=== PATIENT | female | born 2000 | race Caucasian/White ===

== ENCOUNTER → 2022-12-24 | Outpatient (CLI) | payer BC, SELFPAY ==
[2022-12-24 16:13] LABS: Absolute Lymphocyte Count 2.14 X10^3/uL (0.83-4.51); Absolute Neutrophil Count 8.9 X10^3/uL (2.0-7.7); Basophil# 0.03 X10^3/uL; Basophil% 0.3 % (0-1); Eosinophil# 0.06 X10^3/uL; Eosinophils% 0.5 % (0-5); Hematocrit 41.8 % (37-47); Lymphocyte # 2.14 X10^3/ul (0.83-4.51); Lymphocyte % 17.8 % (19-41); Mean Corp Hgb Conc 33.5 g/dL (32-36); Mean Corpuscular Hgb 28.9 pg (27.0-32.0); Mean Corpuscular Volume 86.2 fL (81-99); Mean Platelet Vol. 9.5 fl (6.2-12.0); Monocyte% 6.7 % (0-10); NRBC Flagged by Analyzer 0 % (0-5); Neutrophil # 8.92 X10^3/uL (2.7-7.7); Neutrophil % 74.4 % (47-70); Platelet Count 416 K/mm3 (150-450); RBC Distribution Width CV 12.2 % (11.6-14.6); RBC Distribution Width SD 38.3 fl (35.1-43.9); Red Blood Count 4.85 M/mm3 (4.2-5.4)
[2022-12-24 17:01] LABS: NATERA MAILED SPECIMEN
[2022-12-24 17:51] LABS: HIV - WCH Non-Reactive (Nonreactive); Hepatitis B Surface Antigen Non-Reactive (Nonreactive); Hepatitis C Antibody Non-Reactive (Nonreactive); Rubella IgG Reactive (Nonreactive); Syphilis Antibodies Non-reactive
[2022-12-28 07:07] LABS: Chlamydia By Nucleic Acid AMP Negative (Negative)
[2022-12-28 20:18] LABS: Gonococcus By Nucleic Acid AMP Negative (Negative)
[2023-01-01 18:45] LABS: HPV Reflexed? NOT INDICATED
== END | disposition home or self-care (01) ==
PROVIDERS: PCP Family Medicine; Referring Provider Obstetrics & Gynecology; Visit Provider Obstetrics & Gynecology
DX: Z34.90 Encounter for supervision of normal pregnancy, unspecified, unspecified trimester (principal)
CPT/HCPCS: 36415; 85025; 86703; 86762; 86780; 86803; 86850; 86900; 86901; 87086; 87340; 87491; 87591; 88175; G0145

== ENCOUNTER 2023-03-09 14:38 | Outpatient (CLI) | payer BC, SELFPAY ==
[2023-03-09] VITALS (10 sets, daily range): BP systolic 122; BP diastolic 65; PULSE 75–86; TEMP 36.5; O2SAT 97–99; BMI 29.0
--- NOTE | 2023-03-10 13:24 | OB.TRI.PN_ITS ---
Progress Notes Date of Service: 03/09/23 Progress Note: Patient presents for triage evaluation secondary to abd trauma the previous day FHT: 150 Appropriate variability for gestational age, reactive no decelerations category I tracing [place]: no Contractions Assessment and plan: Reactive NST, SM to room for ultrasound-reassuring, reassuring maternal and status patient discharged to home to follow-up at next appointment. See problem list details for additional plan information. Charges/Coding Multi Select Codes Urinary/Genital Urinary/Genital CPT Codes: 48661-51 non-stress test Interp
== END 2023-03-09 16:25 | disposition home or self-care (01) ==
LOC: WPOUT 14:45 → WP 14:47
PROVIDERS: PCP Family Medicine; Referring Provider Advanced Practice Midwife; Visit Provider Advanced Practice Midwife
DX: O9A.219 Injury, poisoning and certain other consequences of external causes complicating pregnancy, unspecified trimester (principal); S39.91XA Unspecified injury of abdomen, initial encounter; Z3A.00 Weeks of gestation of pregnancy not specified; X58.XXXA Exposure to other specified factors, initial encounter
CPT/HCPCS: 59050; 76815

== ENCOUNTER → 2023-04-29 | Outpatient (CLI) | payer BC, SELFPAY ==
[2023-04-29 12:45] LABS: Absolute Neutrophil Count 6.5 X10^3/uL (2.0-7.7); Basophil# 0.03 X10^3/uL; Basophil% 0.3 % (0-1); Eosinophil# 0.06 X10^3/uL; Eosinophils% 0.7 % (0-5); Hematocrit 37.4 % (37-47); Hemoglobin 12.1 g/dL (12.0-15.0); Lymphocyte % 19.6 % (19-41); Mean Corp Hgb Conc 32.4 g/dL (32-36); Mean Corpuscular Hgb 28.9 pg (27.0-32.0); Mean Corpuscular Volume 89.3 fL (81-99); Mean Platelet Vol. 9.5 fl (6.2-12.0); Monocyte# 0.71 X10^3/uL; Monocyte% 7.7 % (0-10); NRBC Flagged by Analyzer 0 % (0-5); Neutrophil # 6.51 X10^3/uL (2.7-7.7); Neutrophil % 70.9 % (47-70); Platelet Count 334 K/mm3 (150-450); RBC Distribution Width CV 12.5 % (11.6-14.6); RBC Distribution Width SD 40.8 fl (35.1-43.9); Red Blood Count 4.19 M/mm3 (4.2-5.4); White Blood Count 9.2 K/mm3 (4.4-11.0)
[2023-04-29 13:07] LABS: Glucose Challenge Gest 1H 50g 97 mg/dL (70-140)
[2023-04-29 13:37] LABS: HIV - WCH Non-Reactive (Nonreactive); Syphilis Antibodies Non-reactive
== END | disposition home or self-care (01) ==
LOC: LAB 12:09
PROVIDERS: PCP Family Medicine; Referring Provider Obstetrics & Gynecology; Visit Provider Obstetrics & Gynecology
DX: O09.90 Supervision of high risk pregnancy, unspecified, unspecified trimester (principal); Z3A.00 Weeks of gestation of pregnancy not specified
CPT/HCPCS: 36415; 82950; 85025; 86703; 86780

== ENCOUNTER → 2023-06-10 | Outpatient (CLI) | payer BC, SELFPAY | END | disposition home or self-care (01) | LOC: LABSPEC 15:07 | PROVIDERS: PCP Family Medicine; Referring Provider Nurse Practitioner Women's Health; Visit Provider Nurse Practitioner Women's Health | DX: R30.0 Dysuria (principal) | CPT/HCPCS: 87086; 87088 ==

== ENCOUNTER → 2023-06-25 | Outpatient (CLI) | payer BC, SELFPAY | END | disposition home or self-care (01) | PROVIDERS: PCP Family Medicine; Referring Provider Obstetrics & Gynecology; Visit Provider Obstetrics & Gynecology | DX: O09.90 Supervision of high risk pregnancy, unspecified, unspecified trimester (principal); Z3A.00 Weeks of gestation of pregnancy not specified | CPT/HCPCS: 87077; 87081; 87186 ==

== ENCOUNTER 2023-06-30 18:15 | Outpatient (CLI) | payer BC, SELFPAY ==
[2023-06-30 18:38] VITALS: PULSE 157; O2SAT 80
[2023-06-30 18:43] VITALS: PULSE 104; TEMP 37.9; O2SAT 98
[2023-06-30 18:45] VITALS: BP 127/77; PULSE 96
[2023-06-30 19:03] VITALS: BMI 32.5
[2023-06-30 19:05] VITALS: TEMP 37.4
--- NOTE | 2023-07-02 07:23 | OB.TRI.HP_ITS ---
HPI - General HPI Narrative FAREED YOUNG, is a 23 Fy/p a@ 36 weeks 6 days who presents to L&D due to decreased movement for a non-stress test. Maternal Data Information NORMA Calculator Estimated Delivery Date Method Current WG Current Estimate 07/22/23 LMP (Certain) 37w 1d Other Estimates 07/20/23 Ultrasound #1 37w 3d PFSH PFSH Home Medications multivitamin no.47-iron fum 27 mg-folate no.1 1 mg-dha 300 mg capsule (PNV-DHA) 1 cap PO DAILY 12/17/22 [History Last Taken 06/29/23] Allergy/AdvReac Type Severity Reaction Status Date / Time No Known Allergies Allergy Verified 06/30/23 19:02 Family History Brother Autism Sister Family history of recurrent miscarriage Social History adopted: No household members: spouse housing: house current occupational status: employed 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/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 pets and animals: Yes (not managing litterbox) pets and animals: cat(s) history of recent travel: Yes ([place]) out of state: Yes out of country: No sexually active: Yes Smoking Status: Never smoker alcohol intake: never substance use type: does not use well-balanced diet: about half the time caffeine: Yes Type: coffee Number of servings: 1 eating out: 1-3 times/week during the past year weight has: remained stable what type of physical activity do you participate in: walking frequency: 1-2 times per week duration: 60-90 minutes/day allen/congregation: Yazdanism seatbelt use: always do you feel safe at home: Yes additional 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: Shaquille- Ab History 1 Elective abortions Hx Para 0 Spontaneous abortions Hx # Term Pregnancies Ectopic pregnancies Hx # Pregnancies Multiple births # of living children Visit Details Expected Delivery Route/Plan Labor Preferences- CB/BF classes: discussed labor support person: Shaquille labor intervention preferences: [] pain management options preferred: natural-open to epidural if needed cut cord/dad catch: [] : yes PP control planned: [] discussed possible routes of delivery and associated risks: [] special requests: [] Plans Covid status: [] Flu vaccine: [] Tdap vaccine: discussed at 28 week visit. may get at 30 week appt. Rhogam: NA LARC form signed: done Problem list reviewed and updated with the most current plan of care details and appropriate orders placed. Relevant counseling for the gestational age provided. Continue routine care and follow up unless otherwise noted in visit notes/problem list details OB Flowsheet Initial Weight: Not Recorded Date -?-?-?-?-?-?-?-?-?-?-?-?- EGA Weight BP Urine Prot -?-?-?-?-?-?-?-?-?-?-?-?- Glucose FHR FuHt Pres Dilation -?-?-?-?-?-?-?-?-?-?-?-?- Effaced St Visit Note 12/24/22 -?-?-?-?-?-?-?-?-?-?-?-?- 10w 0d 167 lb 8 oz 121/76 -?-?-?-?-?-?-?-?-?-?-?-?- 180 -?-?-?-?-?-?-?-?-?-?-?-?- JV- single live IUP measuring 10 weeks 2 days and consistent with LMP. desires NIPT only. 01/19/23 -?-?-?-?-?-?-?-?-?-?-?-?- 13w 5d 168 lb 4 oz 123/76 Nega tive -?-?-?-?-?-?-?-?-?-?-?-?- Negative 165 -?-?-?-?-?-?-?-?-?-?-?-?- JV- no complaint s. normal NIPT boy 02/15/23 -?-?-?-?-?-?-?-?-?-?-?-?- 17w 4d 166 lb 8 oz 128/78 -?-?-?-?-?-?-?-?-?-?-?-?- 155 -?-?-?-?-?-?-?-?-?-?-?-?- LC- no concerns. no vb/cramping. declines afp. has anatomy scheduled. 03/17/23 -?-?-?-?-?-?-?-?-?-?-?-?- 21w 6d 173 lb 8 oz 108/70 Nega tive -?-?-?-?-?-?-?-?-?-?-?-?- Negative 145 -?-?-?-?-?-?-?-?-?-?-?-?- JV- anatomy scan reviewed and normal. no complaints. 04/14/23 -?-?-?-?-?-?-?-?-?-?-?-?- 25w 6d 182 lb 8 oz 121/71 Nega tive -?-?-?-?-?-?-?-?-?-?-?-?- Negative 145 26 -?-?-?-?-?-?-?-?-?-?-?-?- KW-+ FM, no lof/ vb/ctx. no complaints. Has to redo GCT-was late to draw 04/30/23 -?-?-?-?-?-?-?-?-?-?-?-?- 28w 1d 185 lb 8 oz 122/62 Nega tive -?-?-?-?-?-?-?-?-?-?-?-?- Negative 150 27 -?-?-?-?-?-?-?-?-?-?-?-?- KW-+fm, no lof/v b/cramping. labs reviewed-nl. Larc done. Tdap discussed. no concerns 05/14/23 -?-?-?-?-?-?-?-?-?-?-?-?- 30w 1d 188 lb 4 oz 94/68 Nega tive -?-?-?-?-?-?-?-?-?-?-?-?- Negative 145 31 -?-?-?-?-?-?-?-?-?-?-?-?- Kw-+fm. no lof/v b/ctx. no concerns 05/28/23 -?-?-?-?-?-?-?-?-?-?-?-?- 32w 1d 190 lb 121/74 Negative -?-?-?-?-?-?-?-?-?-?-?-?- Negative 155 32 -?-?-?-?-?-?-?-?-?-?-?-?- LC- no ctx/lof/v b. good fm. online CBE. would like to review pref sheet. 06/07/23 -?-?-?-?-?-?-?-?-?-?-?-?- 33w 4d 193 lb 2 oz 112/73 Nega tive -?-?-?-?-?-?-?-?-?-?-?-?- Negative 140 33 -?-?-?-?-?-?-?-?-?-?-?-?- KW-+fm, no lof/v b/ctx. no concerns today. 06/10/23 -?-?-?-?-?-?-?-?-?-?-?-?- 34w 0d 194 lb 104/70 Negative -?-?-?-?-?-?-?-?-?-?-?-?- Negative 146 34 0 -?-?-?-?-?-?-?-?-?-?-?-?- -work in for b ack pain, pressure. + UA. Cervix closed and no blood in vagina. Urine culture pending. Macrobid sent 06/25/23 -?-?-?-?-?-?-?-?-?-?-?-?- 36w 1d 195 lb 2 oz 107/75 Nega tive -?-?-?-?-?-?-?-?-?-?-?-?- Negative 130 35 -?-?-?-?-?-?-?-?-?-?-?-?- JV- gbs today. l abor precautions discussed. NST FHR Rate Baby A Baseline: 150 Variability:: Moderate Accelerations:: 15 x 15 Decelerations:: None NST Reactive:: Yes FHR Category:: Category I Uterine Activity:: occasional contractions Assessment & Plan (1) Decreased movement: (2) Positive GBS test: (3) UTI in : QUALIFIERS: Trimester: third trimester Qualified Code(s): O23.43 - Unspecified infection of urinary tract in , third trimester COMMENT: Rx macrobid. Culture pending (4) Supervision of high risk , antepartum: COMMENT: [id number], NORMA 07/22/23 Shaquille (5) : QUALIFIERS: Weeks of gestation: 36 weeks Qualified Code(s): Z3A.36 - 36 weeks gestation of COMMENT: NIPT low risk, discussed carrier testing, anatomy nl (6) Family history of recurrent miscarriage: COMMENT: sister- 6 miscarriages (7) Family history of autism: COMMENT: Brother PLAN: Plan NST is reactive and patient is now feeling movement dc to home with kick counts Charges/Coding Multi Select Codes Urinary/Genital Urinary/Genital CPT Codes: 53011-47 non-stress test Interp
--- NOTE | 2023-07-02 07:23 | OB.TRI.NOTE ---
HPI - General HPI Narrative FAREED YOUNG, is a 23 Fy/p a@ 36 weeks 6 days who presents to L&D due to decreased movement for a non-stress test. Maternal Data Information NORMA Calculator Estimated Delivery Date Method Current WG Current Estimate 07/22/23 LMP (Certain) 37w 1d Other Estimates 07/20/23 Ultrasound #1 37w 3d PFSH PFSH Home Medications multivitamin no.47-iron fum 27 mg-folate no.1 1 mg-dha 300 mg capsule (PNV-DHA) 1 cap PO DAILY 12/17/22 [History Last Taken 06/29/23] Allergy/AdvReac Type Severity Reaction Status Date / Time No Known Allergies Allergy Verified 06/30/23 19:02 Family History Brother Autism Sister Family history of recurrent miscarriage Social History adopted: No household members: spouse housing: house current occupational status: employed 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 pets and animals: Yes (not managing litterbox) pets and animals: cat(s) history of recent travel: Yes ([place]) out of state: Yes out of country: No sexually active: Yes Smoking Status: Never smoker alcohol intake: never substance use type: does not use well-balanced diet: about half the time caffeine: Yes Type: coffee Number of servings: 1 eating out: 1-3 times/week during the past year weight has: remained stable what type of physical activity do you participate in: walking frequency: 1-2 times per week duration: 60-90 minutes/day allen/hindu: Scientologist seatbelt use: always do you feel safe at home: Yes additional 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: Shaquille- Ab History 1 Elective abortions Hx Para 0 Spontaneous abortions Hx # Term Pregnancies Ectopic pregnancies Hx # Pregnancies Multiple births # of living children Visit Details Expected Delivery Route/Plan Labor Preferences- CB/BF classes: discussed labor support person: Shaquille labor intervention preferences: [] pain management options preferred: natural-open to epidural if needed cut cord/dad catch: [] : yes PP control planned: [] discussed possible routes of delivery and associated risks: [] special requests: [] Plans Covid status: [] Flu vaccine: [] Tdap vaccine: discussed at 28 week visit. may get at 30 week appt. Rhogam: NA LARC form signed: done Problem list reviewed and updated with the most current plan of care details and appropriate orders placed. Relevant counseling for the gestational age provided. Continue routine care and follow up unless otherwise noted in visit notes/problem list details OB Flowsheet Initial Weight: Not Recorded Date <del>?</del> EGA Weight BP Urine Prot <del>?</del> Glucose FHR FuHt Pres Dilation <del>?</del> Effaced St Visit Note 12/24/22 <del>?</del> 10w 0d 167 lb 8 oz 121/76 <del>?</del> 180 <del>?</del> JV- single live IUP measuring 10 weeks 2 days and consistent with LMP. desires NIPT only. 01/19/23 <del>?</del> 13w 5d 168 lb 4 oz 123/76 Negative <del>?</del> Negative 165 <del>?</del> JV- no complaints. normal NIPT boy 02/15/23 <del>?</del> 17w 4d 166 lb 8 oz 128/78 <del>?</del> 155 <del>?</del> LC- no concerns. no vb/cramping. declines afp. has anatomy scheduled. 03/17/23 <del>?</del> 21w 6d 173 lb 8 oz 108/70 Negative <del>?</del> Negative 145 <del>?</del> JV- anatomy scan reviewed and normal. no complaints. 04/14/23 <del>?</del> 25w 6d 182 lb 8 oz 121/71 Negative <del>?</del> Negative 145 26 <del>?</del> KW-+ FM, no lof/vb/ctx. no complaints. Has to redo GCT-was late to draw 04/30/23 <del>?</del> 28w 1d 185 lb 8 oz 122/62 Negative <del>?</del> Negative 150 27 <del>?</del> KW-+fm, no lof/vb/cramping. labs reviewed-nl. Larc done. Tdap discussed. no concerns 05/14/23 <del>?</del> 30w 1d 188 lb 4 oz 94/68 Negative <del>?</del> Negative 145 31 <del>?</del> Kw-+fm. no lof/vb/ctx. no concerns 05/28/23 <del>?</del> 32w 1d 190 lb 121/74 Negative <del>?</del> Negative 155 32 <del>?</del> LC- no ctx/lof/vb. good fm. online CBE. would like to review pref sheet. 06/07/23 <del>?</del> 33w 4d 193 lb 2 oz 112/73 Negative <del>?</del> Negative 140 33 <del>?</del> KW-+fm, no lof/vb/ctx. no concerns today. 06/10/23 <del>?</del> 34w 0d 194 lb 104/70 Negative <del>?</del> Negative 146 34 0 <del>?</del> MH-work in for back pain, pressure. + UA. Cervix closed and no blood in vagina. Urine culture pending. Macrobid sent 06/25/23 <del>?</del> 36w 1d 195 lb 2 oz 107/75 Negative <del>?</del> Negative 130 35 <del>?</del> JV- gbs today. labor precautions discussed. NST FHR Rate Baby A Baseline: 150 Variability:: Moderate Accelerations:: 15 x 15 Decelerations:: None NST Reactive:: Yes FHR Category:: Category I Uterine Activity:: occasional contractions Assessment & Plan (1) Decreased movement: (2) Positive GBS test: (3) UTI in : QUALIFIERS: Trimester: third trimester Qualified Code(s): O23.43 - Unspecified infection of urinary tract in , third trimester COMMENT: Rx macrobid. Culture pending (4) Supervision of high risk , antepartum: COMMENT: [id number], NORMA 07/22/23 Shaquille (5) : QUALIFIERS: Weeks of gestation: 36 weeks Qualified Code(s): Z3A.36 - 36 weeks gestation of COMMENT: NIPT low risk, discussed carrier testing, anatomy nl (6) Family history of recurrent miscarriage: COMMENT: sister- 6 miscarriages (7) Family history of autism: COMMENT: Brother PLAN: Plan NST is reactive and patient is now feeling movement dc to home with kick counts Charges/Coding Multi Select Codes Urinary/Genital Urinary/Genital CPT Codes: 24869-47 non-stress test Interp
== END 2023-06-30 19:25 | disposition home or self-care (01) ==
LOC: WPOUT 18:26 → WP 18:26
PROVIDERS: PCP Family Medicine; Referring Provider Obstetrics & Gynecology; Visit Provider Obstetrics & Gynecology
DX: O36.8130 Decreased fetal movements, third trimester, not applicable or unspecified (principal); O23.43 Unspecified infection of urinary tract in pregnancy, third trimester; Z3A.36 36 weeks gestation of pregnancy
CPT/HCPCS: 59025; 59050; 99221; G0378

== ENCOUNTER 2023-07-28 06:59 | Inpatient (IN) | payer BC, SELFPAY ==
[2023-07-28] VITALS (36 sets, daily range): BP systolic 100–139; BP diastolic 56–80; PULSE 67–109; TEMP 36–36.9; O2SAT 93–100; BMI 33.7
[2023-07-28] MEDS: Lactated Ringers 1,000 ML 50 ML IV (07:45)
[2023-07-28 08:03] LABS: Absolute Lymphocyte Count 1.89 X10^3/uL (0.83-4.51); Absolute Neutrophil Count 8.4 X10^3/uL (2.0-7.7); Basophil# 0.03 X10^3/uL; Basophil% 0.3 % (0-1); Eosinophil# 0.07 X10^3/uL; Eosinophils% 0.6 % (0-5); Hematocrit 38.2 % (37-47); Hemoglobin 12.1 g/dL (12.0-15.0); Lymphocyte # 1.89 X10^3/ul (0.83-4.51); Lymphocyte % 16.5 % (19-41); Mean Corp Hgb Conc 31.7 g/dL (32-36); Mean Corpuscular Hgb 26.2 pg (27.0-32.0); Mean Corpuscular Volume 82.7 fL (81-99); Mean Platelet Vol. 10.2 fl (6.2-12.0); Monocyte# 0.92 X10^3/uL; NRBC Flagged by Analyzer 0 % (0-5); Neutrophil # 8.44 X10^3/uL (2.7-7.7); Neutrophil % 73.8 % (47-70); Platelet Count 267 K/mm3 (150-450); RBC Distribution Width CV 13.3 % (11.6-14.6); RBC Distribution Width SD 39.8 fl (35.1-43.9); Red Blood Count 4.62 M/mm3 (4.2-5.4); White Blood Count 11.4 K/mm3 (4.4-11.0)
--- NOTE | 2023-07-28 08:24 | HP.PCM.OB_ITS ---
HPI - General General Date of Admission: 07/28/23 HPI Narrative FAREED YOUNG, is a 23 y/o @ 40 weeks 5 days who presents to L&D for Induction of labor Maternal Data Information NORMA Calculator Estimated Delivery Date Method Current WG Current Estimate 07/22/23 LMP (Certain) 40w 6d Other Estimates 07/20/23 Ultrasound #1 41w 1d PFSH PFSH Medical History no medical history Home Medications multivitamin no.47-iron fum 27 mg-folate no.1 1 mg-dha 300 mg capsule (PNV-DHA) 1 cap PO DAILY 12/17/22 [History Last Taken 07/26/23 21:00 1 cap] Allergy/AdvReac Type Severity Reaction Status Date / Time No Known Allergies Allergy Verified 07/28/23 07:35 Family History Brother Autism Sister Family history of recurrent miscarriage Social History adopted: No household members: spouse housing: house current occupational status: employed 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 pets and animals: Yes (not managing litterbox) pets and animals: cat(s) history of recent travel: Yes ([place]) out of state: Yes out of country: No sexually active: Yes Smoking Status: Never smoker alcohol intake: never substance use type: does not use well-balanced diet: about half the time caffeine: Yes Type: coffee Number of servings: 1 eating out: 1-3 times/week during the past year weight has: remained stable what type of physical activity do you participate in: walking frequency: 1-2 times per week duration: 60-90 minutes/day allen/sabianism: Anglican seatbelt use: always do you feel safe at home: Yes additional 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: 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 may get at 30 week appt. Rhogam: NA LARC form signed: done Problem list reviewed and updated with the most current plan of care details and appropriate orders placed. Relevant counseling for the gestational age provided. Continue routine care and follow up unless otherwise noted in visit notes/problem list details OB Flowsheet Initial Weight: Not Recorded Date -?-?-?-?-?-?-?-?-?-?-?-?- EGA Weight BP Urine Prot -?-?-?-?-?-?-?-?-?-?-?-?- Glucose FHR FuHt Pres Dilation -?-?-?-?-?-?-?-?-?-?-?-?- Effaced St Visit Note 12/24/22 -?-?-?-?-?-?-?-?-?-?-?-?- 10w 0d 167 lb 8 oz 121/76 -?-?-?-?-?-?-?-?-?-?-?-?- 180 -?-?-?-?-?-?-?-?-?-?-?-?- JV- single live IUP measuring 10 weeks 2 days and consistent with LMP. desires NIPT only. 01/19/23 -?-?-?-?-?-?-?-?-?-?-?-?- 13w 5d 168 lb 4 oz 123/76 Nega tive -?-?-?-?-?-?-?-?-?-?-?-?- Negative 165 -?-?-?-?-?-?-?-?-?-?-?-?- JV- no complaint s. normal NIPT boy 02/15/23 -?-?-?-?-?-?-?-?-?-?-?-?- 17w 4d 166 lb 8 oz 128/78 -?-?-?-?-?-?-?-?-?-?-?-?- 155 -?-?-?-?-?-?-?-?-?-?-?-?- LC- no concerns. no vb/cramping. declines afp. has anatomy scheduled. 03/17/23 -?-?-?-?-?-?-?-?-?-?-?-?- 21w 6d 173 lb 8 oz 108/70 Nega tive -?-?-?-?-?-?-?-?-?-?-?-?- Negative 145 -?-?-?-?-?-?-?-?-?-?-?-?- JV- anatomy scan reviewed and normal. no complaints. 04/14/23 -?-?-?-?-?-?-?-?-?-?-?-?- 25w 6d 182 lb 8 oz 121/71 Nega tive -?-?-?-?-?-?-?-?-?-?-?-?- Negative 145 26 -?-?-?-?-?-?-?-?-?-?-?-?- KW-+ FM, no lof/ vb/ctx. no complaints. Has to redo GCT-was late to draw 04/30/23 -?-?-?-?-?-?-?-?-?-?-?-?- 28w 1d 185 lb 8 oz 122/62 Nega tive -?-?-?-?-?-?-?-?-?-?-?-?- Negative 150 27 -?-?-?-?-?-?-?-?-?-?-?-?- KW-+fm, no lof/v b/cramping. labs reviewed-nl. Larc done. Tdap discussed. no concerns 05/14/23 -?-?-?-?-?-?-?-?-?-?-?-?- 30w 1d 188 lb 4 oz 94/68 Nega tive -?--?-?-?-?-?-?-?-?-?-?-?- Negative 145 31 -?-?-?-?-?-?-?-?-?-?-?-?- Kw-+fm. no lof/v b/ctx. no concerns 05/28/23 -?-?-?-?-?-?-?-?-?-?-?-?- 32w 1d 190 lb 121/74 Negative -?-?-?-?-?-?-?-?-?-?-?-?- Negative 155 32 -?-?-?-?-?-?-?-?-?-?-?-?- LC- no ctx/lof/v b. good fm. online CBE. would like to review pref sheet. 06/07/23 -?-?-?-?-?-?-?-?-?-?-?-?- 33w 4d 193 lb 2 oz 112/73 Nega tive -?-?-?-?-?-?-?-?-?-?-?-?- Negative 140 33 -?-?-?-?-?-?-?-?-?-?-?-?- KW-+fm, no lof/v b/ctx. no concerns today. 06/10/23 -?-?-?-?-?-?-?-?-?-?-?-?- 34w 0d 194 lb 104/70 Negative -?-?-?-?-?-?-?-?-?-?-?-?- Negative 146 34 0 -?-?-?-?-?-?-?-?-?-?-?-?- -work in for b ack pain, pressure. + UA. Cervix closed and no blood in vagina. Urine culture pending. Macrobid sent 06/25/23 -?-?-?-?-?-?-?-?-?-?-?-?- 36w 1d 195 lb 2 oz 107/75 Nega tive -?-?-?-?-?-?-?-?-?-?-?-?- Negative 130 35 -?-?-?-?-?-?-?-?-?-?-?--?- JV- gbs today. l abor precautions discussed. 07/02/23 -?-?-?-?-?-?-?-?-?-?-?-?- 37w 1d 195 lb 8 oz 116/74 -?-?-?-?-?-?-?-?-?-?-?-?- 130 37 -?-?-?-?-?-?-?-?-?-?-?-?- SM- no vb lof go od fm no regular ctx 07/09/23 -?-?-?-?-?-?-?-?-?-?-?-?- 38w 1d 197 lb 122/75 Negative -?-?-?-?-?-?-?-?-?-?-?-?- Negative 150 37 1 -?-?-?-?-?-?-?-?-?-?-?-?- 50 -2 LC- no vb/ ctx/lof. good fm. labor comfort techniques reviewed. 07/16/23 -?-?-?-?-?-?-?-?-?-?-?-?- 39w 1d 200 lb 4 oz 137/83 Nega tive -?-?-?-?-?-?-?-?-?-?-?-?- Negative 155 39 -?-?-?-?-?-?-?-?-?-?-?-?- KW-no vb/ctx/lof . goof fm. labor precautions reviewed. no concerns today 07/23/23 -?-?-?-?-?-?-?-?-?-?-?-?- 40w 1d 202 lb 4 oz 121/81 Nega tive -?-?-?-?-?-?-?-?-?-?-?-?- Negative 135 38 Cephalic 2 -?-?-?-?-?-?-?-?-?-?-?-?- 80 -2 JV- JV- no lof, vaginal bleeding , or dec fm. no complaints. IOL set up for next wednesday07/27/23 -?-?-?-?-?-?-?-?-?-?-?-?- 40w 5d 205 lb 6 oz 113/74 Nega tive -?-?-?-?-?-?-?-?-?-?-?-?- Negative 145 41 Cephalic 2 -?-?-?-?-?-?-?-?-?-?-?-?- 80 -2 SM- no vb lof good fm no regular ctx, membranes sweapt SM- no vb lof good fm no reg ular ctx, membranes swept ROS Constitutional Constitutional: Denies change in weight, fatigue, fever(s), headache(s), poor appetite or weakness Eyes Eyes: Denies blurry vision, change in vision, seeing flashes or spots in vision ENT HEENT: Denies dizziness, headache(s), loss taste/smell or sore throat Cardiovascular Cardiovascular: Denies chest pain, dizziness, dyspnea, irregular heart rhythm, leg edema, palpitations, rapid heart rate or vomiting Respiratory/Chest Respiratory/Chest: Denies chest tightness, cough, dyspnea or breast pain Gastrointestinal Gastrointestinal: Denies abdominal pain, anorexia, constipation, cramping, diarrhea, hemorrhoids, vomiting or weight changes Genitourinary Genitourinary: Denies dysuria, flank pain, genital lesions, genital pain, urinary frequency or urinary urgency Musculoskeletal Musculoskeletal: Denies back pain, difficulty walking, joint pain, limited range of motion, muscle cramps or numbness Integumentary Integumentary: Denies lesions or unusual bruising Neurologic Neurologic: Denies abnormal movements, abnormal speech, dizziness, numbness, seizure-like activity or syncope Psychiatric Psychiatric: Denies anxiety, behavioral changes, change in appetite, change in libido, cognitive impairment, confusion, depression, difficulty concentrating, hallucinations or suicidal thoughts Endocrine Endocrinology: Denies excessive sweating, polydipsia or polyuria Hematologic/Lymphatic Hematologic/Lymphatic: Denies easy bleeding, easy bruising or lymphadenopathy Allergic/Immunologic Allergic/Immunologic: Denies itchy eyes, lip swelling, seasonal rhinorrhea, rhinitis, throat swelling, tongue swelling, eczemia, wheezing or asthma Vital Signs Vital Signs Vital Signs: 07/28/23 08:05 07/28/23 08:05 Pulse Rate 95 Blood Pressure 129/75 H BP Systolic 129 BP Diastolic 75 Weight Weight: 203 lb 0.732 oz Body Mass Index (BMI) 33.7 Physical Exam Const alert, oriented x3, no apparent distress and healthy appearing General Appearance: cooperative; Negative for anxious HEENT normocephalic Face and Sinus: normal facial exam Eyes EOMs intact bilaterally and no scleral icterus General Eye: normal appearance of both eyes Neck full ROM and supple Lymph Lymphatic: no lymphadenopathy noted Chest Chest: abnormal inspection of the chest Resp normal respiratory effort Effort and Inspection: able to speak in complete sentences Cardio regular rate GI soft to palpation and non-tender Inspection: gravid Palpation: soft; Negative for tender external exam normal Narrative: a 23 citizen of [place] cerna catheter was inserted into the cervix and inflated with 60 cc of NS. The starting point of the cervix is 2.5/80/-1. Membranes intact and vtx presentation appreciated. Back/Spine no CVA tenderness Extremity normal to inspection, full ROM and no clubbing, cyanosis or edema General Extremity: Negative for calf tenderness or edema Skin Lesions: no lesions Rashes: no rashes Psych mental status grossly normal Labs Labs Labs: Blood Type O POSITIVE Antibody Screen NEGATIVE Hct 38.2 % (37-47) Hgb 12.1 g/dL (12.0-15.0) Syphilis Total Ab Non-reactive Rubella IgG Antibody Reactive (Nonreactive) Hep Bs Antigen Non-Reactive (Nonreactive) Chlamydia DNA (SHIRAZ) Negative (Negative) Neisseria gonorrhoeae DNA (SHIRAZ) Negative (Negative) HIV 1&2 Antibody Non-Reactive (Nonreactive) Glucose 1 Hr 50 gm 97 mg/dL (70-140) Assessment & Plan (1) Positive GBS test: COMMENT: pcn in labor (2) UTI in : QUALIFIERS: Trimester: third trimester Qualified Code(s): O23.43 - Unspecified infection of urinary tract in , third trimester COMMENT: Rx macrobid. Culture pending (3) Supervision of high risk , antepartum: COMMENT: [id number], NORMA 07/22/23 boy Shaquille (4) : QUALIFIERS: Weeks of gestation: 40 weeks Qualified Code(s): Z3A.40 - 40 weeks gestation of COMMENT: NIPT low risk, discussed carrier testing, anatomy nl (5) Family history of recurrent miscarriage: COMMENT: sister- 6 miscarriages (6) Family history of autism: COMMENT: Brother PLAN: Plan Patient presents IOL, plan management for with cerna/ pitocin/AROM. Pain management: plans epidural. GBS positive- start pcn. Management of any complications: none I have reviewed the [facility] and made any clinically relevant updates.
[2023-07-28] MEDS: 0.9% Normal Saline Single 100 ML IV.SOLN. INTRA-UTER ×2 (08:28→09:41)
[2023-07-28] MEDS: Penicillin G Pot 5,000,000 UNITS in 0.9% Normal Saline (100mL MB+) 100 ML 150 UNITS IV (08:29)
[2023-07-28] MEDS: fentaNYL 100 MCG/2 ML Ampul IV (09:02)
[2023-07-28] MEDS: Oxytocin 15 Units/NS 250ml 15 UNITS/250 ML IV.SOLN 2 UNITS IV (09:23)
[2023-07-28 09:49] LABS: Syphilis Antibodies Non-reactive
--- NOTE | 2023-07-28 12:19 | PN_ITS ---
Progress Note pt is breathing through contractions. 30cc was let out of the balloon earlier due to pain and then the balloon spontaneously expelled recently. The bleeding that was seen after insertion has subsided. She consents to AROM. current tracing: FHT: 120, Moderate variability reactive no decelerations category I tracing [place]: q 2 min Contractions cx is 5/80/-1, membranes ruptured with blood tinged fluid present. A/P: pitocin backed down to 4 mu from 6 mu due to tachysystole contraction pattern and is now improved. continue monitoring. pt so far does not want an epidural but may change her mind.
[2023-07-28] MEDS: LACTATED RINGERS 500 ML 999 ML IV (12:27)
[2023-07-28] MEDS: fentaNYL-bupivacaine (epidural) 100 ML BAG EPIDURAL ×2 (13:09→17:28)
[2023-07-28] MEDS: Penicillin G 3,000,000 Units 50 ML 100 UNITS IV ×2 (13:10→17:38)
[2023-07-28] MEDS: Mag Hydrox/Al Hydrox/Simeth 30 ML UDC PO ×2 (15:32→19:21)
[2023-07-28] MEDS: Lactated Ringers 1,000 ML 200 ML IV ×2 (15:59→22:02)
[2023-07-28] MEDS: Ondansetron 4 MG/2 ML Vial IV ×2 (17:00→21:00)
[2023-07-28] MEDS: 0.9% Saline Lock 10 ML Syringe IV (17:02)
--- NOTE | 2023-07-28 17:54 | NURSING ---
catheter placement at 1410 was discontinued at 1652 due to cathter being expelled during sterile vag exam. New catheter inserted at 1715 by Hasmukh RAMÍREZ
--- NOTE | 2023-07-28 22:52 | EX.PCM.OBRPT ---
Assessment & Plan (1) Maternal exhaustion complicating labor and delivery: (2) Positive GBS test: COMMENT: pcn in labor (3) UTI in : QUALIFIERS: Trimester: third trimester Qualified Code(s): O23.43 - Unspecified infection of urinary tract in , third trimester COMMENT: Rx macrobid. Culture pending (4) Supervision of high risk , antepartum: COMMENT: [id number], NORMA 07/22/23 boy Shaquille (5) : QUALIFIERS: Weeks of gestation: 40 weeks Qualified Code(s): Z3A.40 - 40 weeks gestation of COMMENT: NIPT low risk, discussed carrier testing, anatomy nl (6) Family history of recurrent miscarriage: COMMENT: sister- 6 miscarriages (7) Family history of autism: COMMENT: Brother Maternal Data Information NORMA Calculator Estimated Delivery Date Method Current WG Current Estimate 07/22/23 LMP (Certain) 40w 6d Other Estimates 07/20/23 Ultrasound #1 41w 1d Final NORMA: 07/22/23 Final NORMA Source: LMP Gestational age: 40 weeks 6 days Vaginal Delivery Maternal Presentation Maternal Presentation: Elective Induction Type of Induction: Pitocin, Collins Bulb and Amniotomy Operative Information Date of Procedure: 07/28/23 Pre-Operative Diagnosis: 23 y/o @ 40 weeks 6 days, maternal exhaustion with pushing Post-Operative Diagnosis: 23 y/o @ 40 weeks 6 days, maternal exhaustion with pushing Type of Anesthesia: Epidural Findings Description of Procedure: Complications: None Findings: Viable male , scores 8/9. Weight pending Details of delivery: This is a 23 year old woman who was admitted to labor and delivery for post dates. The decision was made to perform a vacuum extraction due to exhaustion with pushing. The patient requested the vacuum extraction after pushing for over 2 hours. The risk benefits and alternatives of the procedure were discussed with the patient and verbal consent was obtained. The was noted to be at a +2 station, the cervix was completely dilated. The infant's head was noted to be in the right occiput anterior presentation. The vacuum was placed in the correct placement in front of the posterior fontanelle. This was confirmed digitally. With the patient's next contraction, the vacuum was inflated and a gentle downward pressure was used to assist with bringing the baby's head to a +3 station. With 2 pull, 0 pop offs, and a mediolateral episiotomy, The head was delivered atraumatically. No nuchal cord was noted. The anterior shoulder followed by the posterior shoulder were delivered without difficulty. The cord was reduced from the 's neck and shoulders after delivery. The was handed off to the patient's chest. The infant was found to be vigorous and crying and moving of all 4 extremities. The mouth and nares were bulb suctioned. After 60 second delay the cord was clamped and cut and the infant was handed off to the awaiting nurses for routine assessment. The placenta was delivered with gentle traction and uterine massage. Inspection of the vagina cervix and perineum was performed. There were no lacerations to the vagina or to the cervix. The peritoneum was found to have a 2nd degree perineal laceration. The perineal laceration was closed using a 2-0 and 3-0 Vicryl in the usual sterile fashion. The patient tolerated the procedure well sponge lap and needle counts were correct x2 and she is now recovering in stable condition. Presentation: Vertex Amniotic Membrane Rupture Type: Artificial Amniotic Fluid Description: Clear Placenta Disposition: [facility] Cord Vessel Description: 3 Vessels Cord Entanglement: Around neck x 1, tight Nuchal Cord Compression: Without compression Cord Gases: ABG and VBG Infant A Gender: Male (1 minute): 8 (5 minute): 9 Delayed Cord Clamping: Yes Post Vaginal Delivery Medications Given After Delivery: IV Pitocin Episiotomy Description: 2nd degree Laceration: 2nd degree Complication Complications: None Multi Select Codes Urinary/Genital Urinary/Genital CPT Codes: 98511 Vaginal Delivery global pkg and Other Procedure See Report (vacuum assisted vaginal delivery )
--- NOTE | 2023-07-28 22:58 | DCINST_ITS ---
Discharge Instructions Diet Discharge Diet: No restrictions Activity Discharge Activity: Return to Normal Activity, May Not Drive (while taking narcotic pain medications.) and May Shower May resume sexual activity in: 4-6 weeks Dressing / Incision Call your doctor if your incision/area has: Continuous Slow Oozing, Sudden Increased Bleeding, Increased Pain/ Swelling, Increased Redness and Foul Smelling Discharge Follow Up Care Please Follow Up With: Elli Edwards, When: Call [phone] to make an appointment with your doctor in 6 weeks. If you had elevated blood pressure or 4th degree laceration, you will need to be seen in 2 weeks. Test Results: Test results from this visit will be discussed in further detail at your follow- up appointment, if applicable. Discharge Plan Admission Admit Date/Time: 07/28/23 06:59 Primary Reason for Your Visit: vaginal delivery Attending Provider: Elli Edwards Primary Care Provider: Solitario Mccabe Discharge Orders/Prescriptions Prescriptions: No Action PNV-DHA 27 mg iron-1 mg -300 mg capsule 1 cap PO DAILY Referrals / Follow Up: Solitario Mccabe MD [Primary Care Provider] - Disposition Disposition (needs filled in before D/C Order can be placed): Home, Self Care
[2023-07-28] MEDS: Oxytocin 15 Units/NS 250ml 15 UNITS/250 ML IV.SOLN 83 UNITS IV (23:05)
[2023-07-29] VITALS (14 sets, daily range): BP systolic 116–143; BP diastolic 60–93; PULSE 90–112; RESP 16–20; TEMP 36.4–36.6; O2SAT 96–99
[2023-07-29] MEDS: Acetaminophen 500 MG Tablet 1000 MG PO ×3 (00:09→15:24)
[2023-07-29] MEDS: Benzocaine/Lanolin/Aloe Vera 1 SPRAY EACH TOPICAL (00:09)
[2023-07-29] MEDS: Senna/Docusate Sodium 1 Tablet PO (07:49)
--- NOTE | 2023-07-29 07:57 | PN.OBGYN_ITS ---
Subjective Subjective Patient doing well without complaints. Tolerating PO. Ambulating and voiding without difficulty. Feeding well. Denies chest pain, shortness of breath, calf pain/swelling, fevers, chills, lightheadedness. Objective Data Objective Data Vital Signs: Vital Signs Temp Pulse Resp BP Pulse Ox O2 Del Method 97.7 F L 99 16 119/67 98 Room Air 07/29/23 07:29 07/29/23 07:31 07/29/23 07:29 07/29/23 07:29 07/29/23 07:31 07/29/23 07:31 Oxygen Delivery Method Room Air Weight: 203 lb 0.732 oz Body Mass Index (BMI) 33.7 Intake & Output: Intake and Output for Last 24 Hours 07/27/23 07/28/23 07/29/23 23:59 23:59 23:59 Intake Total 2760.00 / 2760.00 250 / 250 Output Total 750 / 750 Balance 2009.00 / 2009. 250 / 250 Lab / Micro Data 07/28/23 07:45 Labs: Laboratory Results - last 24 hr 07/28/23 07:45: WBC 11.4 H, RBC 4.62, Hgb 12.1, Hct 38.2, MCV 82.7, MCH 26.2 L, MCHC 31.7 L, RDW Std Deviation 39.8, RDW Coeff of Claudette 13.3, Plt Count 267, MPV 10.2, Immature Gran % (Auto) 0.800, Neut % (Auto) 73.8 H, Lymph % (Auto) 16.5 L, [place] % (Auto) 8.0, Eos % (Auto) 0.6, Baso % (Auto) 0.3, Absolute Neuts (auto) 8.4 H, Absolute Lymphs (auto) 1.89, Nucleated RBC % 0, Syphilis Total Ab Non- reactive, Blood Type O POSITIVE, Antibody Screen NEGATIVE Physical Exam Const alert and oriented x3 HEENT normocephalic Eyes PERRL Neck full ROM Resp normal respiratory effort GI soft to palpation GI Narrative: FF below U Assessment & Plan (1) Vaginal delivery: COMMENT: LYRIC 07/28/23 TIMMY Perez PLAN: Plan problem list reviewed and updated for most current plan of care and appropriate orders placed. Relevant counseling for the gestational age appropriate provided and ACOG education checklist updated. Continue routine care and follow up.
--- NOTE | 2023-07-29 12:26 | NURSING ---
This nursing professor reviewed the documentation of Dylon Nolan student nurse and was present for medication administration this morning.
[2023-07-30 01:41] VITALS: BP 121/60; PULSE 81; RESP 16; TEMP 36.4; O2SAT 97
[2023-07-30 01:44] VITALS: BP 121/60; PULSE 81
--- NOTE | 2023-07-30 08:14 | PCM.PN.OB ---
Subjective Subjective Patient doing well without complaints. Tolerating PO. Ambulating and voiding without difficulty. feeding well. Denies chest pain, shortness of breath, calf pain/swelling, fevers, chills, lightheadedness. Objective Data Objective Data Vital Signs: Vital Signs Temp Pulse Resp BP Pulse Ox O2 Del Method 97.6 F L 81 16 121/60 H 97 Room Air 07/30/23 01:41 07/30/23 01:44 07/30/23 01:41 07/30/23 01:44 07/30/23 01:41 07/30/23 01:41 Oxygen Delivery Method Room Air Weight: 203 lb 0.732 oz Body Mass Index (BMI) 33.7 Intake & Output: Intake and Output for Last 24 Hours 07/28/23 07/29/23 07/30/23 23:59 23:59 23:59 Intake Total 2760.00 / 2760.00 250 / 250 Output Total 750 / 750 Balance 2009. / 2009. 250 / 250 Lab / Micro Data 07/28/23 07:45 ROS Constitutional Constitutional: Reports systems reviewed and no addt'l complaints, except as documented Cardiovascular Cardiovascular: Reports systems reviewed and no addt'l complaints, except as documented Respiratory/Chest Respiratory/Chest: Reports systems reviewed and no addt'l complaints, except as documented Gastrointestinal Gastrointestinal: Reports systems reviewed and no addt'l complaints, except as documented Physical Exam Const alert, oriented x3 and no apparent distress HEENT Head and Scalp: atraumatic Resp normal respiratory effort GI soft to palpation and non-tender Bimanual Exam - Vag & Uterus: uterus non-tender Uterus Palpation: uterus fundus firm (below Umbilicus) Assessment & Plan (1) Vaginal delivery: COMMENT: LYRIC 07/28/23 TIMMY Perez PLAN: Plan s/p PPD # 2 1. routine post delivery care 2. breast feeding- support given 3. rh positive 4. rubella immune
[2023-07-30 09:10] VITALS: BP 130/77; PULSE 90; RESP 18; TEMP 36.5; O2SAT 98
[2023-07-30 10:02] VITALS: BP 130/77; PULSE 90
== END 2023-07-30 12:15 | disposition home or self-care (01) | DRG 807 ==
PROVIDERS: Admitting Provider Obstetrics & Gynecology; PCP Family Medicine; Referring Provider Obstetrics & Gynecology; Visit Provider Obstetrics & Gynecology
DX: O75.81 Maternal exhaustion complicating labor and delivery (principal); Z37.0 Single live birth; O69.81X0 Labor and delivery complicated by cord around neck, without compression, not applicable or unspecified; O99.824 Streptococcus B carrier state complicating childbirth; O70.1 Second degree perineal laceration during delivery; Z3A.40 40 weeks gestation of pregnancy; Z84.89 Family history of other specified conditions
CPT/HCPCS: 59025; 59050; 85025; 86780; 86850; 86900; 86901; 99221; J7120; A4216; G0378; J2405

== ENCOUNTER → 2024-10-27 | Outpatient (CLI) | payer BC, SELFPAY ==
[2024-10-30 21:06] LABS: Chlamydia By Nucleic Acid AMP Negative (Negative); Gonococcus By Nucleic Acid AMP Negative (Negative)
== END | disposition home or self-care (01) ==
LOC: LABSPEC 15:20
PROVIDERS: PCP Family Medicine; Referring Provider Advanced Practice Midwife; Visit Provider Advanced Practice Midwife
DX: Z34.90 Encounter for supervision of normal pregnancy, unspecified, unspecified trimester (principal)
CPT/HCPCS: 87086; 87491; 87591

== ENCOUNTER → 2024-11-28 | Outpatient (CLI) | payer BC, SELFPAY ==
[2024-11-28 12:35] LABS: Absolute Lymphocyte Count 1.76 X10^3/uL (0.83-4.51); Absolute Neutrophil Count 5.6 X10^3/uL (2.0-7.7); Basophil# 0.03 X10^3/uL; Basophil% 0.4 % (0-1); Eosinophil# 0.05 X10^3/uL; Eosinophils% 0.6 % (0-5); Hemoglobin 13.6 g/dL (12.0-15.0); Lymphocyte # 1.76 X10^3/ul (0.83-4.51); Lymphocyte % 22.1 % (19-41); Mean Corp Hgb Conc 33.2 g/dL (32-36); Mean Corpuscular Hgb 28.3 pg (27.0-32.0); Mean Corpuscular Volume 85.2 fL (81-99); Mean Platelet Vol. 9.7 fl (6.2-12.0); Monocyte# 0.51 X10^3/uL; Monocyte% 6.4 % (0-10); NRBC Flagged by Analyzer 0 % (0-5); Neutrophil # 5.58 X10^3/uL (2.7-7.7); Neutrophil % 70.2 % (47-70); Platelet Count 328 K/mm3 (150-450); RBC Distribution Width CV 11.9 % (11.6-14.6); RBC Distribution Width SD 36.2 fl (35.1-43.9); Red Blood Count 4.81 M/mm3 (4.2-5.4)
[2024-11-28 22:10] LABS: HIV - WCH Non-Reactive (Nonreactive); Hepatitis B Surface Antigen Non-Reactive (Nonreactive); Hepatitis C Antibody Non-Reactive (Nonreactive); Rubella IgG Reactive (Nonreactive); Syphilis Antibodies Non-reactive
== END | disposition home or self-care (01) ==
LOC: BWCLAB 11:53
PROVIDERS: Advanced Practice Midwife; PCP Family Medicine; Referring Provider Obstetrics & Gynecology; Visit Provider Obstetrics & Gynecology
DX: Z34.90 Encounter for supervision of normal pregnancy, unspecified, unspecified trimester (principal)
CPT/HCPCS: 36415; 85025; 86703; 86762; 86780; 86803; 86850; 86900; 86901; 87340

== ENCOUNTER → 2025-02-27 | Outpatient (CLI) | payer BC, SELFPAY ==
[2025-02-27 12:12] LABS: Absolute Lymphocyte Count 1.73 X10^3/uL (0.83-4.51); Basophil# 0.03 X10^3/uL; Basophil% 0.3 % (0-1); Eosinophil# 0.06 X10^3/uL; Eosinophils% 0.5 % (0-5); Hematocrit 36.9 % (37-47); Hemoglobin 12.3 g/dL (12.0-15.0); Lymphocyte # 1.73 X10^3/ul (0.83-4.51); Lymphocyte % 14.8 % (19-41); Mean Corp Hgb Conc 33.3 g/dL (32-36); Mean Corpuscular Hgb 28.9 pg (27.0-32.0); Mean Corpuscular Volume 86.6 fL (81-99); Mean Platelet Vol. 10.1 fl (6.2-12.0); Monocyte# 0.81 X10^3/uL; Monocyte% 6.9 % (0-10); NRBC Flagged by Analyzer 0 % (0-5); Neutrophil # 9.02 X10^3/uL (2.7-7.7); Platelet Count 325 K/mm3 (150-450); RBC Distribution Width CV 13.1 % (11.6-14.6); RBC Distribution Width SD 41.1 fl (35.1-43.9); Red Blood Count 4.26 M/mm3 (4.2-5.4); White Blood Count 11.7 K/mm3 (4.4-11.0)
[2025-02-27 12:54] LABS: Glucose Challenge Gest 1H 50g 78 mg/dL (70-140); HIV Nonreactive (Nonreactive); Syphilis Antibodies Nonreactive (Nonreactive)
== END | disposition home or self-care (01) ==
PROVIDERS: Registered Nurse; PCP Family Medicine; Referring Provider Obstetrics & Gynecology; Visit Provider Obstetrics & Gynecology
DX: Z34.82 Encounter for supervision of other normal pregnancy, second trimester (principal); Z81.8 Family history of other mental and behavioral disorders
CPT/HCPCS: 36415; 82950; 85025; 86703; 86780

== ENCOUNTER 2025-04-23 20:15 | Outpatient (CLI) | payer BC, SELFPAY ==
[2025-04-23 20:28] VITALS: BP 112/62; PULSE 94
--- NOTE | 2025-04-23 22:40 | OB.TRI.HP_ITS ---
HPI - General General Date of Service: 04/23/25 HPI Narrative FAREED LORENZO, is a 25 F who presents at 34 weeks s/p fall onto her buttocks while carrying her son around 1900. denies ctx, vb. however has not felt movement since. Maternal Data Information NORMA Calculator Estimated Delivery Date Method Current WG Current Estimate 06/04/25 LMP (Certain) 34w 0d Other Estimates 06/03/25 Ultrasound #1 34w 1d PFSH PFSH Medical History Vaginal delivery Family history of recurrent miscarriage Home Medications ?Medication ?Instructions ?Recorded ?Last Taken ?Type multivitamin no.47-iron fum 27 1 cap PO DAILY PREGNANC Y 12/17/22 07/26/23 21:00 History mg-folate no.1 1 mg-dha 300 mg 1 cap capsule (PNV-DHA) Allergy/AdvReac Type Severity Reaction Status Date / Time No Known Allergies Allergy Verified 04/10/25 10:43 Family History Brother Autism Sister Family history of recurrent miscarriage Mother Thyroid cancer, Onset Age: 52 Sister Thyroid cancer, Onset Age: 40 Thyroid removed Father Myocardial infarction, Onset Age: 54 Social History adopted: No household members: spouse and children housing: house number of children: 1 current occupational status: employed 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 @ [employer] current occupational exposures/hazards: No pets and animals: Yes (not managing litterbox) pets and animals: cat(s) history of recent travel: Yes ([place] - August 2024) out of state: Yes out of country: No sexually active: Yes Smoking Status: Never smoker alcohol intake: never substance use type: does not use well-balanced diet: daily or most days caffeine: No eating out: rarely or never during the past year weight has: remained stable what type of physical activity do you participate in: walking frequency: daily duration: < 15 minutes/day allen/buddhist: Jainism seatbelt use: always do you feel safe at home: Yes additional 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: : Shaquille- Ab History 2 Elective abortions Hx Para 1 Spontaneous abortions Hx # Term Pregnancies 1 Ectopic pregnancies Hx # Pregnancies Multiple births # of living children 1 Past Pregnancies Del. Date Name GA/Weeks Outcome Route Bth Weight Infant Gen Labor Lgth Anesthesia Del Locatn Provider FOB 07/28/23 Chris 40 live - full term vacuum 9lbs 5oz Male ep idural [facility] Dr. Isabel Delivery Date: 07/28/23 Last Updated by: Cesilia Hernandez GBS + Visit Details Expected Delivery Route/Plan Labor Preferences- CB/BF classes: no labor support person: Shaquille labor intervention preferences: [] pain management options preferred: epidural if requested cut cord/dad catch: cord : yes PP control planned: discussed discussed possible routes of delivery and associated risks: [] special requests: [] Plans Covid status: [] Flu vaccine: declined Tdap vaccine: declines Rhogam: NA LARC form signed: yes Problem list reviewed and updated with the most current plan of care details and appropriate orders placed. Relevant counseling for the gestational age provided. Continue routine care and follow up unless otherwise noted in visit notes/problem list details OB Flowsheet Initial Weight: 167 lb Date -?-?-?-?-?-?-?-?-?-?-?-?- EGA Weight BP Urine Prot -?-?-?-?-?-?-?-?-?-?-?-?- Glucose FHR FuHt Pres Dilation -?-?-?-?-?-?-?-?-?-?-?-?- Effaced St Visit Note 10/27/24 -?-?-?-?-?-?-?-?-?-?-?-?- 8w 4d 167 lb (+0 oz) 121/76 Negative -?-?-?-?-?-?-?-?-?-?-?-?- Negative 181 -?-?-?-?-?-?-?-?-?-?-?-?- KW- CRL cons wit h dates. NIPT undecided. will get labs next visit. 11/28/24 -?-?-?-?-?-?-?-?-?-?-?-?- 13w 1d 170 lb 8 oz (+3 lb 8 oz) 117/76 Negative -?-?-?-?-?-?-?-?-?-?-?-?- Negative 150 -?-?-?-?-?-?-?-?-?-?-?-?- SM- declines NIP T no vb crmaping 01/03/25 -?-?-?-?-?-?-?-?-?-?-?-?- 18w 2d 173 lb (+6 lb) 110/64 Negative -?-?-?-?-?-?-?-?-?-?-?-?- Negative 160 -?-?-?-?-?-?-?-?-?-?-?-?- MH-No VB. Not fe eling movement yet. Denies concerns 01/26/25 -?-?-?--?-?-?-?-?-?-?-?-?- 21w 4d 177 lb 7 oz (+10 lb 7 oz) 104/71 Negative -?-?-?-?-?-?-?-?-?-?-?-?- Negative 155 21 -?-?-?-?-?-?-?-?-?-?-?-?- LC- no vb/crampi ng. LC- no vb/cramping. 28 week labs ordered 02/27/25 -?-?-?-?-?-?-?-?-?-?-?-?- 26w 1d 183 lb 4 oz (+16 lb 4 oz) 113/67 Negative -?-?-?-?-?-?-?-?-?-?-?-?- Negative 145 27 -?-?-?-?-?-?-?-?-?-?-?-?- JV- no lof, vagi nal bleeding, or dec fm. froylan guevara today an felt very dizzy. she was given crackers and some candy after her blood draw and felt better. undecided about Tdap. 03/26/25 -?-?-?-?-?-?-?-?-?-?-?-?- 30w 0d 187 lb 8 oz (+20 lb 8 oz) 102/70 Negative -?-?-?-?-?-?-?-?-?-?-?-?- Negative 143 30 -?-?-?-?-?-?-?-?-?-?-?-?- MH-No VB, LOF. G ood Fm. No concerns 04/10/25 -?-?-?-?-?-?-?-?-?-?-?-?- 32w 1d 191 lb 4 oz (+24 lb 4 oz) 119/74 Negative -?-?-?-?-?-?-?-?-?-?-?-?- Negative 160 32 -?-?-?-?-?-?-?-?-?-?-?-?- KW- no vb/lof/ct x. good fm. no concerns today. NST FHR Rate Baby A Baseline: 130-150 Variability:: Moderate Accelerations:: 15 x 15 Decelerations:: None NST Reactive:: Yes FHR Category:: Category I Uterine Activity:: none Assessment & Plan (1) Status post fall: COMMENT: accidental fall. no vb/ctx, cat 1 tracing. PLAN: Patient presents for triage evaluation secondary to fall. 4 hours of monitoring without contractions, lof or vb. FHT: Moderate variability reactive no decelerations category I tracing [place]: no Contractions Assessment and plan: Reactive NST, reassuring maternal and status patient discharged to home to follow-up in office at next appt. See problem list details for additional plan information. Charges/Coding Procedures Urinary/Genital [id number]: 58316-01 non-stress test Interp
== END 2025-04-23 23:48 | disposition home or self-care (01) ==
LOC: WPOUT 20:18 → WP 20:19
PROVIDERS: PCP Family Medicine; Visit Provider Registered Nurse
DX: Z34.93 Encounter for supervision of normal pregnancy, unspecified, third trimester (principal)
CPT/HCPCS: 59025; 59050; 99221; G0378

== ENCOUNTER → 2025-05-09 | Outpatient (CLI) | payer BC, SELFPAY | END | disposition home or self-care (01) | LOC: LABSPEC 11:53 | PROVIDERS: PCP Family Medicine; Visit Provider Nurse Practitioner Women's Health | DX: Z34.83 Encounter for supervision of other normal pregnancy, third trimester (principal) | CPT/HCPCS: 87081 ==

== ENCOUNTER → 2025-05-29 | Outpatient (CLI) | payer BC, SELFPAY ==
--- NOTE | 2025-05-29 11:49 | US_ITS ---
PROCEDURE: OB LIMITED WITH BIOMETRICS 05/29/2025 REASON FOR EXAM: UTERINE SIZE DATE DISCREPANCY TECHNIQUE: OB LIMITED WITH BIOMETRICS COMPARISON: None FINDINGS There is a live intrauterine . Position is cephalic. The placenta is anterior not low, grade 3. heart motion = 131 beats per minute PAULINE = 6.08 cm, max vertical pocket = 2.3 cm BPD = 9.11 cm, 37 weeks 0 days, 26% OFD = 1.14 cm = 36 weeks 2 days, 26% Head circumference = 32.19 cm, 36 weeks 2 days, 2% Abdominal circumference 36.18 cm, 40 weeks 1 day, 90% Femur length = 7.28 cm, 37 week 2 days, 15% Estimated weight = 3650 g, 66 percentile age by current ultrasound = 37 weeks 1 days Estimated due date by current ultrasound June 18, 2025 US/OB Limited With Biometrics IMPRESSION: Live intrauterine at 37 weeks 1 day, NORMA = June 18, 2025. Reading Location: [facility]
--- NOTE | 2025-05-29 11:49 | US_ITS ---
PROCEDURE: OB LIMITED WITH BIOMETRICS 05/29/2025 REASON FOR EXAM: UTERINE SIZE DATE DISCREPANCY TECHNIQUE: OB LIMITED WITH BIOMETRICS COMPARISON: None FINDINGS There is a live intrauterine . Position is cephalic. The placenta is anterior not low, grade 3. heart motion = 131 beats per minute PAULINE = 6.08 cm, max vertical pocket = 2.3 cm BPD = 9.11 cm, 37 weeks 0 days, 26% OFD = 1.14 cm = 36 weeks 2 days, 26% Head circumference = 32.19 cm, 36 weeks 2 days, 2% Abdominal circumference 36.18 cm, 40 weeks 1 day, 90% Femur length = 7.28 cm, 37 week 2 days, 15% Estimated weight = 3650 g, 66 percentile age by current ultrasound = 37 weeks 1 days Estimated due date by current ultrasound June 18, 2025 US/OB Limited With Biometrics IMPRESSION: Live intrauterine at 37 weeks 1 day, NORMA = June 18, 2025. Reading Location: [facility]
--- OUTSIDE RECORDS SUMMARY | 2025-05-29 21:16 | XMS RPT_ITS | CCD ---
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 ???Medication ???Instructions ???Recorded ???Confirmed ???Type multivitamin no.47-iron fum 27 1 cap PO DAILY 12/17/22 05/24/25 History mg-folate no.1 1 mg-dha 300 mg capsule (PNV-DHA) Last Menstrual Period: 08/28/24 Zika: Zika virus screening: Negative : No PFSH PFSH Medical History Vaginal delivery Family history of recurrent miscarriage Family History Brother Autism Sister Family history of recurrent miscarriage Mother Thyroid cancer, Onset Age: 52 Sister Thyroid cancer, Onset Age: 40 Thyroid removed Father Myocardial infarction, Onset Age: 54 Social History adopted: No household members: spouse and children housing: house number of children: 1 current occupational status: employed 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 pets and animals: Yes (not managing litterbox) pets and animals: cat(s) history of recent travel: Yes ([place] - August 2024) out of state: Yes out of country: No sexually active: Yes Smoking Status: Never smoker alcohol intake: never substance use type: does not use well-balanced diet: daily or most days caffeine: No eating out: rarely or never during the past year weight has: remained stable what type of physical activity do you participate in: walking frequency: daily duration: < 15 minutes/day allen/advent: Hinduism seatbelt use: always do you feel safe at home: Yes additional 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: : Tha Berger History 2 Elective abortions Hx Para 1 Spontaneous abortions Hx # Term Pregnancies 1 Ectopic pregnancies Hx # Pregnancies Multiple births # of living children 1 Past Pregnancies Del. Date Name GA/Weeks Outcome Route Bth Weight Gen Labor Lgth Anesthesia Del Locatn Provider FOB 07/28/23 Chris 40 live - full term vacuum 9lbs 5oz Male epidural [facility] Gill Hernandez Eliecerphilly [place] Delivery Date: 07/28/23 Last Updated by: Cesilia Hernandez GBS + HPI 38 wk ob Details: FAREED LORENZO is a 25 year old who presents for routine OB visit. OB Visit NORMA Calculator Estimated Delivery Date Method Current WG Current Estimate 06/04/25 LMP (Certain) 38w 3d Other Estimates 06/03/25 Ultrasound #1 38w 4d Expected Delivery Route/Plan Labor Preferences- CB/BF classes: no labor support person: Shaquille labor intervention preferences: [] pain management options preferred: epidural if requested cut cord/dad catch: cord : yes PP control planned: discussed discussed possible routes of delivery and associated risks: [] special requests: [] Specific Issue/Plans Covid status: [] Flu vaccine: declined Tdap vaccine: declines Rhogam: NA LARC form signed: yes Problem list reviewed and updated with the most current plan of care details and appropriate orders placed. Relevant counseling for the gestational age provided. Continue routine care and follow up unless otherwise noted in visit notes/problem list details Initial Weight: 167 lb Date -???-???-???-???-??? -???-???-???-???-??? -???-???- EGA Weight BP Urine Prot -???-???-???-???-??? -???-???-???-???-??? -???-???- Glucose FHR FuHt Pres Dilation -???-???-???-???-??? -???-???-???-???-??? -???-???- Effaced St Visit Note 10/27/24 -???-???-???-???-??? -???-???-???-???-??? -???-???- 8w 4d 167 lb (+0 oz) 121/76 Negative -???-???-???-???-??? -???-???-???-???-??? -???-???- Negative 181 -???-???-???-???-??? -???-???-???-???-??? -???-???- KW- CRL cons with dates. NIPT undecided. will get labs next visit. 11/28/24 -???-???-???-???-??? -???-???-???-???-??? -???-???- 13w 1d 170 lb 8 oz (+3 lb 8 oz) 117/76 Negative -???-???-???-???-??? -???-???-???-???-??? -???-???- Negative 150 -???-???-???-???-??? -???-???-???-???-??? -???-???- SM- declines NIPT no vb crmaping 01/03/25 -???-???-???-???-??? -???-???-???-???-??? -???-???- 18w 2d 173 lb (+ (more content not included)... Normal [facility] - Chemistry and C hemistry - challengeOrdered By: Elli Saenz on 05-16-2025 Glucose Ql (U) Negative [facility] - UrinalysisOrder ed By: Elli Saenz on 05-16-2025 Protein Ql (U) Negative [facility] Track Repair Laborer Office Visit Reporton 05-16-2025 Track Repair Laborer Office Visit Report [facility] [address], [address] [place] [address] OFFICE VISIT Date of Service: 05/16/25 MR#: [id number] Acct: [id number] Name: FAREED LORENZO Rep #: [id number] : 2000 Provider: Dr. Elli Murray DO Age/Sex: 25/F Location: [facility] [place] Status: Signed Intake Vital Signs 04/10/25 10:46 05/09/25 09:36 05/16/25 15:20 05/16/25 15:21 Height 5 ft 5 in 5 ft 5 in 5 ft 5 in 5 ft 5 in Weight: 198 lb BMI 32.9 BP 107/72 Intake Visit Reasons: 37 wk ob Atmospheric Drier Tender Required: No Is patient in pain?: No Allergies No Known Allergies Allergy (Verified 05/16/25 15:20) Medications ???Medication ???Instructions ???Recorded ???Confirmed ???Type multivitamin no.47-iron fum 27 1 cap PO DAILY 12/17/22 05/16/25 History mg-folate no.1 1 mg-dha 300 mg capsule (PNV-DHA) Last Menstrual Period: 08/28/24 Zika: Zika virus screening: Negative : No PFSH PFSH Medical History Vaginal delivery Family history of recurrent miscarriage Family History Brother Autism Sister Family history of recurrent miscarriage Mother Thyroid cancer, Onset Age: 52 Sister Thyroid cancer, Onset Age: 40 Thyroid removed Father Myocardial infarction, Onset Age: 54 Social History adopted: No household members: spouse and children housing: house number of children: 1 current occupational status: employed 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 pets and animals: Yes (not managing litterbox) pets and animals: cat(s) history of recent travel: Yes ([place] - August 2024) out of state: Yes out of country: No sexually active: Yes Smoking Status: Never smoker alcohol intake: never substance use type: does not use well-balanced diet: daily or most days caffeine: No eating out: rarely or never during the past year weight has: remained stable what type of physical activity do you participate in: walking frequency: daily duration: < 15 minutes/day allen/advent: Hinduism seatbelt use: always do you feel safe at home: Yes additional 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: : Tha Berger History 2 Elective abortions Hx Para 1 Spontaneous abortions Hx # Term Pregnancies 1 Ectopic pregnancies Hx # Pregnancies Multiple births # of living children 1 Past Pregnancies Del. Date Name GA/Weeks Outcome Route Bth Weight Gen Labor Lgth Anesthesia Del Locatn Provider FOB 07/28/23 Chris 40 live - full term vacuum 9lbs 5oz Male epidural [facility] Gill Edwards [place] Delivery Date: 07/28/23 Last Updated by: Cesilia Hernandez GBS + HPI 37 wk ob Details: FAREED LORENZO is a 25 year old who presents for routine OB visit. OB Visit NORMA Calculator Estimated Delivery Date Method Current WG Current Estimate 06/04/25 LMP (Certain) 37w 2d Other Estimates 06/03/25 Ultrasound #1 37w 3d Expected Delivery Route/Plan Labor Preferences- CB/BF classes: no labor support person: Shaquille labor intervention preferences: [] pain management options preferred: epidural if requested cut cord/dad catch: cord : yes PP control planned: discussed discussed possible routes of delivery and associated risks: [] special requests: [] Specific Issue/Plans Covid status: [] Flu vaccine: declined Tdap vaccine: declines Rhogam: NA LARC form signed: yes Problem list reviewed and updated with the most current plan of care details and appropriate orders placed. Relevant counseling for the gestational age provided. Continue routine care and follow up unless otherwise noted in visit notes/problem list details Initial Weight: 167 lb Date -???-???-???-???-??? -???-???-???-???-??? -???-???- EGA Weight BP Urine Prot -???-???-???-???-??? -???-???-???-???-??? -???-???- Glucose FHR FuHt Pres Dilation -???-???-???-???-??? -???-???-???-???-??? -???-???- Effaced St Visit Note 10/27/24 -???-???-???-???-??? -???-???-???-???-??? -???-???- 8w 4d 167 lb (+0 oz) 121/76 Negative -???-???-???-???-??? -???-???-???-???-??? -???-???- Negative 181 -???-???-???-???-??? -???-???-???-???-??? -???-???- KW- CRL cons with dates. NIPT undecided. will get labs next visit. 11/28/24 -???-???-???-???-??? -???-???-???-???-??? -???-???- 13w 1d 170 lb 8 oz (+3 lb 8 oz) 117/76 Negative -???-???-???-???-??? -???-???-???-???-??? -???-???- Negative 150 -???-???-???-???-??? -???-???-???-???-??? -???-???- SM- declines NIPT no vb crmaping 01/03/25 -???-???-???-???-??? -???-???-???-???-??? -???-???- 18w 2d 173 l (more content not included)... Normal [facility] Rule out Beta Strep (Grp. B) on 05-11-2025 [employer] Group B Beta Streptococcus is not isolated. Normal [facility] Comment on above: Performed By: #### L 3890.6006, L100.0100, L509.8002, L501.0250 #### [facility] [address] [place], [address] Laboratory - Chemistry and C hemistry - challengeOrdered By: Margot Bradford on 06-25-2025 Glucose Ql (U) Negative [facility] - UrinalysisOrder ed By: Margot Bradford on 05-09-2025 Protein Ql (U) Negative [facility] Track Repair Laborer Office Visit Reporton 05-09-2025 Track Repair Laborer Office Visit Report [facility] [address], [address] [place] [address] OFFICE VISIT Date of Service: 05/09/25 MR#: [id number] Acct: [id number] Name: FAREED LORENZO Rep #: [id number] : 2000 Provider: AURA barrow Age/Sex: 25/F Location: [facility] [place] Status: Signed Intake Vital Signs 03/26/25 13:39 04/26/25 09:56 05/09/25 09:36 Height 5 ft 5 in 5 ft 5 in 5 ft 5 in Weight: 195 lb BMI 32.4 BP 110/68 Intake Visit Reasons: 36 wk ob Chief Complaint: 36 Week OB Atmospheric Drier Tender Required: No Is patient in pain?: No Allergies No Known Allergies Allergy (Verified 05/09/25 09:36) Medications ???Medication ???Instructions ???Recorded ???Confirmed ???Type multivitamin no.47-iron fum 27 1 cap PO DAILY 12/17/22 05/09/25 History mg-folate no.1 1 mg-dha 300 mg capsule (PNV-DHA) Last Menstrual Period: 08/28/24 Zika: Zika virus screening: Negative : No PFSH PFSH Medical History Vaginal delivery Family history of recurrent miscarriage Family History Brother Autism Sister Family history of recurrent miscarriage Mother Thyroid cancer, Onset Age: 52 Sister Thyroid cancer, Onset Age: 40 Thyroid removed Father Myocardial infarction, Onset Age: 54 Social History adopted: No household members: spouse and children housing: house number of children: 1 current occupational status: employed 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 pets and animals: Yes (not managing litterbox) pets and animals: cat(s) history of recent travel: Yes ([place] - August 2024) out of state: Yes out of country: No sexually active: Yes Smoking Status: Never smoker alcohol intake: never substance use type: does not use well-balanced diet: daily or most days caffeine: No eating out: rarely or never during the past year weight has: remained stable what type of physical activity do you participate in: walking frequency: daily duration: < 15 minutes/day allen/advent: Hinduism seatbelt use: always do you feel safe at home: Yes additional 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: : Tha Berger History 2 Elective abortions Hx Para 1 Spontaneous abortions Hx # Term Pregnancies 1 Ectopic pregnancies Hx # Pregnancies Multiple births # of living children 1 Past Pregnancies Del. Date Name GA/Weeks Outcome Route Bth Weight Infant Gen Labor Lgth Anesthesia Del Locatn Provider FOB 07/28/23 Chris 40 live - full term vacuum 9lbs 5oz Male epidural [facility] D daja Edwards Shaqu[place] Delivery Date: 07/28/23 Last Updated by: Cesilia Hernandez GBS + HPI 36 wk ob Details: FAREED LORENZO is a 25 year old who presents for routine OB visit. OB Visit NORMA Calculator Estimated Delivery Date Method Current WG Current Estimate 06/04/25 LMP (Certain) 36w 2d Other Estimates 06/03/25 Ultrasound #1 36w 3d Expected Delivery Route/Plan Labor Preferences- CB/BF classes: no labor support person: Shaquille labor intervention preferences: [] pain management options preferred: epidural if requested cut cord/dad catch: cord : yes PP control planned: discussed discussed possible routes of delivery and associated risks: [] special requests: [] Specific Issue/Plans Covid status: [] Flu vaccine: declined Tdap vaccine: declines Rhogam: NA LARC form signed: yes Problem list reviewed and updated with the most current plan of care details and appropriate orders placed. Relevant counseling for the gestational age provided. Continue routine care and follow up unless otherwise noted in visit notes/problem list details Initial Weight: 167 lb Date -???-???-???-???-??? -???-???-???-???-??? -???-???- EGA Weight BP Urine Prot -???-???-???-???-??? -???-???-???-???-??? -???-???- Glucose FHR FuHt Pres Dilation -???-???-???-???-??? -???-???-???-???-??? -???-???- Effaced St Visit Note 10/27/24 -???-???-???-???-??? -???-???-???-???-??? -???-???- 8w 4d 167 lb (+0 oz) 121/76 Negative -???-???-???-???-??? -???-???-???-???-??? -???-???- Negative 181 -???-???-???-???-??? -???-???-???-???-??? -???-???- KW- CRL cons with dates. NIPT undecided. will get labs next visit. 11/28/24 -???-???-???-???-??? -???-???-???-???-??? -???-???- 13w 1d 170 lb 8 oz (+3 lb 8 oz) 117/76 Negative -???-???-???-???-??? -???-???-???-???-??? -???-???- Negative 150 -???-???-???-???-??? -???-???-???-???-??? -???-???- SM- declines NIPT no vb crmaping 01/03/25 -???-???-???-???-??? -???-???-???-???-??? -???-???- 18w 2d 173 lb (more content not included)... Normal [facility] Screening beta-hemolytic Str eptococcus cultureOrdered By: Margot Bradford on 05-09-2025 Beta-hemolytic Streptococcus culture Group B Beta Streptococcus is not isolated. [facility] - Chemistry and C hemistry - challengeOrdered By: Margot Bradford on 04-26-2025 Glucose Ql (U) Negative [facility] - UrinalysisOrder ed By: Margot Bradford on 04-26-2025 Protein Ql (U) Negative [facility] Track Repair Laborer Office Visit Reporton 04-26-2025 Track Repair Laborer Office Visit Report [facility]'s [address], [address] [place] [address] OFFICE VISIT Date of Service: 04/26/25 MR#: [id number] Acct: [id number] Name: FAREED LORENZO Rep #: [id number] : 2000 Provider: AURA barrow Age/Sex: 25/F Location: [facility] [place] Status: Signed Intake Vital Signs 03/26/25 13:39 04/10/25 11:02 04/26/25 09:56 Height 5 ft 5 in 5 ft 5 in 5 ft 5 in Weight: 193 lb 4 oz BMI 32.1 BP 110/60 Intake Visit Reasons: 34 wk ob Chief Complaint: 34 Week OB Atmospheric Drier Tender Required: No Is patient in pain?: No Allergies No Known Allergies Allergy (Verified 04/26/25 09:57) Medications ???Medication ???Instructions ???Recorded ???Confirmed ???Type multivitamin no.47-iron fum 27 1 cap PO DAILY 12/17/22 04/26/25 History mg-folate no.1 1 mg-dha 300 mg capsule (PNV-DHA) Last Menstrual Period: 08/28/24 Zika: Zika virus screening: Negative : No PFSH PFSH Medical History Vaginal delivery Family history of recurrent miscarriage Family History Brother Autism Sister Family history of recurrent miscarriage Mother Thyroid cancer, Onset Age: 52 Sister Thyroid cancer, Onset Age: 40 Thyroid removed Father Myocardial infarction, Onset Age: 54 Social History adopted: No household members: spouse and children housing: house number of children: 1 current occupational status: employed 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 pets and animals: Yes (not managing litterbox) pets and animals: cat(s) history of recent travel: Yes ([place] - August 2024) out of state: Yes out of country: No sexually active: Yes Smoking Status: Never smoker alcohol intake: never substance use type: does not use well-balanced diet: daily or most days caffeine: No eating out: rarely or never during the past year weight has: remained stable what type of physical activity do you participate in: walking frequency: daily duration: < 15 minutes/day allen/advent: Hinduism seatbelt use: always do you feel safe at home: Yes additional 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: : Tha Berger History 2 Elective abortions Hx Para 1 Spontaneous abortions Hx # Term Pregnancies 1 Ectopic pregnancies Hx # Pregnancies Multiple births # of living children 1 Past Pregnancies Del. Date Name GA/Weeks Outcome Route Bth Weight Gen Labor Lgth Anesthesia Del Locatn Provider FOB 07/28/23 Chris 40 live - full term vacuum 9lbs 5oz Male epidural [facility] Gill Edwards [place] Delivery Date: 07/28/23 Last Updated by: Cesilia Hernandez GBS + HPI 34 wk ob Details: FAREED LORENZO is a 25 year old who presents for routine OB visit. OB Visit NORMA Calculator Estimated Delivery Date Method Current WG Current Estimate 06/04/25 LMP (Certain) 34w 3d Other Estimates 06/03/25 Ultrasound #1 34w 4d Expected Delivery Route/Plan Labor Preferences- CB/BF classes: no labor support person: Shaquille labor intervention preferences: [] pain management options preferred: epidural if requested cut cord/dad catch: cord : yes PP control planned: discussed discussed possible routes of delivery and associated risks: [] special requests: [] Specific Issue/Plans Covid status: [] Flu vaccine: declined Tdap vaccine: declines Rhogam: NA LARC form signed: yes Problem list reviewed and updated with the most current plan of care details and appropriate orders placed. Relevant counseling for the gestational age provided. Continue routine care and follow up unless otherwise noted in visit notes/problem list details Initial Weight: 167 lb Date -???-???-???-???-??? -???-???-???-???-??? -???-???- EGA Weight BP Urine Prot -???-???-???-???-??? -???-???-???-???-??? -???-???- Glucose FHR FuHt Pres Dilation -???-???-???-???-??? -???-???-???-???-??? -???-???- Effaced St Visit Note 10/27/24 -???-???-???-???-??? -???-???-???-???-??? -???-???- 8w 4d 167 lb (+0 oz) 121/76 Negative -???-???-???-???-??? -???-???-???-???-??? -???-???- Negative 181 -???-???-???-???-??? -???-???-???-???-??? -???-???- KW- CRL cons with dates. NIPT undecided. will get labs next visit. 11/28/24 -???-???-???-???-??? -???-???-???-???-??? -???-???- 13w 1d 170 lb 8 oz (+3 lb 8 oz) 117/76 Negative -???-???-???-???-??? -???-???-???-???-??? -???-???- Negative 150 -???-???-???-???-??? -???-???-???-???-??? -???-???- SM- declines NIPT no vb crmaping 01/03/25 -???-???-???-???-??? -???-???-???-???-??? -???-???- 18w 2d 173 (more content not included)... Normal [facility] OB Triage Physician Noteon 0 04-23-2025 OB Triage Physician Note [facility] Medical Records Department [address] [place] [address] OB Triage Physician Note 04/23/25 2240 MR#: [id number] Acct: [id number] Name: FAREED LORENZO Rep #: [id number] : 2000 25 From: Brianna Velasquez [facility] PCP: Dr. Solitario Blank MD Status:REG CLI Y Location: [place]567-8 HPI - General General Date of Service: 04/23/25 HPI Narrative FAREED LORENZO, is a 25 F who presents at 34 weeks s/p fall onto her buttocks while carrying her son around 1900. denies ctx, vb. however has not felt movement since. Maternal Data Information NORMA Calculator Estimated Delivery Date Method Current WG Current Estimate 06/04/25 LMP (Certain) 34w 0d Other Estimates 06/03/25 Ultrasound #1 34w 1d PFSH PFSH Medical History Vaginal delivery Family history of recurrent miscarriage Home Medications ???Medication ???Instructions ???Recorded ???Last Taken ???Type multivitamin no.47-iron fum 27 1 cap PO DAILY 12/17/22 07/26/23 21:00 History mg-folate no.1 1 mg-dha 300 mg 1 cap capsule (PNV-DHA) Allergy/AdvReac Type Severity Reaction Status Date / Time No Known Allergies Allergy Verified 04/10/25 10:43 Family History Brother Autism Sister Family history of recurrent miscarriage Mother Thyroid cancer, Onset Age: 52 Sister Thyroid cancer, Onset Age: 40 Thyroid removed Father Myocardial infarction, Onset Age: 54 Social History adopted: No household members: spouse and children housing: house number of children: 1 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 occupational status: employed 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 pets and animals: Yes (not managing litterbox) pets and animals: cat(s) history of recent travel: Yes ([place] - August 2024) out of state: Yes out of country: No sexually active: Yes Smoking Status: Never smoker alcohol intake: never substance use type: does not use well-balanced diet: daily or most days caffeine: No eating out: rarely or never during the past year weight has: remained stable what type of physical activity do you participate in: walking frequency: daily duration: < 15 minutes/day allen/advent: Hinduism seatbelt use: always do you feel safe at home: Yes additional 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: : Shaquille- Ab History 2 Elective abortions Hx Para 1 Spontaneous abortions Hx # Term Pregnancies 1 Ectopic pregnancies Hx # Pregnancies Multiple births # of living children 1 Past Pregnancies Del. Date Name GA/Weeks Outcome Route Bth Weight Infant Gen Labor Lgth Anesthesia Del [facility] Provider FOB 07/28/23 Chris 40 live - full term vacuum 9lbs 5oz Male epidural [facility] Gill Edwards Shaqu[place] Delivery Date: 07/28/23 Last Updated by: Cesilia Hernandez GBS + Visit Details Expected Delivery Route/Plan Labor Preferences- CB/BF classes: no labor support person: Shaquille labor intervention preferences: [] pain management options preferred: epidural if requested cut cord/dad catch: cord : yes PP control planned: discussed discussed possible routes of delivery and associated risks: [] special requests: [] Plans Covid status: [] Flu vaccine: declined Tdap vaccine: declines Rhogam: NA LARC form signed: yes Problem list reviewed and updated with the most current plan of care details and appropriate orders placed. Relevant counseling for the gestational age provided. Continue routine care and follow up unless otherwise noted in visit notes/problem list details OB Flowsheet Initial Weight: 167 lb Date -???-???-???-???-??? -???-???-???-???-??? -???-???- EGA Weight BP Urine Prot -???-???-???-???-??? -???-???-???-???-??? -???-???- Glucose FHR FuHt Pres Dilation -???-???-???-???-??? -???-???-???-???-??? -???-???- Effaced St Visit Note 10/27/24 -???-???-???-???-??? -???-???-???-???-??? -???-???- 8w 4d 167 lb (+0 oz) 121/76 Negative -???-???-???-???-??? -???-???-???-???-??? -???-???- Negative 181 -???-???-???-???-??? -???-???-???-???-??? -???-???- KW- CRL cons with dates. NIPT undecided. will get labs next visit. 11/28/24 -???-???-???-???-??? -???-???-???-???-??? -???-???- 13w 1d 170 lb 8 oz (+3 lb 8 oz) 117/76 Negative -???-???-???-???-??? -???-???-???-???-??? -???-???- Negative 150 -???-???-???-???-??? -???-???-???-???-??? -???-???- SM- declines NIPT no vb crmaping 01/03/25 -???-???-???-???-??? -???-???-???-???-??? -???-???- 18w 2d 173 lb (+6 lb) 110/64 Negative -???-???-???-???-??? -???-???-???-???-??? -???-???- Negative 160 -???-???-???-???-??? -???-???-???-???-??? -???-???- MH-No VB. No t feeling movemen (more content not included)... Normal [facility] - Chemistry and C hemistry - challengeOrdered By: Radha Naylor on 04-10-2025 Glucose Ql (U) Negative [facility] - UrinalysisOrder ed By: Radha Naylor on 04-10-2025 Protein Ql (U) Negative [facility] Track Repair Laborer Office Visit Reporton 04-10-2025 Track Repair Laborer Office Visit Report [facility]'s [address], [address] [place] [address] OFFICE VISIT Date of Service: 04/10/25 MR#: [id number] Acct: [id number] Name: FAREED LORENZO Rep #: [id number] : 2000 Provider: LAYLA Stratton ams Age/Sex: 25/F Location: 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 Required: No Is patient in pain?: No Allergies No Known Allergies Allergy (Verified 04/10/25 10:43) Medications ???Medication ???Instructions ???Recorded ???Confirmed ???Type multivitamin no.47-iron fum 27 1 cap PO DAILY 12/17/22 04/10/25 History mg-folate no.1 1 mg-dha 300 mg capsule (PNV-DHA) Last Menstrual Period: 08/28/24 : No Have you fallen in the past year?: No PFSH PFSH Medical History Vaginal delivery Family history of recurrent miscarriage Family History Brother Autism Sister Family history of recurrent miscarriage Mother Thyroid cancer, Onset Age: 52 Sister Thyroid cancer, Onset Age: 40 Thyroid removed Father Myocardial infarction, Onset Age: 54 Social History adopted: No household members: spouse and children housing: house number of children: 1 current occupational status: employed 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 pets and animals: Yes (not managing litterbox) pets and animals: cat(s) history of recent travel: Yes ([place] - August 2024) out of state: Yes out of country: No sexually active: Yes Smoking Status: Never smoker alcohol intake: never substance use type: does not use well-balanced diet: daily or most days caffeine: No eating out: rarely or never during the past year weight has: remained stable what type of physical activity do you participate in: walking frequency: daily duration: < 15 minutes/day allen/advent: Hinduism seatbelt use: always do you feel safe at home: Yes additional 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: : Shaquille- Ab History 2 Elective abortions Hx Para 1 Spontaneous abortions Hx # Term Pregnancies 1 Ectopic pregnancies Hx # Pregnancies Multiple births # of living children 1 Past Pregnancies Del. Date Name GA/Weeks Outcome Route Bth Weight Infant Gen Labor Lgth Anesthesia Del Locatn Provider FOB 07/28/23 Chris 40 live - full term vacuum 9lbs 5oz Male epidural [facility] Gill Edwards Shaquille Delivery Date: 07/28/23 Last Updated by: Cesilia Hernandez GBS + HPI 32 WK OB Details: FAREED LORENZO is a 25 year old who presents for routine OB visit. OB Visit NORMA Calculator Estimated Delivery Date Method Current WG Current Estimate 06/04/25 LMP (Certain) 32w 1d Other Estimates 06/03/25 Ultrasound #1 32w 2d Expected Delivery Route/Plan Labor Preferences- CB/BF classes: no labor support person: Shaquille labor intervention preferences: [] pain management options preferred: epidural if requested cut cord/dad catch: cord : yes PP control planned: discussed discussed possible routes of delivery and associated risks: [] special requests: [] Specific Issue/Plans Covid status: [] Flu vaccine: declined Tdap vaccine: declines Rhogam: NA LARC form signed: yes Problem list reviewed and updated with the most current plan of care details and appropriate orders placed. Relevant counseling for the gestational age provided. Continue routine care and follow up unless otherwise noted in visit notes/problem list details Initial Weight: 167 lb Date -???-???-???-???-??? -???-???-???-???-??? -???-???- EGA Weight BP Urine Prot -???-???-???-???-??? -???-???-???-???-??? -???-???- Glucose FHR FuHt Pres Dilation -???-???-???-???-??? -???-???-???-???-??? -???-???- Effaced St Visit Note 10/27/24 -???-???-???-???-??? -???-???-???-???-??? -???-???- 8w 4d 167 lb (+0 oz) 121/76 Negative -???-???-???-???-??? -???-???-???-???-??? -???-???- Negative 181 -???-???-???-???-??? -???-???-???-???-??? -???-???- KW- CRL cons with dates. NIPT undecided. will get labs next visit. 11/28/24 -???-???-???-???-??? -???-???-???-???-??? -???-???- 13w 1d 170 lb 8 oz (+3 lb 8 oz) 117/76 Negative -???-???-???-???-??? -???-???-???-???-??? -???-???- Negative 150 -???-???-???-???-??? -???-???-???-???-??? -???-???- SM- declines NIPT no vb crmaping 01/03/25 -???-???-???-???-??? -???-???-???-???-??? -???-???- 18w 2d 173 lb (+6 lb) 110/64 (more content not included)... Normal [facility] - Chemistry and C hemistry - challengeOrdered By: Margot Bradford on 03-26-2025 Glucose Ql (U) Negative [facility] - UrinalysisOrder ed By: Margot Bradford on 03-26-2025 Protein Ql (U) Negative [facility] Track Repair Laborer Office Visit Reporton 03-26-2025 Track Repair Laborer Office Visit Report [facility] [address], [address] [place] [address] OFFICE VISIT Date of Service: 03/26/25 MR#: [id number] Acct: [id number] Name: FAREED LORENZO Rep #: [id number] : 2000 Provider: AURA barrow Age/Sex: 25/F Location: [facility] [place] Status: Signed Intake Vital Signs 10/27/24 13:05 02/27/25 08:52 03/26/25 13:39 Height 5 ft 5 in 5 ft 5 in 5 ft 5 in Weight: 187 lb 8 oz BMI 31.1 BP 102/70 Intake Visit Reasons: 30wk ob Chief Complaint: 30 Week OB Atmospheric Drier Tender Required: No Is patient in pain?: No Allergies No Known Allergies Allergy (Verified 03/26/25 13:40) Medications ???Medication ???Instructions ???Recorded ???Confirmed ???Type multivitamin no.47-iron fum 27 1 cap PO DAILY 12/17/22 03/26/25 History mg-folate no.1 1 mg-dha 300 mg capsule (PNV-DHA) Last Menstrual Period: 08/28/24 Zika: Zika virus screening: Negative : Yes PFSH PFSH Medical History Vaginal delivery Family history of recurrent miscarriage Family History Brother Autism Sister Family history of recurrent miscarriage Mother Thyroid cancer, Onset Age: 52 Sister Thyroid cancer, Onset Age: 40 Thyroid removed Father Myocardial infarction, Onset Age: 54 Social History adopted: No household members: spouse and children housing: house number of children: 1 current occupational status: employed 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 pets and animals: Yes (not managing litterbox) pets and animals: cat(s) history of recent travel: Yes ([place] - August 2024) out of state: Yes out of country: No sexually active: Yes Smoking Status: Never smoker alcohol intake: never substance use type: does not use well-balanced diet: daily or most days caffeine: No eating out: rarely or never during the past year weight has: remained stable what type of physical activity do you participate in: walking frequency: daily duration: < 15 minutes/day allen/advent: Hinduism seatbelt use: always do you feel safe at home: Yes additional 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: : Shaquille- [employer] History 2 Elective abortions Hx Para 1 Spontaneous abortions Hx # Term Pregnancies 1 Ectopic pregnancies Hx # Pregnancies Multiple births # of living children 1 Past Pregnancies Del. Date Name GA/Weeks Outcome Route Bth Weight Infant Gen Labor Lgth Anesthesia Del Locatn Provider FOB 07/28/23 Chris 40 live - full term vacuum 9lbs 5oz Male epidural [facility] Gill farnsworth David Corbin Delivery Date: 07/28/23 Last Updated by: Cesilia Hernandez GBS + HPI 30wk ob Details: FAREED LORENZO is a 25 year old who presents for routine OB visit. OB Visit NORMA Calculator Estimated Delivery Date Method Current WG Current Estimate 06/04/25 LMP (Certain) 30w 0d Other Estimates 06/03/25 Ultrasound #1 30w 1d Expected Delivery Route/Plan Labor Preferences- CB/BF classes: no labor support person: Shaquille labor intervention preferences: [] pain management options preferred: epidural if requested cut cord/dad catch: cord : yes PP control planned: discussed discussed possible routes of delivery and associated risks: [] special requests: [] Specific Issue/Plans Covid status: [] Flu vaccine: declined Tdap vaccine: declines Rhogam: NA LARC form signed: yes Problem list reviewed and updated with the most current plan of care details and appropriate orders placed. Relevant counseling for the gestational age provided. Continue routine care and follow up unless otherwise noted in visit notes/problem list details Initial Weight: 167 lb Date -???-???-???-???-??? -???-???-???-???-??? -???-???- EGA Weight BP Urine Prot -???-???-???-???-??? -???-???-???-???-??? -???-???- Glucose FHR FuHt Pres Dilation -???-???-???-???-??? -???-???-???-???-??? -???-???- Effaced St Visit Note 10/27/24 -???-???-???-???-??? -???-???-???-???-??? -???-???- 8w 4d 167 lb (+0 oz) 121/76 Negative -???-???-???-???-??? -???-???-???-???-??? -???-???- Negative 181 -???-???-???-???-??? -???-???-???-???-??? -???-???- KW- CRL cons with dates. NIPT undecided. will get labs next visit. 11/28/24 -???-???-???-???-??? -???-???-???-???-??? -???-???- 13w 1d 170 lb 8 oz (+3 lb 8 oz) 117/76 Negative -???-???-???-???-??? -???-???-???-???-??? -???-???- Negative 150 -???-???-???-???-??? -???-???-???-???-??? -???-???- SM- declines NIPT no vb crmaping 01/03/25 -???-???-???-???-??? -???-???-???-???-??? -???-???- 18w 2d 173 (more content not included)... Normal [facility] Absolute lymphocyte countOrd ered By: Brianna Velasquez on 02-27-2025 Lymphocytes Auto (Unsp spec) [#/Vol] 1.73 10*3/uL 0.83-4.51 [facility] Absolute neutrophil countOrd ered By: Brianna Velasquez on 02-27-2025 Neutrophils (Bld) [#/Vol] 9.0 10*3/uL High 2.0-7.7 [facility] Automated lymphocyte count a s percentage of total leukocytesOrdered By: Brianna Velasquez on 02-27-2025 Lymphocytes/100 WBC Auto (Unsp spec) 14.8 % Low 19-41 [facility] Basophil percentageOrdered B y: Brianna Velasquez on 02-27-2025 Basophils/100 WBC (Bld) 0.3 % 0-1 [facility] CBC W/Diff, Automatedon 02-13 Absolute Lymph 1.73 X10 3/uL Normal 0.83-4.51 [facility] Comment on above: Performed By: #### L 3890.6006, L100.0100, L509.8002, L501.0250 #### [facility] [address] [place], [address] Absolute Neut 9.0 X10 3/uL High 2.0-7.7 [facility] Comment on above: Performed By: #### L 3890.6006, L100.0100, L509.8002, L501.0250 #### [facility] [address] [place], [address] Basophils/100 WBC (Bld) 0.3 % Normal 0-1 [facility] Comment on above: Performed By: #### L 3890.6006, L100.0100, L509.8002, L501.0250 #### [facility] [address] [place], [address] Eosinophils/100 WBC (Bld) 0.5 % Normal 0-5 [facility] Comment on above: Performed By: #### L 3890.6006, L100.0100, L509.8002, L501.0250 #### [facility] [address] [place], [address] Erythrocyte distribution width (RBC) [Ratio] 13.1 % Normal 11.6-14.6 [facility] Comment on above: Performed By: #### L 3890.6006, L100.0100, L509.8002, L501.0250 #### [facility] [address] [place], [address] Hematocrit (Bld) [Volume fraction] 36.9 % Low 37-47 [facility] Comment on above: Performed By: #### L 3890.6006, L100.0100, L509.8002, L501.0250 #### [facility] [address] [place], [address] Hemoglobin (Bld) [Mass/Vol] 12.3 g/dL Normal 12.0-15.0 [facility] Comment on above: Performed By: #### L 3890.6006, L100.0100, L509.8002, L501.0250 #### [facility] [address] [place], [address] IG% 0.500 Normal 0.0-0.9 [facility] Comment on above: Result Comment: IG% - Immature Granulocytes (promyelocytes, myelocytes and metamyelocytes) > 1% indicates that a LEFT SHIFT is Present. Performed By: #### L 3890.6006, L100.0100, L509.8002, L501.0250 #### [facility] [address] [place], [address] Lymphocytes/100 WBC (Bld) 14.8 % Low 19-41 [facility] Comment on above: Performed By: #### L 3890.6006, L100.0100, L509.8002, L501.0250 #### [facility] [address] [place], [address] MCH (RBC) [Entitic mass] 28.9 pg Normal 27.0-32.0 [facility] Comment on above: Performed By: #### L 3890.6006, L100.0100, L509.8002, L501.0250 #### [facility] [address] [place], [address] MCHC (RBC) [Mass/Vol] 33.3 g/dL Normal 32-36 [facility] Comment on above: Performed By: #### L 3890.6006, L100.0100, L509.8002, L501.0250 #### [facility] [address] [place], [address] MCV (RBC) [Entitic vol] 86.6 fL Normal 81-99 [facility] Comment on above: Performed By: #### L 3890.6006, L100.0100, L509.8002, L501.0250 #### [facility] [address] [place], [address] Monocytes/100 WBC (Bld) 6.9 % Normal 0-10 [facility] Comment on above: Performed By: #### L 3890.6006, L100.0100, L509.8002, L501.0250 #### [facility] [address] [place], [address] Neutrophils/100 WBC (Bld) 77.0 % High 47-70 [facility] Comment on above: Performed By: #### L 3890.6006, L100.0100, L509.8002, L501.0250 #### [facility] [address] [place], [address] Nucleated RBC (Bld) [#/Vol] 0 10*3/uL Normal 0-5 [facility] Comment on above: Performed By: #### L 3890.6006, L100.0100, L509.8002, L501.0250 #### [facility] [address] [place], [address] Platelet mean volume (Bld) [Entitic vol] 10.1 fL Normal 6.2-12.0 [facility] Comment on above: Performed By: #### L 3890.6006, L100.0100, L509.8002, L501.0250 #### [facility] [address] [place], [address] Platelets (Bld) [#/Vol] 325 10*3/uL Normal 150-450 [facility] Comment on above: Performed By: #### L 3890.6006, L100.0100, L509.8002, L501.0250 #### [facility] [address] [place], [address] RBC (Bld) [#/Vol] 4.26 10*6/uL Normal 4.2-5.4 [facility] Comment on above: Performed By: #### L 3890.6006, L100.0100, L509.8002, L501.0250 #### [facility] [address] [place], [address] RDW SD 41.1 fl Normal 35.1-43.9 [facility] Comment on above: Performed By: #### L 3890.6006, L100.0100, L509.8002, L501.0250 #### [facility] [address] [place], [address] WBC (Bld) [#/Vol] 11.7 10*3/uL High 4.4-11.0 [facility] Comment on above: Performed By: #### L 3890.6006, L100.0100, L509.8002, L501.0250 #### [facility] [address] [place], [address] Eosinophil percentageOrdered By: Brianna Velasquez on 02-27-2025 Eosinophils/100 WBC (Bld) 0.5 % 0-5 [facility] Erythrocyte distribution wid th (RBC) [Ratio]Ordered By: Brianna Velasquez on 02-27-2025 Erythrocyte distribution width (RBC) [Entitic vol] 41.1 fL 35.1-43.9 [facility] Erythrocyte distribution wid th ratioOrdered By: Brianna Velasquez on 02-27-2025 Erythrocyte distribution width (RBC) [Ratio] 13.1 % 11.6-14.6 [facility] Erythrocyte distribution wid th standard deviationOrdered By: Brianna Velasquez on 02-27-2025 Erythrocyte distribution width (RBC) [Ratio] 41.1 fl 35.1-43.9 [facility] Glucose Challenge Gest 1H 50 kizzy 02-27-2025 GLU GEST 50g 1H 78 mg/dL Normal 70-140 [facility] Comment on above: Performed By: #### L 3890.6006, L100.0100, L509.8002, L501.0250 #### [facility] [address] [facility] [place], [place], [id number] Glucose measurement at 2 maurizio rs post-dose gestational glucose tolerance testOrdered By: Brianna Velasquez on 02-27-2025 Glucose [Mass/Vol] 78 mg/dL 70-140 [facility] HIVon 02-27-2025 HIV Non-Reactive Normal Nonreactive [facility] Comment on above: Result Comment: Non- Reactive Reactive Repeatedly reactive samples must be confirmed according to CDC recommended confirmatory algorithms. The subresults for either HIVAG or AHIV can be used as an aid in the selection of the confirmation algorithm for reactive samples. Send out specimens with Reactive results to [facility] for confirmation. Order the HIV antibody detection and differentiation: #[id number] Performed By: #### L 3890.6006, L100.0100, L509.8002, L501.0250 #### [facility] [address] [place], [place], [id number] Hematocrit Auto (Bld) [Volum e fraction]Ordered By: Brianna Velasquez on 02-27-2025 Hematocrit (Bld) [Volume fraction] 36.9 % Low 37-47 [facility] Hemoglobin measurementOrdere d By: Brianna Velasquez on 02-27-2025 Hemoglobin (Bld) [Mass/Vol] 12.3 g/dL 12.0-15.0 [facility] Immature granulocytes/100 WB C Auto (Bld)Ordered By: Brianna Velasquez on 02-27-2025 Immature granulocytes/100 WBC (Bld) 0.500 % 0.0-0.9 [facility] Comment on above: IG% - Immature Granu locytes (promyelocytes, myelocytes and metamyelocytes) > 1% indicates that a LEFT SHIFT is Present. Laboratory - Chemistry and C hemistry - challengeOrdered By: Elli Saenz on 02-27-2025 Glucose Ql (U) Negative [facility] - UrinalysisOrder ed By: Elli Saenz on 02-27-2025 Protein Ql (U) Negative [facility] Lymphocytes Auto (Unsp spec) [#/Vol]Ordered By: Brianna Velasquez on 02-27-2025 Lymphocytes (Bld) [#/Vol] 1.73 10*3/uL 0.83-4.51 [facility] Lymphocytes/100 WBC Auto (Un sp spec)Ordered By: Brianna Velasquez on 02-27-2025 Lymphocytes/100 WBC (Bld) 14.8 % Low 19-41 [facility] MCV (mean corpuscular volume ) determinationOrdered By: Brianna Velasquez on 02-27-2025 MCV (RBC) [Entitic vol] 86.6 fL 81-99 [facility] Mean corpuscular hemoglobin (MCH) determinationOrdered By: Brianna Velasquez on 02-27-2025 MCH (RBC) [Entitic mass] 28.9 pg 27.0-32.0 [facility] Mean corpuscular hemoglobin concentration (MCHC) determinationOrdered By: Brianna Velasquez on 02-27-2025 MCHC (RBC) [Mass/Vol] 33.3 g/dL 32-36 [facility] Mean platelet volume determi nationOrdered By: Brianna Velasquez on 02-27-2025 Platelet mean volume (Bld) [Entitic vol] 10.1 fL 6.2-12.0 [facility] Monocyte percentageOrdered B y: Brianna Velasquez on 02-27-2025 Monocytes/100 WBC (Bld) 6.9 % 0-10 [facility] Neutrophil percentageOrdered By: Brianna Velasquez on 02-27-2025 Neutrophils/100 WBC (Bld) 77.0 % High 47-70 [facility] No Panel InformationOrdered By: Brianna Velasquez on 02-27-2025 HIV (1&2) Antibody Non-Reactive Nonreactive [facility] Comment on above: Non-ReactiveReactive Repeatedly reactive samples must be confirmed according to CDC recommended confirmatory algorithms. The subresults for either HIVAG or AHIV can be used as an aid in the selection of the confirmation algorithm for reactive samples.Send out specimens with Reactive results to [facility] for confirmation.Order the HIV antibody detection and differentiation: #[id number] Nucleated red blood cell per centageOrdered By: Brianna Velasquez on 02-27-2025 Nucleated RBC/100 WBC (Bld) [Ratio] 0 % 0-5 [facility] Track Repair Laborer Office Visit Reporton 02-27-2025 Track Repair Laborer Office Visit Report [facility] [address], [address] [place] [address] OFFICE VISIT Date of Service: 02/27/25 MR#: [id number] Acct: [id number] Name: FAREED YOUNG Rep #: [id number] : 2000 Provider: Dr. Elli Murray DO Age/Sex: 25/F Location: [facility] [place] Status: Signed Intake Vital Signs 10/27/24 13:05 01/26/25 09:38 02/27/25 08:52 Height 5 ft 5 in 5 ft 5 in 5 ft 5 in Weight: 183 lb 4 oz BMI 30.4 BP 113/67 Intake Visit Reasons: 26wk ob/glucose Atmospheric Drier Tender Required: No Is patient in pain?: No Allergies No Known Allergies Allergy (Verified 02/27/25 08:55) Medications ???Medication ???Instructions ???Recorded ???Confirmed ???Type multivitamin no.47-iron fum 27 1 cap PO DAILY 12/17/22 02/27/25 History mg-folate no.1 1 mg-dha 300 mg capsule (PNV-DHA) Last Menstrual Period: 08/28/24 Zika: Zika virus screening: Negative : No PFSH PFSH Medical History Vaginal delivery Family history of recurrent miscarriage Family History Brother Autism Sister Family history of recurrent miscarriage Mother Thyroid cancer, Onset Age: 52 Sister Thyroid cancer, Onset Age: 40 Thyroid removed Father Myocardial infarction, Onset Age: 54 Social History adopted: No household members: spouse and children housing: house number of children: 1 current occupational status: employed 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 pets and animals: Yes (not managing litterbox) pets and animals: cat(s) history of recent travel: Yes ([place] - August 2024) out of state: Yes out of country: No sexually active: Yes Smoking Status: Never smoker alcohol intake: never substance use type: does not use well-balanced diet: daily or most days caffeine: No eating out: rarely or never during the past year weight has: remained stable what type of physical activity do you participate in: walking frequency: daily duration: < 15 minutes/day allen/advent: Hinduism seatbelt use: always do you feel safe at home: Yes additional 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: : Tha Berger History 2 Elective abortions Hx Para 1 Spontaneous abortions Hx # Term Pregnancies 1 Ectopic pregnancies Hx # Pregnancies Multiple births # of living children 1 Past Pregnancies Del. Date Name GA/Weeks Outcome Route Bth Weight Gen Labor Lgth Anesthesia Del Locatn Provider FOB 07/28/23 Chris 40 live - full term vacuum 9lbs 5oz Male epidural [facility] Gill Edwards Shaquille Delivery Date: 07/28/23 Last Updated by: Cesilia Hernandez GBS + HPI 26wk ob/glucose Details: FAREED YOUNG is a 25 year old who presents for routine OB visit. OB Visit NORMA Calculator Estimated Delivery Date Method Current WG Current Estimate 06/04/25 LMP (Certain) 26w 1d Other Estimates 06/03/25 Ultrasound #1 26w 2d Expected Delivery Route/Plan Labor Preferences- CB/BF classes: [] labor support person: [] labor intervention preferences: [] pain management options preferred: [] cut cord/dad catch: [] : [] PP control planned: [] discussed possible routes of delivery and associated risks: [] special requests: [] Specific Issue/Plans Covid status: [] Flu vaccine: declined Tdap vaccine: [] Rhogam: [] LARC form signed: [] Problem list reviewed and updated with the most current plan of care details and appropriate orders placed. Relevant counseling for the gestational age provided. Continue routine care and follow up unless otherwise noted in visit notes/problem list details Initial Weight: 167 lb Date -???-???-???-???-??? -???-???-???-???-??? -???-???- EGA Weight BP Urine Prot -???-???-???-???-??? -???-???-???-???-??? -???-???- Glucose FHR FuHt Pres Dilation -???-???-???-???-??? -???-???-???-???-??? -???-???- Effaced St Visit Note 10/27/24 -???-???-???-???-??? -???-???-???-???-??? -???-???- 8w 4d 167 lb (+0 oz) 121/76 Negative -???-???-???-???-??? -???-???-???-???-??? -???-???- Negative 181 -???-???-???-???-??? -???-???-???-???-??? -???-???- KW- CRL cons with dates. NIPT undecided. will get labs next visit. 11/28/24 -???-???-???-???-??? -???-???-???-???-??? -???-???- 13w 1d 170 lb 8 oz (+3 lb 8 oz) 117/76 Negative -???-???-???-???-??? -???-???-???-???-??? -???-???- Negative 150 -???-???-???-???-??? -???-???-???-???-??? -???-???- SM- declines NIPT no vb crmaping 01/03/25 -???-???-???-???-??? -???-???-???-???-??? -???-???- 18w 2d 173 lb (+6 lb) 110/64 Negative -???-???-???-???-??? - (more content not included)... Normal [facility] Platelet countOrdered By: Stacia Velasquez on 02-27-2025 Platelets (Bld) [#/Vol] 325 10*3/uL 150-450 [facility] RBC Auto (Bld) [#/Vol]Ordere d By: Brianna Velasquez on 02-27-2025 RBC (Bld) [#/Vol] 4.26 10*6/uL 4.2-5.4 [facility] [facility] Syphilis Antibodieson 2024 Syphilis Abs Non-Reactive Normal Nonreactive [facility] Comment on above: Performed By: #### L 3890.6006, L100.0100, L509.8002, L501.0250 #### [facility] [address] [place], [place] [address], [address] T. pallidum abOrdered By: Stacia Velasquez on 02-27-2025 Syphilis Total Antibody Non-Reactive Nonreactiv e [facility] White blood cell (WBC) count Ordered By: Brianna Velasquez on 02-27-2025 WBC (Bld) [#/Vol] 11.7 10*3/uL High 4.4-11.0 [facility] - Chemistry and C hemistry - challengeOrdered By: Brianna Velasquez on 01-26-2025 Glucose Ql (U) Negative [facility] - UrinalysisOrder ed By: Brianna Velasquez on 01-26-2025 Protein Ql (U) Negative [facility] Track Repair Laborer Office Visit Reporton 01-26-2025 Track Repair Laborer Office Visit Report [facility]'s [address], [address] [place] [address] OFFICE VISIT Date of Service: 01/26/25 MR#: [id number] Acct: [id number] Name: FAREED YOUNG Rep #: [id number] : 2000 Provider: LAYLA rader Age/Sex: 24/F Location: [facility] [place] Status: Signed Intake Vital Signs 10/27/24 13:05 01/03/25 10:00 01/26/25 09:35 01/26/25 09:38 Height 5 ft 5 in 5 ft 5 in 5 ft 5 in 5 ft 5 in Weight: 173 lb 177 lb 7 oz BMI 28.8 29.5 BP 110/64 104/71 Intake Visit Reasons: 21 WK OB Atmospheric Drier Tender Required: No Is patient in pain?: No Allergies No Known Allergies Allergy (Verified 01/26/25 09:35) Medications ???Medication ???Instructions ???Recorded ???Confirmed ???Type multivitamin no.47-iron fum 27 1 cap PO DAILY 12/17/22 01/26/25 History mg-folate no.1 1 mg-dha 300 mg capsule (PNV-DHA) Last Menstrual Period: 08/28/24 : No PFSH PFSH Medical History Vaginal delivery Family history of recurrent miscarriage Family History Brother Autism Sister Family history of recurrent miscarriage Mother Thyroid cancer, Onset Age: 52 Sister Thyroid cancer, Onset Age: 40 Thyroid removed Father Myocardial infarction, Onset Age: 54 Social History adopted: No household members: spouse and children housing: house number of children: 1 current occupational status: employed 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 pets and animals: Yes (not managing litterbox) pets and animals: cat(s) history of recent travel: Yes ([place] - August 2024) out of state: Yes out of country: No sexually active: Yes Smoking Status: Never smoker alcohol intake: never substance use type: does not use well-balanced diet: daily or most days caffeine: No eating out: rarely or never during the past year weight has: remained stable what type of physical activity do you participate in: walking frequency: daily duration: < 15 minutes/day allen/advent: Hinduism seatbelt use: always do you feel safe at home: Yes additional 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: : Shaquille- bA History 2 Elective abortions Hx Para 1 Spontaneous abortions Hx # Term Pregnancies 1 Ectopic pregnancies Hx # Pregnancies Multiple births # of living children 1 Past Pregnancies Del. Date Name GA/Weeks Outcome Route Bth Weight Infant Gen Labor Lgth Anesthesia Del Locatn Provider FOB 07/28/23 Chris 40 live - full term vacuum 9lbs 5oz Male epidural [facility] Gill Edwards Shaqu[place] Delivery Date: 07/28/23 Last Updated by: Cesilia Hernandez GBS + HPI 21 WK OB Details: FAREED YOUNG is a 24 year old who presents for routine OB visit. OB Visit NORMA Calculator Estimated Delivery Date Method Current Current Estimate 06/04/25 LMP (Certain) 21w 4d Other Estimates 06/03/25 Ultrasound #1 21w 5d Expected Delivery Route/Plan Labor Preferences- CB/BF classes: [] labor support person: [] labor intervention preferences: [] pain management options preferred: [] cut cord/dad catch: [] : [] PP control planned: [] discussed possible routes of delivery and associated risks: [] special requests: [] Specific Issue/Plans Covid status: [] Flu vaccine: declined Tdap vaccine: [] Rhogam: [] LARC form signed: [] Problem list reviewed and updated with the most current plan of care details and appropriate orders placed. Relevant counseling for the gestational age provided. Continue routine care and follow up unless otherwise noted in visit notes/problem list details Initial Weight: 167 lb Date -???-???-???-???-??? -???-???-???-???-??? -???-???- EGA Weight BP Urine Prot -???-???-???-???-??? -???-???-???-???-??? -???-???- Glucose FHR FuHt Pres Dilation -???-???-???-???-??? -???-???-???-???-??? -???-???- Effaced St Visit Note 10/27/24 -???-???-???-???-??? -???-???-???-???-??? -???-???- 8w 4d 167 lb (+0 oz) 121/76 Negative -???-???-???-???-??? -???-???-???-???-??? -???-???- Negative 181 -???-???-???-???-??? -???-???-???-???-??? -???-???- KW- CRL cons with dates. NIPT undecided. will get labs next visit. 11/28/24 -???-???-???-???-??? -???-???-???-???-??? -???-???- 13w 1d 170 lb 8 oz (+3 lb 8 oz) 117/76 Negative -???-???-???-???-??? -???-???-???-???-??? -???-???- Negative 150 -???-???-???-???-??? -???-???-???-???-??? -???-???- SM- declines NIPT no vb crmaping 01/03/25 -???-???-???-???-??? -???-???-???-???-??? -???-???- 18w 2d 173 lb (+6 lb) 110/64 Negative -???-???-???-???-??? -???-???-???-???-??? -???-???- (more content not included)... Normal [facility] - Chemistry and C hemistry - challengeOrdered By: Margot Bradford on 01-03-2025 Glucose Ql (U) Negative [facility] - UrinalysisOrder ed By: Margot Bradford on 01-03-2025 Protein Ql (U) Negative [facility] Track Repair Laborer Office Visit Reporton 01-03-2025 Track Repair Laborer Office Visit Report [facility]'s [address], [address] [place] [address] OFFICE VISIT Date of Service: 01/03/25 MR#: [id number] Acct: [id number] Name: FAREED YOUNG Rep #: [id number] : 2000 Provider: AURA barrow Age/Sex: 24/F Location: [facility] [place] Status: Signed Intake Vital Signs 10/27/24 13:05 11/28/24 11:30 01/03/25 10:00 Height 5 ft 5 in 5 ft 5 in 5 ft 5 in Weight: 173 lb BMI 28.8 BP 110/64 Intake Visit Reasons: 18 WK OB Chief Complaint: 18 Week OB Atmospheric Drier Tender Required: No Is patient in pain?: No Allergies No Known Allergies Allergy (Verified 01/03/25 09:59) Medications ???Medication ???Instructions ???Recorded ???Confirmed ???Type multivitamin no.47-iron fum 27 1 cap PO DAILY 12/17/22 01/03/25 History mg-folate no.1 1 mg-dha 300 mg capsule (PNV-DHA) Last Menstrual Period: 08/28/24 Zika: Zika virus screening: Negative : No PFSH PFSH Medical History Vaginal delivery Family history of recurrent miscarriage Family History Brother Autism Sister Family history of recurrent miscarriage Mother Thyroid cancer, Onset Age: 52 Sister Thyroid cancer, Onset Age: 40 Thyroid removed Father Myocardial infarction, Onset Age: 54 Social History adopted: No household members: spouse and children housing: house number of children: 1 current occupational status: employed 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/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 pets and animals: Yes (not managing litterbox) pets and animals: cat(s) history of recent travel: Yes ([place] - August 2024) out of state: Yes out of country: No sexually active: Yes Smoking Status: Never smoker alcohol intake: never substance use type: does not use well-balanced diet: daily or most days caffeine: No eating out: rarely or never during the past year weight has: remained stable what type of physical activity do you participate in: walking frequency: daily duration: < 15 minutes/day allen/advent: Hinduism seatbelt use: always do you feel safe at home: Yes additional 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: : Tha Berger History 2 Elective abortions Hx Para 1 Spontaneous abortions Hx # Term Pregnancies 1 Ectopic pregnancies Hx # Pregnancies Multiple births # of living children 1 Past Pregnancies Del. Date Name GA/Weeks Outcome Route Bth Weight Infant Gen Labor Lgth Anesthesia Del Locatn Provider FOB 07/28/23 Chris 40 live - full term vacuum 9lbs 5oz Male epidural [facility] Gill Edwards Shaquille Delivery Date: 07/28/23 Last Updated by: Cesilia Hernandez GBS + HPI 18 WK OB Details: FAREED YOUNG is a 24 year old who presents for routine OB visit. OB Visit NORMA Calculator Estimated Delivery Date Method Current WG Current Estimate 06/04/25 LMP (Certain) 18w 2d Other Estimates 06/03/25 Ultrasound #1 18w 3d Expected Delivery Route/Plan Labor Preferences- CB/BF classes: [] labor support person: [] labor intervention preferences: [] pain management options preferred: [] cut cord/dad catch: [] : [] PP control planned: [] discussed possible routes of delivery and associated risks: [] special requests: [] Specific Issue/Plans Covid status: [] Flu vaccine: declined Tdap vaccine: [] Rhogam: [] LARC form signed: [] Problem list reviewed and updated with the most current plan of care details and appropriate orders placed. Relevant counseling for the gestational age provided. Continue routine care and follow up unless otherwise noted in visit notes/problem list details Initial Weight: Not Recorded Date -???-???-???-???-??? -???-???-???-???-??? -???-???- EGA Weight BP Urine Prot -???-???-???-???-??? -???-???-???-???-??? -???-???- Glucose FHR FuHt Pres Dilation -???-???-???-???-??? -???-???-???-???-??? -???-???- Effaced St Visit Note 10/27/24 -???-???-???-???-??? -???-???-???-???-??? -???-???- 8w 4d 167 lb 121/76 Negative -???-???-???-???-??? -???-???-???-???-??? -???-???- Negative 181 -???-???-???-???-??? -???-???-???-???-??? -???-???- KW- CRL cons with dates. NIPT undecided. will get labs next visit. 11/28/24 -???-???-???-???-??? -???-???-???-???-??? -???-???- 13w 1d 170 lb 8 oz 117/76 Negative -???-???-???-???-??? -???-???-???-???-??? -???-???- Negative 150 -???-???-???-???-??? -???-???-???-???-??? -???-???- SM- declines NIPT no vb crmaping 01/03/25 -???-???-???-???-??? -???-???-???-???-??? -???-???- 18w 2d 173 lb 110/64 Negative -???-???-???-???-??? -???-???-???-???-??? -?? (more content not included)... Normal [facility] Absolute neutrophil countOrd ered By: Radha Naylor on 11-28-2024 Neutrophils (Bld) [#/Vol] 5.6 10*3/uL 2.0-7.7 [facility] Basophil percentageOrdered B y: Radha Naylor on 11-28-2024 Basophils/100 WBC (Bld) 0.4 % 0-1 [facility] CBC W/Diff, Automatedon 11-15 Absolute Lymph 1.76 X10 3/uL Normal 0.83-4.51 [facility] Comment on above: Performed By: #### L 3890.6006, L100.0100, L509.8002, L501.0250 #### [facility] [address] [place], [place], [id number] Absolute Neut 5.6 X10 3/uL Normal 2.0-7.7 [facility] Comment on above: Performed By: #### L 3890.6006, L100.0100, L509.8002, L501.0250 #### [facility] [address] [place], [address] Basophils/100 WBC (Bld) 0.4 % Normal 0-1 [facility] Comment on above: Performed By: #### L 3890.6006, L100.0100, L509.8002, L501.0250 #### [facility] [address] [place], [address] Eosinophils/100 WBC (Bld) 0.6 % Normal 0-5 [facility] Comment on above: Performed By: #### L 3890.6006, L100.0100, L509.8002, L501.0250 #### [facility] [address] [place], [address] Erythrocyte distribution width (RBC) [Ratio] 11.9 % Normal 11.6-14.6 [facility] Comment on above: Performed By: #### L 3890.6006, L100.0100, L509.8002, L501.0250 #### [facility] [address] [place], [address] Hematocrit (Bld) [Volume fraction] 41.0 % Normal 37-47 [facility] Comment on above: Performed By: #### L 3890.6006, L100.0100, L509.8002, L501.0250 #### [facility] [address] [place], [address] Hemoglobin (Bld) [Mass/Vol] 13.6 g/dL Normal 12.0-15.0 [facility] Comment on above: Performed By: #### L 3890.6006, L100.0100, L509.8002, L501.0250 #### [facility] [address] [place], [address] IG% 0.300 Normal 0.0-0.9 [facility] Comment on above: Result Comment: IG% - Immature Granulocytes (promyelocytes, myelocytes and metamyelocytes) > 1% indicates that a LEFT SHIFT is Present. Performed By: #### L 3890.6006, L100.0100, L509.8002, L501.0250 #### [facility] [address] [place], [address] Lymphocytes/100 WBC (Bld) 22.1 % Normal 19-41 [facility] Comment on above: Performed By: #### L 3890.6006, L100.0100, L509.8002, L501.0250 #### [facility] [address] [place], [address] MCH (RBC) [Entitic mass] 28.3 pg Normal 27.0-32.0 [facility] Comment on above: Performed By: #### L 3890.6006, L100.0100, L509.8002, L501.0250 #### [facility] [address] [place], [address] MCHC (RBC) [Mass/Vol] 33.2 g/dL Normal 32-36 [facility] Comment on above: Performed By: #### L 3890.6006, L100.0100, L509.8002, L501.0250 #### [facility] [address] [place], [address] MCV (RBC) [Entitic vol] 85.2 fL Normal 81-99 [facility] Comment on above: Performed By: #### L 3890.6006, L100.0100, L509.8002, L501.0250 #### [facility] [address] [place], [address] Monocytes/100 WBC (Bld) 6.4 % Normal 0-10 [facility] Comment on above: Performed By: #### L 3890.6006, L100.0100, L509.8002, L501.0250 #### [facility] [address] [place], [address] Neutrophils/100 WBC (Bld) 70.2 % High 47-70 [facility] Comment on above: Performed By: #### L 3890.6006, L100.0100, L509.8002, L501.0250 #### [facility] [address] [place], [address] Nucleated RBC (Bld) [#/Vol] 0 10*3/uL Normal 0-5 [facility] Comment on above: Performed By: #### L 3890.6006, L100.0100, L509.8002, L501.0250 #### [facility] [address] [place], [address] Platelet mean volume (Bld) [Entitic vol] 9.7 fL Normal 6.2-12.0 [facility] Comment on above: Performed By: #### L 3890.6006, L100.0100, L509.8002, L501.0250 #### [facility] [address] [place], [address] Platelets (Bld) [#/Vol] 328 10*3/uL Normal 150-450 [facility] Comment on above: Performed By: #### L 3890.6006, L100.0100, L509.8002, L501.0250 #### [facility] [address] [place], [address] RBC (Bld) [#/Vol] 4.81 10*6/uL Normal 4.2-5.4 [facility] Comment on above: Performed By: #### L 3890.6006, L100.0100, L509.8002, L501.0250 #### [facility] [address] [place], [address] RDW SD 36.2 fl Normal 35.1-43.9 [facility] Comment on above: Performed By: #### L 3890.6006, L100.0100, L509.8002, L501.0250 #### [facility] [address] [place], [address] WBC (Bld) [#/Vol] 8.0 10*3/uL Normal 4.4-11.0 [facility] Comment on above: Performed By: #### L 3890.6006, L100.0100, L509.8002, L501.0250 #### [facility] [address] [place], [address] Eosinophil percentageOrdered By: Radha Naylor on 11-28-2024 Eosinophils/100 WBC (Bld) 0.6 % 0-5 [facility] Erythrocyte distribution wid th (RBC) [Ratio]Ordered By: Radha Naylor on 11-28-2024 Erythrocyte distribution width (RBC) [Entitic vol] 36.2 fL 35.1-43.9 [facility] Erythrocyte distribution wid th ratioOrdered By: Radha Naylor on 11-28-2024 Erythrocyte distribution width (RBC) [Ratio] 11.9 % 11.6-14.6 [facility] HIV - WCHon 11-28-2024 HIV Non-Reactive Normal Nonreactive [facility] Comment on above: Order Comment: Reaso n for Exam: Performed By: #### L 3890.6006, L100.0100, L509.8002, L501.0250 #### [facility] [address] [place], [address] HIV 1+2 Ab+HIV1 p24 Ag IA Ql Ordered By: Radha Naylor on 11-28-2024 HIV (1&2) Antibody Non-Reactive Nonreactive [facility] Hematocrit Auto (Bld) [Volum e fraction]Ordered By: Radha Naylor on 11-28-2024 Hematocrit (Bld) [Volume fraction] 41.0 % 37-47 [facility] Hemoglobin measurementOrdere d By: Radha Naylor on 11-28-2024 Hemoglobin (Bld) [Mass/Vol] 13.6 g/dL 12.0-15.0 [facility] Hepatitis B Surface Antigeno n 11-28-2024 HEP B Surf Ag Non-Reactive Normal Nonreactive [facility] Comment on above: Order Comment: Reaso n for Exam: Performed By: #### L 3890.6006, L100.0100, L509.8002, L501.0250 #### [facility] [address] [place], [place], [id number] Hepatitis B surface antigen detectionOrdered By: Radha Naylor on 11-28-2024 Hepatitis B Surface Antigen Non-Reactive Nonreactive [facility] Hepatitis C Antibodyon 11-28 Hepatitis C AB [facility] Comment on above: Order Comment: Reaso n for Exam: Result Comment: Non Reactive: < 0.8 Equivocal: >/= 0.8 to < 1.0 Reactive: >/= 1.0 The [facility] requires that a reactive/equivocal HCV antibody result be sent out for confirmation. HCV Quant by PCR testing. Performed By: #### L 3890.6006, L100.0100, L509.8002, L501.0250 #### [facility] [address] [place], [place], [id number] Hepatitis C virus antibody a ssayOrdered By: Radha Naylor on 11-28-2024 Hepatitis C Antibody Non-Reactive Nonreactive [facility] Comment on above: Non Reactive: < 0.8 Equivocal: >/= 0.8 to < 1.0 Reactive: >/= 1.0The CDC requires that a reactive/equivocal HCV antibody result be sent out for confirmation. HCV Quant by PCR testing. Immature granulocytes/100 WB C Auto (Bld)Ordered By: Radha Naylor on 11-28-2024 Immature granulocytes/100 WBC (Bld) 0.300 % 0.0-0.9 [facility] Comment on above: IG% - Immature Granu locytes (promyelocytes, myelocytes and metamyelocytes) > 1% indicates that a LEFT SHIFT is Present. L509.8000on 11-28-2024 Syphilis Abs Non-Reactive Normal [facility] Comment on above: Order Comment: Reaso n for Exam: Performed By: #### L 3890.6006, L100.0100, L509.8002, L501.0250 #### [facility] [address] [place], [address] Laboratory - Chemistry and C hemistry - challengeon 11-28-2024 Glucose Ql (U) Negative [facility] - Urinalysison Protein Ql (U) Negative [facility] Lymphocytes Auto (Unsp spec) [#/Vol]Ordered By: Radha Naylor on 11-28-2024 Lymphocytes (Bld) [#/Vol] 1.76 10*3/uL 0.83-4.51 [facility] Lymphocytes/100 WBC Auto (Un sp spec)Ordered By: Radha Naylor on 11-28-2024 Lymphocytes/100 WBC (Bld) 22.1 % 19-41 [facility] MCV (mean corpuscular volume ) determinationOrdered By: Radha Naylor on 11-28-2024 MCV (RBC) [Entitic vol] 85.2 fL 81-99 [facility] Mean corpuscular hemoglobin (MCH) determinationOrdered By: Radha Naylor on 11-28-2024 MCH (RBC) [Entitic mass] 28.3 pg 27.0-32.0 [facility] Mean corpuscular hemoglobin concentration (MCHC) determinationOrdered By: Radha Naylor on 11-28-2024 MCHC (RBC) [Mass/Vol] 33.2 g/dL 32-36 [facility] Mean platelet volume determi nationOrdered By: Radha Naylor on 11-28-2024 Platelet mean volume (Bld) [Entitic vol] 9.7 fL 6.2-12.0 [facility] Monocyte percentageOrdered B y: Radha Naylor on 11-28-2024 Monocytes/100 WBC (Bld) 6.4 % 0-10 [facility] Neutrophil percentageOrdered By: Radha Naylor on 11-28-2024 Neutrophils/100 WBC (Bld) 70.2 % High 47-70 [facility] Nucleated red blood cell per centageOrdered By: Radha Naylor on 11-28-2024 Nucleated RBC/100 WBC (Bld) [Ratio] 0 % 0-5 [facility] Track Repair Laborer Office Visit Reporton 11-28-2024 Track Repair Laborer Office Visit Report [facility]'s [address], [address] [place] [address] OFFICE VISIT Date of Service: 11/28/24 MR#: [id number] Acct: [id number] Name: FAREED YOUNG Rep #: [id number] : 2000 Provider: Dr. Annabelle casas MD Age/Sex: 24/F Location: [facility] [place] Status: Signed Intake Vital Signs 09/23/23 05:09 10/27/24 13:05 11/28/24 11:28 11/28/24 11:30 Height 5 ft 5 in 5 ft 5 in 5 ft 5 in 5 ft 5 in Weight: 170 lb 8 oz BMI 28.3 BP 117/76 Intake Visit Reasons: 12 wk OB Atmospheric Drier Tender Required: No Is patient in pain?: No Feel stressed/tense/nervo us/anxious/difficult y sleeping: not at all Allergies No Known Allergies Allergy (Verified 11/28/24 11:30) Medications ???Medication ???Instructions ???Recorded ???Confirmed ???Type multivitamin no.47-iron fum 27 1 cap PO DAILY 12/17/22 11/28/24 History mg-folate no.1 1 mg-dha 300 mg capsule (PNV-DHA) Last Menstrual Period: 08/28/24 Zika: Zika virus screening: Negative : No Have you fallen in the past year?: No PFSH PFSH Medical History Vaginal delivery Family history of recurrent miscarriage Family History Brother Autism Sister Family history of recurrent miscarriage Mother Thyroid cancer, Onset Age: 52 Sister Thyroid cancer, Onset Age: 40 Thyroid removed Father Myocardial infarction, Onset Age: 54 Social History adopted: No household members: spouse and children housing: house number of children: 1 current occupational status: employed 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 pets and animals: Yes (not managing litterbox) pets and animals: cat(s) history of recent travel: Yes ([place] - August 2024) out of state: Yes out of country: No sexually active: Yes Smoking Status: Never smoker alcohol intake: never substance use type: does not use well-balanced diet: daily or most days caffeine: No eating out: rarely or never during the past year weight has: remained stable what type of physical activity do you participate in: walking frequency: daily duration: < 15 minutes/day allen/advent: Hinduism seatbelt use: always do you feel safe at home: Yes additional 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: : Tha Berger History 2 Elective abortions Hx Para 1 Spontaneous abortions Hx # Term Pregnancies 1 Ectopic pregnancies Hx # Pregnancies Multiple births # of living children 1 Past Pregnancies Del. Date Name GA/Weeks Outcome Route Bth Weight Infant Gen Labor Lgth Anesthesia Del Locatn Provider FOB 07/28/23 Chris 40 live - full term vacuum 9lbs 5oz Male epidural [facility] D daja Isabel Delivery Date: 07/28/23 Last Updated by: Cesilia Hernandez GBS + HPI 12 wk OB Details: FAREED YOUNG is a 24 year old who presents for routine OB visit. OB Visit NORMA Calculator Estimated Delivery Date Method Current WG Current Estimate 06/04/25 LMP (Certain) 13w 1d Other Estimates 06/03/25 Ultrasound #1 13w 2d Expected Delivery Route/Plan Labor Preferences- CB/BF classes: [] labor support person: [] labor intervention preferences: [] pain management options preferred: [] cut cord/dad catch: [] : [] PP control planned: [] discussed possible routes of delivery and associated risks: [] special requests: [] Specific Issue/Plans Covid status: [] Flu vaccine: declined Tdap vaccine: [] Rhogam: [] LARC form signed: [] Problem list reviewed and updated with the most current plan of care details and appropriate orders placed. Relevant counseling for the gestational age provided. Continue routine care and follow up unless otherwise noted in visit notes/problem list details Initial Weight: Not Recorded Date -???-???-???-???-??? -???-???-???-???-??? -???-???- EGA Weight BP Urine Prot -???-???-???-???-??? -???-???-???-???-??? -???-???- Glucose FHR FuHt Pres Dilation -???-???-???-???-??? -???-???-???-???-??? -???-???- Effaced St Visit Note 10/27/24 -???-???-???-???-??? -???-???-???-???-??? -???-???- 8w 4d 167 lb 121/76 Negative -???-???-???-???-??? -???-???-???-???-??? -???-???- Negative 181 -???-???-???-???-??? -???-???-???-???-??? -???-???- KW- CRL cons with dates. NIPT undecided. will get labs next visit. 11/28/24 -???-???-???-???-??? -???-???-???-???-??? -???-???- 13w 1d 170 lb 8 oz 117/76 Negative -???-???-???-???-??? -???-???-???-???-??? -???-???- Negative 150 -???-???-???-???-??? -???-???-???-???-??? -???-???- SM- declines NIPT no vb crmaping ACOG First Trimester F (more content not included)... Normal [facility] Platelet countOrdered By: Damaso Naylor on 11-28-2024 Platelets (Bld) [#/Vol] 328 10*3/uL 150-450 [facility] RBC Auto (Bld) [#/Vol]Ordere d By: Radha Naylor on 11-28-2024 RBC (Bld) [#/Vol] 4.81 10*6/uL 4.2-5.4 [facility] Rubella IgGon 11-28-2024 Rubella IgG Reactive Normal Nonreactive [facility] Comment on above: Order Comment: Reaso n for Exam: Result Comment: Anti body Results Interpretation of Immune Status Non Reactive Presumed Non-Immune Equivocal Equivocal Reactive Presumed Immune Performed By: #### L 3890.6006, L100.0100, L509.8002, L501.0250 #### [facility] [address] [place], [place], [id number] Rubella immune status IgGOrd ered By: Radha Naylor on 11-28-2024 Rubella IgG Antibody Reactive Nonreactive [facility] Comment on above: Antibody Results Int erpretation of Immune Status Non Reactive Presumed Non-Immune Equivocal Equivocal Reactive Presumed Immune Treponema sp Ab Ql (S)Ordere d By: Radha Naylor on 11-28-2024 Syphilis Total Antibody Non-Reactive [facility] Type AND Screenon 11-28-2024 ABO and Rh group Nom (Bld) Blood group O Rh(D) positive Normal [facility] Comment on above: Order Comment: PN Performed By: #### L 3890.6006, L100.0100, L509.8002, L501.0250 #### [facility] [address] [place], [place], [id number] White blood cell (WBC) count Ordered By: Radha Naylor on 11-28-2024 WBC (Bld) [#/Vol] 8.0 10*3/uL 4.4-11.0 [facility] Chlamydia/GC SHIRAZ aptimaon CHLAMY,NUC ACID Negative Normal Negative [facility] Comment on above: Performed By: #### L 3890.6006, L100.0100, L509.8002, L501.0250 #### [facility] [address] [place], [place], [address] GC BY NUC ACID Negative Normal Negative [facility] Comment on above: Result Comment: Perf ormed at: =G - [facility] [address] [facility] [place], [place] [id number] Glass Lathe Operator: Ashley Golden MD, Phone: [phone] Performed By: #### L 3890.6006, L100.0100, L509.8002, L501.0250 #### [facility] [address] [place], [place], [address] Urine Cultureon 10-28-2024 URC Culture exhibits no growth. Normal [facility] Comment on above: Performed By: #### L 3890.6006, L100.0100, L509.8002, L501.0250 #### [facility] [address] [place], [place], [address] Track Repair Laborer Office Visit Reporton 10-27-2024 Track Repair Laborer Office Visit Report [facility]'[address], [address] [place] [address] OFFICE VISIT Date of Service: 10/27/24 MR#: [id number] Acct: [id number] Name: FAREED YOUNG Rep #: [id number] 28 : 2000 Provider: LAYLA Stratton ams Age/Sex: 24/F Location: [facility] [place] Status: Signed Intake Vital Signs 09/23/23 05:09 10/27/24 13:03 10/27/24 13:05 Height 5 ft 5 in 5 ft 5 in 5 ft 5 in Weight: 167 lb BMI 27.8 BP 121/76 H Intake Visit Reasons: New OB, LMP 08/28, NORMA 06/04/25 Atmospheric Drier Tender Required: No Is patient in pain?: No Allergies No Known Allergies Allergy (Verified 10/27/24 13:04) Medications ???Medication ???Instructions ???Recorded ???Confirmed ???Type multivitamin no.47-iron fum 27 1 cap PO DAILY 12/17/22 10/27/24 History mg-folate no.1 1 mg-dha 300 mg capsule (PNV-DHA) Last Menstrual Period: 08/28/24 Zika: Zika virus screening: Negative : Yes Have you fallen in the past year?: No PFSH PFSH Medical History Vaginal delivery Family history of recurrent miscarriage Family History Brother Autism Sister Family history of recurrent miscarriage Mother Thyroid cancer, Onset Age: 52 Sister Thyroid cancer, Onset Age: 40 Thyroid removed Father Myocardial infarction, Onset Age: 54 Social History adopted: No household members: spouse and children housing: house number of children: 1 current occupational status: employed 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 pets and animals: Yes (not managing litterbox) pets and animals: cat(s) history of recent travel: Yes ([place] - August 2024) out of state: Yes out of country: No sexually active: Yes Smoking Status: Never smoker alcohol intake: never substance use type: does not use well-balanced diet: daily or most days caffeine: No eating out: rarely or never during the past year weight has: remained stable what type of physical activity do you participate in: walking frequency: daily duration: < 15 minutes/day allen/advent: Hinduism seatbelt use: always do you feel safe at home: Yes additional 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: : Tha Berger History 2 Elective abortions Hx Para 1 Spontaneous abortions Hx # Term Pregnancies 1 Ectopic pregnancies Hx # Pregnancies Multiple births # of living children 1 Past Pregnancies Del. Date Name GA/Weeks Outcome Route Bth Weight Gen Labor Lgth Anesthesia Del Locatn Provider FOB 07/28/23 Chris 40 live - full term vacuum 9lbs 5oz Male epidural [facility] Gill Edwards Shaquille Delivery Date: 07/28/23 Last Updated by: Cesilia Hernandez GBS + HPI New OB, LMP 08/28, NORMA 06/04/25 Details: FAREED YOUNG is a 24 year old who presents for New OB visit. OB Visit NORMA Calculator Estimated Delivery Date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 mm[Hg] Dr. Solitario Blank Work Phone: 7(946)239-242283 [place] [address] 07-27-2023 11:20-0400 Systolic blood pressure 113 mm[Hg] Dr. Solitario Blank Work Phone: 0(086)678-403983 [place] [address] 07-23-2023 11:43-0400 Body mass index (BMI) [Ratio] 33.6 kg/m2 Dr. Solitario Blank Work Phone: 5(690)719-770383 [place] [address] 07-23-2023 11:43-0400 Body weight 91.[address] Solitario Blank Work Phone: 4(960)902-356983 [place] [address] 07-23-2023 11:43-0400 Diastolic blood pressure 81 mm[Hg] Dr. Solitario Blank Work Phone: 1(994)841-184683 [place] [address] 07-23-2023 11:43-0400 Systolic blood pressure 121 mm[Hg] Dr. Solitario Blank Work Phone: 4(525)617-036783 [place] [address] 07-16-2023 10:02-0400 Body mass index (BMI) [Ratio] 33.3 kg/m2 Dr. Solitario Blank Work Phone: 6(752)285-002683 [place] [address] 07-16-2023 10:02-0400 Body weight 90.[address] Solitario Blank Work Phone: 0(308)656-776883 [place] [address] 07-16-2023 10:02-0400 Diastolic blood pressure 83 mm[Hg] Dr. Solitario Blank Work Phone: 4(234)648-159983 [place] [address] 07-16-2023 10:02-0400 Systolic blood pressure 137 mm[Hg] Dr. Solitario Blank Work Phone: 2(016)698-523483 [place] [address] 07-09-2023 10:45-0400 Body mass index (BMI) [Ratio] 32.8 kg/m2 Dr. Solitario Blank Work Phone: 3(084)072-906283 [place] [address] 07-09-2023 10:45-0400 Body weight 89.[address] Solitario Blank Work Phone: 3(515)788-885783 [place] [address] 07-09-2023 10:45-0400 Diastolic blood pressure 75 mm[Hg] Dr. Solitario Blank Work Phone: 4(528)220-938634 [place] [address] 07-09-2023 10:45-0400 Systolic blood pressure 122 mm[Hg] Dr. Solitario Blank Work Phone: 7(109)904-315533 [address] 07-02-2023 10:01-0400 Body mass index (BMI) [Ratio] 32.5 kg/m2 Dr. Solitario Blank Work Phone: 2(918)165-370833 [address] 07-02-2023 10:01-0400 Body weight 88.[address] Solitario Blank Work Phone: 2(089)144-420333 [address] 07-02-2023 10:01-0400 Diastolic blood pressure 74 mm[Hg] Dr. Solitario Blank Work Phone: 7(563)449-807483 [place] [address] 07-02-2023 10:01-0400 Systolic blood pressure 116 mm[Hg] Dr. Solitario Blank Work Phone: 5(842)577-310983 [place] [address] 06-30-2023 19:05-0400 Body temperature 99.4 [degF] Dr. Solitario Blank Work Phone: 0(587)089-774283 [place] [address] 06-30-2023 19:03-0400 Body height 165.[address] Solitario Blank Work Phone: 5(136)667-678783 [place] [address] 06-30-2023 19:03-0400 Body mass index (BMI) [Ratio] 32.5 kg/m2 Dr. Solitario Blank Work Phone: 5(071)831-593383 [place] [address] 06-30-2023 19:03-0400 Body weight 88.[address] Solitario Blank Work Phone: 6(181)722-747933 [address] 06-30-2023 18:45-0400 Diastolic blood pressure 77 mm[Hg] Dr. Solitario Blank Work Phone: 9(288)837-646883 [place] [address] 06-30-2023 18:45-0400 Heart rate 96 /min Dr. Solitario Blank Work Phone: 3(013)511-576833 [address] 06-30-2023 18:45-0400 Systolic blood pressure 127 mm[Hg] Dr. Solitario Blank Work Phone: 3(274)608-962333 [address] 06-30-2023 18:43-0400 SaO2% (BldA) [Mass fraction] 98 % Dr. Solitario Blank Work Phone: 9(401)422-433034 [place] [address] 06-25-2023 11:03-0400 Body height 165.[address] Solitario Blank Work Phone: 4(779)665-442133 [address] 06-25-2023 11:00-0400 Body mass index (BMI) [Ratio] 32.4 kg/m2 Dr. Solitario Blank Work Phone: 7(214)188-583933 [address] 06-25-2023 11:00-0400 Body weight 88.[address] Solitario Blank Work Phone: 7(885)770-490083 [place] [address] 06-25-2023 11:00-0400 Diastolic blood pressure 75 mm[Hg] Dr. Solitario Blank Work Phone: 2(548)630-028183 [place] [address] 06-25-2023 11:00-0400 Systolic blood pressure 107 mm[Hg] Dr. Solitario Blank Work Phone: 5(596)461-671933 [address] 06-10-2023 14:34-0400 Body height 165.[address] Solitario Blank Work Phone: 2(619)583-706683 [place] [address] 06-10-2023 14:34-0400 Body mass index (BMI) [Ratio] 32.3 kg/m2 Dr. Solitario Blank Work Phone: 2(001)003-493433 [address] 06-10-2023 14:34-0400 Body weight 87.[address] Solitario Blank Work Phone: 5(978)260-002033 [address] 06-10-2023 14:34-0400 Diastolic blood pressure 70 mm[Hg] Dr. Solitario Blank Work Phone: 6(619)903-153233 [address] 06-10-2023 14:34-0400 Systolic blood pressure 104 mm[Hg] Dr. Solitario Blank Work Phone: 6(405)600-750383 [place] [address] 06-07-2023 10:28-0400 Body mass index (BMI) [Ratio] 32.1 kg/m2 Dr. Solitario Blank Work Phone: 8(304)618-516433 [address] 06-07-2023 10:28-0400 Body weight 87.[address] Solitario Blank Work Phone: 1(336)797-774734 [place] [address] 06-07-2023 10:28-0400 Diastolic blood pressure 73 mm[Hg] Dr. Solitario Blank Work Phone: 1(078)617-428433 [address] 06-07-2023 10:28-0400 Systolic blood pressure 112 mm[Hg] Dr. Solitario Blank Work Phone: 8(483)364-076383 [place] [address] 05-28-2023 11:41-0400 Body mass index (BMI) [Ratio] 31.6 kg/m2 Dr. Solitario Blank Work Phone: 4(343)493-314433 [address] 05-28-2023 11:41-0400 Body weight 86.[address] Solitario Blank Work Phone: 7(763)153-469683 [place] [address] 05-28-2023 11:41-0400 Diastolic blood pressure 74 mm[Hg] Dr. Solitario Blank Work Phone: 3(287)441-310283 [place] [address] 05-28-2023 11:41-0400 Systolic blood pressure 121 mm[Hg] Dr. Solitario Blank Work Phone: 3(312)611-780133 [address] 05-14-2023 10:07-0400 Body mass index (BMI) [Ratio] 31.3 kg/m2 Dr. Solitario Blank Work Phone: 7(858)567-023683 [place] [address] 05-14-2023 10:07-0400 Body weight 85.[address] Solitario Blank Work Phone: 7(037)719-137833 [address] 05-14-2023 10:07-0400 Diastolic blood pressure 68 mm[Hg] Dr. Solitario Blank Work Phone: 0(663)213-320433 [address] 05-14-2023 10:07-0400 Systolic blood pressure 94 mm[Hg] Dr. Solitario Blank Work Phone: 5(600)590-884383 [place] [address] 04-30-2023 09:11-0400 Body height 165.[address] Solitario Blank Work Phone: 6(716)019-353283 [place] [address] 04-30-2023 09:02-0400 Body mass index (BMI) [Ratio] 30.9 kg/m2 Dr. Solitario Blank Work Phone: 7(243)231-221783 [place] [address] 04-30-2023 09:02-0400 Body weight 84.[address] Solitario Blank Work Phone: 9(418)632-005183 [place] [address] 04-30-2023 09:02-0400 Diastolic blood pressure 62 mm[Hg] Dr. Solitario Blank Work Phone: 9(774)737-520883 [place] [address] 04-30-2023 09:02-0400 Systolic blood pressure 122 mm[Hg] Dr. Solitario Blank Work Phone: 1(641)391-397783 [place] [address] 04-14-2023 11:30-0400 Body mass index (BMI) [Ratio] 30.3 kg/m2 Dr. Solitario Blank Work Phone: 5(618)511-543783 [place] [address] 04-14-2023 11:30-0400 Body weight 82.[address] Solitario Blank Work Phone: 8(051)543-803483 [place] [address] 04-14-2023 11:30-0400 Diastolic blood pressure 71 mm[Hg] Dr. Solitario Blank Work Phone: 5(907)482-459383 [place] [address] 04-14-2023 11:30-0400 Systolic blood pressure 121 mm[Hg] Dr. Solitario Blank Work Phone: 1(527)644-342683 [place] [address] 03-17-2023 11:04-0400 Body mass index (BMI) [Ratio] 28.8 kg/m2 Dr. Solitario Blank Work Phone: 0(132)002-493283 [place] [address] 03-17-2023 11:04-0400 Body weight 78.[address] Solitario Blank Work Phone: 3(118)328-101383 [place] [address] 03-17-2023 11:04-0400 Diastolic blood pressure 70 mm[Hg] Dr. Solitario Blank Work Phone: 4(172)920-539283 [place] [address] 03-17-2023 11:04-0400 Systolic blood pressure 108 mm[Hg] Dr. Solitario Blank Work Phone: 6(556)474-066583 [place] [address] 03-09-2023 16:15-0400 Heart rate 84 /min Dr. Solitario Blank Work Phone: 3(358)262-866483 [place] [address] 03-09-2023 16:15-0400 SaO2% (BldA) [Mass fraction] 99 % Dr. Solitario Blank Work Phone: 5(951)120-580234 [place] [address] 03-09-2023 15:05-0400 Body temperature 97.7 [degF] Dr. Solitario Blank Work Phone: 7(002)376-537083 [place] [address] 03-09-2023 15:05-0400 Diastolic blood pressure 65 mm[Hg] Dr. Solitario Blank Work Phone: 9(355)754-644883 [place] [address] 03-09-2023 15:05-0400 Systolic blood pressure 122 mm[Hg] Dr. Solitario Blank Work Phone: 5(839)250-134383 [place] [address] 03-09-2023 14:49-0400 Body height 165.[address] Solitario Blank Work Phone: 3(767)190-636883 [place] [address] 03-09-2023 14:49-0400 Body mass index (BMI) [Ratio] 29 kg/m2 Dr. Solitario Blank Work Phone: 5(409)559-321983 [place] [address] 03-09-2023 14:49-0400 Body weight [address] Solitario Blank Work Phone: 4(350)231-429583 [place] [address] 02-15-2023 14:31-0400 Body mass index (BMI) [Ratio] 27.7 kg/m2 Dr. Solitario Blank Work Phone: 9(029)385-516583 [place] [address] 02-15-2023 14:31-0400 Body weight 75.[address] Solitario Blank Work Phone: 5(394)566-920433 [address] 02-15-2023 14:31-0400 Diastolic blood pressure 78 mm[Hg] Dr. Solitario Blank Work Phone: 1(343)873-290033 [address] 02-15-2023 14:31-0400 Systolic blood pressure 128 mm[Hg] Dr. Solitario Blank Work Phone: 8(686)735-185783 [place] [address] 01-19-2023 14:06-0500 Body mass index (BMI) [Ratio] 28 kg/m2 Dr. Solitario Blank Work Phone: 5(054)468-926233 [address] 01-19-2023 14:06-0500 Body weight 76.[address] Solitario Blank Work Phone: 6(772)770-190233 [address] 01-19-2023 14:06-0500 Diastolic blood pressure 76 mm[Hg] Dr. Solitario Blank Work Phone: [facility] 01-19-2023 14:06-0500 Systolic blood pressure 123 mm[Hg] Dr. Solitario Blank Work Phone: [facility] 12-24-2022 15:07-0500 Body height 165.[address] Solitario Blank Work Phone: [facility] 12-24-2022 15:07-0500 Body mass index (BMI) [Ratio] 27.8 kg/m2 Dr. Solitario Blank Work Phone: [facility] 12-24-2022 15:07-0500 Body weight 75.[address] Solitario Blank Work Phone: [facility] 12-24-2022 15:07-0500 Diastolic blood pressure 76 mm[Hg] Dr. Solitario Blank Work Phone: [facility] 12-24-2022 15:07-0500 Systolic blood pressure 121 mm[Hg] Dr. Solitario Blank Work Phone: [facility] 01-31-2021 14:16-0400 Body height 166.37 cm Brittny Hunter LPN [facility], [facility], [facility]. 01-31-2021 14:16-0400 Body mass index (BMI) [Ratio] 23.27 kg/m2 Brittny Hunter LPN [facility], [facility].; [facility], [facility]. 01-31-2021 14:16-0400 Body surface area Derived from formula 1.72 m2 Brittny Hunter LPN [facility], [facility].; [facility], [facility]. 01-31-2021 14:16-0400 Body weight 64.41 kg Brittny Hunter LPN [facility], [facility].; [facility], [facility]. 01-31-2021 14:16-0400 Diastolic blood pressure 77 mm[Hg] Brittny Hunter LPN [facility], [facility].; [facility], [facility]. Comment on above: Patient Position: Sitting; Cuff Location : Left Arm; Cuff Size: Standard 01-31-2021 14:16-0400 Heart rate 78 /min Brittny Garridougg [employer] [facility] [employer] Comment on above: Pattern: Regular 01-31-2021 14:16-0400 Respiratory rate 16 /min Brittny Garridougg [employer] [place] [employer] [facility] [employer]. Comment on above: Pattern: Unlabored 01-31-2021 14:16-0400 Systolic blood pressure 112 mm[Hg] Brittny Blancaugg [employer] [place] [employer] [facility] [employer], [employer]. Comment on above: Patient Position: Sitting; Cuff Location : Left Arm; Cuff Size: Standard 06-28-2020 08:56-0400 Body height 160.02 cm Rolanda Oscar Kamaljit [facility] [employer], [employer]. 06-28-2020 08:56-0400 Body mass index (BMI) [Ratio] 24.27 kg/m2 Rolanda Mari [facility] [employer], [employer]. 06-28-2020 08:56-0400 Body surface area Derived from formula 1.65 m2 Rolanda Oscar Kamaljit [facility] [employer] [facility] [employer], [employer]. 06-28-2020 08:56-0400 Body weight 62.14 kg Rolanda Celestina Mari [facility] [employer] [facility] [employer], [employer]. 06-28-2020 08:56-0400 Diastolic blood pressure 71 mm[Hg] Rolanda Celestina Mari [employer] [place] [employer] [facility] [employer]. Comment on above: Patient Position: Sitting; Cuff Location : Right Arm; Cuff Size: Standard 06-28-2020 08:56-0400 Heart rate 71 /min Rolanda Celestina Mari [employer] [place] [employer] [facility], [employer]. Comment on above: Pattern: Regular 06-28-2020 08:56-0400 Systolic blood pressure 108 mm[Hg] Rolanda Oscar Kamaljit [employer] [place] [employer]. Comment on above: Patient Position: Sitting; Cuff Location : Right Arm; Cuff Size: Standard 07-14-2019 10:32-0400 Body height 165.1 cm Rebecca Iqbal RN [employer] 07-14-2019 10:32-0400 Body mass index (BMI) [Percentile] Per age and sex 42 % Rebecca Iqbal RN [employer] 07-14-2019 10:32-0400 Body mass index (BMI) [Ratio] 20.97 kg/m2 Rebecca Iqbal RN [employer] 07-14-2019 10:32-0400 Body surface area Derived from formula 1.63 m2 Rebecca Iqbal RN [employer] 07-14-2019 10:32-0400 Body weight 57.15 kg Rebecca Iqbal RN [employer] 07-14-2019 10:32-0400 Diastolic blood pressure 72 mm[Hg] Rebecca Iqbal RN [employer] Comment on above: Patient Position: Sitting; Cuff Location : Left Arm; Cuff Size: Standard 07-14-2019 10:32-0400 Heart rate 79 /min Rebecca Iqbal RN [employer] Comment on above: Pattern: Regular 07-14-2019 10:32-0400 Systolic blood pressure 112 mm[Hg] Rebecca Iqbal RN [employer]. Comment on above: Patient Position: Sitting; Cuff Location : Left Arm; Cuff Size: Standard 05-12-2019 10:48-0400 Body height 165.1 cm Rebecca Iqbal RN [employer]. 05-12-2019 10:48-0400 Body mass index (BMI) [Percentile] Per age and sex 37 % Rebecca Iqbal RN [employer]. 05-12-2019 10:48-0400 Body mass index (BMI) [Ratio] 20.63 kg/m2 Rebecca Iqbal RN [employer]. 05-12-2019 10:48-0400 Body surface area Derived from formula 1.61 m2 Rebecca Iqbal RN [employer] 05-12-2019 10:48-0400 Body weight 56.25 kg Rebecca Iqbal RN [employer], [employer]. 05-12-2019 10:48-0400 Diastolic blood pressure 59 mm[Hg] Rebecca Iqbal RN [employer]. Comment on above: Patient Position: Sitting; Cuff Location : Left Arm; Cuff Size: Standard 05-12-2019 10:48-0400 Heart rate 62 /min Rebecca Iqbal RN [employer], [employer]. Comment on above: Pattern: Regular 05-12-2019 10:48-0400 Systolic blood pressure 100 mm[Hg] Rebecca Iqbal RN [employer]. Comment on above: Patient Position: Sitting; Cuff Location : Left Arm; Cuff Size: Standard 05-01-2019 10:16-0400 Body height 165.1 cm Liliana Stafford LPN [employer], [employer]. 05-01-2019 10:16-0400 Body mass index (BMI) [Percentile] Per age and sex 38 % Liliana Stafford LPN [employer], [employer]. 05-01-2019 10:16-0400 Body mass index (BMI) [Ratio] 20.63 kg/m2 Liliana Stafford LPN [employer]. 05-01-2019 10:16-0400 Body surface area Derived from formula 1.61 m2 Liliana Stafford LPN [employer], [employer]. 05-01-2019 10:16-0400 Body weight 56.25 kg Liliana Stafford LPN [employer], [employer]. 05-01-2019 10:16-0400 Diastolic blood pressure 71 mm[Hg] Liliana Stafford [employer], [employer]. Comment on above: Patient Position: Sitting; Cuff Location : Left Arm; Cuff Size: Large 05-01-2019 10:16-0400 Heart rate 57 /min Liliana Stafford [employer]. Comment on above: Pattern: Regular 05-01-2019 10:16-0400 Systolic blood pressure 111 mm[Hg] Liliana Stafford [employer]. Comment on above: Patient Position: Sitting; Cuff Location : Left Arm; Cuff Size: Large 11-04-2017 09:18-0500 Body height 165.1 cm Rebecca Iqbal RN [employer]. 11-04-2017 09:18-0500 Body mass index (BMI) [Percentile] Per age and sex 47 % Rebecca Iqbal RN [employer]. 11-04-2017 09:18-0500 Body mass index (BMI) [Ratio] 20.97 kg/m2 Rebecca Iqbal RN [employer]. 11-04-2017 09:18-0500 Body surface area Derived from formula 1.63 m2 Rebecca Iqbal RN [employer]. 11-04-2017 09:18-0500 Body temperature 98.8 [degF] Rebecca Iqbal RN [employer]. Comment on above: Method: Tympanic 11-04-2017 09:18-0500 Body weight 57.15 kg Rebecca Iqbal RN [employer]. 03-17-2017 09:26-0400 Body height 167 cm Liliana Stafford [employer]. 03-17-2017 09:26-0400 Body mass index (BMI) [Percentile] Per age and sex 51 % Liliana Stafford LPN [facility], [facility].; [employer] 03-17-2017 09:26-0400 Body mass index (BMI) [Ratio] 20.98 kg/m2 Liliana Stafford [facility], [facility].; [employer] 03-17-2017 09:26-0400 Body surface area Derived from formula 1.66 m2 Liliana Stafofrd [facility], [facility].; [employer] 03-17-2017 09:26-0400 Body temperature 97.6 [degF] Manjula Nydia [facility], [employer] Comment on above: Method: Tympanic 03-17-2017 09:26-0400 Body weight 58.51 kg Liliana Stafford LPN [facility], [facility].; [employer] 04-28-2016 09:54-0400 Body height 165.1 cm Liliana Stafford [facility], [facility].; [employer] 04-28-2016 09:54-0400 Body mass index (BMI) [Percentile] Per age and sex 51 % Liliana Stafford [facility], [facility].; [employer] 04-28-2016 09:54-0400 Body mass index (BMI) [Ratio] 20.63 kg/m2 Liliana Stafford [facility], [facility] [employer] 04-28-2016 09:54-0400 Body surface area Derived from formula 1.61 m2 Liliana Stafford [employer] [place] [employer] [facility], [employer].; [employer] 04-28-2016 09:54-0400 Body weight 56.25 kg Liliana Stafford [facility] [employer] [facility], [employer].; [employer] 04-28-2016 09:54-0400 Diastolic blood pressure 78 mm[Hg] Liliana Stafford [facility] [employer] [facility], [facility] Comment on above: Patient Position: Sitting; Cuff Location : Left Arm; Cuff Size: Large 04-28-2016 09:54-0400 Heart rate 67 /min Liliana Stafford LPN [employer]. Comment on above: Pattern: Regular 04-28-2016 09:54-0400 Systolic blood pressure 117 mm[Hg] Liliana Stafford LPN [employer]. Comment on above: Patient Position: Sitting; Cuff Location : Left Arm; Cuff Size: Large 01-20-2016 14:20-0500 Body height 165.1 cm Lauren Harrison LPN Work Phone: [employer] 01-20-2016 14:20-0500 Body mass index (BMI) [Percentile] Per age and sex 49 % Lauren Hunter [employer] Work Phone: [employer]. 01-20-2016 14:20-0500 Body mass index (BMI) [Ratio] 20.3 kg/m2 Lauren Hunter [employer] Work Phone: [employer]. 01-20-2016 14:20-0500 Body surface area Derived from formula 1.6 m2 [employer] Work Phone: [employer]. 01-20-2016 14:20-0500 Body weight 55.34 kg Lauren Hunter [employer] Work Phone: [employer]. 01-20-2016 14:20-0500 Diastolic blood pressure 75 mm[Hg] Lauren Hunter [employer] Work Phone: [employer]. Comment on above: Patient Position: Sitting; Cuff Location : Left Arm; Cuff Size: Standard 01-20-2016 14:20-0500 Heart rate 67 /min Lauren Hunter [employer] Work Phone: [employer]. Comment on above: Pattern: Regular 01-20-2016 14:20-0500 Systolic blood pressure 117 mm[Hg] Lauern Harrison LPN Work Phone: [employer]; [employer]. Comment on above: Patient Position: Sitting; Cuff Location : Left Arm; Cuff Size: Standard 10-05-2014 10:56-0500 Body height 162.56 cm Solitario Blank MD Work Phone: [employer]; [employer]. 10-05-2014 10:56-0500 Body mass index (BMI) [Percentile] Per age and sex 63 % Solitario Blank MD Work Phone: [employer]; [employer]. 10-05-2014 10:56-0500 Body mass index (BMI) [Ratio] 20.77 kg/m2 Solitario Blank MD Work Phone: [employer]; [employer]. 10-05-2014 10:56-0500 Body surface area Derived from formula 1.58 m2 Solitario Blank MD Work Phone: [employer]; [employer]. 10-05-2014 10:56-0500 Body weight 54.89 kg Solitario Blank MD Work Phone: [employer]; [employer]. 10-05-2014 10:56-0500 Diastolic blood pressure 72 mm[Hg] Solitario Blank MD Work Phone: [employer]; [employer]. Comment on above: Patient Position: Sitting; Cuff Location : Right Arm; Cuff Size: Standard 10-05-2014 10:56-0500 Heart rate 61 /min Solitario Blank MD Work Phone: [employer]; [employer]. Comment on above: Pattern: Regular 10-05-2014 10:56-0500 Systolic blood pressure 103 mm[Hg] Solitario Blank MD Work Phone: [employer]; [employer]. Comment on above: Patient Position: Sitting; Cuff Location : Right Arm; Cuff Size: Standard 03-28-2014 10:00-0400 Body height 162.56 cm Liliana Stafford [facility] [employer], [employer]. 03-28-2014 10:00-0400 Body mass index (BMI) [Percentile] Per age and sex 59 % Liliana Stafford [facility] [employer]. 03-28-2014 10:00-0400 Body mass index (BMI) [Ratio] 20.08 kg/m2 Liliana Stafford [facility] [employer], [employer]. 03-28-2014 10:000400 Body surface area Derived from formula 1.56 m2 [facility], [employer]. 03-28-2014 10:00-0400 Body temperature 98.7 [degF] Manjula Mauldin [facility] [employer].; [employer]. Comment on above: Method: Tympanic 03-28-2014 10:000400 Body weight 53.07 kg Liliana Stafford [facility] [employer]. Encounters Encounter Date Encounter Type Care Provider Facility Start: 05-29-2025 ambulatory Solitario Blank Facility:[facility] Start: 05-28-2025 End: 05-28-[address] Annabelle Garduno MD -[facility] Work Phone: Start: 05-28-2025 End: 05-28-[address] Solitario Blank MD Work Phone: -[facility] Start: 05-24-2025 End: 05-24-[address] Elli Edwards DO -[facility] Work Phone: Start: 05-24-2025 End: 05-24-[address] Solitario Blank MD Work Phone: -[facility] Start: 05-16-2025 End: 05-16-[address] Elli Edwards DO -[facility] Work Phone: Start: 05-16-2025 End: 05-16-[address] Solitario Blank MD Work Phone: -[facility] Start: 05-09-2025 End: 05-09-[address] Solitario Blank MD Work Phone: -Laboratory Specimen Start: 05-09-2025 End: 05-09-2025 Patient encounter procedure Margot Wrights [employer]-C -Laboratory Specimen Work Phone: Start: 05-09-2025 End: 05-09-2025 Patient encounter procedure Margot Bradford [employer]CH[employer]-C -[facility] Work Phone: Start: 05-09-2025 End: 05-09-[address] Solitario Blank MD Work Phone: [facility] Work Phone: Start: 05-09-2025 End: 05-09-2025 ambulatory Solitario Blank Facility:[facility] Start: 04-26-2025 End: 04-26-2025 Patient encounter procedure Margot Bradford [employer]CH[employer]-C -[facility] Work Phone: Start: 04-26-2025 End: 04-26-[address] Solitario Blank MD Work Phone: [facility] Work Phone: Start: 04-23-2025 ambulatory Brianna Velasquez Facilit y:[facility] Start: 04-23-2025 Non-patient / Non-visit Brianna Velasquez CNM -[facility] Start: 04-23-2025 End: 04-23-2025 Patient encounter procedure Brianna Velasquez CNM -[facility] Work Phone: Start: 04-23-2025 End: 04-23-[address] Solitario Blank MD Work Phone: [facility] Work Phone: Start: 04-10-2025 End: 04-10-2025 Patient encounter procedure Radha Naylor CN -[facility] Work Phone: Start: 04-10-2025 End: 04-10-[address] Solitario Blank MD Work Phone: [facility] Work Phone: Start: 03-26-2025 End: 03-26-2025 Patient encounter procedure Margot CHAVARRIA -[facility] Work Phone: Start: 03-26-2025 End: 03-26-2025 ambulatory [facility] Facility:[facility] Start: 02-27-2025 End: 02-27-[address] Elli Edwards DO -[facility] Work Phone: Start: 02-27-2025 End: 02-27-[address] Solitario Blank MD Work Phone: [facility] Work Phone: Start: 02-27-2025 End: 02-27-2025 ambulatory [facility] Facility:[facility] Start: 01-26-2025 End: 01-26-2025 Patient encounter procedure Brianna Velasquez [facility] -[facility] Work Phone: Start: 01-26-2025 End: 01-26-2025 ambulatory [facility] Facility:[facility] Start: 01-25-2025 End: 01-25-2025 ambulatory RYLAN BEDOYA [facility] Start: 01-09-2025 End: 01-09-2025 ambulatory ANNABELLE GARDUNO [facility] Start: 01-03-2025 End: 01-03-2025 Patient encounter procedure Margot CHAVARRIA -[facility] Work Phone: Start: 01-03-2025 End: 01-03-2025 ambulatory [facility] Facility:[facility] Start: 11-28-2024 End: 11-28-[address] Annabelle Garduno MD -[facility] Work Phone: Start: 11-28-2024 End: 11-28-2024 ambulatory Solitario Eliot Facility:[facility] Start: 11-28-2024 End: 11-28-2024 ambulatory Solitario [facility] Facility:[facility] Start: 10-27-2024 End: 10-27-2024 ambulatory Solitario [facility] Facility:[facility] Start: 10-27-2024 End: 10-27-2024 ambulatory [facility] Facility:[facility] Start: 10-20-2024 ambulatory Solitario Blank [facility] Start: 09-15-2024 ambulatory Solitario [facility] Start: 07-30-2023 Non-patient / Non-visit Dr. Solitario Blank Work Phone: [facility] Start: 07-29-2023 Non-patient / Non-visit Dr. Solitario Blank Work Phone: [facility] Start: 07-28-2023 Non-patient / Non-visit Dr. Solitario Blank Work Phone: [facility] Start: 07-28-2023 End: 07-30-2023 Evaluation and management of inpatient Dr. Solitario Blank Work Phone: [facility] Work Phone: Start: 07-27-2023 End: 07-27-[address] Solitario Blank Work Phone: [facility] Work Phone: Start: 07-23-2023 End: 07-23-[address] Solitario Blank Work Phone: [facility] Work Phone: Start: 07-16-2023 End: 07-16-[address] Solitario Blank Work Phone: [facility] Work Phone: Start: 07-09-2023 End: 07-09-[address] Solitario Blank Work Phone: [facility] Work Phone: Start: 07-02-2023 End: 07-02-[address] Solitario Blank Work Phone: [facility] Work Phone: Start: 07-02-2023 Non-patient / Non-visit Dr. Solitario Blank Work Phone: [facility] Start: 06-30-2023 End: 06-30-[address] Solitario Blank Work Phone: [facility] Work Phone: Start: 06-30-2023 End: 06-30-[address] Solitario Blank Work Phone: [facility] Work Phone: Start: 06-25-2023 End: 06-25-[address] Solitario Blank Work Phone: [facility] Work Phone: Start: 06-25-2023 End: 06-25-[address] Solitario Blank Work Phone: [facility]-Laboratory, Specimen Work Phone: Start: 06-25-2023 End: 06-25-[address] Solitario Blank Work Phone: [facility] Work Phone: Start: 06-10-2023 End: 06-10-[address] Solitario Blank Work Phone: [facility] Work Phone: Start: 06-10-2023 End: 06-10-[address] Solitario Blank Work Phone: [facility] Work Phone: Start: 06-07-2023 End: 06-07-[address] Solitario Blank Work Phone: [facility] Work Phone: Start: 05-28-2023 End: 05-28-[address] Solitario Blank Work Phone: [facility] Work Phone: Start: 05-14-2023 End: 05-14-[address] Solitario Blank Work Phone: [facility] Work Phone: Start: 04-30-2023 End: 04-30-[address] Solitario Blank Work Phone: [facility] Start: 04-29-2023 End: 04-29-[address] Solitario Blank Work Phone: [facility] Work Phone: Start: 04-29-2023 End: 04-29-[address] Solitario Blank Work Phone: [facility]-Laboratory Start: 04-14-2023 End: 04-14-[address] Solitario Blank Work Phone: [facility] Start: 03-17-2023 End: 03-17-[address] Solitario Blank Work Phone: [facility] Start: 03-10-2023 Non-patient / Non-visit Dr. Solitario Blank Work Phone: [facility] Start: 03-09-2023 End: 03-09-[address] Solitario Blank Work Phone: [facility] Work Phone: Start: 03-09-2023 End: 03-09-[address] Solitario Blank Work Phone: [facility] Start: 02-15-2023 End: 02-15-[address] Solitario Blank Work Phone: [facility] Start: 01-19-2023 End: 01-19-[address] Solitario Blank Work Phone: [facility] Start: 12-24-2022 End: 12-24-[address] Solitario Blank Work Phone: [facility] Work Phone: Start: 12-24-2022 End: 12-24-[address] Solitario Blank Work Phone: [facility] Start: 02-28-2021 End: 02-28-2021 Orders Solitario Blank MD Work Phone: [employer] Start: 01-31-2021 End: 01-31-2021 Patient encounter status Brittny Hunter LPN [employer] Start: 01-31-2021 End: 01-31-2021 Periodic preventive med est patient 18-39 yrs Solitario Blank MD Work Phone: [employer]. Start: 06-28-2020 End: 06-28-2020 Patient encounter procedure Solitario Blank MD Work Phone: [employer]. Start: 07-14-2019 End: 07-14-2019 Patient encounter status Solitario Blank MD Work Phone: [employer] Start: 07-14-2019 End: 07-14-2019 Periodic preventive med est patient 18-39 yrs Solitario Blank MD Work Phone: [employer]. Start: 05-12-2019 End: 05-12-2019 Office outpatient visit 15 minutes Solitario Blank MD Work Phone: [employer] Start: 05-01-2019 End: 05-01-2019 Office outpatient visit 15 minutes Solitario Blank MD Work Phone: [employer] Start: 09-13-2018 End: 09-13-2018 Telephone follow-up Solitario Blank MD Work Phone: [employer] Start: 09-09-2018 End: 09-09-2018 Emergency department patient visit SHAQ Beard CHANTEL [facility] Start: 11-04-2017 End: 11-04-2017 Office outpatient visit 15 minutes Solitario Blank MD Work Phone: [employer] Start: 03-17-2017 End: 03-17-2017 Office outpatient visit 15 minutes Solitario Blank MD Work Phone: [employer] Start: 04-28-2016 End: 04-28-2016 Office outpatient visit 15 minutes Solitario Blank MD Work Phone: [employer] Start: 04-28-2016 End: 04-28-2016 Patient encounter status Solitario Blank MD Work Phone: [employer]; [employer] Start: 01-20-2016 End: 01-20-2016 Patient encounter procedure Solitario Blank MD Work Phone: [employer] Start: 10-05-2014 End: 10-05-2014 Office outpatient visit 15 minutes Solitario Blank MD Work Phone: [employer] Start: 03-28-2014 End: 03-28-2014 Patient encounter procedure Solitario Blank MD Work Phone: [employer] Follow-up encounter Elidia anand PA-C Work Phone: [employer]; [employer] Procedures Date Procedure Procedure Detail Performing Clinician Start: 05-09-2025 Beta-hemolytic Streptococcus culture Dr. Solitario Blank MD Work Phone: Start: 02-27-2025 Serologic test for syphilis Dr. Solitario Blank MD Work Phone: Start: 06-25-2023 Group B Streptococcu s Culture Dr. Solitario Blank Work Phone: Start: 06-10-[address] Solitario Blank Work Phone: Start: 01-31-2021 End: 01-31-2021 No Known Past Surgical History Brittny Hunter [employer] Start: 07-14-2019 End: 07-14-2019 Depression screening Solitario Blank MD Work Phone: Start: 07-14-2019 End: 07-14-2019 Scr dep neg, no plan reqd Solitario Blank MD Work Phone: Start: 11-04-2017 End: 11-04-2017 Body mass index documented Solitario Blank MD Work Phone: Start: 03-17-2017 End: 03-17-2017 Radex hand minimum 3 views Solitario Blank MD Work Phone: Start: 10-05-2014 End: 10-05-2014 No Known Health Maintenance History Brittny Garridoedward [employer]ERAN Start: 03-28-2014 End: 09-03-2014 Radex wrist complete minimum 3 views Solitario Blank MD Work Phone: Urine culture Dr. Solitario kennedy Work Phone: Plan of Treatment Date Care Activity Detail Author Start: 04-23-2025 Patient discharge [facility] Start: 07-30-2023 Patient discharge [facility] Start: 07-28-2023 Administration of medication [facility] Start: 07-28-2023 Application of ice collar, cap or bag [facility] Start: 07-28-2023 Catheterization of vein [facility] Start: 07-28-2023 Introduction of urinary catheter [facility] Start: 07-28-2023 Measuring intake and output [facility] Start: 07-28-2023 Notification of physician [facility] Start: 07-28-2023 Procedure discontinued [facility] Start: 07-28-2023 Provision of activity privileges [facility] Start: 07-28-2023 Vital signs measurements [facility] Start: 07-28-2023 [facility] Start: 07-28-2023 [facility] Start: 07-28-2023 Notification of physician [facility] Start: 07-28-2023 [facility] Start: 07-28-2023 Admission procedure [facility] Start: 07-28-2023 Insertion of catheter into peripheral vein [facility] Start: 07-28-2023 Anesthesia consultation [facility] Start: 07-28-2023 acoustic stimulation test [facility] Start: 07-28-2023 Intrauterine catheterization [facility] Start: 07-28-2023 Introduction of urinary catheter [facility] Start: 07-28-2023 Notification of physician [facility] Start: 07-28-2023 Obstetric monitoring [facility] Start: 07-28-2023 Provision of activity privileges [facility] Start: 07-28-2023 Vital signs measurements [facility] Start: 07-28-2023 End: 07-28-2023 [facility] Start: 06-30-2023 Nonstress test [facility] Start: 06-30-2023 Obstetric monitoring [facility] Start: 06-30-2023 Vital signs measurements [facility] Start: 06-30-2023 [facility] Start: 06-30-2023 Patient discharge [facility] Start: 03-09-2023 Nonstress test [facility] Start: 03-09-2023 Obstetric monitoring [facility] Start: 03-09-2023 Vital signs measurements [facility] Start: 03-09-2023 [facility] Start: 11-04-2017 Provider Instructions for Treatment Saline gargles Indication: Aphthous ulcer Start: 04-Nov-2017 Instruction Type: Provider Instructions for Treatment [facility] Patient Education Kick Counts ED False Labor OB Triage: Return to Hospital or Notify Physician if you Experience: [facility] Work Phone: Patient referral [facility] Work Phone: Streptococcus agalac tiae [Presence] in Unspecified specimen by Organism specific culture [facility] Immunizations Immunization Date Immunization Notes Care Provider Rogelio barrett 07-14-2019 varicella virus vaccine [facility] [employer]. Comment on above: Site: Right ArmVIS G iven: * Varicella (Chickenpox) (12/27/17) 04-28-2016 tetanus toxoid, redu jak diphtheria toxoid, and acellular pertussis vaccine, adsorbed Solitario Blank MD Work Phone: [facility]; [employer]. Comment on above: Site: Deltoid (Left) VIS Given: * Tdap (Tetanus, Diphtheria, Pertussis) (01/08/15) 04-28-2016 varicella virus vaccine Nick Blank MD Work Phone: [facility] [place]; [employer]. Comment on above: Site: Deltoid Area ( Right)VIS Given: * Varicella (Chickenpox) (01/26/08) 10-23-2011 hepatitis A vaccine, pediatric/adolescent dosage, 2 dose schedule Solitario Blank MD Work Phone: [facility] [place]; [employer]. 09-04-2005 influenza, seasonal, injectable Solitario Blank MD Work Phone: [facility] [place]; [place] [employer]. 08-19-2005 diphtheria, tetanus toxoids and acellular pertussis vaccine Solitario Blank MD Work Phone: [facility] [place]; [employer]. 08-19-2005 hepatitis B vaccine, pediatric or pediatric/adolescent dosage Solitario Blank MD Work Phone: [facility] [place]; [employer]. 08-19-2005 measles, mumps and rubella virus vaccine Solitario Blank MD Work Phone: [facility] [place]; [employer]. 08-19-2005 poliovirus vaccine, inactivated Solitario Blank MD Work Phone: [employer]. 08-29-2001 diphtheria, tetanus toxoids and acellular pertussis vaccine Solitario Blank MD Work Phone: [employer]; [facility] 08-29-2001 poliovirus vaccine, inactivated Solitario lBank MD Work Phone: [facility].; [facility] 02-17-2001 haemophilus influenz ae type b vaccine, PRP-T conjugate Solitario Blank MD Work Phone: [facility].; [facility] 02-17-2001 measles, mumps and rubella virus vaccine Solitario Blank MD Work Phone: [facility].; [facility] 2000 haemophilus influenz ae type b vaccine, PRP-T conjugate Solitario Blank MD Work Phone: [facility] 2000 diphtheria, tetanus toxoids and acellular pertussis vaccine Solitario Blank MD Work Phone: [facility].; [facility] 2000 diphtheria, tetanus toxoids and acellular pertussis vaccine Solitario Blank MD Work Phone: [facility] 2000 haemophilus influenz ae type b vaccine, PRP-T conjugate Solitario Blank MD Work Phone: [facility].; [place] [employer] [facility] 2000 poliovirus vaccine, inactivated Solitario Blank MD Work Phone: [facility] 2000 diphtheria, tetanus toxoids and acellular pertussis vaccine Solitario Blank MD Work Phone: [facility] 2000 haemophilus influenz ae type b vaccine, PRP-T conjugate Solitario Blank MD Work Phone: [facility].; [place] [employer] [facility] 2000 poliovirus vaccine, inactivated Solitario Blank MD Work Phone: [facility].; [place] [employer] [facility] Payers Date Payer Category Payer Self-pay 2023 Unknown [id number] 2000 Unknown [id number] 2.16.84 [id number] 2000 Unknown [id number] 2.16. [id number] 2000 Unknown [id number] 2.16. [id number] Unknown [id number] Unknown [id number] Unknown [employer] Unknown [id number] 2.16.8 40.1.273112.3.579.2.462 Unknown [id number] 2.16.8 40.1.686491.3.579.2.462 Unknown [id number] 2.16.8 40.1.408283.3.579.2.462 Unknown [id number] 2.16.8 40.1.726864.3.579.2.462 Unknown [id number] 2.16.8 40.1.464691.3.579.2.462 Unknown [id number] 2.16.8 40.1.553618.3.579.2.462 Unknown [id number] 2.16.8 40.1.452547.3.579.2.462 Unknown [id number] 2.16.8 40.1.478659.3.579.2.462 Unknown [id number] 2.16.8 40.1.282775.3.579.2.462 Unknown [id number] 2.16.8 40.1.386546.3.579.2.462 Unknown [id number] 2.16.8 40.1.982819.3.579.2.462 Unknown [id number] 2.16.8 40.1.997095.3.579.2.462 Unknown [id number] 2.16.8 40.1.078937.3.579.2.462 Unknown [id number] 2.16.8 40.1.079677.3.579.2.462 Unknown [id number] 2.16.8 40.1.633126.3.579.2.462 Unknown [id number] 2.16.8 40.1.682106.3.579.2.462 Unknown [id number] 2.16.8 40.1.674453.3.579.2.462 Unknown [id number] 2.16.8 40.1.740626.3.579.2.462 Unknown [id number] 2.16.8 40.1.078857.3.579.2.462 Unknown [id number] 2.16.8 40.1.890008.3.579.2.462 Unknown [id number] 2.16.8 40.1.785761.3.579.2.462 Social History Date Type Detail Facility Start: 12-24-2022 End: 07-28-2023 Tobacco smoking status OHIS Unknown if ever smoked [facility] Start: 2000 Sex Assigned At Female W [facility] Caffeine Use Caffeine Use [facility], [employer] [facility], [facility] Tobacco Use: Tobacco Use: ; N ever smoker. [facility], [facility].; [facility] Start: 10-20-2024 End: 04-10-2025 Never smoked tobacco [facility] Start: 03-03-2025 Sex Female (finding) [facility] Goals Date Patient Goal Desired Activity /State Functional Status Date Assessment Result Facility 07-29-2023 Functional status Activity Ability Indepe ndent [facility] Work Phone: Mental Status Date Assessment Result Facility 07-29-2023 Cognitive function Appropriate;Aparna beard [facility] Work Phone: Clinical Notes 12-24-2022 to 05-28-2025 Note Date & Type Note Facility 05-28-2025 Progress note [facility] 05-28-2025 Progress note Note Date/Time May 28, 2025 2:50pm [facility] [address] [place] [address], [address] [place] [address] OFFICE VISIT Date of Service: 05/28/25 MR#: [id number] Acct: [id number] Name: FAREED LORENZO Rep #: [id number] : 2000 Provider: Dr. Dewayne Garduno MD Age/Sex: 25/F Location: [facility] [facility] Status: Signed Intake Vital Signs 04/10/25 11:02 05/24/25 14:11 05/28/25 14:14 05/28/25 14:17 Height 5 ft 5 in 5 ft 5 in 5 ft 5 in 5 ft 5 in Weight: 199 lb 6 oz BMI 33.1 BP 110/76 Intake Visit Reasons: 39 wk ob Atmospheric Drier Tender Required: No Is patient in pain?: No Allergies No Known Allergies Allergy (Verified 05/28/25 14:13) Medications ?Medication ?Instructions ?Recorded ?Confirmed ?Type multivitamin no.47-iron fum 27 1 cap PO DAILY PREGNANC Y 12/17/22 05/28/25 History mg-folate no.1 1 mg-dha 300 mg capsule (PNV-DHA) Last Menstrual Period: 08/28/24 Zika: Zika virus screening: Negative : No PFSH PFSH Medical History Vaginal delivery Family history of recurrent miscarriage Family History Brother Autism Sister Family history of recurrent miscarriage Mother Thyroid cancer, Onset Age: 52 Sister Thyroid cancer, Onset Age: 40 Thyroid removed Father Myocardial infarction, Onset Age: 54 Social History adopted: No household members: spouse and children housing: house number of children: 1 current occupational status: employed 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 pets and animals: Yes (not managing litterbox) pets and animals: cat(s) history of recent travel: Yes ([place] - August 2024) out of state: Yes out of country: No sexually active: Yes Smoking Status: Never smoker alcohol intake: never substance use type: does not use well-balanced diet: daily or most days caffeine: No eating out: rarely or never during the past year weight has: remained stable what type of physical activity do you participate in: walking frequency: daily duration: < 15 minutes/day allen/advent: Hinduism seatbelt use: always do you feel safe at home: Yes additional 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: : Tha Berger History 2 Elective abortions Hx Para 1 Spontaneous abortions Hx # Term Pregnancies 1 Ectopic pregnancies Hx # Pregnancies Multiple births # of living children 1 Past Pregnancies Del. Date Name GA/Weeks Outcome Route Bth Weight Infant Gen Labor Lgth Anesthesia Del Locatn Provider FOB 07/28/23 Chris 40 live - full term vacuum 9lbs 5oz Male ep idural [facility] Dr. Edwards Shaquille Delivery Date: 07/28/23 Last Updated by: Cesilia Hernandez GBS + HPI 39 wk ob Details: FAREED LORENZO is a 25 year old who presents for routine OB visit. OB Visit NORMA Calculator Estimated Delivery Date Method Current WG Current Estimate 06/04/25 LMP (Certain) 39w 0d Other Estimates 06/03/25 Ultrasound #1 39w 1d Expected Delivery Route/Plan Labor Preferences- CB/BF classes: no labor support person: Shaquille labor intervention preferences: [] pain management options preferred: epidural if requested cut cord/dad catch: cord : yes PP control planned: discussed discussed possible routes of delivery and associated risks: [] special requests: [] Specific Issue/Plans Covid status: [] Flu vaccine: declined Tdap vaccine: declines Rhogam: NA LARC form signed: yes Problem list reviewed and updated with the most current plan of care details and appropriate orders placed. Relevant counseling for the gestational age provided. Continue routine care and follow up unless otherwise noted in visit notes/problem list details Initial Weight: 167 lb Date -?-?-?-?-?-?-?-?-?-?-?-?- EGA Weight BP Urine Prot -?-?-?-?-?-?-?-?-?-?-?-?- Glucose FHR FuHt Pres Dilation -?-?-?-?-?-?-?-?-?-?-?-?- Effaced St Visit Note 10/27/24 -?-?-?-?-?-?-?-?-?-?-?-?- 8w 4d 167 lb (+0 oz) 121/76 Negative -?-?-?-?-?-?-?-?-?-?-?-?- Negative 181 -?-?-?-?-?-?-?-?-?-?-?-?- KW- CRL cons wit h dates. NIPT undecided. will get labs next visit. 11/28/24 -?-?-?-?-?-?-?-?-?-?-?-?- 13w 1d 170 lb 8 oz (+3 lb 8 oz) 117/76 Negative -?-?-?-?-?-?-?-?-?-?-?-?- Negative 150 -?-?-?-?-?-?-?-?-?-?-?-?- SM- declines NIP T no vb crmaping 01/03/25 -?-?-?-?-?-?-?-?-?-?-?-?- 18w 2d 173 lb (+6 lb) 110/64 Negative -?-?-?-?-?-?-?-?-?-?-?-?- Negative 160 -?-?-?-?-?-?--?-?-?-?-?-?- MH-No VB. Not fe eling movement yet. Denies concerns 01/26/25 -?-?-?-?-?-?-?-?-?-?-?-?- 21w 4d 177 lb 7 oz (+10 lb 7 oz) 104/71 Negative -?-?-?-?-?-?-?-?-?-?-?-?- Negative 155 21 -?-?-?-?-?-?-?-?-?-?-?-?- LC- no vb/crampi ng. LC- no vb/cramping. 28 week labs ordered 02/27/25 -?-?-?-?-?-?-?-?-?-?-?-?- 26w 1d 183 lb 4 oz (+16 lb 4 oz) 113/67 Negative -?-?-?-?-?-?-?-?-?-?-?-?- Negative 145 27 -?-?-?-?-?-?-?-?-?-?-?-?- JV- no lof, vagi nal bleeding, or dec fm. drank glucola today an felt very dizzy. she was given crackers and some candy after her blood draw and felt better. undecided about Tdap. 03/26/25 -?-?-?-?-?-?-?-?-?-?-?-?- 30w 0d 187 lb 8 oz (+20 lb 8 oz) 102/70 Negative -?-?-?-?-?-?-?-?-?-?-?-?- Negative 143 30 -?-?-?-?-?-?-?-?-?-?-?-?- -No VB, LOF. G ood Fm. No concerns 04/10/25 -?-?-?-?-?-?-?-?-?-?-?-?- 32w 1d 191 lb 4 oz (+24 lb 4 oz) 119/74 Negative -?-?-?-?-?-?-?-?-?-?-?-?- Negative 160 32 -?-?-?-?-?-?-?-?-?-?-?-?- KW- no vb/lof/ct x. good fm. no concerns today. 04/26/25 -?-?-?-?-?-?-?-?-?-?-?-?- 34w 3d 193 lb 4 oz (+26 lb 4 oz) 110/60 Negative -?-?-?-?-?-?-?-?-?-?-?-?- Negative 153 34 -?-?-?-?-?-?-?-?-?-?-?-?- MH-No Vb, LOF. G ood FM. Denies concerns 05/09/25 -?-?-?-?-?-?-?-?-?-?-?-?- 36w 2d 195 lb (+28 lb) 110/68 Negative -?-?-?-?-?-?-?-?-?-?-?-?- Negative 152 36 Cephalic 0 -?-?-?-?-?-?-?-?-?-?-?-?- MH-NO VB, LOF or reg CTX. GBS done. Good FM 05/16/25 -?-?-?-?-?-?-?-?-?-?-?-?- 37w 2d 198 lb (+31 lb) 107/72 Negative -?-?-?-?-?-?-?-?-?-?-?-?- Negative 150 37 Cephalic -?-?-?-?-?-?-?-?-?-?-?-?- JV- declines exa m today. no lof, vaginal bleeding, or dec fm. 05/24/25 -?-?-?-?-?-?-?-?-?-?-?-?- 38w 3d 200 lb (+33 lb) 113/76 -?-?-?-?-?-?-?-?-?-?-?-?- 147 37 -?-?-?-?-?-?-?-?-?-?-?-?- JV- plan vag exa m next visit. no lof, vaginal bleeding, or dec fm. 05/28/25 -?-?-?-?-?-?-?-?-?-?-?-?- 39w 0d 199 lb 6 oz (+32 lb 6 oz) 110/76 Negative -?-?-?-?-?-?-?-?-?-?-?-?- Negative 145 37 -?-?-?-?-?-?-?-?-?-?-?-?- SM- no vb lof go od fm no regular ctx uterine size date discrepancy ACOG First Trimester First Trimester: Desire for , Alcohol, Tobacco Cessation, Illicit/Recreational Drug/Substance Use, Intimate Partner Violence, Barriers to care, Unstable Housing, Communication Barriers, Environmental/Work Hazards, Anticipated Course of Care, Toxoplasmosis Precations, Use of Any medications, Sexual activity, Exercise, Dental Care, Sauna/Hot tub use, Seat Belt use, Childbirth classes/Hospital facilities, Travel, Indications for Ultrasound and Screening for Aneuploidy; Discussed Second Trimester Second Trimester: Signs and Symptoms of Labor, Selecting a care provider, Reproductive Life Planning & Contreception and Care Planning; Discussed Tobacco Cessation, Discussed Depression/Anxiety and Discussed Intimate Partner Violence Third Trimester Third Trimester: Pain Management Plans, Labor support person(s), Immediate Larc, Movement Monitoring, Signs and Symptoms of Preeclampsia, Feeding No and Education; Discussed Circumcision preference Results POC Urinalysis 2 Dip (Clinic) Office Urine Glucose Negative Last Edit by Margot Garrido on 05/28/25 14:22 Office Urine Protein Negative Last Edit by Margot Garrido on 05/28/25 14:22 Coding Level of Care Code OB Routine Diagnoses Encounter for supervision of other normal in third trimester Z34.83 Normal : other normal Trimester: third trimester 39 weeks gestation of Z3A.39 Weeks of gestation: 39 weeks Family history of autism Z81.8 Assessment and Plan Assessment and Plan (1) Supervision of normal : Status: Acute Qualifiers: Normal : other normal Trimester: third trimester Qualified Code(s): Z34.83 - Encounter for supervision of other normal , third trimester Comment: PRR, , NORMA 06/04/25, girl PC: Chris, : Shaquille (2) : Status: Acute Qualifiers: Weeks of gestation: 39 weeks Qualified Code(s): Z3A.39 - 39 weeks gestation of Comment: Neg GBS. anatomy nl, Discussed genetic/carrier testing - Undecided (3) Family history of autism: Status: Acute Comment: Brother Orders: Orders POC Urinalysis 2 Dip (Clinic) Today 05/28/25 7609 <Electronically signed by Annabelle lovett MD> Date _ Annabelle Garduno MD Cosigner Signature: Date (if applicable) CC: ~ [facility] Work Phone: 1(123) 975-828207-10-2025 Progress [facility] [address], [address] [place] [address] OFFICE VISIT Date of Service: 05/24/25 MR#: [id number] Acct: [id number] Name: FAREED LORENZO Rep #: [id number] : 2000 Provider: Dr. Bella Edwards DO Age/Sex: 25/F Location: [facility] [place] Status: Signed Intake Vital Signs 04/10/25 10:46 04/10/25 11:02 05/16/25 15:21 05/24/25 14:11 Height 5 ft 5 in 5 ft 5 in 5 ft 5 in 5 ft 5 in Weight: 200 lb BMI 33.3 BP 113/76 Intake Visit Reasons: 38 wk ob Atmospheric Drier Tender Required: No Is patient in pain?: No Allergies No Known Allergies Allergy (Verified 05/24/25 14:11) Medications ?Medication ?Instructions ?Recorded ?Confirmed ?Type multivitamin no.47-iron fum 27 1 cap PO DAILY PREGNANC Y 12/17/22 05/24/25 History mg-folate no.1 1 mg-dha 300 mg capsule (PNV-DHA) Last Menstrual Period: 08/28/24 Zika: Zika virus screening: Negative : No PFSH PFSH Medical History Vaginal delivery Family history of recurrent miscarriage Family History Brother Autism Sister Family history of recurrent miscarriage Mother Thyroid cancer, Onset Age: 52 Sister Thyroid cancer, Onset Age: 40 Thyroid removed Father Myocardial infarction, Onset Age: 54 Social History adopted: No household members: spouse and children housing: house number of children: 1 current occupational status: employed 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/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 pets and animals: Yes (not managing litterbox) pets and animals: cat(s) history of recent travel: Yes ( [place] - August 2024) out of state: Yes out of country: No sexually active: Yes Smoking Status: Never smoker alcohol intake: never substance use type: does not use well-balanced diet: daily or most days caffeine: No eating out: rarely or never during the past year weight has: remained stable what type of physical activity do you participate in: walking frequency: daily duration: < 15 minutes/day allen/advent: Hinduism seatbelt use: always do you feel safe at home: Yes additional 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: : Tha Berger History 2 Elective abortions Hx Para 1 Spontaneous abortions Hx # Term Pregnancies 1 Ectopic pregnancies Hx # Pregnancies Multiple births # of living children 1 Past Pregnancies Del. Date Name GA/Weeks Outcome Route Bth Weight Gen Labor Lgth Anesthesia Del Locatn Provider FOB 07/28/23 Chris 40 live - full term vacuum 9lbs 5oz Male ep idural [facility] Dr. Isabel Delivery Date: 07/28/23 Last Updated by: Cesilia Hernandez GBS + HPI 38 wk ob Details: FAREED LORENZO is a 25 year old who presents for routine OB visit. OB Visit NORMA Calculator Estimated Delivery Date Method Current WG Current Estimate 06/04/25 LMP (Certain) 38w 3d Other Estimates 06/03/25 Ultrasound #1 38w 4d Expected Delivery Route/Plan Labor Preferences- CB/BF classes: no labor support person: Shaquille labor intervention preferences: [] pain management options preferred: epidural if requested cut cord/dad catch: cord : yes PP control planned: discussed discussed possible routes of delivery and associated risks: [] special requests: [] Specific Issue/Plans Covid status: [] Flu vaccine: declined Tdap vaccine: declines Rhogam: NA LARC form signed: yes Problem list reviewed and updated with the most current plan of care details and appropriate ordersplaced. Relevant counseling for the gestational age provided. Continue routine care and follow up unless otherwise noted in visit notes/problem list details Initial Weight: 167 lb Date -?-?-?-?-?-?-?-?-?-?-?-?- EGA Weight BP Urine Prot -?-?-?-?-?-?-?-?-?-?-?-?- Glucose FHR FuHt Pres Dilation -?-?-?-?-?-?-?-?-?-?-?-?- Effaced St Visit Note 10/27/24 -?-?-?-?-?-?-?-?-?-?-?-?- 8w 4d 167 lb (+0 oz) 121/76 Negative -?-?-?-?-?-?-?-?-?-?-?-?- Negative 181 -?-?-?-?-?-?-?-?-?-?-?-?- KW- CRL cons wit h dates. NIPT undecided. will get labs next visit. 11/28/24 -?-?-?-?-?-?-?-?-?-?-?-?- 13w 1d 170 lb 8 oz (+3 lb 8 oz) 117/76 Negative -?-?-?-?-?-?-?-?-?-?-?-?- Negative 150 -?-?-?-?-?-?-?-?-?-?-?-?- SM- declines NIP T no vb crmaping 01/03/25 -?-?-?-?-?-?-?-?-?-?-?-?- 18w 2d 173 lb (+6 lb) 110/64 Negative -?-?-?-?-?-?-?-?-?-?-?-?- Negative 160 -?-?-?-?-?-?-?-?-?-?-?-?- MH-No VB. Not fe eling movement yet. Denies concerns 01/26/25 -?-?-?-?-?-?-?-?-?-?-?-?- 21w 4d 177 lb 7 oz (+10 lb 7 oz) 104/71 Negative -?-?-?-?-?-?-?-?-?-?-?-?- Negative 155 21 -?-?-?-?-?-?-?-?-?-?-?-?- LC- no vb/crampi ng. LC- no vb/cramping. 28 week labs ordered 02/27/25 -?-?-?-?-?-?-?-?-?-?-?-?- 26w 1d 183 lb 4 oz (+16 lb 4 oz) 113/67 Negative -?-?-?-?-?-?-?-?-?-?-?-?- Negative 145 27 -?-?-?-?-?-?-?-?-?-?-?-?- JV- no lof, vagi nal bleeding, or dec fm. drank glucola today an felt very dizzy. she was given crackers and some candy after her blood draw and felt better. undecided about Tdap. 03/26/25 -?-?-?-?-?-?-?-?-?-?-?-?- 30w 0d 187 lb 8 oz (+20 lb 8 oz) 102/70 Negative -?-?-?-?-?-?-?-?-?-?-?-?- Negative 143 30 -?-?-?-?-?-?-?-?-?-?-?-?- -No VB, LOF. G ood Fm. No concerns 04/10/25 -?-?-?-?-?-?-?-?-?-?-?-?- 32w 1d 191 lb 4 oz (+24 lb 4 oz) 119/74 Negative -?-?-?-?-?-?-?-?-?-?-?-?- Negative 160 32 -?-?-?-?-?-?-?-?-?-?-?-?- KW- no vb/lof/ct x. good fm. no concerns today. 04/26/25 -?-?-?-?-?-?-?-?-?-?-?-?- 34w 3d 193 lb 4 oz (+26 lb 4 oz) 110/60 Negative -?-?-?-?-?-?-?-?-?-?-?-?- Negative 153 34 -?-?-?-?-?-?-?-?-?-?-?-?- MH-No Vb, LOF. G ood FM. Denies concerns 05/09/25 -?-?-?-?-?-?-?-?-?-?-?-?- 36w 2d 195 lb (+28 lb) 110/68 Negative -?-?-?-?-?-?-?-?-?-?-?-?- Negative 152 36 Cephalic 0 -?-?-?-?-?-?-?-?-?-?-?-?- MH-NO VB, LOF or reg CTX. GBS done. Good FM 05/16/25 -?-?-?-?-?-?-?-?-?-?-?-?- 37w 2d 198 lb (+31 lb) 107/72 Negative -?-?-?-?-?-?-?-?-?-?-?-?- Negative 150 37 Cephalic -?-?-?-?-?-?-?-?-?-?-?-?- JV- declines exa m today. no lof, vaginal bleeding, or dec fm. 05/24/25 -?-?-?-?-?-?-?-?-?-?-?-?- 38w 3d 200 lb (+33 lb) 113/76 -?-?-?-?-?-?-?-?-?-?-?-?- 147 37 -?-?-?-?-?-?-?-?-?-?-?-?- JV- plan vag exa m next visit. no lof, vaginal bleeding, or dec fm. ACOG First Trimester First Trimester: Desire for , Alcohol, Tobacco Cessation, Illicit/Recreational Drug/Substance Use, Intimate Partner Violence, Barriers to care, Unstable Housing, Communication Barriers, Environmental/Work Hazards, Anticipated Course of Care, Toxoplasmosis Precations, Use of Any med ications, Sexual activity, Exercise, Dental Care, Sauna/Hot tub use, Seat Belt use, Childbirth classes/Hospital facilities, Travel, Indications for Ultrasound and Screening for Aneuploidy; Discussed Second Trimester Second Trimester: Signs and Symptoms of Labor, Selecting a care provider, Reproductive Life Planning & Contreception and Care Planning; Discussed Tobacco Cessation, Discussed Depression/Anxiety and Discussed Intimate Partner Violence Third Trimester Third Trimester: Pain Management Plans, Labor support person(s), Immediate Larc, Movement Monitoring, Signs and Symptoms of Preeclampsia, Feeding No and Education; Discussed Circumcision preference Coding Level of Care Code OB Routine Diagnoses Status post fall Z91.81 Encounter for supervision of other normal in third trimester Z34.83 Normal : other normal Trimester: third trimester 38 weeks gestation of Z3A.38 Weeks of gestation: 38 weeks Family history of autism Z81.8 Assessment and Plan Assessment and Plan (1) Status post fall: Status: Acute Comment: accidental fall. no vb/ctx, cat 1 tracing. (2) Supervision of normal : Status: Acute Qualifiers: Normal : other normal Trimester: third trimester Qualified Code(s): Z34.83 - Encounter for supervision of other normal , third trimester Comment: PRR, , NORMA 06/04/25, PC: Chris, : Shaquille (3) : Status: Acute Qualifiers: Weeks of gestation: 38 weeks Qualified Code(s): Z3A.38 - 38 weeks gestation of Comment: Neg GBS. anatomy nl, Discussed genetic/carrier testing - Undecided (4) Family history of autism: Status: Acute Comment: Brother Orders: Orders POC Urinalysis 2 Dip (Clinic) Today 05/24/25 1429 e Letty DO> Date _ Elli Edwards DO Cosigner Signature: Date (if applicable) CC: ~ [id number] Progress note Author Elli Saenz [facility] Note Date/Time May 24, 2025 2:29 pm [facility] [address], [address] [place] [address] OFFICE VISIT Date of Service: 05/24/25 MR#: [id number] Acct: [id number] Name: FAREED LORENZO Rep #: [id number] : 2000 Provider: Dr. Bella Edwards, DO Age/Sex: 25/F Location: [facility] [place] Status: Signed Intake Vital Signs 04/10/25 10:46 04/10/25 11:02 05/16/25 15:21 05/24/25 14:11 Height 5 ft 5 in 5 ft 5 in 5 ft 5 in 5 ft 5 in Weight: 200 lb BMI 33.3 BP 113/76 Intake Visit Reasons: 38 wk ob Atmospheric Drier Tender Required: No Is patient in pain?: No Allergies No Known Allergies Allergy (Verified 05/24/25 14:11) Medications ?Medication ?Instructions ?Recorded ?Confirmed ?Type multivitamin no.47-iron fum 27 1 cap PO DAILY PREGNANC Y 12/17/22 05/24/25 History mg-folate no.1 1 mg-dha 300 mg capsule (PNV-DHA) Last Menstrual Period: 08/28/24 Zika: Zika virus screening: Negative : No PFSH PFSH Medical History Vaginal delivery Family history of recurrent miscarriage Family History Brother Autism Sister Family history of recurrent miscarriage Mother Thyroid cancer, Onset Age: 52 Sister Thyroid cancer, Onset Age: 40 Thyroid removed Father Myocardial infarction, Onset Age: 54 Social History adopted: No household members: spouse and children housing: house number of children: 1 current occupational status: employed 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 pets and animals: Yes (not managing litterbox) pets and animals: cat(s) history of recent travel: Yes ([place] - August 2024) out of state: Yes out of country: No sexually active: Yes Smoking Status: Never smoker alcohol intake: never substance use type: does not use well-balanced diet: daily or most days caffeine: No eating out: rarely or never during the past year weight has: remained stable what type of physical activity do you participate in: walking frequency: daily duration: < 15 minutes/day allen/advent: Hinduism seatbelt use: always do you feel safe at home: Yes additional 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: : Shaquille- [employer] History 2 Elective abortions Hx Para 1 Spontaneous abortions Hx # Term Pregnancies 1 Ectopic pregnancies Hx # Pregnancies Multiple births # of living children 1 Past Pregnancies Del. Date Name GA/Weeks Outcome Route Bth Weight Gen Labor Lgth Anesthesia Del Locatn Provider FOB 07/28/23 Chris 40 live - full term vacuum 9lbs 5oz Male ep idural [facility] Dr. Isabel Delivery Date: 07/28/23 Last Updated by: Cesilia Hernandez GBS + HPI 38 wk ob Details: FAREED LORENZO is a 25 year old who presents for routine OB visit. OB Visit NORMA Calculator Estimated Delivery Date Method Current WG Current Estimate 06/04/25 LMP (Certain) 38w 3d Other Estimates 06/03/25 Ultrasound #1 38w 4d Expected Delivery Route/Plan Labor Preferences- CB/BF classes: no labor support person: Shaquille labor intervention preferences: [] pain management options preferred: epidural if requested cut cord/dad catch: cord : yes PP control planned: discussed discussed possible routes of delivery and associated risks: [] special requests: [] Specific Issue/Plans Covid status: [] Flu vaccine: declined Tdap vaccine: declines Rhogam: NA LARC form signed: yes Problem list reviewed and updated with the most current plan of care details and appropriate orders placed. Relevant counseling for the gestational age provided. Continue routine care and follow up unless otherwise noted in visit notes/problem list details Initial Weight: 167 lb Date -?-?-?-?-?-?-?-?-?-?-?-?- EGA Weight BP Urine Prot -?-?-?-?-?-?-?-?-?-?-?-?- Glucose FHR FuHt Pres Dilation -?-?-?-?-?-?-?-?-?-?-?-?- Effaced St Visit Note 10/27/24 -?-?-?-?-?-?-?-?-?-?-?-?- 8w 4d 167 lb (+0 oz) 121/76 Negative -?-?-?-?-?-?-?-?-?-?-?-?- Negative 181 -?-?-?-?-?-?-?-?-?-?-?-?- KW- CRL cons wit h dates. NIPT undecided. will get labs next visit. 11/28/24 -?-?-?-?-?-?-?-?-?-?-?-?- 13w 1d 170 lb 8 oz (+3 lb 8 oz) 117/76 Negative -?-?-?-?-?-?-?-?-?-?-?-?- Negative 150 -?-?-?-?-?-?-?-?-?-?-?-?- SM- declines NIP T no vb crmaping 01/03/25 -?-?-?-?-?-?-?-?-?-?-?-?- 18w 2d 173 lb (+6 lb) 110/64 Negative -?-?-?-?-?-?-?-?-?-?-?-?- Negative 160 -?-?-?-?-?-?-?-?-?-?-?-?- MH-No VB. Not fe eling movement yet. Denies concerns 01/26/25 -?-?-?-?-?-?-?-?-?-?-?-?- 21w 4d 177 lb 7 oz (+10 lb 7 oz) 104/71 Negative -?-?-?-?-?-?-?-?-?-?-?-?- Negative 155 21 -?-?-?-?-?-?-?-?-?-?-?-?- LC- no vb/crampi ng. LC- no vb/cramping. 28 week labs ordered 02/27/25 -?-?-?-?-?-?-?-?-?-?-?-?- 26w 1d 183 lb 4 oz (+16 lb 4 oz) 113/67 Negative -?-?-?-?-?-?-?-?-?-?-?-?- Negative 145 27 -?-?-?-?-?-?-?-?-?-?-?-?- JV- no lof, vagi nal bleeding, or dec fm. drank glucola today an felt very dizzy. she was given crackers and some candy after her blood draw and felt better. undecided about Tdap. 03/26/25 -?-?-?-?-?-?-?-?-?-?-?-?- 30w 0d 187 lb 8 oz (+20 lb 8 oz) 102/70 Negative -?-?-?-?-?-?-?-?-?-?-?-?- Negative 143 30 -?-?-?-?-?-?-?-?-?-?-?-?- -No VB, LOF. G ood Fm. No concerns 04/10/25 -?-?-?-?-?-?-?-?-?-?-?-?- 32w 1d 191 lb 4 oz (+24 lb 4 oz) 119/74 Negative -?-?-?-?-?-?-?-?-?-?-?-?- Negative 160 32 -?-?-?-?-?-?-?-?-?-?-?-?- - no vb/lof/ct x. good fm. no concerns today. 04/26/25 -?-?-?-?-?-?-?-?-?-?-?-?- 34w 3d 193 lb 4 oz (+26 lb 4 oz) 110/60 Negative -?-?-?-?-?-?-?-?-?-?-?-?- Negative 153 34 -?-?-?-?-?-?-?-?-?-?-?-?- -No Vb, LOF. G ood FM. Denies concerns 05/09/25 -?-?-?-?-?-?-?-?-?-?-?-?- 36w 2d 195 lb (+28 lb) 110/68 Negative -?-?-?-?-?-?-?-?-?-?-?-?- Negative 152 36 Cephalic 0 -?-?-?-?-?-?-?-?-?-?-?-?- -NO VB, LOF or reg CTX. GBS done. Good FM 05/16/25 -?-?-?-?-?-?-?-?-?-?-?-?- 37w 2d 198 lb (+31 lb) 107/72 Negative -?-?-?-?-?-?-?-?-?-?-?-?- Negative 150 37 Cephalic -?-?-?-?-?-?-?-?-?-?-?-?- JV- declines exa m today. no lof, vaginal bleeding, or dec fm. 05/24/25 -?-?-?-?-?-?-?-?-?-?-?-?- 38w 3d 200 lb (+33 lb) 113/76 -?-?-?-?-?-?-?-?-?-?-?-?- 147 37 -?-?-?-?-?-?-?-?-?-?-?-?- JV- plan vag exa m next visit. no lof, vaginal bleeding, or dec fm. ACOG First Trimester First Trimester: Desire for , Alcohol, Tobacco Cessation, Illicit/Recreational Drug/Substance Use, Intimate Partner Violence, Barriers to care, Unstable Housing, Communication Barriers, Environmental/Work Hazards, Anticipated Course of Care, Toxoplasmosis Precations, Use of Any medications, Sexual activity, Exercise, Dental Care, Sauna/Hot tub use, Seat Belt use, Childbirth classes/Hospital facilities, Travel, Indications for Ultrasound and Screening for Aneuploidy; Discussed Second Trimester Second Trimester: Signs and Symptoms of Labor, Selecting a care provider, Reproductive Life Planning & Contreception and Care Planning; Discussed Tobacco Cessation, Discussed Depression/Anxiety and Discussed Intimate Partner Violence Third Trimester Third Trimester: Pain Management Plans, Labor support person(s), Immediate Larc, Movement Monitoring, Signs and Symptoms of Preeclampsia, Feeding No and [place] Education; Discussed Circumcision preference Coding Level of Care Code OB Routine Diagnoses Status post fall Z91.81 Encounter for supervision of other normal in third trimester Z34.83 Normal : other normal Trimester: third trimester 38 weeks gestation of Z3A.38 Weeks of gestation: 38 weeks Family history of autism Z81.8 Assessment and Plan Assessment and Plan (1) Status post fall: Status: Acute Comment: accidental fall. no vb/ctx, cat 1 tracing. (2) Supervision of normal : Status: Acute Qualifiers: Normal : other normal Trimester: third trimester Qualified Code(s): Z34.83 - Encounter for supervision of other normal , third trimester Comment: PRR, , NORMA 06/04/25, PC: Chris, : Shaquille (3) : Status: Acute Qualifiers: Weeks of gestation: 38 weeks Qualified Code(s): Z3A.38 - 38 weeks gestation of Comment: Neg GBS. anatomy nl, Discussed genetic/carrier testing - Undecided (4) Family history of autism: Status: Acute Comment: Brother Orders: Orders POC Urinalysis 2 Dip (Clinic) Today 05/24/25 1429 <Electronically signed by Elli Law DO> Date _ Elli Edwards DO [facility] Signature: Date (if applicable) CC: ~ [facility] Work Phone: [phone] [phone] Progress [facility] [address], [place] [address] OFFICE VISIT Date of Service: 05/16/25 MR#: [id number] Acct: [id number] Name: FAREED LORENZO Rep #: [id number] : 2000 Provider: Dr. Bella Edwards, Age/Sex: 25/F Location: [facility] [facility] Status: Signed Intake Vital Signs 04/10/25 10:46 05/09/25 09:36 05/16/25 15:20 05/16/25 15:21 Height 5 ft 5 in 5 ft 5 in 5 ft 5 in 5 ft 5 in Weight: 198 lb BMI 32.9 BP 107/72 Intake Visit Reasons: 37 wk ob Atmospheric Drier Tender Required: No Is patient in pain?: No Allergies No Known Allergies Allergy (Verified 05/16/25 15:20) Medications ?Medication ?Instructions ?Recorded ?Confirmed ?Type multivitamin no.47-iron fum 27 1 cap PO DAILY PREGNANC Y 12/17/22 05/16/25 History mg-folate no.1 1 mg-dha 300 mg capsule (PNV-DHA) Last Menstrual Period: 08/28/24 Zika: Zika virus screening: Negative : No PFSH PFSH Medical History Vaginal delivery Family history of recurrent miscarriage Family History Brother Autism Sister Family history of recurrent miscarriage Mother Thyroid cancer, Onset Age: 52 Sister Thyroid cancer, Onset Age: 40 Thyroid removed Father Myocardial infarction, Onset Age: 54 Social History adopted: No household members: spouse and children housing: house number of children: 1 current occupational status: employed 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 pets and animals: Yes (not managing litterbox) pets and animals: cat(s) history of recent travel: Yes ([place] - August 2024) out of state: Yes out of country: No sexually active: Yes Smoking Status: Never smoker alcohol intake: never substance use type: does not use well-balanced diet: daily or most days caffeine: No eating out: rarely or never during the past year weight has: remained stable what type of physical activity do you participate in: walking frequency: daily duration: < 15 minutes/day allen/advent: Hinduism seatbelt use: always do you feel safe at home: Yes additional 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: : Shaquille- Ab History 2 Elective abortions Hx Para 1 Spontaneous abortions Hx # Term Pregnancies 1 Ectopic pregnancies Hx # Pregnancies Multiple births # of living children 1 Past Pregnancies Del. Date Name GA/Weeks Outcome Route Bth Weight Gen Labor Lgth Anesthesia Del Locatn Provider FOB 07/28/23 Chris 40 live - full term vacuum 9lbs 5oz Male ep idural [facility] Dr. Isabel Delivery Date: 07/28/23 Last Updated by: Cesilia Hernandez GBS + HPI 37 wk ob Details: FAREED LORENZO is a 25 year old who presents for routine OB visit. OB Visit NORMA Calculator Estimated Delivery Date Method Current WG Current Estimate 06/04/25 LMP (Certain) 37w 2d Other Estimates 06/03/25 Ultrasound #1 37w 3d Expected Delivery Route/Plan Labor Preferences- CB/BF classes: no labor support person: Shaquille labor intervention preferences: [] pain management options preferred: epidural if requested cut cord/dad catch: cord : yes PP control planned: discussed discussed possible routes of delivery and associated risks: [] special requests: [] Specific Issue/Plans Covid status: [] Flu vaccine: declined Tdap vaccine: declines Rhogam: NA LARC form signed: yes Problem list reviewed and updated with the most current plan of care details and appropriate ordersplaced. Relevant counseling for the gestational age provided. Continue routine care and follow up unless otherwise noted in visit notes/problem list details Initial Weight: 167 lb Date -?-?-?-?-?-?-?-?-?-?-?-?- EGA Weight BP Urine Prot -?-?-?-?-?-?-?-?-?-?-?-?- Glucose FHR FuHt Pres Dilation -?-?-?-?-?-?-?-?-?-?-?-?- Effaced St Visit Note 10/27/24 -?-?-?-?-?-?-?-?-?-?-?-?- 8w 4d 167 lb (+0 oz) 121/76 Negative -?-?-?-?-?-?-?-?-?-?-?-?- Negative 181 -?-?-?-?-?-?-?-?-?-?-?-?- KW- CRL cons wit h dates. NIPT undecided. will get labs next visit. 11/28/24 -?-?-?-?-?-?-?-?-?-?-?-?- 13w 1d 170 lb 8 oz (+3 lb 8 oz) 117/76 Negative -?-?-?-?-?-?-?-?-?-?-?-?- Negative 150 -?-?-?-?-?-?-?-?-?-?-?-?- SM- declines NIP T no vb crmaping 01/03/25 -?-?-?-?-?-?-?-?-?-?-?-?- 18w 2d 173 lb (+6 lb) 110/64 Negative -?-?-?-?-?-?-?-?-?-?-?-?- Negative 160 -?-?-?-?-?-?-?--?-?-?-?-?- MH-No VB. Not fe eling movement yet. Denies concerns 01/26/25 -?-?-?-?-?-?-?-?-?-?-?-?- 21w 4d 177 lb 7 oz (+10 lb 7 oz) 104/71 Negative -?-?-?-?-?-?-?-?-?-?-?-?- Negative 155 21 -?-?-?-?-?-?-?-?-?-?-?-?- LC- no vb/crampi ng. LC- no vb/cramping. 28 week labs ordered 02/27/25 -?-?-?-?-?-?-?-?-?-?-?-?- 26w 1d 183 lb 4 oz (+16 lb 4 oz) 113/67 Negative -?-?-?-?-?-?-?-?-?-?-?-?- Negative 145 27 -?-?-?-?-?-?-?-?-?-?-?-?- JV- no lof, vagi nal bleeding, or dec fm. froylan guevara today an felt very dizzy. she was given crackers and some candy after her blood draw and felt better. undecided about Tdap. 03/26/25 -?-?-?-?-?-?-?-?-?-?-?-?- 30w 0d 187 lb 8 oz (+20 lb 8 oz) 102/70 Negative -?-?-?-?-?-?-?-?-?-?-?-?- Negative 143 30 -?-?-?-?-?-?-?-?-?-?-?-?- MH-No VB, LOF. G ood Fm. No concerns 05/27/25 -?-?-?-?-?-?-?-?-?-?-?-?- 32w 1d 191 lb 4 oz (+24 lb 4 oz) 119/74 Negative -?-?-?-?-?-?-?-?-?-?-?-?- Negative 160 32 -?-?-?-?-?-?-?-?-?-?-?-?- KW- no vb/lof/ct x. good fm. no concerns today. 04/26/25 -?-?-?-?-?-?-?-?-?-?-?-?- 34w 3d 193 lb 4 oz (+26 lb 4 oz) 110/60 Negative -?-?-?-?-?-?-?-?-?-?-?-?- Negative 153 34 -?-?-?-?-?-?-?-?-?-?-?-?- MH-No Vb, LOF. G ood FM. Denies concerns 05/09/25 -?-?-?-?-?-?-?-?-?-?-?-?- 36w 2d 195 lb (+28 lb) 110/68 Negative -?-?-?-?-?-?-?-?-?-?-?-?- Negative 152 36 Cephalic 0 -?-?-?-?-?-?-?-?-?-?-?-?- MH-NO VB, LOF or reg CTX. GBS done. Good FM 05/16/25 -?-?-?-?-?-?-?-?-?-?-?-?- 37w 2d 198 lb (+31 lb) 107/72 Negative -?-?-?-?-?-?-?-?-?-?-?-?- Negative 150 37 Cephalic -?-?-?-?-?-?-?-?-?-?-?-?- JV- declines exa m today. no lof, vaginal bleeding, or dec fm. ACOG First Trimester First Trimester: Desire for , Alcohol, Tobacco Cessation, Illicit/Recreational Drug/Substance Use, Intimate Partner Violence, Barriers to care, Unstable Housing, Communication Barriers, Environmental/Work Hazards, Anticipated Course of Care, Toxoplasmosis Precations, Use of Any med ications, Sexual activity, Exercise, Dental Care, Sauna/Hot tub use, Seat Belt use, Childbirth classes/Hospital facilities, Travel, Indications for Ultrasound and Screening for Aneuploidy; Discussed Second Trimester Second Trimester: Signs and Symptoms of Labor, Selecting a care provider, Reproductive Life Planning & Contreception and Care Planning; Discussed Tobacco Cessation, Discussed Depression/Anxiety and Discussed Intimate Partner Violence Third Trimester Third Trimester: Pain Management Plans, Labor support person(s), Immediate Larc, Movement Monitoring, Signs and Symptoms of Preeclampsia, Feeding No and Education; Discussed Circumcision preference Results POC Urinalysis 2 Dip (Clinic) Office Urine Glucose Negative Last Edit by Cesilia Hernandez on 05/16/25 15: 38 Office Urine Protein Negative Last Edit by Cesilia Hernandez on 05/16/25 15: 38 Coding Level of Care Code OB Routine Diagnoses Status post fall Z91.81 Encounter for supervision of other normal in third trimester Z34.83 Normal : other normal Trimester: third trimester 37 weeks gestation of Z3A.37 Weeks of gestation: 37 weeks Family history of autism Z81.8 Assessment and Plan Assessment and Plan (1) Status post fall: Status: Acute Comment: accidental fall. no vb/ctx, cat 1 tracing. (2) Supervision of normal : Status: Acute Qualifiers: Normal : other normal Trimester: third trimester Qualified Code(s): Z34.83 - Encounter for supervision of other normal , third trimester Comment: PRR, , NORMA 06/04/25, PC: Chris, : Shaquille (3) : Status: Acute Qualifiers: Weeks of gestation: 37 weeks Qualified Code(s): Z3A.37 - 37 weeks gestation of Comment: Neg GBS. anatomy nl, Discussed genetic/carrier testing - Undecided (4) Family history of autism: Status: Acute Comment: Brother Orders: Orders POC Urinalysis 2 Dip (Clinic) Today 05/16/25 1540 e Velde DO> Date _ Elli Edwards DO Cosigner Signature: Date (if applicable) CC: ~ [facility] [id number] Progress note Author Elli Saenz [facility] Note Date/Time May 16, 2025 3:40p [facility] [address] [place] [address], [address] [place] [address] OFFICE VISIT Date of Service: 05/16/25 MR#: [id number] Acct: [id number] Name: FAREED LORENZO Rep #: [id number] : 2000 Provider: Dr. Bella Edwards DO Age/Sex: 25/F Location: [facility] [place] Status: Signed Intake Vital Signs 04/10/25 10:46 05/09/25 09:36 05/16/25 15:20 05/16/25 15:21 Height 5 ft 5 in 5 ft 5 in 5 ft 5 in 5 ft 5 in Weight: 198 lb BMI 32.9 BP 107/72 Intake Visit Reasons: 37 wk ob Atmospheric Drier Tender Required: No Is patient in pain?: No Allergies No Known Allergies Allergy (Verified 05/16/25 15:20) Medications ?Medication ?Instructions ?Recorded ?Confirmed ?Type multivitamin no.47-iron fum 27 1 cap PO DAILY PREGNANC Y 12/17/22 05/16/25 History mg-folate no.1 1 mg-dha 300 mg capsule (PNV-DHA) Last Menstrual Period: 08/28/24 Zika: Zika virus screening: Negative : No PFSH PFSH Medical History Vaginal delivery Family history of recurrent miscarriage Family History Brother Autism Sister Family history of recurrent miscarriage Mother Thyroid cancer, Onset Age: 52 Sister Thyroid cancer, Onset Age: 40 Thyroid removed Father Myocardial infarction, Onset Age: 54 Social History adopted: No household members: spouse and children housing: house number of children: 1 current occupational status: employed 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 pets and animals: Yes (not managing litterbox) pets and animals: cat(s) history of recent travel: Yes ([place] - August 2024) out of state: Yes out of country: No sexually active: Yes Smoking Status: Never smoker alcohol intake: never substance use type: does not use well-balanced diet: daily or most days caffeine: No eating out: rarely or never during the past year weight has: remained stable what type of physical activity do you participate in: walking frequency: daily duration: < 15 minutes/day allen/advent: Hinduism seatbelt use: always do you feel safe at home: Yes additional 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: : Shaquille- [employer] History 2 Elective abortions Hx Para 1 Spontaneous abortions Hx # Term Pregnancies 1 Ectopic pregnancies Hx # Pregnancies Multiple births # of living children 1 Past Pregnancies Del. Date Name GA/Weeks Outcome Route Bth Weight Gen Labor Lgth Anesthesia Del Locatn Provider FOB 07/28/23 Chris 40 live - full term vacuum 9lbs 5oz Male ep idural [facility] Dr. Isabel Delivery Date: 07/28/23 Last Updated by: Cesilia Hernandez GBS + HPI 37 wk ob Details: FAREED LORENZO is a 25 year old who presents for routine OB visit. OB Visit NORMA Calculator Estimated Delivery Date Method Current WG Current Estimate 06/04/25 LMP (Certain) 37w 2d Other Estimates 06/03/25 Ultrasound #1 37w 3d Expected Delivery Route/Plan Labor Preferences- CB/BF classes: no labor support person: Shaquille labor intervention preferences: [] pain management options preferred: epidural if requested cut cord/dad catch: cord : yes PP control planned: discussed discussed possible routes of delivery and associated risks: [] special requests: [] Specific Issue/Plans Covid status: [] Flu vaccine: declined Tdap vaccine: declines Rhogam: NA LARC form signed: yes Problem list reviewed and updated with the most current plan of care details and appropriate orders placed. Relevant counseling for the gestational age provided. Continue routine care and follow up unless otherwise noted in visit notes/problem list details Initial Weight: 167 lb Date -?-?-?-?-?-?-?-?-?-?-?-?- EGA Weight BP Urine Prot -?-?-?-?-?-?-?-?-?-?-?-?- Glucose FHR FuHt Pres Dilation -?-?-?-?-?-?-?-?-?-?-?-?- Effaced St Visit Note 10/27/24 -?-?-?-?-?-?-?-?-?-?-?-?- 8w 4d 167 lb (+0 oz) 121/76 Negative -?-?-?-?-?-?-?-?-?-?-?-?- Negative 181 -?-?-?-?-?-?-?-?-?-?-?-?- KW- CRL cons wit h dates. NIPT undecided. will get labs next visit. 11/28/24 -?-?-?-?-?-?-?-?-?-?-?-?- 13w 1d 170 lb 8 oz (+3 lb 8 oz) 117/76 Negative -?-?-?-?-?-?-?-?-?-?-?-?- Negative 150 -?-?-?-?-?-?-?-?-?-?-?-?- SM- declines NIP T no vb crmaping 01/03/25 -?-?-?-?-?-?-?-?-?-?-?-?- 18w 2d 173 lb (+6 lb) 110/64 Negative -?-?-?-?-?-?-?-?-?-?-?-?- Negative 160 -?-?-?-?-?-?-?--?-?-?-?-?- MH-No VB. Not fe eling movement yet. Denies concerns 01/26/25 -?-?-?-?-?-?-?-?-?-?-?-?- 21w 4d 177 lb 7 oz (+10 lb 7 oz) 104/71 Negative -?-?-?-?-?-?-?-?-?-?-?-?- Negative 155 21 -?-?-?-?-?-?-?-?-?-?-?-?- LC- no vb/crampi ng. LC- no vb/cramping. 28 week labs ordered 02/27/25 -?-?-?-?-?-?-?-?-?-?-?-?- 26w 1d 183 lb 4 oz (+16 lb 4 oz) 113/67 Negative -?-?-?-?-?-?-?-?-?-?-?-?- Negative 145 27 -?-?-?-?-?-?-?-?-?-?-?-?- JV- no lof, vagi nal bleeding, or dec fm. drank glucola today an felt very dizzy. she was given crackers and some candy after her blood draw and felt better. undecided about Tdap. 03/26/25 -?-?-?-?-?-?-?-?-?-?-?-?- 30w 0d 187 lb 8 oz (+20 lb 8 oz) 102/70 Negative -?-?-?-?-?-?-?-?-?-?-?-?- Negative 143 30 -?-?-?-?-?-?-?-?-?-?-?-?- MH-No VB, LOF. G ood Fm. No concerns 04/10/25 -?-?-?-?-?-?-?-?-?-?-?-?- 32w 1d 191 lb 4 oz (+24 lb 4 oz) 119/74 Negative -?-?-?-?-?-?-?-?-?-?-?-?- Negative 160 32 -?-?-?-?-?-?-?-?-?-?-?-?- KW- no vb/lof/ct x. good fm. no concerns today. 04/26/25 -?-?-?-?-?-?-?-?-?-?-?-?- 34w 3d 193 lb 4 oz (+26 lb 4 oz) 110/60 Negative -?-?-?-?-?-?-?-?-?-?-?-?- Negative 153 34 -?-?-?-?-?-?-?-?-?-?-?-?- MH-No Vb, LOF. G ood FM. Denies concerns 05/09/25 -?-?-?-?-?-?-?-?-?-?-?-?- 36w 2d 195 lb (+28 lb) 110/68 Negative -?-?-?-?-?-?-?-?-?-?-?-?- Negative 152 36 Cephalic 0 -?-?-?-?-?-?-?-?-?-?-?-?- MH-NO VB, LOF or reg CTX. GBS done. Good FM 05/16/25 -?-?-?-?-?-?-?-?-?-?-?-?- 37w 2d 198 lb (+31 lb) 107/72 Negative -?-?-?-?-?-?-?-?-?-?-?-?- Negative 150 37 Cephalic -?-?-?-?-?-?-?-?-?-?-?-?- JV- declines exa m today. no lof, vaginal bleeding, or dec fm. ACOG First Trimester First Trimester: Desire for , Alcohol, Tobacco Cessation, Illicit/Recreational Drug/Substance Use, Intimate Partner Violence, Barriers to care, Unstable Housing, Communication Barriers, Environmental/Work Hazards, Anticipated Course of Care, Toxoplasmosis Precations, Use of Any medications, Sexual activity, Exercise, Dental Care, Sauna/Hot tub use, Seat Belt use, Childbirth classes/Hospital facilities, Travel, Indications for Ultrasound and Screening for Aneuploidy; Discussed Second Trimester Second Trimester: Signs and Symptoms of Labor, Selecting a care provider, Reproductive Life Planning & Contreception and Care Planning; Discussed Tobacco Cessation, Discussed Depression/Anxiety and Discussed Intimate Partner Violence Third Trimester Third Trimester: Pain Management Plans, Labor support person(s), Immediate Larc, Movement Monitoring, Signs and Symptoms of Preeclampsia, Infant Feeding No and Education; Discussed Circumcision preference Results POC Urinalysis 2 Dip (Clinic) Office Urine Glucose Negative Last Edit by Cesilia Hernandez on 05/16/25 15: 38 Office Urine Protein Negative Last Edit by Cesilia Hernandez on 05/16/25 15: 38 Coding Level of Care Code OB Routine Diagnoses Status post fall Z91.81 Encounter for supervision of other normal in third trimester Z34.83 Normal : other normal Trimester: third trimester 37 weeks gestation of Z3A.37 Weeks of gestation: 37 weeks Family history of autism Z81.8 Assessment and Plan Assessment and Plan (1) Status post fall: Status: Acute Comment: accidental fall. no vb/ctx, cat 1 tracing. (2) Supervision of normal : Status: Acute Qualifiers: Normal : other normal Trimester: third trimester Qualified Code(s): Z34.83 - Encounter for supervision of other normal , third trimester Comment: PRR, , NORMA 06/04/25, PC: Chris, : Shaquille (3) : Status: Acute Qualifiers: Weeks of gestation: 37 weeks Qualified Code(s): Z3A.37 - 37 weeks gestation of Comment: Neg GBS. anatomy nl, Discussed genetic/carrier testing - Undecided (4) Family history of autism: Status: Acute Comment: Brother Orders: Orders POC Urinalysis 2 Dip (Clinic) Today 05/16/25 1540 <Electronically signed by Elli Law DO> Date _ Elli Edwards DO Cosigner Signature: Date (if applicable) CC: ~ [employer] Work Phone: [phone] History and physical note [facility] Medical Records Department [address] [place] [address] OB Triage Physician Note 04/23/250 MR#: [id number] Acct: [id number] Name: FAREED LORENZO Rep #:[id number] : 2000 From: Brianna Velasquez CNM PCP: Dr. Solitario Blank MD Status:REG CL I Y Location: ND542-4 HPI - General General Date of Service: 04/23/25 HPI Narrative FAREED LORENZO, is a 25 F who presents at 34 weeks s/p fall onto her buttocks while carrying her son around 1900. denies ctx, vb. however has not felt movement since. Maternal Data Information NORMA Calculator Estimated Delivery Date Method Current WG Current Estimate 06/04/25 LMP (Certain) 34w 0d Other Estimates 06/03/25 Ultrasound #1 34w 1d PFSH PFSH Medical History Vaginal delivery Family history of recurrent miscarriage Home Medications ?Medication ?Instructions ?Recorded ?Last Taken ?Type multivitamin no.47-iron fum 27 1 cap PO DAILY PREGNANC Y 12/17/22 07/26/23 21:00 History mg-folate no.1 1 mg-dha 300 mg 1 cap capsule (PNV-DHA) Allergy/AdvReac Type Severity Reaction Status Date / Time No Known Allergies Allergy Verified 04/10/25 10:43 Family History Brother Autism Sister Family history of recurrent miscarriage Mother Thyroid cancer, Onset Age: 52 Sister Thyroid cancer, Onset Age: 40 Thyroid removed Father Myocardial infarction, Onset Age: 54 Social History adopted: No household members: spouse and children housing: house number of children: 1 current occupational status: employed 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/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 pets and animals: Yes (not managing litterbox) pets and animals: cat(s) history of recent travel: Yes ([place] - August 2024) out of state: Yes out of country: No sexually active: Yes Smoking Status: Never smoker alcohol intake: never substance use type: does not use well-balanced diet: daily or most days caffeine: No eating out: rarely or never during the past year weight has: remained stable what type of physical activity do you participate in: walking frequency: daily duration: < 15 minutes/day allen/advent: Hinduism seatbelt use: always do you feel safe at home: Yes additional 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: : Tha Berger History 2 Elective abortions Hx Para 1 Spontaneous abortions Hx # Term Pregnancies 1 Ectopic pregnancies Hx # Pregnancies Multiple births # of living children 1 Past Pregnancies Del. Date Name GA/Weeks Outcome Route Bth Weight Gen Labor Lgth Anesthesia Del Locatn Provider FOB 07/28/23 Chris 40 live - full term vacuum 9lbs 5oz Male ep idural [facility] Dr. Edwards Shaquille Delivery Date: 07/28/23 Last Updated by: Cesilia Hernandez GBS + Visit Details Expected Delivery Route/Plan Labor Preferences- CB/BF classes: no labor support person: Shaquille labor intervention preferences: [] pain management options preferred: epidural if requested cut cord/dad catch: cord : yes PP control planned: discussed discussed possible routes of delivery and associated risks: [] special requests: [] Plans Covid status: [] Flu vaccine: declined Tdap vaccine: declines Rhogam: NA LARC form signed: yes Problem list reviewed and updated with the most current plan of care details and appropriate ordersplaced. Relevant counseling for the gestational age provided. Continue routine care and follow up unless otherwise noted in visit notes/problem list details OB Flowsheet Initial Weight: 167 lb Date -?-?--?-?-?-?-?-?-?-?-?-?- EGA Weight BP Urine Prot -?-?-?-?-?-?-?-?-?-?-?-?- Glucose FHR FuHt Pres Dilation -?-?-?-?-?-?-?-?-?-?-?-?- Effaced St Visit Note 10/27/24 -?-?-?-?-?-?-?-?-?-?-?-?- 8w 4d 167 lb (+0 oz) 121/76 Negative -?-?-?-?-?-?-?-?-?-?-?-?- Negative 181 -?-?-?-?-?-?-?-?-?-?-?-?- KW- CRL cons wit h dates. NIPT undecided. will get labs next visit. 11/28/24 -?-?-?-?-?-?-?-?-?-?-?-?- 13w 1d 170 lb 8 oz (+3 lb 8 oz) 117/76 Negative -?-?-?-?-?-?-?-?-?-?-?-?- Negative 150 -?-?-?-?-?-?-?-?-?-?-?-?- SM- declines NIP T no vb crmaping 01/03/25 -?-?-?-?-?-?-?-?-?-?-?-?- 18w 2d 173 lb (+6 lb) 110/64 Negative -?-?-?-?-?-?-?-?-?-?-?-?- Negative 160 -?-?-?-?-?-?-?-?-?-?-?-?- MH-No VB. Not fe eling movement yet. Denies concerns 01/26/25 -?-?-?-?-?-?-?-?-?-?-?-?- 21w 4d 177 lb 7 oz (+10 lb 7 oz) 104/71 Negative -?-?-?-?-?-?-?-?-?-?-?-?- Negative 155 21 -?-?-?-?-?-?-?-?-?-?-?-?- LC- no vb/crampi ng. LC- no vb/cramping. 28 week labs ordered 02/27/25 -?-?-?-?-?-?-?-?-?-?-?-?- 26w 1d 183 lb 4 oz (+16 lb 4 oz) 113/67 Negative -?-?-?-?-?-?-?-?-?-?-?-?- Negative 145 27 -?-?-?-?-?-?-?-?-?-?-?-?- JV- no lof, vagi nal bleeding, or dec fm. drank glucola today an felt very dizzy. she was given crackers and some candy after her blood draw and felt better. undecided about Tdap. 03/26/25 -?-?-?-?-?-?-?-?-?-?-?-?- 30w 0d 187 lb 8 oz (+20 lb 8 oz) 102/70 Negative -?-?-?-?-?-?-?-?-?-?-?-?- Negative 143 30 -?-?-?-?-?-?-?-?-?-?-?-?- MH-No VB, LOF. G ood Fm. No concerns 04/10/25 -?-?-?-?-?-?-?-?-?-?-?-?- 32w 1d 191 lb 4 oz (+24 lb 4 oz) 119/74 Negative -?-?-?-?-?-?-?-?-?-?-?-?- Negative 160 32 -?-?-?-?-?-?-?-?-?-?-?-?- KW- no vb/lof/ct x. good fm. no concerns today. NST FHR Rate Baby A Baseline: 130-150 Variability:: Moderate Accelerations:: 15 x 15 Decelerations:: None NST Reactive:: Yes FHR Category:: Category I Uterine Activity:: none Assessment & Plan (1) Status post fall: COMMENT: accidental fall. no vb/ctx, cat 1 tracing. PLAN: Patient presents for triage evaluation secondary to fall. 4 hours of monitoring without contractions, lof or vb. FHT: Moderate variability reactive no decelerations category I tracing [place]: no Contractions Assessment and plan: Reactive NST, reassuring maternal and status patient discharged to home to follow-up in office at next appt. See problem list details for additional plan information. Charges/Coding Procedures Urinary/Genital 52xxx-59xxx: 48074-18 non-stress test Interp 04/23/25 2242 ns CNM> Date _ Brianna Velasquez CNM Cosigner Signature (if applicable): Date CC: LAYLA Velasquez; Dr. Solitario Blank MD ~ Signed [facility]05-27-2025 Progress [facility] Emergency Department [address], [address] [place] [address] OFFICE VISIT Date of Service: 04/10/25 MR#: [id number] Acct: [id number] Name: FAREED LORENZO Rep #: [id number] : 2000 Provider: LAYLA Naylor Age/Sex: 25/F Location: 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 Required: No Is patient in pain?: No Allergies No Known Allergies Allergy (Verified 04/10/25 10:43) Medications ?Medication ?Instructions ?Recorded ?Confirmed ?Type multivitamin no.47-iron fum 27 1 cap PO DAILY PREGNANC Y 12/17/22 04/10/25 History mg-folate no.1 1 mg-dha 300 mg capsule (PNV-DHA) Last Menstrual Period: 08/28/24 : No Have you fallen in the past year?: No PFSH PFSH Medical History Vaginal delivery Family history of recurrent miscarriage Family History Brother Autism Sister Family history of recurrent miscarriage Mother Thyroid cancer, Onset Age: 52 Sister Thyroid cancer, Onset Age: 40 Thyroid removed Father Myocardial infarction, Onset Age: 54 Social History adopted: No household members: spouse and children housing: house number of children: 1 current occupational status: employed 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 pets and animals: Yes (not managing litterbox) pets and animals: cat(s) history of recent travel: Yes ([place] - August 2024) out of state: Yes out of country: No sexually active: Yes Smoking Status: Never smoker alcohol intake: never substance use type: does not use well-balanced diet: daily or most days caffeine: No eating out: rarely or never during the past year weight has: remained stable what type of physical activity do you participate in: walking frequency: daily duration: < 15 minutes/day allen/advent: Hinduism seatbelt use: always do you feel safe at home: Yes additional 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: : Shaquille- Ab History 2 Elective abortions Hx Para 1 Spontaneous abortions Hx # Term Pregnancies 1 Ectopic pregnancies Hx # Pregnancies Multiple births # of living children 1 Past Pregnancies Del. Date Name GA/Weeks Outcome Route Bth Weight Infant Gen Labor Lgth Anesthesia Del Locatn Provider FOB 07/28/23 Chris 40 live - full term vacuum 9lbs 5oz Male ep idural [facility] Dr. Isabel Delivery Date: 07/28/23 Last Updated by: Cesilia Hernandez GBS + HPI 32 WK OB Details: FAREED LORENZO is a 25 year old who presents for routine OB visit. OB Visit NORMA Calculator Estimated Delivery Date Method Current WG Current Estimate 06/04/25 LMP (Certain) 32w 1d Other Estimates 06/03/25 Ultrasound #1 32w 2d Expected Delivery Route/Plan Labor Preferences- CB/BF classes: no labor support person: Shaquille labor intervention preferences: [] pain management options preferred: epidural if requested cut cord/dad catch: cord : yes PP control planned: discussed discussed possible routes of delivery and associated risks: [] special requests: [] Specific Issue/Plans Covid status: [] Flu vaccine: declined Tdap vaccine: declines Rhogam: NA LARC form signed: yes Problem list reviewed and updated with the most current plan of care details and appropriate ordersplaced. Relevant counseling for the gestational age provided. Continue routine care and follow up unless otherwise noted in visit notes/problem list details Initial Weight: 167 lb Date -?-?-?-?-?-?-?-?-?-?-?-?- EGA Weight BP Urine Prot -?-?-?-?-?-?-?-?-?-?-?-?- Glucose FHR FuHt Pres Dilation -?-?-?-?-?-?-?-?-?-?-?-?- Effaced St Visit Note 10/27/24 -?-?-?-?-?-?-?-?-?-?-?-?- 8w 4d 167 lb (+0 oz) 121/76 Negative -?-?-?-?-?-?-?-?-?-?-?-?- Negative 181 -?-?-?-?-?-?-?--?-?-?-?-?- KW- CRL cons wit h dates. NIPT undecided. will get labs next visit. 11/28/24 -?-?-?-?-?-?-?-?-?-?-?-?- 13w 1d 170 lb 8 oz (+3 lb 8 oz) 117/76 Negative -?-?-?-?-?-?-?-?-?-?-?-?- Negative 150 -?-?-?-?-?-?-?-?-?-?-?-?- SM- declines NIP T no vb crmaping 01/03/25 -?-?-?-?-?-?-?-?-?-?-?-?- 18w 2d 173 lb (+6 lb) 110/64 Negative -?-?-?-?-?-?-?-?-?-?-?-?- Negative 160 -?-?-?-?-?-?-?-?-?-?-?-?- MH-No VB. Not fe eling movement yet. Denies concerns 01/26/25 -?-?-?-?-?-?-?-?-?-?-?-?- 21w 4d 177 lb 7 oz (+10 lb 7 oz) 104/71 Negative -?-?-?-?-?-?-?-?-?-?-?-?- Negative 155 21 -?-?-?-?-?-?-?-?-?-?-?-?- LC- no vb/crampi ng. LC- no vb/cramping. 28 week labs ordered 02/27/25 -?-?-?-?-?-?-?-?-?-?-?-?- 26w 1d 183 lb 4 oz (+16 lb 4 oz) 113/67 Negative -?-?-?-?-?-?-?-?-?-?-?-?- Negative 145 27 -?-?-?-?-?-?-?-?-?-?-?-?- JV- no lof, vagi nal bleeding, or dec fm. drank glucola today an felt very dizzy. she was given crackers and some candy after her blood draw and felt better. undecided about Tdap. 03/26/25 -?-?-?-?-?-?-?-?-?-?-?-?- 30w 0d 187 lb 8 oz (+20 lb 8 oz) 102/70 Negative -?-?-?-?-?-?-?-?-?-?-?-?- Negative 143 30 -?-?-?-?-?-?-?-?-?-?-?-?- MH-No VB, LOF. G ood Fm. No concerns 04/10/25 -?-?-?-?-?-?-?-?-?-?-?-?- 32w 1d 191 lb 4 oz (+24 lb 4 oz) 119/74 Negative -?-?-?-?-?-?-?-?-?-?-?-?- Negative 160 32 -?-?-?-?-?-?-?-?-?-?-?-?- KW- no vb/lof/ct x. good fm. no concerns today. ACOG First Trimester First Trimester: Desire for , Alcohol, Tobacco Cessation, Illicit/Recreational Drug/Substance Use, Intimate Partner Violence, Barriers to care, Unstable Housing, Communication Barriers, Environmental/Work Hazards, Anticipated Course of Care, Toxoplasmosis Precations, Use of Any med ications, Sexual activity, Exercise, Dental Care, Sauna/Hot tub use, Seat Belt use, Childbirth classes/Hospital facilities, Travel, Indications for Ultrasound and Screening for Aneuploidy; Discussed Second Trimester Second Trimester: Signs and Symptoms of Labor, Selecting a care provider, Reproductive Life Planning & Contreception and Care Planning; Discussed Tobacco Cessation, Discussed Depression/Anxiety and Discussed Intimate Partner Violence Third Trimester Third Trimester: Pain Management Plans, Labor support person(s), Immediate Larc, Movement Monitoring, Signs and Symptoms of Preeclampsia, Feeding No and Education; Discussed Circumcision preference ROS Const Reports system reviewed and no additional complaints, except as documented Eyes Reports system reviewed and no additional complaints, except as documented ENT Reports system reviewed and no additional complaints, except as documented Card Reports system reviewed and no additional complaints, except as documented Resp Reports system reviewed and no additional complaints, except as documented GI Reports system reviewed and no additional complaints, except as documented, Denies nausea and Denies vomiting Reports system reviewed and no additional complaints, except as documented Musc Reports system reviewed and no additional complaints, except as documented Skin/Breast Reports system reviewed and no additional complaints, except as documented Neuro Yes system reviewed and no additional complaints, except as documented Psych Reports system reviewed and no additional complaints, except as documented Endo Reports system reviewed and no additional complaints, except as documented Chente/Lymph Reports system reviewed and no additional complaints, except as documented Aller/Immun Reports system reviewed and no additional complaints, except as documented Exam Const General: cooperative, healthy appearing and no acute distress Orientation: alert, awake and oriented x3 Neck Neck: normal visual inspection and full ROM Resp Effort & Inspection: normal respiratory effort, able to speak in complete sentences and symmetric chest movement GI Inspection: normal to inspection Palpation: soft and other Other: gravid Skin General: no rashes or lesions noted Neuro General: patient alert, patient awake and patient oriented x3 Cognition: normal cognition Speech: speech normal Gait: normal gait Motor: muscle tone normal throughout Extrem General: normal to inspection and full ROM Psych Appearance: grossly normal Mental Status: mental status grossly normal Mood: congruent mood Affect: normal affect Speech and Movement: speech and movement normal Attitude: cooperative Thought Process: normal Thought Content: normal Judgment: judgment good Results POC Urinalysis 2 Dip (Clinic) Office Urine Glucose Negative Last Edit by Jenna Blank on 04/10/25 10:50 Office Urine Protein Negative Last Edit by Jenna Blank on 04/10/25 10:50 Coding Level of Care Code OB Routine Diagnoses Encounter for supervision of other normal in third trimester Z34.83 Normal : other normal Trimester: third trimester 32 weeks gestation of Z3A.32 Weeks of gestation: 32 weeks Family history of autism Z81.8 Assessment and Plan Assessment and Plan (1) Supervision of normal : Status: Acute Qualifiers: Normal : other normal Trimester: third trimester Qualified Code(s): Z34.83 - Encounter for supervision of other normal , third trimester Comment: PRR, , NORMA 06/04/25, PC: Chris, : Shaquille (2) : Status: Acute Qualifiers: Weeks of gestation: 32 weeks Qualified Code(s): Z3A.32 - 32 weeks gestation of Comment: anatomy nl, Discussed genetic/carrier testing - Undecided (3) Family history of autism: Status: Acute Comment: Brother Orders: Orders POC Urinalysis 2 Dip (Clinic) Today Plan Details Additional Comments: ACOG trimester education reviewed and updated. see problem list details for updated plan management information and see below for orders placed atthis visit. GA appropriate handout given. Clinical Quality Measures Falls Risk Screening/Assistive Devices Have you fallen in the past year?: No 04/10/25 1100 s CNM> Date _ Radha Naylor CNM Cosigner Signature: Date (if applicable) CC: ~ [facility]04-15-2025 Evaluation note* Diagnosis Onset Date Resolution Status Admit Date Family history of autism acute February 27, 2025 8:40am acute February 27 8:40am Supervision of normal acute February 27, 2025 8:40am Family history of autism acute March 26, 2025 1:34pm acute March 26, 2025 1:34pm Supervision of normal acute March 26, 2025 1 :34pm Family history of autism acute April 10, 2025 10:38am acute April 10, 2025 10:38am Supervision of normal acute April 10, 2025 1 0:38am Status post fall resolved April 8:15pm Family history of autism acute April 26, 2025 9:53am acute April 26 9:53am Supervision of normal acute April 26, 2025 9:53am Status post fall resolved April 9:53am Family history of autism acute May 09, 2025 9:33am acute May 09 9:33am Supervision of normal acute May 09, 2025 9:33am Status post fall resolved April 9:33am Family history of autism acute May 16, 2025 3:16pm acute May 16, 2025 3:16pm Supervision of normal acute May 16, 2025 3 :16pm Status post fall resolved May 3:16pm Family history of autism acute May 24, 2025 2:09pm acute May 24 2:09pm Supervision of normal acute May 24, 2025 2:09pm Status post fall resolved May 2:09pm Family history of autism acute May 28, 2025 2:04pm acute May 28 2:04pm Supervision of normal acute May 28, 2025 2:04pm [facility] Work Phone: 1(749) 830-457403-14-2025 Evaluation note* Diagnosis Onset Date Resolution Status Admit Date Family history of autism acute January 26, 2025 9:34am acute January 26 9:34am Supervision of normal acut e January 26, 2025 9:34am Family history of autism acute February 27, 2025 8:40am acute February 27 8:40am Supervision of normal acut e February 27, 2025 8:40am Family history of autism acute March 26, 2025 1:34pm acute March 26, 2025 1:34pm Supervision of normal acut e March 26, 2025 1:34pm Family history of autism acute April 10, 2025 10:38am acute April 10, 2025 10:38am Supervision of normal acut e April 10, 2025 10:38am Status post fall acute April 8:15pm Family history of autism acute April 26, 2025 9:53am acute April 26 9:53am Status post fall acute April 9:53am Supervision of normal acut e April 26, 2025 9:53am Family history of autism acute May 09, 2025 9:33am acute May 09 9:33am Status post fall acute April 9:33am Supervision of normal acut e May 09, 2025 9:33am [facility] Work Phone: 1(520) 384-677803-14-2025 Evaluation note* Diagnosis Onset Date Resolution Status Admit Date Family history of autism acute January 26, 2025 9:34am acute January 26 9:34am Supervision of normal acut e January 26, 2025 9:34am Family history of autism acute February 27, 2025 8:40am acute February 27 8:40am Supervision of normal acut e February 27, 2025 8:40am Family history of autism acute March 26, 2025 1:34pm acute March 26, 2025 1:34pm Supervision of normal acut e March 26, 2025 1:34pm Family history of autism acute April 10, 2025 10:38am acute April 10, 2025 10:38am Supervision of normal acut e April 10, 2025 10:38am Status post fall acute April 8:15pm Family history of autism acute April 26, 2025 9:53am acute April 26 9:53am Status post fall acute April 9:53am Supervision of normal acut e April 26, 2025 9:53am Family history of autism acute May 09, 2025 9:33am acute May 09 9:33am Status post fall acute April 9:33am Supervision of normal acut e May 09, 2025 9:33am Family history of autism acute May 16, 2025 3:16pm acute May 16, 2025 3:16pm Status post fall acute May 3:16pm Supervision of normal acut e May 16, 2025 3:16pm [facility] Work Phone: 1(789) 127-937103-14-2025 Evaluation note* Diagnosis Onset Date Resolution Status Admit Date Family history of autism acute January 26, 2025 9:34am acute January 26 9:34am Supervision of normal acut e January 26, 2025 9:34am Family history of autism acute February 27, 2025 8:40am acute February 27 8:40am Supervision of normal acut e February 27, 2025 8:40am Family history of autism acute March 26, 2025 1:34pm acute March 26, 2025 1:34pm Supervision of normal acut e March 26, 2025 1:34pm Family history of autism acute April 10, 2025 10:38am acute April 10, 2025 10:38am Supervision of normal acut e April 10, 2025 10:38am Status post fall acute April 8:15pm Family history of autism acute April 26, 2025 9:53am acute April 26 9:53am Status post fall acute April 9:53am Supervision of normal acut e April 26, 2025 9:53am Family history of autism acute May 09, 2025 9:33am acute May 09 9:33am Status post fall acute April 9:33am Supervision of normal acut e May 09, 2025 9:33am Family history of autism acute May 16, 2025 3:16pm acute May 16, 2025 3:16pm Status post fall acute May 3:16pm Supervision of normal acut e May 16, 2025 3:16pm Family history of autism acute May 24, 2025 2:09pm acute May 24 2:09pm Status post fall acute May 2:09pm Supervision of normal acut e May 24, 2025 2:09pm [facility] Work Phone: 1(985) 797-121202-19-2025 Evaluation note* Diagnosis Onset Date Resolution Status Admit Date Family history of autism acute January 03, 2025 9:52am acute January 03, 2025 9:52am Supervision of normal acute January 03, 9:52am Family history of autism acute January 26, 2025 9:34am acute January 26 9:34am Supervision of normal acute January 26, 2025 9:34am Family history of autism acute February 27, 2025 8:40am acute February 27 8:40am Supervision of normal acute February 27, 2025 8:40am Family history of autism acute March 26, 2025 1:34pm acute March 26, 2025 1:34pm Supervision of normal acute March 26, 2025 1 :34pm Family history of autism acute April 10, 2025 10:38am acute April 10, 2025 10:38am Supervision of normal acute April 10, 2025 1 0:38am [facility] Work Phone: 1(410) 933-215302-19-2025 Evaluation note* Diagnosis Onset Date Resolution Status Admit Date Family history of autism acute January 03, 2025 9:52am acute January 03, 2025 9:52am Supervision of normal acute January 03 9:52am Family history of autism acute January 26, 2025 9:34am acute January 26 9:34am Supervision of normal acute January 26, 2025 9:34am Family history of autism acute February 27, 2025 8:40am acute February 27 8:40am Supervision of normal acute February 27, 2025 8:40am Family history of autism acute March 26, 2025 1:34pm acute March 26, 2025 1:34pm Supervision of normal acute March 26, 2025 1 :34pm Family history of autism acute April 10, 2025 10:38am acute April 10, 2025 10:38am Supervision of normal acute April 10, 2025 1 0:38am Status post fall acute April 8:15pm [facility] Work Phone: 1(824) 800-135402-19-2025 Evaluation note* Diagnosis Onset Date Resolution Status Admit Date Family history of autism acute January 03, 2025 9:52am acute January 03, 2025 9:52am Supervision of normal acute January 03, 2 025 9:52am Family history of autism acute January 26, 2025 9:34am acute January 26 9:34am Supervision of normal acute January 26, 2025 9:34am Family history of autism acute February 27, 2025 8:40am acute February 27 8:40am Supervision of normal acute February 27, 2025 8:40am Family history of autism acute March 26, 2025 1:34pm acute March 26, 2025 1:34pm Supervision of normal acute March 26, 2025 1 :34pm Family history of autism acute April 10, 2025 10:38am acute April 10, 2025 10:38am Supervision of normal acute April 10, 2025 1 0:38am Status post fall acute April 8:15pm Family history of autism acute April 26, 2025 9:53am acute April 26 9:53am Status post fall acute April 9:53am Supervision of normal acute April 26, 2025 9:53am [facility] Work Phone: 1(515) 721-229901-14-2025 Evaluation note* Diagnosis Onset Date Resolution Status Admit Date Family history of autism acute November 28, 2024 11:20am acute November 28, 2024 11:20am Supervision of normal acute November 28 11:20am Family history of autism acute January 03, 2025 9:52am acute January 03, 2025 9:52am Supervision of normal acute January 03, 9:52am Family history of autism acute January 26, 2025 9:34am acute January 26 9:34am Supervision of normal acute January 26, 2025 9:34am Family history of autism acute February 27, 2025 8:40am acute February 27 8:40am Supervision of normal acute February 27, 2025 8:40am [facility] Work Phone: 1(636) 350-219309-15-2023 Progress note Author Annabelle Garduno [facility] July 30, 2023 8:15am Note Date/Time July 30, 2023 8:15am [facility] Medical Records Department [facility] [place] [address] Progress Note - OBGYN 09/813 MR#: [id number] Acct: [id number] Name: FAREED YOUNG Rep #:[id number] : 2000 From: Annabelle montague MD PCP: Dr. Solitario Blank MD Status:ADM IN Location: VZ215-3 Subjective Subjective Patient doing well without complaints. Tolerating PO. Ambulating and voiding without difficulty. infant feeding well. Denies chest pain, shortness of breath,calf pain/swelling, fevers, chills, lightheadedness. Objective Data Objective Data Vital Signs: Vital Signs Temp Pulse Resp BP Pulse Ox O2 Del Method 97.6 F L 81 16 121/60 H 97 Room Air 07/30/23 01:41 07/30/23 01:44 07/30/23 01:41 07/30/23 01:44 07/30/23 01:41 07/30/23 01:41 Oxygen Delivery Method Room Air Weight: 203 lb 0.732 oz Body Mass Index (BMI) 33.7 Intake & Output: Intake and Output for Last 24 Hours 07/28/23 07/29/23 07/30/23 23:59 23:59 23:59 Intake Total 2760.00 / 2760.00 250 / 250 Output Total 750 / 750 Balance 250 / 250 Lab / Micro Data 07/28/23 07:45 ROS Constitutional Constitutional: Reports systems reviewed and no addt'l complaints, except as documented Cardiovascular Cardiovascular: Reports systems reviewed and no addt'l complaints, except as documented Respiratory/Chest Respiratory/Chest: Reports systems reviewed and no addt'l complaints, except as documented Gastrointestinal Gastrointestinal: Reports systems reviewed and no addt'l complaints, except as documented Physical Exam Const alert, oriented x3 and no apparent distress HEENT Head and Scalp: atraumatic Resp normal respiratory effort GI soft to palpation and non-tender Bimanual Exam - Vag & Uterus: uterus non-tender Uterus Palpation: uterus fundus firm (below Umbilicus) Assessment & Plan (1) Vaginal delivery: COMMENT: LYRIC 07/28/23 TIMMY Perez PLAN: Plan s/p PPD # 2 1. routine post delivery care 2. breast feeding- support given 3. rh positive 4. rubella immune 07/30/23814 <Electronically signed by Annabelle Garduno MD> Cosigner Signature (if applicable): CC: ~ Signed [facility] Work Phone: 1(361) 831-140809-14-2023 Progress note Author Margot Bradford [facility] July 29, 2023 7:59am Note Date/Time July 29, 2023 7:59am [facility] Medical Records Department [address] [place] [address] Progress Note - OBGYN 07/29/23 0757 MR#: [id number] Acct: [id number] Name: FAREED YOUNG Rep #:[id number] : 2000 From: Margot Bradford NP JOURNEYMAN MECHANIC-C PCP: Dr. Solitario Blank MD Status:ADM IN [facility] Subject[facility] Subjective Patient doing well without complaints. Tolerating PO. Ambulating and voiding without difficulty. Feeding well. Denies chest pain, shortness of breath, calf pain/swelling, fevers, chills, lightheadedness. Objective Data Objective Data Vital Signs: Vital Signs Temp Pulse Resp BP Pulse Ox O2 Del Method 97.7 F L 99 16 119/67 98 Room Air 07/29/23 07:29 07/29/23 07:31 07/29/23 07:29 07/29/23 07:29 07/29/23 07:31 07/29/23 07:31 Oxygen Delivery Method Room Air Weight: 203 lb 0.732 oz Body Mass Index (BMI) 33.7 Intake & Output: Intake and Output for Last 24 Hours 07/27/23 07/28/23 07/29/23 23:59 23:59 23:59 Intake Total 2760.00 / 2760.00 250 / 250 Output Total 750 / 750 Balance / 2009. 250 / 250 Lab / Micro Data 07/28/23 07:45 Labs: Laboratory Results - last 24 hr 07/28/23 07:45: WBC 11.4 H, RBC 4.62, Hgb 12.1, Hct 38.2, MCV 82.7, MCH 26.2 L, MCHC 31.7 L, RDW Std Deviation 39.8, RDW Coeff of Claudette 13.3, Plt Count 267, MPV 10.2, Immature Gran % (Auto) 0.800, Neut % (Auto) 73.8 H, Lymph % (Auto) 16.5 L,Wright % (Auto) 8.0, Eos % (Auto) 0.6, Baso % (Auto) 0.3, Absolute Neuts (auto) 8.4 H, Absolute Lymphs (auto) 1.89, Nucleated RBC % 0, Syphilis Total Ab Non-reactive, Blood Type O POSITIVE, Antibody Screen NEGATIVE Physical Exam Const alert and oriented x3 HEENT normocephalic Eyes PERRL Neck full ROM Resp normal respiratory effort GI soft to palpation GI Narrative: FF below U Assessment & Plan (1) Vaginal delivery: COMMENT: LYRIC 07/28/23 TIMMY Perez PLAN: Plan problem list reviewed and updated for most current plan of care and appropriate orders placed. Relevant counseling for the gestational age appropriate providedand ACOG education checklist updated. Continue routine care and followup. 07/29/23 0759 <Electronically signed by Margot Bradford NP JOURNEYMAN MECHANIC-C> Cosigner Signature (if applicable): CC: ~ Signed [facility] Work Phone: 1(393) 345-455109-14-2023 Discharge summary Author Elli Saenz [facility] July 28, 2023 10:58pm Note Date/Time July 28, 2023 10:59pm [facility] Medical Records Department [address] [place] [address] Instructions for Home/Discharge Instructions 07/28/23 2258 MR#: [id number] Acct: [id number] Name: FAREED YOUNG Rep #:[id number] : 2000 23 From: Elli Edwards DO PCP: Dr. Solitario Blank MD Status:ADM IN Discharge Instructions Diet Discharge Diet: No restrictions Activity Discharge Activity: Return to Normal Activity, May Not Drive (while taking narcotic pain medications.) and May Shower May resume sexual activity in: 4-6 weeks Dressing / Incision Call your doctor if your incision/area has: Continuous Slow Oozing, Sudden Increased Bleeding, Increased Pain/ Swelling, Increased Redness and Foul Smelling Discharge Follow Up Care Please Follow Up With: Elli Edwards DO When: Call [phone] to make an appointment with your doctor in 6 weeks. If you had elevated blood pressure or 4th degree laceration, you will need to be seen in 2 weeks. Test Results: Test results from this visit will be discussed in further detail at your follow- up appointment, if applicable. Discharge Plan Admission Admit Date/Time: 07/28/23 06:59 Primary Reason for Your Visit: vaginal delivery Attending Provider: Elli Edwards Primary Care Provider: Solitario Blank Discharge Orders/Prescriptions Prescriptions: No Action PNV-DHA 27 mg iron-1 mg -300 mg capsule 1 cap PO DAILY Referrals / Follow Up: Solitario Blank MD [Primary Care Provider] - Disposition Disposition (needs filled in before D/C Order can be placed): Home, Self Care 07/28/234<Electronically signed by Elli Edwards DO>Elli Edwards DO CC: Dr. Solitario Blank MD ~ Signed [facility] Work Phone: 1(169) 633-940309-13-2023 Procedure [facility] 07-28-2023 Progress note Author Elli [facility] July 28, 2023 12:21pm Note Date/Time July 28, 2023 12:22pm [facility] Medical Records Department [address] [place] [address] Progress Note 07/28/23 1219 MR#: [id number] Acct: [id number] Name: FAREED YOUNG Rep #:[id number] : 2000 23 From: Elli Edwards DO PCP: Dr. Solitario Blank MD Status:ADM IN Location: AI959-0 Progress Note pt is breathing through contractions. 30cc was let out of the balloon earlier due to pain and then the balloon spontaneously expelled recently. The bleeding that was seen after insertion has subsided. She consents to AROM. current tracing: FHT: 120, Moderate variability reactive no decelerations category I tracing [place]: q 2 min Contractions cx is 5/80/-1, membranes ruptured with blood tinged fluid present. A/P: pitocin backed down to 4 mu from 6 mu due to tachysystole contraction pattern and is now improved. continue monitoring. pt so far does not want an epidural but may change her mind. 07/28/23 1221 <Electronically signed by Elli Edwards DO> Elli Edwards DO Cosigner Signature (if applicable): CC: ~ Signed [facility] Work Phone: 1(106) 355-248509-13-2023 History and physical note Author Elli Saenz [facility] July 28, 2023 8:27am Note Date/Time July 28, 2023 8:27am [facility] Medical Records Department [address] [place] [address] H&P Exam - ATV MECHANIC 07/28/23 0824 MR#: [id number] Acct: [id number] Name: FAREED YOUNG Rep #:[id number] : 2000 23 From: Elli Edwards DO PCP: Dr. Solitario Blank MD Status:ADM IN Location: MV138-1 HPI - General General Date of Admission: 07/28/23 HPI Narrative FAREED YOUNG, is a 23 y/o @ 40 weeks 5 days who presents to L&D for Induction of labor Maternal Data Information NORMA Calculator Estimated Delivery Date Method Current WG Current Estimate 07/22/23 LMP (Certain) 40w 6d Other Estimates 07/20/23 Ultrasound #1 41w 1d PFSH PFSH Medical History no medical history Home Medications multivitamin no.47-iron fum 27 mg-folate no.1 1 mg-dha 300 mg capsule (PNV-DHA)1 cap PO DAILY 12/17/22 [History Last Taken 07/26/23 21:00 1 cap] Allergy/AdvReac Type Severity Reaction Status Date / Time No Known Allergies Allergy Verified 07/28/23 07:35 Family History Brother Autism Sister Family history of recurrent miscarriage Social History adopted: No household members: spouse housing: house current occupational status: employed 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 pets and animals: Yes (not managing litterbox) pets and animals: cat(s) history of recent travel: Yes ([place]) out of state: Yes out of country: No sexually active: Yes Smoking Status: Never smoker alcohol intake: never substance use type: does not use well-balanced diet: about half the time caffeine: Yes Type: coffee Number of servings: 1 eating out: 1-3 times/week during the past year weight has: remained stable what type of physical activity do you participate in: walking frequency: 1-2 times per week duration: 60-90 minutes/day allen/advent: [employer] seatbelt use: always do you feel safe at home: Yes additional 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: Tha Berger History 1 Elective abortions Hx Para 0 Spontaneous abortions Hx # Term Pregnancies Ectopic pregnancies Hx # Pregnancies Multiple births # of living children Visit Details Expected Delivery Route/Plan Labor Preferences- CB/BF classes: discussed labor support person: Shaquille labor intervention preferences: [] pain management options preferred: natural-open to epidural if needed cut cord/dad catch: [] : yes PP control planned: [] discussed possible routes of delivery and associated risks: [] special requests: [] Plans Covid status: [] Flu vaccine: [] Tdap vaccine: discussed at 28 week visit. may get at 30 week appt. Rhogam: NA LARC form signed: done Problem list reviewed and updated with the most current plan of care details and appropriate orders placed. Relevant counseling for the gestational age provided. Continue routine care and follow up unless otherwise noted in visit notes/problem list details OB Flowsheet Initial Weight: Not Recorded Date -?-?-?-?-?-?-?-?-?-?-?-?- EGA Weight BP Urine Prot -?-?-?-?-?-?-?-?-?-?-?-?- Glucose FHR FuHt Pres Dilation -?-?-?-?-?-?-?-?-?-?-?-?- Effaced St Visit Note 12/24/22 -?-?-?-?-?-?-?-?-?-?-?-?- 10w 0d 167 lb 8 oz 121/76 -?-?-?-?-?-?-?-?-?-?-?-?- 180 -?-?-?-?-?-?-?-?-?-?-?-?- JV- single live IUP measuring 10 weeks 2 days and consistent with LMP. desires NIPT only. 01/19/23 -?-?-?-?-?-?-?-?-?-?-?-?- 13w 5d 168 lb 4 oz 123/76 Nega tive -?-?-?-?-?-?-?-?-?-?-?-?- Negative 165 -?-?-?-?-?-?-?-?-?-?-?-?- JV- no complaint s. normal NIPT boy 02/15/23 -?-?-?-?-?-?-?-?-?-?-?-?- 17w 4d 166 lb 8 oz 128/78 -?-?-?-?-?-?-?-?-?-?-?-?- 155 -?-?-?-?-?-?-?-?-?-?-?-?- LC- no concerns. no vb/cramping. declines afp. has anatomy scheduled. 03/17/23 -?-?-?-?-?-?-?-?-?-?-?-?- 21w 6d 173 lb 8 oz 108/70 Nega tive -?-?-?-?-?-?-?-?-?-?-?-?- Negative 145 -?-?-?-?-?-?-?-?-?-?-?-?- JV- anatomy scan reviewed and normal. no complaints. 04/14/23 -?-?-?-?-?-?-?-?-?-?-?-?- 25w 6d 182 lb 8 oz 121/71 Nega tive -?-?-?-?-?-?-?-?-?-?-?-?- Negative 145 26 -?-?-?-?-?-?-?-?-?-?-?-?- KW-+ FM, no lof/ vb/ctx. no complaints. Has to redo GCT-was late to draw 04/30/23 -?-?-?-?-?-?-?-?-?-?-?-?- 28w 1d 185 lb 8 oz 122/62 Nega tive -?-?-?-?-?-?-?-?-?-?-?-?- Negative 150 27 -?-?-?-?-?-?-?-?-?-?-?-?- KW-+fm, no lof/v b/cramping. labs reviewed-nl. Larc done. Tdap discussed. no concerns 05/14/23 -?-?-?-?-?-?-?-?-?-?-?-?- 30w 1d 188 lb 4 oz 94/68 Nega tive -?-?--?-?-?-?-?-?-?-?-?-?- Negative 145 31 -?-?-?-?-?-?-?-?-?-?-?-?- Kw-+fm. no lof/v b/ctx. no concerns 05/28/23 -?-?-?-?-?-?-?-?-?-?-?-?- 32w 1d 190 lb 121/74 Negative -?-?-?-?-?-?-?-?-?-?-?-?- Negative 155 32 -?-?-?-?-?-?-?-?-?-?-?-?- LC- no ctx/lof/v b. good fm. online CBE. would like to review pref sheet. 06/07/23 -?-?-?-?-?-?-?-?-?-?-?-?- 33w 4d 193 lb 2 oz 112/73 Nega tive -?-?-?-?-?-?-?-?-?-?-?-?- Negative 140 33 -?-?-?-?-?-?-?-?-?-?-?-?- KW-+fm, no lof/v b/ctx. no concerns today. 06/10/23 -?-?-?-?-?-?-?-?-?-?-?-?- 34w 0d 194 lb 104/70 Negative -?-?-?-?-?-?-?-?-?-?-?-?- Negative 146 34 0 -?-?-?-?-?-?-?-?-?-?-?-?- -work in for b ack pain, pressure. + UA. Cervix closed and no blood in vagina. Urine culture pending. Macrobid sent 06/25/23 -?-?-?-?-?-?-?-?-?-?-?-?- 36w 1d 195 lb 2 oz 107/75 Nega tive -?-?-?-?-?-?-?-?-?-?-?-?- Negative 130 35 -?-?-?-?-?-?-?-?-?-?-?-?- JV- gbs today. l abor precautions discussed. 07/02/23 -?-?-?-?-?-?-?-?-?-?-?-?- 37w 1d 195 lb 8 oz 116/74 -?-?-?-?-?-?-?-?-?-?-?-?- 130 37 -?-?-?-?-?-?-?-?-?-?-?-?- SM- no vb lof go od fm no regular ctx 07/09/23 -?-?-?-?-?-?-?-?-?-?-?-?- 38w 1d 197 lb 122/75 Negative -?-?-?-?-?-?-?-?-?-?-?-?- Negative 150 37 1 -?-?-?-?-?-?-?-?-?-?-?-?- 50 -2 LC- no vb/ ctx/lof. good fm. labor comfort techniques reviewed. 07/16/23 -?-?-?-?-?-?-?-?-?-?-?-?- 39w 1d 200 lb 4 oz 137/83 Nega tive -?-?-?-?-?-?-?-?-?-?-?-?- Negative 155 39 -?-?-?-?-?-?-?-?-?-?-?-?- KW-no vb/ctx/lof . goof fm. labor precautions reviewed. no concerns today 07/23/23 -?-?-?-?-?-?-?-?-?-?-?-?- 40w 1d 202 lb 4 oz 121/81 Nega tive -?-?-?-?-?-?-?-?-?-?-?-?- Negative 135 38 Cephalic 2 -?-?-?-?-?-?-?-?-?-?-?-?- 80 -2 JV- JV- no lof, vaginal bleeding , or dec fm. no complaints. IOL set up for next wednesday07/27/23 -?-?-?-?-?-?-?-?-?-?-?-?- 40w 5d 205 lb 6 oz 113/74 Nega tive -?-?-?-?-?-?-?-?-?-?-?-?- Negative 145 41 Cephalic 2 -?-?-?-?-?-?-?-?-?-?-?-?- 80 -2 SM- no vb lof good fm no regular ctx, membranes sweapt SM- no vb lof good fm no reg ular ctx, membranes swept ROS Constitutional Constitutional: Denies change in weight, fatigue, fever(s), headache(s), poor appetite or weakness Eyes Eyes: Denies blurry vision, change in vision, seeing flashes or spots in vision ENT HEENT: Denies dizziness, headache(s), loss taste/smell or sore throat Cardiovascular Cardiovascular: Denies chest pain, dizziness, dyspnea, irregular heart rhythm, leg edema, palpitations, rapid heart rate or vomiting Respiratory/Chest Respiratory/Chest: Denies chest tightness, cough, dyspnea or breast pain Gastrointestinal Gastrointestinal: Denies abdominal pain, anorexia, constipation, cramping, diarrhea, hemorrhoids, vomiting or weight changes Genitourinary Genitourinary: Denies dysuria, flank pain, genital lesions, genital pain, urinary frequency or urinary urgency Musculoskeletal Musculoskeletal: Denies back pain, difficulty walking, joint pain, limited range of motion, muscle cramps or numbness Integumentary Integumentary: Denies lesions or unusual bruising Neurologic Neurologic: Denies abnormal movements, abnormal speech, dizziness, numbness, seizure-like activity or syncope Psychiatric Psychiatric: Denies anxiety, behavioral changes, change in appetite, change in libido, cognitive impairment, confusion, depression, difficulty concentrating, hallucinations or suicidal thoughts Endocrine Endocrinology: Denies excessive sweating, polydipsia or polyuria Hematologic/Lymphatic Hematologic/Lymphatic: Denies easy bleeding, easy bruising or lymphadenopathy Allergic/Immunologic Allergic/Immunologic: Denies itchy eyes, lip swelling, seasonal rhinorrhea, rhinitis, throat swelling, tongue swelling, eczemia, wheezing or asthma Vital Signs Vital Signs Vital Signs: 07/28/23 08:05 07/28/23 08:05 Pulse Rate 95 Blood Pressure 129/75 H BP Systolic 129 BP Diastolic 75 Weight Weight: 203 lb 0.732 oz Body Mass Index (BMI) 33.7 Physical Exam Const alert, oriented x3, no apparent distress and healthy appearing General Appearance: cooperative; Negative for anxious HEENT normocephalic Face and Sinus: normal facial exam Eyes EOMs intact bilaterally and no scleral icterus General Eye: normal appearance of both eyes Neck full ROM and supple Lymph Lymphatic: no lymphadenopathy noted Chest Chest: abnormal inspection of the chest Resp normal respiratory effort Effort and Inspection: able to speak in complete sentences Cardio regular rate GI soft to palpation and non-tender Inspection: gravid Palpation: soft; Negative for tender external exam normal Narrative: a 23 micronesian cerna catheter was inserted into the cervix and inflated with 60 cc of NS. The starting point of the cervix is 2.5/80/-1. Membranes intact and vtx presentation appreciated. Back/Spine no CVA tenderness Extremity normal to inspection, full ROM and no clubbing, cyanosis or edema General Extremity: Negative for calf tenderness or edema Skin Lesions: no lesions Rashes: no rashes Psych mental status grossly normal Labs Labs Labs: Blood Type O POSITIVE Antibody Screen NEGATIVE Hct 38.2 % (37-47) Hgb 12.1 g/dL (12.0-15.0) Syphilis Total Ab Non-reactive Rubella IgG Antibody Reactive (Nonreactive) Hep Bs Antigen Non-Reactive (Nonreactive) Chlamydia DNA (SHIRAZ) Negative (Negative) Neisseria gonorrhoeae DNA (SHIRAZ) Negative (Negative) HIV 1&2 Antibody Non-Reactive (Nonreactive) Glucose 1 Hr 50 gm 97 mg/dL (70-140) Assessment & Plan (1) Positive GBS test: COMMENT: pcn in labor (2) UTI in : QUALIFIERS: Trimester: third trimester Qualified Code(s): O23.43 - Unspecified infection of urinary tract in , third trimester COMMENT: Rx macrobid. Culture pending (3) Supervision of high risk , antepartum: COMMENT: [id number], NORMA 07/22/23 boy [place] (4) : QUALIFIERS: Weeks of gestation: 40 weeks Qualified Code(s): Z3A.40 - 40 weeks gestation of COMMENT: NIPT low risk, discussed carrier testing, anatomy nl (5) Family history of recurrent miscarriage: COMMENT: sister- 6 miscarriages (6) Family history of autism: COMMENT: Brother PLAN: Plan Patient presents IOL, plan management for with cerna/ pitocin/AROM. Pain management: plans epidural. GBS positive- start pcn. Management of any complications: none I have reviewed the [facility] and made any clinically relevant updates. 07/28/23826 <Electronically signed by Elli Edwards DO> Cosigner Signature (if applicable): CC: Dr. Elli Edwards DO; Dr. Solitario Blank MD~ Signed [facility] Work Phone: 1(129) 286-357502-09-2023 NotePap Smear Specimen AdequacyFebruary 2022 5:09pmComment.Satisfactory for evaluation. Endocervical and/or squamous metaplasticcells (endocervical component)are present.[facility] A#[id number] Memorial HospitalComment on above:Satisfactory for evaluation. Endocervical and/or squamous metaplasticcells (endocervical component)are present.12-24-2022 NotePap Smear Specimen AdequacyFebruary 2022 6:09pmComment.Satisfactory for evaluation. Endocervical and/or squamous metaplasticcells (endocervical component)are present.[facility] A#[id number] Memorial HospitalComment on above:Satisfactory for evaluation. Endocervical and/or squamous metaplasticcells (endocervical component)are present.Evaluation note* Diagnosis Onset Date Resolution Status Family history of autism acu te Family history of recurrent miscarriage acute acute Supervision of high risk , antepartum acute [facility] Work Phone: evaluation note* Diagnosis Onset Date Resolution Status Family history of autism acu te Family history of recurrent miscarriage acute acute Supervision of high risk , antepartum acute Family history of autism acu te Family history of recurrent miscarriage acute acute Supervision of high risk , antepartum acute Family history of autism acu te Family history of recurrent miscarriage acute acute Supervision of high risk , antepartum acute [facility] Work Phone: Evaluation note* Diagnosis Onset Date Resolution Status Family history of autism acu te Family history of recurrent miscarriage acute acute Supervision of high risk , antepartum acute Family history of autism acu te Family history of recurrent miscarriage acute acute Supervision of high risk , antepartum acute Family history of autism acu te Family history of recurrent miscarriage acute acute Supervision of high risk , antepartum acute Family history of autism acu te Family history of recurrent miscarriage acute acute Supervision of high risk , antepartum acute Family history of autism acu te Family history of recurrent miscarriage acute acute Supervision of high risk , antepartum acute [facility] Work Phone: evaluation note* Diagnosis Onset Date Resolution Status Family history of autism acu te Family history of recurrent miscarriage acute acute Supervision of high risk , antepartum acute Family history of autism acu te Family history of recurrent miscarriage acute acute Supervision of high risk , antepartum acute Family history of autism acu te Family history of recurrent miscarriage acute acute Supervision of high risk , antepartum acute Family history of autism acu te Family history of recurrent miscarriage acute acute Supervision of high risk , antepartum acute Family history of autism acu te Family history of recurrent miscarriage acute acute Supervision of high risk , antepartum acute Family history of autism acu te Family history of recurrent miscarriage acute acute Supervision of high risk , antepartum acute Family history of autism acu te Family history of recurrent miscarriage acute acute Supervision of high risk , antepartum acute acute Supervision of high risk , antepartum acute UTI in acute [facility] Work Phone: Evaluation note* Diagnosis Onset Date Resolution Status Family history of autism acu te Family history of recurrent miscarriage acute acute Supervision of high risk , antepartum acute Family history of autism acu te Family history of recurrent miscarriage acute acute Supervision of high risk , antepartum acute Family history of autism acu te Family history of recurrent miscarriage acute acute Supervision of high risk , antepartum acute Family history of autism acu te Family history of recurrent miscarriage acute acute Supervision of high risk , antepartum acute Family history of autism acu te Family history of recurrent miscarriage acute acute Supervision of high risk , antepartum acute Family history of autism acu te Family history of recurrent miscarriage acute acute Supervision of high risk , antepartum acute acute Supervision of high risk , antepartum acute UTI in acute Family history of autism acu te Family history of recurrent miscarriage acute acute Supervision of high risk , antepartum acute UTI in acute [facility] Work Phone: Evaluation note* Diagnosis Onset Date Resolution Status Family history of autism acu te resolved Supervision of high risk , antepartum resolved Family history of autism acu te resolved Supervision of high risk , antepartum resolved Family history of autism acu te resolved Supervision of high risk , antepartum resolved Family history of autism acu te resolved Supervision of high risk , antepartum resolved Family history of autism acu te resolved Supervision of high risk , antepartum resolved resolved Supervision of high risk , antepartum resolved UTI in resolved Family history of autism acu te resolved Supervision of high risk , antepartum resolved UTI in resolved Family history of autism acu te Decreased movement res olved resolved Supervision of high risk , antepartum resolved UTI in resolved Family history of autism acu te resolved Supervision of high risk , antepartum resolved UTI in resolved Family history of autism acu te resolved Supervision of high risk , antepartum resolved UTI in resolved Family history of autism acu te resolved Supervision of high risk , antepartum resolved UTI in resolved Family history of autism acu te resolved Supervision of high risk , antepartum resolved UTI in resolved Family history of autism acu te Vaginal delivery acute resolved Supervision of high risk , antepartum resolved UTI in resolved [facility] Work Phone: History and physical note Author Brianna [facility] Note Date/Time April 23, 2025 10:42 pm [facility] Medical Records Department [address] [place] [address] OB Triage Physician Note 04/23/250 MR#: [id number] Acct: [id number] Name: FAREED LORENZO Rep #:[id number] : 2000 25 From: Brianna Velasquez CNM PCP: Dr. Solitario Blank MD Status:REG CL I Y Location: [id number] HPI - General General Date of Service: 04/23/25 HPI Narrative FAREED LORENZO, is a 25 F who presents at 34 weeks s/p fall onto her buttocks while carrying her son around 1900. denies ctx, vb. however has not felt movement since. Maternal Data Information NORMA Calculator Estimated Delivery Date Method Current WG Current Estimate 06/04/25 LMP (Certain) 34w 0d Other Estimates 06/03/25 Ultrasound #1 34w 1d PFSH PFSH Medical History Vaginal delivery Family history of recurrent miscarriage Home Medications ?Medication ?Instructions ?Recorded ?Last Taken ?Type multivitamin no.47-iron fum 27 1 cap PO DAILY PREGNANC Y 12/17/22 07/26/23 21:00 History mg-folate no.1 1 mg-dha 300 mg 1 cap capsule (PNV-DHA) Allergy/AdvReac Type Severity Reaction Status Date / Time No Known Allergies Allergy Verified 04/10/25 10:43 Family History Brother Autism Sister Family history of recurrent miscarriage Mother Thyroid cancer, Onset Age: 52 Sister Thyroid cancer, Onset Age: 40 Thyroid removed Father Myocardial infarction, Onset Age: 54 Social History adopted: No household members: spouse and children housing: house number of children: 1 current occupational status: employed 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/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: No pets and animals: Yes (not managing litterbox) pets and animals: cat(s) history of recent travel: Yes ([place] - August 2024) out of state: Yes out of country: No sexually active: Yes Smoking Status: Never smoker alcohol intake: never substance use type: does not use well-balanced diet: daily or most days caffeine: No eating out: rarely or never during the past year weight has: remained stable what type of physical activity do you participate in: walking frequency: daily duration: < 15 minutes/day allen/advent: Hinduism seatbelt use: always do you feel safe at home: Yes additional 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: : Shaquille- [employer] History 2 Elective abortions Hx Para 1 Spontaneous abortions Hx # Term Pregnancies 1 Ectopic pregnancies Hx # Pregnancies Multiple births # of living children 1 Past Pregnancies Del. Date Name GA/Weeks Outcome Route Bth Weight Gen Labor Lgth Anesthesia Del Locatn Provider FOB 07/28/23 Chris 40 live - full term vacuum 9lbs 5oz Male ep idural [facility] Dr. Isabel Delivery Date: 07/28/23 Last Updated by: Cesilia Hernandez GBS + Visit Details Expected Delivery Route/Plan Labor Preferences- CB/BF classes: no labor support person: Shaquille labor intervention preferences: [] pain management options preferred: epidural if requested cut cord/dad catch: cord : yes PP control planned: discussed discussed possible routes of delivery and associated risks: [] special requests: [] Plans Covid status: [] Flu vaccine: declined Tdap vaccine: declines Rhogam: NA LARC form signed: yes Problem list reviewed and updated with the most current plan of care details and appropriate orders placed. Relevant counseling for the gestational age provided. Continue routine care and follow up unless otherwise noted in visit notes/problem list details OB Flowsheet Initial Weight: 167 lb Date -?-?--?-?-?-?-?-?-?-?-?-?- EGA Weight BP Urine Prot -?-?-?-?-?-?-?-?-?-?-?-?- Glucose FHR FuHt Pres Dilation -?-?-?-?-?-?-?-?-?-?-?-?- Effaced St Visit Note 10/27/24 -?-?-?-?-?-?-?-?-?-?-?-?- 8w 4d 167 lb (+0 oz) 121/76 Negative -?-?-?-?-?-?-?-?-?-?-?-?- Negative 181 -?-?-?-?-?-?-?-?-?-?-?-?- KW- CRL cons wit h dates. NIPT undecided. will get labs next visit. 11/28/24 -?-?-?-?-?-?-?-?-?-?-?-?- 13w 1d 170 lb 8 oz (+3 lb 8 oz) 117/76 Negative -?-?-?-?-?-?-?-?-?-?-?-?- Negative 150 -?-?-?-?-?-?-?-?-?-?-?-?- SM- declines NIP T no vb crmaping 01/03/25 -?-?-?-?-?-?-?-?-?-?-?-?- 18w 2d 173 lb (+6 lb) 110/64 Negative -?-?-?-?-?-?-?-?-?-?-?-?- Negative 160 -?-?-?-?-?-?-?-?-?-?-?-?- MH-No VB. Not fe eling movement yet. Denies concerns 01/26/25 -?-?-?-?-?-?-?-?-?-?-?-?- 21w 4d 177 lb 7 oz (+10 lb 7 oz) 104/71 Negative -?-?-?-?-?-?-?-?-?-?-?-?- Negative 155 21 -?-?-?-?-?-?-?-?-?-?-?-?- LC- no vb/crampi ng. LC- no vb/cramping. 28 week labs ordered 02/27/25 -?-?-?-?-?-?-?-?-?-?-?-?- 26w 1d 183 lb 4 oz (+16 lb 4 oz) 113/67 Negative -?-?-?-?-?-?-?-?-?-?-?-?- Negative 145 27 -?-?-?-?-?-?-?-?-?-?-?-?- JV- no lof, vagi nal bleeding, or dec fm. drank glucola today an felt very dizzy. she was given crackers and some candy after her blood draw and felt better. undecided about Tdap. 03/26/25 -?-?-?-?-?-?-?-?-?-?-?-?- 30w 0d 187 lb 8 oz (+20 lb 8 oz) 102/70 Negative -?-?-?-?-?-?-?-?-?-?-?-?- Negative 143 30 -?-?-?-?-?-?-?-?-?-?-?-?- MH-No VB, LOF. G ood Fm. No concerns 04/10/25 -?-?-?-?-?-?-?-?-?-?-?-?- 32w 1d 191 lb 4 oz (+24 lb 4 oz) 119/74 Negative -?-?-?-?-?-?-?-?-?-?-?-?- Negative 160 32 -?-?-?-?-?-?-?-?-?-?-?-?- KW- no vb/lof/ct x. good fm. no concerns today. NST FHR Rate Baby A Baseline: 130-150 Variability:: Moderate Accelerations:: 15 x 15 Decelerations:: None NST Reactive:: Yes FHR Category:: Category I Uterine Activity:: none Assessment & Plan (1) Status post fall: COMMENT: accidental fall. no vb/ctx, cat 1 tracing. PLAN: Patient presents for triage evaluation secondary to fall. 4 hours of monitoring without contractions, lof or vb. FHT: Moderate variability reactive no decelerations category I tracing [place]: no Contractions Assessment and plan: Reactive NST, reassuring maternal and status patient discharged to home to follow-up in office at next appt. See problem list details for additional plan information. Charges/Coding Procedures Urinary/Genital 52xxx-59xxx: 81401-35 non-stress test Interp 04/23/25 6462 <Electronically signed by Brianna benito CNM> Date _ Brianna Barajasigner Signature (if applicable): Date CC: LAYLA Velasquez; Dr. Solitario Blank MD ~ Signed [facility] Work Phone: Progress note Author Radha Naylor [facility] Note Date/Time April 10, 2025 11:00 am [facility] [address] [place] [address], [address] [place] [address] OFFICE VISIT Date of Service: 04/10/25 MR#: [id number] Acct: [id number] Name: FAREED LORENZO Rep #: [id number] : 2000 Provider: LAYLA Naylor Age/Sex: 25/F Location: 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 Required: No Is patient in pain?: No Allergies No Known Allergies Allergy (Verified 04/10/25 10:43) Medications ?Medication ?Instructions ?Recorded ?Confirmed ?Type multivitamin no.47-iron fum 27 1 cap PO DAILY PREGNANC Y 12/17/22 04/10/25 History mg-folate no.1 1 mg-dha 300 mg capsule (PNV-DHA) Last Menstrual Period: 08/28/24 : No Have you fallen in the past year?: No PFSH PFSH Medical History Vaginal delivery Family history of recurrent miscarriage Family History Brother Autism Sister Family history of recurrent miscarriage Mother Thyroid cancer, Onset Age: 52 Sister Thyroid cancer, Onset Age: 40 Thyroid removed Father Myocardial infarction, Onset Age: 54 Social History adopted: No household members: spouse and children housing: house number of children: 1 current occupational status: employed 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 pets and animals: Yes (not managing litterbox) pets and animals: cat(s) history of recent travel: Yes ([place] - August 2024) out of state: Yes out of country: No sexually active: Yes Smoking Status: Never smoker alcohol intake: never substance use type: does not use well-balanced diet: daily or most days caffeine: No eating out: rarely or never during the past year weight has: remained stable what type of physical activity do you participate in: walking frequency: daily duration: < 15 minutes/day allen/advent: Hinduism seatbelt use: always do you feel safe at home: Yes additional 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: : [place]- [employer] History 2 Elective abortions Hx Para 1 Spontaneous abortions Hx # Term Pregnancies 1 Ectopic pregnancies Hx # Pregnancies Multiple births # of living children 1 Past Pregnancies Del. Date Name GA/Weeks Outcome Route Bth Weight Gen Labor Lgth Anesthesia Del Locatn Provider FOB 07/28/23 Chris 40 live - full term vacuum 9lbs 5oz Male ep idural [facility] Dr. Edwards Shaquille Delivery Date: 07/28/23 Last Updated by: Cesilia Heranndez GBS + HPI 32 WK OB Details: FAREED LORENZO is a 25 year old who presents for routine OB visit. OB Visit NORMA Calculator Estimated Delivery Date Method Current WG Current Estimate 06/04/25 LMP (Certain) 32w 1d Other Estimates 06/03/25 Ultrasound #1 32w 2d Expected Delivery Route/Plan Labor Preferences- CB/BF classes: no labor support person: Shaquille labor intervention preferences: [] pain management options preferred: epidural if requested cut cord/dad catch: cord : yes PP control planned: discussed discussed possible routes of delivery and associated risks: [] special requests: [] Specific Issue/Plans Covid status: [] Flu vaccine: declined Tdap vaccine: declines Rhogam: NA LARC form signed: yes Problem list reviewed and updated with the most current plan of care details and appropriate orders placed. Relevant counseling for the gestational age provided. Continue routine care and follow up unless otherwise noted in visit notes/problem list details Initial Weight: 167 lb Date -?-?-?-?-?-?-?-?-?-?-?-?- EGA Weight BP Urine Prot -?-?-?-?-?-?-?-?-?-?-?-?- Glucose FHR FuHt Pres Dilation -?-?-?-?-?-?-?-?-?-?-?-?- Effaced St Visit Note 10/27/24 -?-?-?-?-?-?-?-?-?-?-?-?- 8w 4d 167 lb (+0 oz) 121/76 Negative -?-?-?-?-?-?-?-?-?-?-?-?- Negative 181 -?-?-?-?-?-?-?--?-?-?-?-?- KW- CRL cons wit h dates. NIPT undecided. will get labs next visit. 11/28/24 -?-?-?-?-?-?-?-?-?-?-?-?- 13w 1d 170 lb 8 oz (+3 lb 8 oz) 117/76 Negative -?-?-?-?-?-?-?-?-?-?-?-?- Negative 150 -?-?-?-?-?-?-?-?-?-?-?-?- SM- declines NIP T no vb crmaping 01/03/25 -?-?-?-?-?-?-?-?-?-?-?-?- 18w 2d 173 lb (+6 lb) 110/64 Negative -?-?-?-?-?-?-?-?-?-?-?-?- Negative 160 -?-?-?-?-?-?-?-?-?-?-?-?- MH-No VB. Not fe eling movement yet. Denies concerns 01/26/25 -?-?-?-?-?-?-?-?-?-?-?-?- 21w 4d 177 lb 7 oz (+10 lb 7 oz) 104/71 Negative -?-?-?-?-?-?-?-?-?-?-?-?- Negative 155 21 -?-?-?-?-?-?-?-?-?-?-?-?- LC- no vb/crampi ng. LC- no vb/cramping. 28 week labs ordered 02/27/25 -?-?-?-?-?-?-?-?-?-?-?-?- 26w 1d 183 lb 4 oz (+16 lb 4 oz) 113/67 Negative -?-?-?-?-?-?-?-?-?-?-?-?- Negative 145 27 -?-?-?-?-?-?-?-?-?-?-?-?- JV- no lof, vagi nal bleeding, or dec fm. drank glucola today an felt very dizzy. she was given crackers and some candy after her blood draw and felt better. undecided about Tdap. 03/26/25 -?-?-?-?-?-?-?-?-?-?-?-?- 30w 0d 187 lb 8 oz (+20 lb 8 oz) 102/70 Negative -?-?-?-?-?-?-?-?-?-?-?-?- Negative 143 30 -?-?-?-?-?-?-?-?-?-?-?-?- MH-No VB, LOF. G ood Fm. No concerns 04/10/25 -?-?-?-?-?-?-?-?-?-?-?-?- 32w 1d 191 lb 4 oz (+24 lb 4 oz) 119/74 Negative -?-?-?-?-?-?-?-?-?-?-?-?- Negative 160 32 -?-?-?-?-?-?-?-?-?-?-?-?- KW- no vb/lof/ct x. good fm. no concerns today. ACOG First Trimester First Trimester: Desire for , Alcohol, Tobacco Cessation, Illicit/Recreational Drug/Substance Use, Intimate Partner Violence, Barriers to care, Unstable Housing, Communication Barriers, Environmental/Work Hazards, Anticipated Course of Care, Toxoplasmosis Precations, Use of Any medications, Sexual activity, Exercise, Dental Care, Sauna/Hot tub use, Seat Belt use, Childbirth classes/Hospital facilities, Travel, Indications for Ultrasound and Screening for Aneuploidy; Discussed Second Trimester Second Trimester: Signs and Symptoms of Labor, Selecting a care provider, Reproductive Life Planning & Contreception and Care Planning; Discussed Tobacco Cessation, Discussed Depression/Anxiety and Discussed Intimate Partner Violence Third Trimester Third Trimester: Pain Management Plans, Labor support person(s), Immediate Larc, Movement Monitoring, Signs and Symptoms of Preeclampsia, Infant Feeding No and Education; Discussed Circumcision preference ROS Const Reports system reviewed and no additional complaints, except as documented Eyes Reports system reviewed and no additional complaints, except as documented ENT Reports system reviewed and no additional complaints, except as documented Card Reports system reviewed and no additional complaints, except as documented Resp Reports system reviewed and no additional complaints, except as documented GI Reports system reviewed and no additional complaints, except as documented, Denies nausea and Denies vomiting Reports system reviewed and no additional complaints, except as documented Musc Reports system reviewed and no additional complaints, except as documented Skin/Breast Reports system reviewed and no additional complaints, except as documented Neuro Yes system reviewed and no additional complaints, except as documented Psych Reports system reviewed and no additional complaints, except as documented Endo Reports system reviewed and no additional complaints, except as documented Chente/Lymph Reports system reviewed and no additional complaints, except as documented Aller/Immun Reports system reviewed and no additional complaints, except as documented Exam Const General: cooperative, healthy appearing and no acute distress Orientation: alert, awake and oriented x3 Neck Neck: normal visual inspection and full ROM Resp Effort & Inspection: normal respiratory effort, able to speak in complete sentences and symmetric chest movement GI Inspection: normal to inspection Palpation: soft and other Other: gravid Skin General: no rashes or lesions noted Neuro General: patient alert, patient awake and patient oriented x3 Cognition: normal cognition Speech: speech normal Gait: normal gait Motor: muscle tone normal throughout Extrem General: normal to inspection and full ROM Psych Appearance: grossly normal Mental Status: mental status grossly normal Mood: congruent mood Affect: normal affect Speech and Movement: speech and movement normal Attitude: cooperative Thought Process: normal Thought Content: normal Judgment: judgment good Results POC Urinalysis 2 Dip (Clinic) Office Urine Glucose Negative Last Edit by Jenna Blank on 04/10/25 10:50 Office Urine Protein Negative Last Edit by Jenna Blank on 04/10/25 10:50 Coding Level of Care Code OB Routine Diagnoses Encounter for supervision of other normal in third trimester Z34.83 Normal : other normal Trimester: third trimester 32 weeks gestation of Z3A.32 Weeks of gestation: 32 weeks Family history of autism Z81.8 Assessment and Plan Assessment and Plan (1) Supervision of normal : Status: Acute Qualifiers: Normal : other normal Trimester: third trimester Qualified Code(s): Z34.83 - Encounter for supervision of other normal , third trimester Comment: PRR, , NORMA 06/04/25, PC: Chris, : Shaquille (2) : Status: Acute Qualifiers: Weeks of gestation: 32 weeks Qualified Code(s): Z3A.32 - 32 weeks gestation of Comment: anatomy nl, Discussed genetic/carrier testing - Undecided (3) Family history of autism: Status: Acute Comment: Brother Orders: Orders POC Urinalysis 2 Dip (Clinic) Today Plan Details Additional Comments: ACOG trimester education reviewed and updated. see problem list details for updated plan management information and see below for orders placed at this visit. GA appropriate handout given. Clinical Quality Measures Falls Risk Screening/Assistive Devices Have you fallen in the past year?: No 04/10/25 1100 <Electronically signed by Radha blas CNM> Date _ Radha Naylor CNM Cosigner Signature: Date (if applicable) CC: ~ [facility] Work Phone: Reason for referral (narrative)No reason for referral information availableWKindred Healthcare Work Phone: Summary Purpose Family History No Family History Records Found Relationship Condition Age at Onset Recorded Date/T esdras brother Autistic disorder Unknown sister Family history of recurrent miscarriage U nknown Autoimmune disorder Status:Active Comments:Mot her. Father. Cerebrovascular Accident Status:Active Comment s:Sister. Maternal Grandmother. Diabetes Mellitus Status:Active Comments:Mater nal Grandmother. Heart Disease Status:Active Comments:Paterna l Grandfather. Maternal Grandfather. Hypertension Status:Active Comments:Materna l Grandmother. Paternal Grandfather. Osteoarthritis Status:Active Comments:Father. Thyroid Cancer Status:Active Comments:Mother. Autoimmune disorder Status:Active Comments:Mot her. Father. Cerebrovascular Accident Status:Active Comment s:Sister. Maternal Grandmother. Diabetes Mellitus Status:Active Comments:Mague nal Grandmother. Heart Disease Status:Active Comments:Paterna l Grandfather. Maternal Grandfather. Hypertension Status:Active Comments:Materna l Grandmother. Paternal Grandfather. Osteoarthritis Status:Active Comments:Father. Thyroid Cancer Status:Active Comments:Mother. Autoimmune disorder Status:Active Comments:Mot her. Father. Cerebrovascular Accident Status:Active Comment s:Sister. Maternal Grandmother. Diabetes Mellitus Status:Active Comments:Mater nal Grandmother. Heart Disease Status:Active Comments:Paterna l Grandfather. Maternal Grandfather. Hypertension Status:Active Comments:Materna l Grandmother. Paternal Grandfather. Osteoarthritis Status:Active Comments:Father. Thyroid Cancer Status:Active Comments:Mother. Relationship Condition Age at Onset Recorded Date/T esdras brother Autistic disorder Unknown sister Family history of recurrent miscarriage U nknown mother Malignant neoplasm of thyroid gland 52 sister Malignant neoplasm of thyroid gland 40 father Myocardial infarction 54 Autoimmune disorder Status:Active Comments:Mot her. Father. Cerebrovascular Accident Status:Active Comment s:Sister. Maternal Grandmother. Diabetes Mellitus Status:Active Comments:Mague nal Grandmother. Heart Disease Status:Active Comments:Paterna l Grandfather. Maternal Grandfather. Hypertension Status:Active Comments:Materna l Grandmother. Paternal Grandfather. Osteoarthritis Status:Active Comments:Father. Thyroid Cancer Status:Active Comments:Mother. Autoimmune disorder Status:Active Comments:Mot her. Father. Cerebrovascular Accident Status:Active Comment s:Sister. Maternal Grandmother. Diabetes Mellitus Status:Active Comments:Mague zamora Grandmother. Heart Disease Status:Active Comments:Paterna l Grandfather. Maternal Grandfather. Hypertension Status:Active Comments:Materna l Grandmother. Paternal Grandfather. Osteoarthritis Status:Active Comments:Father. Thyroid Cancer Status:Active Comments:Mother. Advance Directives No Advanced Directives Records Found Advance Directive Response Recorded Date/ Time Living Will No July 28, 2023 7:45am Power of Tower Dragline Operator No July 7:45am Chief Complaint and Reason for Visit Chief Complaint NOB LMP 10/15 Reason for Visit Family history of au tism Family history of recurrent miscarriage Supervision of high risk , antepartum Chief Complaint NOB LMP 10/15 14 WK OB 18 WK OB OBSERVATION Reason for Visit Family history of au tism Family history of recurrent miscarriage Supervision of high risk , antepartum Family history of autism Family history of recurrent miscarriage Supervision of high risk , antepartum Family history of autism Family history of recurrent miscarriage Supervision of high risk , antepartum Chief Complaint 14 WK OB 18 WK OB OBSERVATION OBSERVATION 22 WK OB 26 WK OB 1 HOUR DRAW AT 12:18 28 WK OB/GLUCOSE Reason for Visit Family history of au tism Family history of recurrent miscarriage Supervision of high risk , antepartum Family history of autism Family history of recurrent miscarriage Supervision of high risk , antepartum Family history of autism Family history of recurrent miscarriage Supervision of high risk , antepartum Family history of autism Family history of recurrent miscarriage Supervision of high risk , antepartum Family history of autism Family history of recurrent miscarriage Supervision of high risk , antepartum Chief Complaint 18 WK OB OBSERVATION OBSERVATION 22 WK OB 26 WK OB 1 HOUR DRAW AT 12:18 28 WK OB/GLUCOSE 30 WK OB 32 WK OB 34 WK OB UTI/pressure Reason for Visit Family history of au tism Family history of recurrent miscarriage Supervision of high risk , antepartum Family history of autism Family history of recurrent miscarriage Supervision of high risk , antepartum Family history of autism Family history of recurrent miscarriage Supervision of high risk , antepartum Family history of autism Family history of recurrent miscarriage Supervision of high risk , antepartum Family history of autism Family history of recurrent miscarriage Supervision of high risk , antepartum Family history of autism Family history of recurrent miscarriage Supervision of high risk , antepartum Family history of autism Family history of recurrent miscarriage Supervision of high risk , antepartum Supervision of high risk , antepartum UTI in Chief Complaint OBSERVATION OBSERVATION 22 WK OB 26 WK OB 1 HOUR DRAW AT 12:18 28 WK OB/GLUCOSE 30 WK OB 32 WK OB 34 WK OB UTI/pressure 36 WK OB Reason for Visit Family history of au tism Family history of recurrent miscarriage Supervision of high risk , antepartum Family history of autism Family history of recurrent miscarriage Supervision of high risk , antepartum Family history of autism Family history of recurrent miscarriage Supervision of high risk , antepartum Family history of autism Family history of recurrent miscarriage Supervision of high risk , antepartum Family history of autism Family history of recurrent miscarriage Supervision of high risk , antepartum Family history of autism Family history of recurrent miscarriage Supervision of high risk , antepartum Supervision of high risk , antepartum UTI in Family history of autism Family history of recurrent miscarriage Supervision of high risk , antepartum UTI in Chief Complaint OBSERVATION OBSERVATION 22 WK OB 26 WK OB 1 HOUR DRAW AT 12:18 28 WK OB/GLUCOSE 30 WK OB 32 WK OB 34 WK OB UTI/pressure 36 WK OB DECREASED MOVEMENT Reason for Visit Family history of au tism Family history of recurrent miscarriage Supervision of high risk , antepartum Family history of autism Family history of recurrent miscarriage Supervision of high risk , antepartum Family history of autism Family history of recurrent miscarriage Supervision of high risk , antepartum Family history of autism Family history of recurrent miscarriage Supervision of high risk , antepartum Family history of autism Family history of recurrent miscarriage Supervision of high risk , antepartum Family history of autism Family history of recurrent miscarriage Supervision of high risk , antepartum Supervision of high risk , antepartum UTI in Family history of autism Family history of recurrent miscarriage Supervision of high risk , antepartum UTI in Chief Complaint 26 WK OB 1 HOUR DRAW AT 12:18 28 WK OB/GLUCOSE 30 WK OB 32 WK OB 34 WK OB UTI/pressure 36 WK OB DECREASED MOVEMENT DECREASED MOVEMENT 37 WK OB 38 WK OB 39 WK OB 40 WK OB 41 WK OB INDUCTION INDUCTION INDUCTION INDUCTION Reason for Visit Family history of au tism Supervision of high risk , antepartum Family history of autism Supervision of high risk , antepartum Family history of autism Supervision of high risk , antepartum Family history of autism Supervision of high risk , antepartum Family history of autism Supervision of high risk , antepartum Supervision of high risk , antepartum UTI in Family history of autism Supervision of high risk , antepartum UTI in Family history of autism Decreased movement Supervision of high risk , antepartum UTI in Family history of autism Supervision of high risk , antepartum UTI in Family history of autism Supervision of high risk , antepartum UTI in Family history of autism Supervision of high risk , antepartum UTI in Family history of autism Supervision of high risk , antepartum UTI in Family history of autism Vaginal delivery Supervision of high risk , antepartum UTI in Chief Complaint Admit Date 12 wk OB November 28, 2024 1 1:20am 18 WK OB January 03, 2025 9:52am 21 WK OB January 26, 2025 9:3 4am 26wk ob/glucose February 27, 2025 8:4 0am Reason for Visit Admit Date Family history of autism November 28, 025 11:20am November 28, 2024 1 1:20am Supervision of normal November 28, 2024 11:20am Family history of autism January 03, 2025 9:52am January 03, 2025 9:52am Supervision of normal January 03, 2025 9:52am Family history of autism January 26 9:34am January 26, 2025 9:3 4am Supervision of normal January 262024 9:34am Family history of autism February 27 8:40am February 27, 2025 8:4 0am Supervision of normal February 272024 8:40am Chief Complaint Admit Date 18 WK OB January 03, 2025 9:52am 21 WK OB January 26, 2025 9:3 4am 26wk ob/glucose February 27, 2025 8:4 0am 30wk ob March 26, 2025 1:34p m 32 WK OB April 10, 2025 10:38 am Reason for Visit Admit Date Family history of autism January 03, 2025 9:52am January 03, 2025 9:52am Supervision of normal January 03, 2025 9:52am Family history of autism January 26 9:34am January 26, 2025 9:3 4am Supervision of normal January 262024 9:34am Family history of autism February 27 8:40am February 27, 2025 8:4 0am Supervision of normal February 272024 8:40am Family history of autism March 26, 2025 1:34pm March 26, 2025 1:34p m Supervision of normal March 1:34pm Family history of autism April 10, 2025 10:38am April 10, 2025 10:38 am Supervision of normal March 10:38am Chief Complaint Admit Date 18 WK OB January 03, 2025 9:52am 21 WK OB January 26, 2025 9:3 4am 26wk ob/glucose February 27, 2025 8:4 0am 30wk ob March 26, 2025 1:34p m 32 WK OB April 10, 2025 10:38 am fallApril 23, 2025 8:15p m FALL April 23, 2025 10:40 pm Reason for Visit Admit Date Family history of autism January 03, 2025 9:52am January 03, 2025 9:52am Supervision of normal January 03, 2025 9:52am Family history of autism January 26 9:34am January 26, 2025 9:3 4am Supervision of normal January 262024 9:34am Family history of autism February 27 8:40am February 27, 2025 8:4 0am Supervision of normal February 272024 8:40am Family history of autism March 26, 2025 1:34pm March 26, 2025 1:34p m Supervision of normal March 1:34pm Family history of autism April 10, 2025 10:38am April 10, 2025 10:38 am Supervision of normal March 10:38am Status post fall April 23, 2025 8:15p m Chief Complaint Admit Date 18 WK OB January 03, 2025 9:52am 21 WK OB January 26, 2025 9:3 4am 26wk ob/glucose February 27, 2025 8:4 0am 30wk ob March 26, 2025 1:34p m 32 WK OB April 10, 2025 10:38 am FALL April 23, 2025 8:15p m FALL April 23, 2025 10:40 pm 34 wk ob April 26, 2025 9:53 am Reason for Visit Admit Date Family history of autism January 03, 2025 9:52am January 03, 2025 9:52am Supervision of normal January 03, 2025 9:52am Family history of autism January 26 9:34am January 26, 2025 9:3 4am Supervision of normal January 262024 9:34am Family history of autism February 27 8:40am February 27, 2025 8:4 0am Supervision of normal February 272024 8:40am Family history of autism March 26, 2025 1:34pm March 26, 2025 1:34p m Supervision of normal March 1:34pm Family history of autism April 10, 2025 10:38am April 10, 2025 10:38 am Supervision of normal March 10:38am Status post fallApril 23, 2025 8:15p m Family history of autism April 26, 2025 9:53am April 26, 2025 9:53 am Status post fall April 26, 2025 9:53 am Supervision of normal April 9:53am Chief Complaint Admit Date 21 WK OB January 26, 2025 9:3 4am 26wk ob/glucose February 27, 2025 8:4 0am 30wk ob March 26, 2025 1:34p m 32 WK OB April 10, 2025 10:38 am FALL April 23, 2025 8:15p m FALL April 23, 2025 10:40 pm 34 wk ob April 26, 2025 9:53 am 36 wk ob May 09, 2025 9:33 am Reason for Visit Admit Date Family history of autism January 26 9:34am January 26, 2025 9:3 4am Supervision of normal January 262024 9:34am Family history of autism February 27 8:40am February 27, 2025 8:4 0am Supervision of normal February 272024 8:40am Family history of autism March 26, 2025 1:34pm March 26, 2025 1:34p m Supervision of normal March 1:34pm Family history of autism April 10, 2025 10:38am April 10, 2025 10:38 am Supervision of normal March 10:38am Status post fallApril 23, 2025 8:15p m Family history of autism April 26, 2025 9:53am April 26, 2025 9:53 am Status post fallApril 26, 2025 9:53 am Supervision of normal April 9:53am Family history of autism May 09, 2025 9:33am May 09, 2025 9:33 am Status post fallMay 09, 2025 9:33 am Supervision of normal April 9:33am Chief Complaint Admit Date 21 WK OB January 26, 2025 9:3 4am 26wk ob/glucose February 27, 2025 8:4 0am 30wk ob March 26, 2025 1:34p m 32 WK OB April 10, 2025 10:38 am FALL April 23, 2025 8:15p m FALL April 23, 2025 10:40 pm 34 wk ob April 26, 2025 9:53 am 36 wk ob May 09, 2025 9:33 am 37 wk ob May 16, 2025 3:16p m Reason for Visit Admit Date Family history of autism January 26 9:34am January 26, 2025 9:3 4am Supervision of normal January 262024 9:34am Family history of autism February 27 8:40am February 27, 2025 8:4 0am Supervision of normal February 272024 8:40am Family history of autism March 26, 2025 1:34pm March 26, 2025 1:34p m Supervision of normal March 1:34pm Family history of autism April 10, 2025 10:38am April 10, 2025 10:38 am Supervision of normal March 10:38am Status post fallApril 23, 2025 8:15p m Family history of autism April 26, 2025 9:53am April 26, 2025 9:53 am Status post fallApril 26, 2025 9:53 am Supervision of normal April 9:53am Family history of autism May 09, 2025 9:33am May 09, 2025 9:33 am Status post fallMay 09, 2025 9:33 am Supervision of normal April 9:33am Family history of autism May 16, 2025 3:16pm May 16, 2025 3:16p m Status post fallMay 16, 2025 3:16p m Supervision of normal May 3:16pm Chief Complaint Admit Date 21 WK OB January 26, 2025 9:3 4am 26wk ob/glucose February 27, 2025 8:4 0am 30wk ob March 26, 2025 1:34p m 32 WK OB April 10, 2025 10:38 am FALL April 23, 2025 8:15p m FALL April 23, 2025 10:40 pm 34 wk ob April 26, 2025 9:53 am 36 wk ob May 09, 2025 9:33 am 37 wk ob May 16, 2025 3:16p m 38 wk ob May 24, 2025 2:09 pm Reason for Visit Admit Date Family history of autism January 26 9:34am January 26, 2025 9:3 4am Supervision of normal January 262024 9:34am Family history of autism February 27 8:40am February 27, 2025 8:4 0am Supervision of normal February 272024 8:40am Family history of autism March 26, 2025 1:34pm March 26, 2025 1:34p m Supervision of normal March 1:34pm Family history of autism April 10, 2025 10:38am April 10, 2025 10:38 am Supervision of normal March 10:38am Status post fallApril 23, 2025 8:15p m Family history of autism April 26, 2025 9:53am April 26, 2025 9:53 am Status post fallApril 26, 2025 9:53 am Supervision of normal April 9:53am Family history of autism May 09, 2025 9:33am May 09, 2025 9:33 am Status post fallMay 09, 2025 9:33 am Supervision of normal April 9:33am Family history of autism May 16, 2025 3:16pm May 16, 2025 3:16p m Status post fallMay 16, 2025 3:16p m Supervision of normal May 3:16pm Family history of autism May 24, 2025 2:09pm May 24, 2025 2:09 pm Status post fallMay 24, 2025 2:09 pm Supervision of normal May 2:09pm Chief Complaint Admit Date 26wk ob/glucose February 27, 2025 8:4 0am 30wk ob March 26, 2025 1:34p m 32 WK OB April 10, 2025 10:38 am fallApril 23, 2025 8:15p m FALL April 23, 2025 10:40 pm 34 wk ob April 26, 2025 9:53 am 36 wk ob May 09, 2025 9:33 am 37 wk ob May 16, 2025 3:16p m 38 wk ob May 24, 2025 2:09 pm 39 wk ob May 28, 2025 2:04 pm Reason for Visit Admit Date Family history of autism February 27 8:40am February 27, 2025 8:4 0am Supervision of normal February 272024 8:40am Family history of autism March 26, 2025 1:34pm March 26, 2025 1:34p m Supervision of normal March 1:34pm Family history of autism April 10, 2025 10:38am April 10, 2025 10:38 am Supervision of normal March 10:38am Status post fallApril 23, 2025 8:15p m Family history of autism April 26, 2025 9:53am April 26, 2025 9:53 am Supervision of normal April 9:53am Status post fallApril 26, 2025 9:53 am Family history of autism May 09, 2025 9:33am May 09, 2025 9:33 am Supervision of normal April 9:33am Status post fallMay 09, 2025 9:33 am Family history of autism May 16, 2025 3:16pm May 16, 2025 3:16p m Supervision of normal May 3:16pm Status post fall May 16, 2025 3:16p m Family history of autism May 24, 2025 2:09pm May 24, 2025 2:09 pm Supervision of normal May 2:09pm Status post fall May 24, 2025 2:09 pm Family history of autism May 28, 2025 2:04pm May 28, 2025 2:04 pm Supervision of normal May 2:04pm Additional Source Comments INFORMATION SOURCE (unrecogn ized section and content) DATE CREATED AUTHOR 10/22/2018 [facility] DATE CREATED AUTHOR AUTHOR'S ORGANIZ ATION 05/04/2019 [facility] DATE CREATED AUTHOR AUTHOR'S ORGANIZ ATION 01/27/2025 [facility] DATE CREATED AUTHOR AUTHOR'S ORGANIZ ATION 05/28/2025 [facility] Care Teams (unrecognized sec tion and content) Team Status: Active Member Role Status Dates Dr. Solitario Blank MD Primary Care Provider Active Team Status: Inactive Member Role Status Dates Dr. Solitario Blank MD Primary Care Provider, Referring Provider Active Dr. Elli Edwards DO Attending Provider Activ e Team Status: Inactive Member Role Status Dates Dr. Solitario Blank MD Primary Care Provider Active Dr. Elli Edwards DO Attending Provider, Refe rring Provider Active Team Status: Inactive Member Role Status Dates Dr. Solitario Blank MD Primary Care Provider, Referring Provider Active Brianna Velasquez CNM Attending Provider Active Team Status: Inactive Member Role Status Dates Dr. Solitario Blank MD Primary Care Provider Active Radha Naylor CNM Attending Provider, Referring Pro vider Active Team Status: Active Member Role Status Dates Dr. Solitario Blank MD Primary Care Provider Active Radha Naylor CNM Attending Provider, Referring Provider, Other Provider Active Team Status: Inactive Member Role Status Dates Dr. Solitario Blank MD Primary Care Provider, Referring Provider Active Radha Naylor CNM Attending Provider Active Team Status: Inactive Member Role Status Dates Dr. Solitario Blank MD Primary Care Provider, Referring Provider Active Margot Bradfrod JOURNEYMAN MECHANIC, JOURNEYMAN MECHANIC-C Attending Provider Active Team Status: Inactive Member Role Status Dates Dr. Solitario Blank MD Primary Care Provider Active Margot Bradford JOURNEYMAN MECHANIC, JOURNEYMAN MECHANIC-C Attending Provider, Referring Provider Active Team Status: Inactive Member Role Status Dates Dr. Solitario Blank MD Primary Care Provider, Referring Provider Active Dr. Annabelle Garduno MD Attending Provider Active Team Status: Active Member Role Status Dates Dr. Solitario Blank MD Primary Care Provider Active Dr. Elli Edwards DO Attending Provider, Referring Provider, Other Provider Active Team Status: Active Member Role Status Dates Dr. Solitario Blank MD Primary Care Provider Active Dr. Elli Edwards DO Admit Prov ider, Attending Provider, Referring Provider, Other Provider Active Team Status: Active Member Role Status Dates Dr. Solitario Blank MD Primary Care Provider Active Dr. Elli Edwards DO Admit Prov ider, Referring Provider, Other Provider Active Margot Bradford JOURNEYMAN MECHANIC, JOURNEYMAN MECHANIC-C Attending Provider Active Team Status: Active Member Role Status Dates Dr. Solitario Blank MD Primary Care Provider Active Dr. Elli Edwards DO Admit Prov ider, Referring Provider, Other Provider Active Dr. Annabelle Garduno MD Attending Provider Active Team Status: Inactive Member Role Status Dates Dr. Solitario Blank MD Primary Care Provider Active Dr. Elli Edwards DO Admit Prov ider, Attending Provider, Referring Provider Active Team Status: Inactive Member Role Status Dates Dr. Solitario Blank MD Primary Care Provider Active Start: November 28, 2024 End: November 28, 2024 Dr. Solitario Blank MD Referring Provider Active S tart: November 28, 2024 End: November 28, 2024 Dr. Annabelle Garduno MD Attending Provider Active Start: November 28, 2024 End: November 28, 2024 Team Status: Inactive Member Role Status Dates Dr. Solitario Blank MD Primary Care Provider Active Start: November 28, 2024 End: November 28, 2024 Dr. Annabelle Garduno MD Attending Provider Active Start: November 28, 2024 End: November 28, 2024 Dr. Annabelle Garduno MD Referring Provider Active Start: November 28, 2024 End: November 28, 2024 Team Status: Inactive Member Role Status Dates Dr. Solitario Blank MD Primary Care Provider Active Start: January 03, 2025 End: January 03, 2025 Dr. Solitario Blank MD Referring Provider Active S tart: January 03, 2025 End: January 03, 2025 Margot Bradford JOURNEYMAN MECHANIC, JOURNEYMAN MECHANIC-C Attending Provider Active Start: January 03, 2025 End: January 03, 2025 Team Status: Inactive Member Role Status Dates Dr. Solitario Blank MD Primary Care Provider Active Start: January 26, 2025 End: January 26, 2025 Dr. Solitario Blank MD Referring Provider Active S tart: January 26, 2025 End: January 26, 2025 Brianna Velasquez CNM Attending Provider Active Start: January 26, 2025 End: January 26, 2025 Team Status: Inactive Member Role Status Dates Dr. Solitario Blank MD Primary Care Provider Active Start: February 27, 2025 End: February 27, 2025 Dr. Solitario Blank MD Referring Provider Active S tart: February 27, 2025 End: February 27, 2025 Dr. Elli Edwards DO Attending Provider Activ e Start: February 27, 2025 End: February 27, 2025 Team Status: Inactive Member Role Status Dates Dr. Solitario Blank MD Primary Care Provider Active Start: February 27, 2025 End: February 27, 2025 Dr. Elli Edwards DO Attending Provider Activ e Start: February 27, 2025 End: February 27, 2025 Dr. Elli Edwards DO Referring Provider Activ e Start: February 27, 2025 End: February 27, 2025 Team Status: Inactive Member Role Status Dates Dr. Solitario Blank MD Primary Care Provider Active Start: March 26, 2025 End: March 26, 2025 Dr. Solitario Blank MD Referring Provider Active S tart: March 26, 2025 End: March 26, 2025 Margot Bradford JOURNEYMAN MECHANIC, JOURNEYMAN MECHANIC-C Attending Provider Active Start: March 26, 2025 End: March 26, 2025 Team Status: Inactive Member Role Status Dates Dr. Solitario Blank MD Primary Care Provider Active Start: April 10, 2025 End: April 10, 2025 Dr. Solitario Blank MD Referring Provider Active S tart: April 10, 2025 End: April 10, 2025 Radha Naylor CNM Attending Provider Active S tart: April 10, 2025 End: April 10, 2025 Team Status: Inactive Member Role Status Dates Dr. Solitario Blank MD Primary Care Provider Active Start: April 23, 2025 End: April 23, 2025 Brianna Velasquez CNM Attending Provider Active Start: April 23, 2025 End: April 23, 2025 Team Status: Active Member Role Status Dates Dr. Solitario Blank MD Primary Care Provider Active Start: April 23, 2025 Brianna Velasquez CNM Attending Provider Active Start: April 23, 2025 Brianna Velasquez CNM Other Provider Active Star t: April 23, 2025 Team Status: Inactive Member Role Status Dates Dr. Solitario Blank MD Primary Care Provider Active Start: April 26, 2025 End: April 26, 2025 Dr. Solitario Blank MD Referring Provider Active S tart: April 26, 2025 End: April 26, 2025 Margot Bradford JOURNEYMAN MECHANIC, JOURNEYMAN MECHANIC-C Attending Provider Active Start: April 26, 2025 End: April 26, 2025 Team Status: Inactive Member Role Status Dates Dr. Solitario Blank MD Primary Care Provider Active Start: May 09, 2025 End: May 09, 2025 Dr. Solitario Blank MD Referring Provider Active S tart: May 09, 2025 End: May 09, 2025 Margot Bradford JOURNEYMAN MECHANIC, JOURNEYMAN MECHANIC-C Attending Provider Active Start: May 09, 2025 End: May 09, 2025 Team Status: Active Member Role/Relationship Status Dates Dr. Solitario Blank MD Primary Care Provider Active Team Status: Inactive Member Role/Relationship Status Dates Dr. Solitario Blank MD Primary Care Provider Active Start: January 26, 2025 End: January 26, 2025 Dr. Solitario Blank MD Referring Provider Active S tart: January 26, 2025 End: January 26, 2025 Brianna Velasquez CNM Attending Provider Active Start: January 26, 2025 End: January 26, 2025 Team Status: Inactive Member Role/Relationship Status Dates Dr. Solitario Blank MD Primary Care Provider Active Start: February 27, 2025 End: February 27, 2025 Dr. Solitario Blank MD Referring Provider Active S tart: February 27, 2025 End: February 27, 2025 Dr. Elli Edwards DO Attending Provider Activ e Start: February 27, 2025 End: February 27, 2025 Team Status: Inactive Member Role/Relationship Status Dates Dr. Solitario Blank MD Primary Care Provider Active Start: February 27, 2025 End: February 27, 2025 Dr. Elli Edwards DO Attending Provider Activ e Start: February 27, 2025 End: February 27, 2025 Dr. Elli Edwards DO Referring Provider Activ e Start: February 27, 2025 End: February 27, 2025 Team Status: Inactive Member Role/Relationship Status Dates Dr. Solitario Blank MD Primary Care Provider Active Start: March 26, 2025 End: March 26, 2025 Dr. Solitario Blank MD Referring Provider Active S tart: March 26, 2025 End: March 26, 2025 Margot Bradford JOURNEYMAN MECHANIC, JOURNEYMAN MECHANIC-C Attending Provider Active Start: March 26, 2025 End: March 26, 2025 Team Status: Inactive Member Role/Relationship Status Dates Dr. Solitario Blank MD Primary Care Provider Active Start: April 10, 2025 End: April 10, 2025 Dr. Solitario Blank MD Referring Provider Active S tart: April 10, 2025 End: April 10, 2025 Radha Naylor CNM Attending Provider Active S tart: April 10, 2025 End: April 10, 2025 Team Status: Inactive Member Role/Relationship Status Dates Dr. Solitario Blank MD Primary Care Provider Active Start: April 23, 2025 End: April 23, 2025 Brianna Velasquez CNM Attending Provider Active Start: April 23, 2025 End: April 23, 2025 Team Status: Active Member Role/Relationship Status Dates Dr. Solitario Blank MD Primary Care Provider Active Start: April 23, 2025 Brianna Velasquez CNM Attending Provider Active Start: April 23, 2025 Brianna Velasquez CNM Other Provider Active Star t: April 23, 2025 Team Status: Inactive Member Role/Relationship Status Dates Dr. Solitario Blank MD Primary Care Provider Active Start: April 26, 2025 End: April 26, 2025 Dr. Solitario Blank MD Referring Provider Active S tart: April 26, 2025 End: April 26, 2025 Margot Sanchez JOURNEYMAN MECHANIC, JOURNEYMAN MECHANIC-C Attending Provider Active Start: April 26, 2025 End: April 26, 2025 Team Status: Inactive Member Role/Relationship Status Dates Dr. Solitario Blank MD Primary Care Provider Active Start: May 09, 2025 End: May 09, 2025 Dr. Solitario Blank MD Referring Provider Active S tart: May 09, 2025 End: May 09, 2025 Margot Bradford JOURNEYMAN MECHANIC, JOURNEYMAN MECHANIC-C Attending Provider Active Start: May 09, 2025 End: May 09, 2025 Team Status: Inactive Member Role/Relationship Status Dates Dr. Solitario Blank MD Primary Care Provider Active Start: May 09, 2025 End: May 09, 2025 Margot Bradford JOURNEYMAN MECHANIC, JOURNEYMAN MECHANIC-C Attending Provider Active Start: May 09, 2025 End: May 09, 2025 Team Status: Inactive Member Role/Relationship Status Dates Dr. Solitario Blank MD Primary Care Provider Active Start: May 16, 2025 End: May 16, 2025 Dr. Solitario Blank MD Referring Provider Active S tart: May 16, 2025 End: May 16, 2025 Dr. Elli Edwards DO Attending Provider Activ e Start: May 16, 2025 End: May 16, 2025 Team Status: Inactive Member Role/Relationship Status Dates Dr. Solitario Blank MD Primary Care Provider Active Start: May 24, 2025 End: May 24, 2025 Dr. Solitario Blank MD Referring Provider Active S tart: May 24, 2025 End: May 24, 2025 Dr. Elli Edwards DO Attending Provider Activ e Start: May 24, 2025 End: May 24, 2025 Team Status: Inactive Member Role/Relationship Status Dates Dr. Solitario Blank MD Primary Care Provider Active Start: February 27, 2025 End: February 27, 2025 Dr. Solitario Blank MD Referring Provider Active S tart: February 27, 2025 End: February 27, 2025 Dr. Elli Edwards DO Attending Provider Activ e Start: February 27, 2025 End: February 27, 2025 Team Status: Inactive Member Role/Relationship Status Dates Dr. Solitario Blank MD Primary Care Provider Active Start: February 27, 2025 End: February 27, 2025 Dr. Elli Edwards DO Attending Provider Activ e Start: February 27, 2025 End: February 27, 2025 Dr. Elli Edwards DO Referring Provider Activ e Start: February 27, 2025 End: February 27, 2025 Team Status: Inactive Member Role/Relationship Status Dates Dr. Solitario Blank MD Primary Care Provider Active Start: March 26, 2025 End: March 26, 2025 Dr. Solitario Blank MD Referring Provider Active S tart: March 26, 2025 End: March 26, 2025 Margot Bradford JOURNEYMAN MECHANIC, JOURNEYMAN MECHANIC-C Attending Provider Active Start: March 26, 2025 End: March 26, 2025 Team Status: Inactive Member Role/Relationship Status Dates Dr. Solitario Blank MD Primary Care Provider Active Start: April 10, 2025 End: April 10, 2025 Dr. Solitario Blank MD Referring Provider Active S tart: April 10, 2025 End: April 10, 2025 Radha Naylor CNM Attending Provider Active S tart: April 10, 2025 End: April 10, 2025 Team Status: Inactive Member Role/Relationship Status Dates Dr. Solitario Blank MD Primary Care Provider Active Start: April 23, 2025 End: April 23, 2025 Brianna Velasquez CNM Attending Provider Active Start: April 23, 2025 End: April 23, 2025 Team Status: Active Member Role/Relationship Status Dates Dr. Solitario Blank MD Primary Care Provider Active Start: April 23, 2025 Brianna Velasquez CNM Attending Provider Active Start: April 23, 2025 Brianna Velasquez CNM Other Provider Active Star t: April 23, 2025 Team Status: Inactive Member Role/Relationship Status Dates Dr. Solitario Blank MD Primary Care Provider Active Start: April 26, 2025 End: April 26, 2025 Dr. Solitario Blank MD Referring Provider Active S tart: April 26, 2025 End: April 26, 2025 Margot Bradford JOURNEYMAN MECHANIC, JOURNEYMAN MECHANIC-C Attending Provider Active Start: April 26, 2025 End: April 26, 2025 Team Status: Inactive Member Role/Relationship Status Dates Dr. Solitario Blank MD Primary Care Provider Active Start: May 09, 2025 End: May 09, 2025 Dr. Solitario Blank MD Referring Provider Active S tart: May 09, 2025 End: May 09, 2025 Margot Bradford JOURNEYMAN MECHANIC, JOURNEYMAN MECHANIC-C Attending Provider Active Start: May 09, 2025 End: May 09, 2025 Team Status: Inactive Member Role/Relationship Status Dates Dr. Solitario Blank MD Primary Care Provider Active Start: May 09, 2025 End: May 09, 2025 Margot Bradford JOURNEYMAN MECHANIC, JOURNEYMAN MECHANIC-C Attending Provider Active Start: May 09, 2025 End: May 09, 2025 Team Status: Inactive Member Role/Relationship Status Dates Dr. Solitario Blank MD Primary Care Provider Active Start: May 16, 2025 End: May 16, 2025 Dr. Solitario Blank MD Referring Provider Active S tart: May 16, 2025 End: May 16, 2025 Dr. Elli Edwards DO Attending Provider Activ e Start: May 16, 2025 End: May 16, 2025 Team Status: Inactive Member Role/Relationship Status Dates Dr. Solitario Blank MD Primary Care Provider Active Start: May 24, 2025 End: May 24, 2025 Dr. Solitario Blank MD Referring Provider Active S tart: May 24, 2025 End: May 24, 2025 Dr. Elli Edwards DO Attending Provider Activ e Start: May 24, 2025 End: May 24, 2025 Team Status: Inactive Member Role/Relationship Status Dates Dr. Solitario Blank MD Primary Care Provider Active Start: May 28, 2025 End: May 28, 2025 Dr. Solitario Blank MD Referring Provider Active S tart: May 28, 2025 End: May 28, 2025 Dr. Annabelle Garduno MD Attending Provider Active Start: May 28, 2025 End: May 28, 2025 Goals (unrecognized section and content) Goals may be documented in a n alternate sectionGoals may be documented in an alternate sectionGoals may be documented in an alternate sectionGoals may be documented in an alternate sectionGoals may be documented in an alternate sectionGoals may be documented in an alternate sectionGoals may be documented in an alternate sectionGoals may be documented in an alternate sectionGoals may be documented in an alternate sectionGoals may be documented in an alternate sectionGoals may be documented in an alternate sectionGoals may be documented in an alternate sectionGoals may be documented in an alternate sectionGoals may be documented in an alternate sectionGoals may be documented in an alternate section FOR RECORDS PERTAINING TO PATIENTS WHO ARE OR HAVE BEEN ENROLLED IN A CHEMICAL DEPENDENCY/SUBSTANCEABUSE PROGRAM, SOME INFORMATION MAY BE OMITTED. This clinical summary was aggregated from multiple sources. Caution should be exercised in using it in the provision of clinical care. This summary normalizes information from multiple sources, and as a consequence, information in this document may materially change the coding, format and clinical context of patient data. In addition, data may be omitted in some cases. CLINICAL DECISIONS SHOULD BE BASED ON THE PRIMARY CLINICAL RECORDS. [facility] provides no warranty or guarantee of the accuracy or completeness of information in this document.
--- OUTSIDE RECORDS SUMMARY | 2025-05-29 21:16 | XMS RPT_ITS | CCD ---
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 be used as an aid in the selection of the confirmation algorithm for reactive samples.Send out specimens with Reactive results to [facility] for confirmation.Order the HIV antibody detection and differentiation: #[id number] Nucleated red blood cell per centageOrdered By: Brianna Velasquez on 02-27-2025 Nucleated RBC/100 WBC (Bld) [Ratio] 0 % 0-5 [facility] Project Development Coordinator Office Visit Reporton 02-27-2025 Project Development Coordinator Office Visit Report [facility] [address], [address] [place] [address] OFFICE VISIT Date of Service: 02/27/25 MR#: [id number] Acct: [id number] Name: FAREED YOUNG Rep #: [id number] : 2000 Provider: Dr. 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 - (more content not included)... Normal [facility] Platelet countOrdered By: Stacia Velasquez on 02-27-2025 Platelets (Bld) [#/Vol] 325 10*3/uL 150-450 [facility] RBC Auto (Bld) [#/Vol]Ordere d By: Brianna Velasquez on 02-27-2025 RBC (Bld) [#/Vol] 4.26 10*6/uL 4.2-5.4 [facility] Syphilis Antibodieson 2024 Syphilis Abs Non-Reactive Normal Nonreactive [facility] Comment on above: Performed By: #### L 3890.6006, L100.0100, L509.8002, L501.0250 #### [facility] [address] [place], [place] [address], [address] T. pallidum abOrdered By: Stacia Velasquez on 02-27-2025 Syphilis Total Antibody Non-Reactive Nonreactiv e [facility] White blood cell (WBC) count Ordered By: Brianna Velasquez on 02-27-2025 WBC (Bld) [#/Vol] 11.7 10*3/uL High 4.4-11.0 [facility] - Chemistry and C hemistry - challengeOrdered By: Brianna Velasquez on 01-26-2025 Glucose Ql (U) Negative [facility] - UrinalysisOrder ed By: Brianna Velasquez on 01-26-2025 Protein Ql (U) Negative [facility] Project Development Coordinator Office Visit Reporton 01-26-2025 Project Development Coordinator Office Visit Report [facility]'s [address], [address] [place] [address] OFFICE VISIT Date of Service: 01/26/25 MR#: [id number] Acct: [id number] Name: FAREED YOUNG Rep #: [id number] : 2000 Provider: LAYLA rader Age/Sex: 24/F Location: [facility] Status: Signed Intake Vital Signs 10/27/24 13:05 01/03/25 10:00 01/26/25 09:35 01/26/25 09:38 Height 5 ft 5 in 5 ft 5 in 5 ft 5 in 5 ft 5 in Weight: 173 lb 177 lb 7 oz BMI 28.8 29.5 BP 110/64 104/71 Intake Visit Reasons: 21 WK OB Aircraft Cleaner Required: No Is patient in pain?: No [...] occupational status: employed 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 -???-???- (more content not included)... Normal [facility] - Chemistry and C hemistry - challengeOrdered By: Margot Bradford on 01-03-2025 Glucose Ql (U) Negative [facility] - UrinalysisOrder ed By: Margot Bradford on 01-03-2025 Protein Ql (U) Negative [facility] Project Development Coordinator Office Visit Reporton 01-03-2025 Project Development Coordinator Office Visit Report [facility] [address], [address] [place] [address] OFFICE VISIT Date of Service: 01/03/25 MR#: [id number] Acct: [id number] Name: FAREED YOUNG Rep #: [id number] : 2000 Provider: AURA barrow Age/Sex: 24/F Location: [facility] Status: Signed Intake Vital Signs 10/27/24 13:05 11/28/24 11:30 01/03/25 10:00 Height 5 ft 5 in 5 ft 5 in 5 ft 5 in Weight: 173 lb BMI 28.8 BP 110/64 Intake Visit Reasons: 18 WK OB Chief Complaint: 18 Week OB Aircraft Cleaner Required: No Is patient in pain?: No [...] occupational status: employed 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 -?? (more content not included)... Normal [facility] Absolute neutrophil countOrd ered By: Radha Naylor on 11-28-2024 Neutrophils (Bld) [#/Vol] 5.6 10*3/uL 2.0-7.7 [facility] Basophil percentageOrdered B y: Radha Naylor on 11-28-2024 Basophils/100 WBC (Bld) 0.4 % 0-1 [facility] CBC W/Diff, Automatedon 11-15 Absolute Lymph 1.76 X10 3/uL Normal 0.83-4.51 [facility] Comment on above: Performed By: #### L 3890.6006, L100.0100, L509.8002, L501.0250 #### [facility] [address] [place], [place], [id number] Absolute Neut 5.6 X10 3/uL Normal 2.0-7.7 [facility] Comment on above: Performed By: #### L 3890.6006, L100.0100, L509.8002, L501.0250 #### [facility] [address] [place], [address] Basophils/100 WBC (Bld) 0.4 % Normal 0-1 [facility] Comment on above: Performed By: #### L 3890.6006, L100.0100, L509.8002, L501.0250 #### [facility] [address] [place], [address] Eosinophils/100 WBC (Bld) 0.6 % Normal 0-5 [facility] Comment on above: Performed By: #### L 3890.6006, L100.0100, L509.8002, L501.0250 #### [facility] [address] [place], [address] Erythrocyte distribution width (RBC) [Ratio] 11.9 % Normal 11.6-14.6 [facility] Comment on above: Performed By: #### L 3890.6006, L100.0100, L509.8002, L501.0250 #### [facility] [address] [place], [address] Hematocrit (Bld) [Volume fraction] 41.0 % Normal 37-47 [facility] Comment on above: Performed By: #### L 3890.6006, L100.0100, L509.8002, L501.0250 #### [facility] [address] [place], [address] Hemoglobin (Bld) [Mass/Vol] 13.6 g/dL Normal 12.0-15.0 [facility] Comment on above: Performed By: #### L 3890.6006, L100.0100, L509.8002, L501.0250 #### [facility] [address] [place], [address] IG% 0.300 Normal 0.0-0.9 [facility] Comment on above: Result Comment: IG% - Immature Granulocytes (promyelocytes, myelocytes and metamyelocytes) > 1% indicates that a LEFT SHIFT is Present. Performed By: #### L 3890.6006, L100.0100, L509.8002, L501.0250 #### [facility] [address] [place], [address] Lymphocytes/100 WBC (Bld) 22.1 % Normal 19-41 [facility] Comment on above: Performed By: #### L 3890.6006, L100.0100, L509.8002, L501.0250 #### [facility] [address] [place], [address] MCH (RBC) [Entitic mass] 28.3 pg Normal 27.0-32.0 [facility] Comment on above: Performed By: #### L 3890.6006, L100.0100, L509.8002, L501.0250 #### [facility] [address] [place], [address] MCHC (RBC) [Mass/Vol] 33.2 g/dL Normal 32-36 [facility] Comment on above: Performed By: #### L 3890.6006, L100.0100, L509.8002, L501.0250 #### [facility] [address] [place], [address] MCV (RBC) [Entitic vol] 85.2 fL Normal 81-99 [facility] Comment on above: Performed By: #### L 3890.6006, L100.0100, L509.8002, L501.0250 #### [facility] [address] [place], [address] Monocytes/100 WBC (Bld) 6.4 % Normal 0-10 [facility] Comment on above: Performed By: #### L 3890.6006, L100.0100, L509.8002, L501.0250 #### [facility] [address] [place], [address] Neutrophils/100 WBC (Bld) 70.2 % High 47-70 [facility] Comment on above: Performed By: #### L 3890.6006, L100.0100, L509.8002, L501.0250 #### [facility] [address] [place], [address] Nucleated RBC (Bld) [#/Vol] 0 10*3/uL Normal 0-5 [facility] Comment on above: Performed By: #### L 3890.6006, L100.0100, L509.8002, L501.0250 #### [facility] [address] [place], [address] Platelet mean volume (Bld) [Entitic vol] 9.7 fL Normal 6.2-12.0 [facility] Comment on above: Performed By: #### L 3890.6006, L100.0100, L509.8002, L501.0250 #### [facility] [address] [place], [address] Platelets (Bld) [#/Vol] 328 10*3/uL Normal 150-450 [facility] Comment on above: Performed By: #### L 3890.6006, L100.0100, L509.8002, L501.0250 #### [facility] [address] [place], [address] RBC (Bld) [#/Vol] 4.81 10*6/uL Normal 4.2-5.4 [facility] Comment on above: Performed By: #### L 3890.6006, L100.0100, L509.8002, L501.0250 #### [facility] [address] [place], [address] RDW SD 36.2 fl Normal 35.1-43.9 [facility] Comment on above: Performed By: #### L 3890.6006, L100.0100, L509.8002, L501.0250 #### [facility] [address] [place], [address] WBC (Bld) [#/Vol] 8.0 10*3/uL Normal 4.4-11.0 [facility] Comment on above: Performed By: #### L 3890.6006, L100.0100, L509.8002, L501.0250 #### [facility] [address] [place], [address] Eosinophil percentageOrdered By: Radha Naylor on 11-28-2024 Eosinophils/100 WBC (Bld) 0.6 % 0-5 [facility] Erythrocyte distribution wid th (RBC) [Ratio]Ordered By: Radha Naylor on 11-28-2024 Erythrocyte distribution width (RBC) [Entitic vol] 36.2 fL 35.1-43.9 [facility] Erythrocyte distribution wid th ratioOrdered By: Radha Naylor on 11-28-2024 Erythrocyte distribution width (RBC) [Ratio] 11.9 % 11.6-14.6 [facility] HIV - WCHon 11-28-2024 HIV Non-Reactive Normal Nonreactive [facility] Comment on above: Order Comment: Reaso n for Exam: Performed By: #### L 3890.6006, L100.0100, L509.8002, L501.0250 #### [facility] [address] [place], [address] HIV 1+2 Ab+HIV1 p24 Ag IA Ql Ordered By: Radha Naylor on 11-28-2024 HIV (1&2) Antibody Non-Reactive Nonreactive [facility] Hematocrit Auto (Bld) [Volum e fraction]Ordered By: Radha Naylor on 11-28-2024 Hematocrit (Bld) [Volume fraction] 41.0 % 37-47 [facility] Hemoglobin measurementOrdere d By: Radha Naylor on 11-28-2024 Hemoglobin (Bld) [Mass/Vol] 13.6 g/dL 12.0-15.0 [facility] Hepatitis B Surface Antigeno n 11-28-2024 HEP B Surf Ag Non-Reactive Normal Nonreactive [facility] Comment on above: Order Comment: Reaso n for Exam: Performed By: #### L 3890.6006, L100.0100, L509.8002, L501.0250 #### [facility] [address] [place], [place], [address] Hepatitis B surface antigen detectionOrdered By: Radha Naylor on 11-28-2024 Hepatitis B Surface Antigen Non-Reactive Nonreactive [facility] Hepatitis C Antibodyon 11-28 Hepatitis C AB [facility]-Reactive [facility] Comment on above: Order Comment: Reaso n for Exam: Result Comment: Non Reactive: < 0.8 Equivocal: >/= 0.8 to < 1.0 Reactive: >/= 1.0 [facility] requires that a reactive/equivocal HCV antibody result be sent out for confirmation. HCV Quant by PCR testing. Performed By: #### L 3890.6006, L100.0100, L509.8002, L501.0250 #### [facility] [address] [place], [place], [address] Hepatitis C virus antibody a ssayOrdered By: Radha Naylor on 11-28-2024 Hepatitis C Antibody Non-Reactive Nonreactive [facility] Comment on above: Non Reactive: < 0.8 Equivocal: >/= 0.8 to < 1.0 Reactive: >/= 1.0The CDC requires that a reactive/equivocal HCV antibody result be sent out for confirmation. HCV Quant by PCR testing. Immature granulocytes/100 WB C Auto (Bld)Ordered By: Radha Naylor on 11-28-2024 Immature granulocytes/100 WBC (Bld) 0.300 % 0.0-0.9 [facility] Comment on above: IG% - Immature Granu locytes (promyelocytes, myelocytes and metamyelocytes) > 1% indicates that a LEFT SHIFT is Present. L509.8000on 11-28-2024 Syphilis Abs Non-Reactive Normal [facility] Comment on above: Order Comment: Reaso n for Exam: Performed By: #### L 3890.6006, L100.0100, L509.8002, L501.0250 #### [facility] [address] [place], [address] Laboratory - Chemistry and C hemistry - challengeon 11-28-2024 Glucose Ql (U) Negative [facility] - Urinalysison Protein Ql (U) Negative [facility] Lymphocytes Auto (Unsp spec) [#/Vol]Ordered By: Radha Naylor on 11-28-2024 Lymphocytes (Bld) [#/Vol] 1.76 10*3/uL 0.83-4.51 [facility] Lymphocytes/100 WBC Auto (Un sp spec)Ordered By: Radha Naylor on 11-28-2024 Lymphocytes/100 WBC (Bld) 22.1 % 19-41 [facility] MCV (mean corpuscular volume ) determinationOrdered By: Radha Naylor on 11-28-2024 MCV (RBC) [Entitic vol] 85.2 fL 81-99 [facility] Mean corpuscular hemoglobin (MCH) determinationOrdered By: Radha Naylor on 11-28-2024 MCH (RBC) [Entitic mass] 28.3 pg 27.0-32.0 [facility] Mean corpuscular hemoglobin concentration (MCHC) determinationOrdered By: Radha Naylor on 11-28-2024 MCHC (RBC) [Mass/Vol] 33.2 g/dL 32-36 [facility] Mean platelet volume determi nationOrdered By: Radha Naylor on 11-28-2024 Platelet mean volume (Bld) [Entitic vol] 9.7 fL 6.2-12.0 [facility] Monocyte percentageOrdered B y: Radha Naylor on 11-28-2024 Monocytes/100 WBC (Bld) 6.4 % 0-10 [facility] Neutrophil percentageOrdered By: Radha Naylor on 11-28-2024 Neutrophils/100 WBC (Bld) 70.2 % High 47-70 [facility] Nucleated red blood cell per centageOrdered By: Radha Naylor on 11-28-2024 Nucleated RBC/100 WBC (Bld) [Ratio] 0 % 0-5 [facility] Project Development Coordinator Office Visit Reporton 11-28-2024 Project Development Coordinator Office Visit Report [facility]'s [address], [address] [place] [address] OFFICE VISIT Date of Service: 11/28/24 MR#: [id number] Acct: [id number] Name: FAREED YOUNG Rep #: [id number] : 2000 Provider: Dr. 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 Normal [facility] Platelet countOrdered By: Damaso Naylor on 11-28-2024 Platelets (Bld) [#/Vol] 328 10*3/uL 150-450 [facility] RBC Auto (Bld) [#/Vol]Ordere d By: Radha Naylor on 11-28-2024 RBC (Bld) [#/Vol] 4.81 10*6/uL 4.2-5.4 [facility] Rubella IgGon 11-28-2024 Rubella IgG Reactive Normal Nonreactive [facility] Comment on above: Order Comment: Reaso n for Exam: Result Comment: Anti body Results Interpretation of Immune Status Non Reactive Presumed Non-Immune Equivocal Equivocal Reactive Presumed Immune Performed By: #### L 3890.6006, L100.0100, L509.8002, L501.0250 #### [facility] [address] [place], [place], [id number] Rubella immune status IgGOrd ered By: Radha Naylor on 11-28-2024 Rubella IgG Antibody Reactive Nonreactive [facility] Comment on above: Antibody Results Int erpretation of Immune Status Non Reactive Presumed Non-Immune Equivocal Equivocal Reactive Presumed Immune Treponema sp Ab Ql (S)Ordere d By: Radha Naylor on 11-28-2024 Syphilis Total Antibody Non-Reactive [facility] Type AND Screenon 11-28-2024 ABO and Rh group Nom (Bld) Blood group O Rh(D) positive Normal [facility] Comment on above: Order Comment: PN Performed By: #### L 3890.6006, L100.0100, L509.8002, L501.0250 #### [facility] [address] [place], [place], [address] White blood cell (WBC) count Ordered By: Radha Naylor on 11-28-2024 WBC (Bld) [#/Vol] 8.0 10*3/uL 4.4-11.0 [facility] Chlamydia/GC SHIRAZ aptimaon CHLAMY,NUC ACID Negative Normal Negative [facility] Comment on above: Performed By: #### L 3890.6006, L100.0100, L509.8002, L501.0250 #### [facility] [address] [place], [place], [address] GC BY NUC ACID Negative Normal Negative [facility] Comment on above: Result Comment: Perf ormed at: =G - [facility] [place] [address] [facility], [place], [facility] [place] [place] [id number] [employer] Supervisor: Ashley Golden MD, Phone: [phone] Performed By: #### L 3890.6006, L100.0100, L509.8002, L501.0250 #### [facility] [address] [place], [place], [address] Urine Cultureon 10-28-2024 [facility] Culture exhibits no growth. Normal [facility] Comment on above: Performed By: #### L 3890.6006, L100.0100, L509.8002, L501.0250 #### [facility] [address] [place], [place], [address] Project Development Coordinator Office Visit Reporton 10-27-2024 Project Development Coordinator Office Visit Report [facility], [address] [place] [address] OFFICE VISIT Date of Service: 10/27/24 MR#: [id number] Acct: [id number] Name: FAREED YOUNG Rep #: [id number] : 2000 Provider: LAYLA Stratton ams Age/Sex: 24/F Location: [facility] Status: Signed Intake Vital Signs 09/23/23 05:09 10/27/24 13:03 10/27/24 13:05 Height 5 ft 5 in 5 ft 5 in 5 ft 5 in Weight: 167 lb BMI 27.8 BP 121/76 H Intake Visit Reasons: New OB, LMP 08/28, NORMA 06/04/25 Aircraft Cleaner Required: No Is patient in pain?: No [...] occupational status: employed 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 Normal [facility] Absolute lymphocyte countOrd ered By: Elli Saenz on 07-28-2023 Lymphocytes Auto (Unsp spec) [#/Vol] 1.89 10*3/uL 0.83-4.51 [facility] Basophil percentageOrdered B y: Elli Saenz on 07-28-2023 Basophils/100 WBC (Bld) 0.3 % 0-1 [facility] Eosinophils/100 WBC (Bld) 0.6 % 0-5 [facility] Neutrophils (Bld) [#/Vol] 8.4 10*3/uL 2.0-7.7 [facility] Neutrophils/100 WBC (Bld) 73.8 % 47-70 [facility] WBC (Bld) [#/Vol] 11.4 10*3/uL 4.4-11.0 [facility] Blood erythrocytes count (nu mber/volume)Ordered By: Elli Saenz on 07-28-2023 RBC (Bld) [#/Vol] 4.62 10*6/uL 4.2-5.4 [facility] Blood hemoglobin measurement (mass/volume)Ordered By: Elli Saenz on 07-28-2023 Hemoglobin (Bld) [Mass/Vol] 12.1 g/dL 12.0-15.0 [facility] Blood lymphocytes/100 leukoc ytesOrdered By: Elli Saenz on 07-28-2023 Lymphocytes/100 WBC (Bld) 16.5 % 19-41 [facility] Blood monocytes/100 leukocyt esOrdered By: Elil Saenz on 07-28-2023 Monocytes/100 WBC (Bld) 8.0 % 0-10 [facility] Blood platelet mean volumeOr dered By: Elli Saenz on 07-28-2023 Platelet mean volume (Bld) [Entitic vol] 10.2 fL 6.2-12.0 [facility] Determination of erythrocyte mean corpuscular volume (MCV)Ordered By: Elli Saenz on 07-28-2023 MCV (RBC) [Entitic vol] 82.7 fL 81-99 [facility] Hematocrit Auto (Bld) [Volum e fraction]Ordered By: Elli Saenz on 07-28-2023 Hematocrit (Bld) [Volume fraction] 38.2 % 37-47 [facility] Laboratory - Hematology and Cell countsOrdered By: Elli Saezn on 07-28-2023 Erythrocyte distribution width (RBC) [Entitic vol] 39.8 fL 35.1-43.9 [facility] Erythrocyte distribution width (RBC) [Ratio] 13.3 % 11.6-14.6 [facility] Immature granulocytes/100 WBC (Bld) 0.800 % 0.0-0.9 [facility] Comment on above: IG% - Immature Granu locytes (promyelocytes, myelocytes and metamyelocytes) > 1% indicates that a LEFT SHIFT is Present. MCH (RBC) [Entitic mass] 26.2 pg 27.0-32.0 [facility] Nucleated RBC/100 WBC (Bld) [Ratio] 0 % 0-5 [facility] MCHC Auto (RBC) [Mass/Vol]Or dered By: Elli Saenz on 07-28-2023 MCHC (RBC) [Mass/Vol] 31.7 g/dL 32-36 [facility] Platelets bldOrdered By: Paige Saenz on 07-28-2023 Platelets (Bld) [#/Vol] 267 10*3/uL 150-450 [facility] Serum Treponema species anti body detectionOrdered By: Elli Saenz on 07-28-2023 Treponema sp Ab Ql (S) Non-Reactive [facility] Laboratory - Chemistry and C hemistry - challengeon 07-23-2023 Glucose Ql (U) Negative [facility] Laboratory - Urinalysison Protein Ql (U) Negative [facility] Laboratory - Chemistry and C hemistry - challengeon 07-16-2023 Glucose Ql (U) Negative [facility] Laboratory - Urinalysison Protein Ql (U) Negative [facility] Laboratory - Chemistry and C hemistry - challengeon 07-09-2023 Glucose Ql (U) Negative [facility] Laboratory - Urinalysison Protein Ql (U) Negative [facility] Laboratory - Chemistry and C hemistry - challengeon 06-25-2023 Glucose Ql (U) Negative [facility] Laboratory - Urinalysison Protein Ql (U) Negative [facility] No Panel InformationOrdered By: Elli Saenz on 06-25-2023 Group B Streptococcus Culture Streptococcus agalactiae (B) [facility] Culture, urineOrdered By: Velasquez Bradford on 06-10-2023 Bacteria identified Cx Nom (U) Positive [facility] Laboratory - Chemistry and C hemistry - challengeon 06-10-2023 Bilirubin Ql (U) Negative [facility] Glucose Ql (U) Negative [facility] Ketones Ql (U) Negative [facility] pH (U) 5.0 [pH] [facility] Urobilinogen (U) [Mass/Vol] Negative [facility] Laboratory - Hematology and Cell countson 06-10-2023 Hemoglobin Ql (U) Hemolyzed [facility] Laboratory - Specimen inform ationon 06-10-2023 Clarity (U) Hazy [facility] Color (U) Yellow [facility] Laboratory - Urinalysison Protein Ql (U) Negative [facility] No Panel Informationon 06-10 Urine Leukocytes Positive [facility] Urine Non-Hemolyzed Blood Large [facility] Laboratory - Chemistry and C hemistry - challengeon 06-07-2023 Glucose Ql (U) Negative [facility] Laboratory - Urinalysison Protein Ql (U) Negative [facility] Laboratory - Chemistry and C hemistry - challengeon 05-28-2023 Glucose Ql (U) Negative [facility] Laboratory - Urinalysison Protein Ql (U) Negative [facility] Laboratory - Chemistry and C hemistry - challengeon 05-14-2023 Glucose Ql (U) Negative [facility] Laboratory - Urinalysison Protein Ql (U) Negative [facility] Laboratory - Chemistry and C hemistry - challengeon 04-30-2023 Glucose Ql (U) Negative [facility] Laboratory - Urinalysison Protein Ql (U) Negative [facility] Absolute lymphocyte countOrd ered By: Dr. Saenz on 04-29-2023 Lymphocytes Auto (Unsp spec) [#/Vol] 1.80 10*3/uL 0.83-4.51 [facility] Basophil percentageOrdered B y: Dr. Saenz on 04-29-2023 Basophils/100 WBC (Bld) 0.3 % 0-1 [facility] Eosinophils/100 WBC (Bld) 0.7 % 0-5 [facility] Neutrophils (Bld) [#/Vol] 6.5 10*3/uL 2.0-7.7 [facility] Neutrophils/100 WBC (Bld) 70.9 % 47-70 [facility] WBC (Bld) [#/Vol] 9.2 10*3/uL 4.4-11.0 [facility] Blood erythrocytes count (nu mber/volume)Ordered By: Dr. Saenz on 04-29-2023 RBC (Bld) [#/Vol] 4.19 10*6/uL 4.2-5.4 [facility] Blood hemoglobin measurement (mass/volume)Ordered By: Dr. Saenz on 04-29-2023 Hemoglobin (Bld) [Mass/Vol] 12.1 g/dL 12.0-15.0 [facility] Blood lymphocytes/100 leukoc ytesOrdered By: Dr. Saenz on 04-29-2023 Lymphocytes/100 WBC (Bld) 19.6 % 19-41 [facility] Blood monocytes/100 leukocyt esOrdered By: Dr. Saenz on 04-29-2023 Monocytes/100 WBC (Bld) 7.7 % 0-10 [facility] Blood platelet mean volumeOr dered By: Dr. Saenz on 04-29-2023 Platelet mean volume (Bld) [Entitic vol] 9.5 fL 6.2-12.0 [facility] Determination of erythrocyte mean corpuscular volume (MCV)Ordered By: Dr. Saenz on 04-29-2023 MCV (RBC) [Entitic vol] 89.3 fL 81-99 [facility] Gestational diabetes screen 1-hour screen with 50g oral glucose loadOrdered By: Dr. Saenz on 04-29-2023 Glucose 1 Hr post 50 g glucose PO [Mass/Vol] 97 mg/dL 70-140 [facility] HIV 1 and HIV-2 antibody ass ay with HIV-1 p24 antigen detectionOrdered By: Dr. Saenz on 04-29-2023 HIV 1+2 Ab+HIV1 p24 Ag IA Ql Non-Reactive Nonreactive [facility] Hematocrit Auto (Bld) [Volum e fraction]Ordered By: Dr. Saenz on 04-29-2023 Hematocrit (Bld) [Volume fraction] 37.4 % 37-47 [facility] Laboratory - Hematology and Cell countsOrdered By: Dr. Saenz on 04-29-2023 Erythrocyte distribution width (RBC) [Entitic vol] 40.8 fL 35.1-43.9 [facility] Erythrocyte distribution width (RBC) [Ratio] 12.5 % 11.6-14.6 [facility] Immature granulocytes/100 WBC (Bld) 0.800 % 0.0-0.9 [facility] Comment on above: IG% - Immature Granu locytes (promyelocytes, myelocytes and metamyelocytes) > 1% indicates that a LEFT SHIFT is Present. MCH (RBC) [Entitic mass] 28.9 pg 27.0-32.0 [facility] Nucleated RBC/100 WBC (Bld) [Ratio] 0 % 0-5 [facility] MCHC Auto (RBC) [Mass/Vol]Or dered By: Dr. Saenz on 04-29-2023 MCHC (RBC) [Mass/Vol] 32.4 g/dL 32-36 [facility] Platelets bldOrdered By: Dr. Saenz on 04-29-2023 Platelets (Bld) [#/Vol] 334 10*3/uL 150-450 [facility] Serum Treponema species anti body detectionOrdered By: Dr. Saenz on 04-29-2023 Treponema sp Ab Ql (S) Non-Reactive [facility] Laboratory - Chemistry and C hemistry - challengeon 04-14-2023 Glucose Ql (U) Negative [facility] Laboratory - Urinalysison Protein Ql (U) Negative [facility] Laboratory - Chemistry and C hemistry - challengeon 03-17-2023 Glucose Ql (U) Negative [facility] Laboratory - Urinalysison Protein Ql (U) Negative [facility] Laboratory - Chemistry and C hemistry - challengeon 01-19-2023 Glucose Ql (U) Negative [facility] Laboratory - Urinalysison Protein Ql (U) Negative [facility] Culture, urineOrdered By: Dr Heather Saenz on 12-27-2022 Bacteria identified Cx Nom (U) Culture exhibits no growth. [facility] Absolute lymphocyte countOrd ered By: Dr. Saenz on 12-24-2022 Lymphocytes Auto (Unsp spec) [#/Vol] 2.14 10*3/uL 0.83-4.51 [facility] Basophil percentageOrdered B y: Dr. Saenz on 12-24-2022 Basophils/100 WBC (Bld) 0.3 % 0-1 [facility] Eosinophils/100 WBC (Bld) 0.5 % 0-5 [facility] Neutrophils (Bld) [#/Vol] 8.9 10*3/uL 2.0-7.7 [facility] Neutrophils/100 WBC (Bld) 74.4 % 47-70 [facility] WBC (Bld) [#/Vol] 12.0 10*3/uL 4.4-11.0 [facility] Blood erythrocytes count (nu mber/volume)Ordered By: Dr. Saenz on 12-24-2022 RBC (Bld) [#/Vol] 4.85 10*6/uL 4.2-5.4 [facility] Blood hemoglobin measurement (mass/volume)Ordered By: Dr. Saenz on 12-24-2022 Hemoglobin (Bld) [Mass/Vol] 14.0 g/dL 12.0-15.0 [facility] Blood lymphocytes/100 leukoc ytesOrdered By: Dr. Saenz on 12-24-2022 Lymphocytes/100 WBC (Bld) 17.8 % 19-41 [facility] Blood monocytes/100 leukocyt esOrdered By: Dr. Saenz on 12-24-2022 Monocytes/100 WBC (Bld) 6.7 % 0-10 [facility] Blood platelet mean volumeOr dered By: Dr. Saenz on 12-24-2022 Platelet mean volume (Bld) [Entitic vol] 9.5 fL 6.2-12.0 [facility] Cervical or vagninal specime n microscopic examination by cytology stain (reported asOrdered By: Dr. Saenz on 12-24-2022 Cytology report Cyto stain Doc (Cvx/Vag) Comment . [facility] Comment on above: The Pap smear [...] rRNA SHIRAZ+probe Ql (Unsp spec) Negative Negative [facility] Determination of erythrocyte mean corpuscular volume (MCV)Ordered By: Dr. Saenz on 12-24-2022 MCV (RBC) [Entitic vol] 86.2 fL 81-99 [facility] HIV 1 and HIV-2 antibody ass ay with HIV-1 p24 antigen detectionOrdered By: Dr. Saenz on 12-24-2022 HIV 1+2 Ab+HIV1 p24 Ag IA Ql Non-Reactive Nonreactive [facility] Hematocrit Auto (Bld) [Volum e fraction]Ordered By: Dr. Saenz on 12-24-2022 Hematocrit (Bld) [Volume fraction] 41.8 % 37-47 [facility] Laboratory - CytologyOrdered By: Dr. Saenz on 12-24-2022 Flow Match Sofa Cutter Cyto stain Nom (Cvx/Vag) [ID] Comment . [facility] Comment on above: Ryan Huerta totechnologist Laboratory - Hematology and Cell countsOrdered By: Dr. Saenz on 12-24-2022 Erythrocyte distribution width (RBC) [Entitic vol] 38.3 fL 35.1-43.9 [facility] Erythrocyte distribution width (RBC) [Ratio] 12.2 % 11.6-14.6 [facility] Immature granulocytes/100 WBC (Bld) 0.300 % 0.0-0.9 [facility] Comment on above: IG% - Immature Granu locytes (promyelocytes, myelocytes and metamyelocytes) > 1% indicates that a LEFT SHIFT is Present. MCH (RBC) [Entitic mass] 28.9 pg 27.0-32.0 [facility] Nucleated RBC/100 WBC (Bld) [Ratio] 0 % 0-5 [facility] Laboratory - Microbiology an d Antimicrobial susceptibilityOrdered By: Dr. Saenz on 12-24-2022 N. gonorrhoeae DNA SHIRAZ+probe Ql (Unsp spec) Negative Negative [facility] Comment on above: Performed at: =G - [address] [id number] Director: Ashley Golden MD, Phone: [phone] Laboratory - Miscellaneous t estsOrdered By: Dr. Saenz on 12-24-2022 Service comment (Unsp spec) [Interp] Comment . [facility] Comment on above: This liquid based Th inPrep(R) pap test was screened withthe use of an image guided system. Service comment (Unsp spec) [Interp] . . [facility] MCHC Auto (RBC) [Mass/Vol]Or dered By: Dr. Saenz on 12-24-2022 MCHC (RBC) [Mass/Vol] 33.5 g/dL 32-36 [facility] No Panel InformationOrdered By: Dr. Saenz on 12-24-2022 Human Papillomavirus Screen Comment . [facility] Comment on above: The HPV DNA reflex c riteria were not met with this specimenresult therefore, no HPV testing was performed.Performed at: - [facility] [id number] Director: Ashley Golden MD, Phone: [phone] Pathology report final diagnosis Narrative Comment . [facility] Comment on above: NEGATIVE FOR INTRAEP ITHELIAL LESION OR MALIGNANCY. Hepatitis B Surface Antigen Non-Reactive Nonreactive [facility] Hepatitis C Antibody Non-Reactive Nonreactive [facility] Comment on above: Non Reactive: < 0.8 Equivocal: >/= 0.8 to < 1.0 Reactive: >/= 1.0The CDC recommends that a reactive/equivocal HCV antibody result be followed up by the HCV Nucleic Acid Amplificationtest (764582) Miscellaneous Test Comment MAILED SPECIMEN [facility] Rubella IgG Antibody Reactive Nonreactive [facility] Comment on above: Antibody Results Int erpretation of Immune Status Non Reactive Presumed Non-Immune Equivocal Equivocal Reactive Presumed Immune Platelets bldOrdered By: Dr. Saenz on 12-24-2022 Platelets (Bld) [#/Vol] 416 10*3/uL 150-450 [facility] Serum Treponema species anti body detectionOrdered By: Dr. Saenz on 12-24-2022 Treponema sp Ab Ql (S) Non-Reactive [facility] XR Foot 3+ Views Righton XR Foot 3+ Views Right Exam Date/Time: 04/30/2019 13:39 EDT Reason for Exam: Pain, Traumatic Report STUDY: XR Foot 3+ Views Right; 04/30/2019 1:39 pm INDICATION: Pain, Traumatic. COMPARISON: None. ACCESSION NUMBER(S): [id number] ORDERING CLINICIAN: Anatoly To FINDINGS: There is a nondisplaced fracture of the base of the 5th metatarsal. No dislocation is seen. Soft tissue swelling is noted. IMPRESSION: Nondisplaced fracture at the base of the 5th metatarsal. FINAL REPORT Dictated: 04/30/2019 1:41 pm Georgina Carey MD Signed (Electronic Signature): 04/30/2019 1:41 pm Signed by: Georgina Carey MD Technologist: CHINYERE [facility] EMERGENCY REPORTon 09-14-201 8 EMERGENCY REPORT [facility] EMERGENCY ROOM REPORT NAME ACCOUNT SEX AGE ADMIT DISCHARGE PT MED. RECORD# NUMBER DATE DATE TYPE FAREED YOUNG [id number] F 18 09/09/18 09/09/18 3 M [id number] ROOM: ER DATE OF : 2000 DICTATING [...] Shaq Artis DO 09/09/18 18:43 JOB #: [id number] Transcribed By: hossein 09/10/18 05:42 Electronically signed by: KATHY Artis D.O. 09/14/18 08:13 Page 1 of 1 FAREED YOUNG Emergency Room Report Normal [facility] Vital Signs Date Time Vital Sign Value Performing Clinician Facility 05-28-2025 14:17-0400 Body height 165.[address] Solitario Blank MD Work Phone: [facility] 05-28-2025 14:14-0400 Body mass index (BMI) [Ratio] 33.1 kg/m2 Dr. Solitario Blank MD Work Phone: [facility] 05-28-2025 14:14-0400 Body weight 90.[address] Solitario Blank MD Work Phone: [facility] 05-28-2025 14:14-0400 Diastolic blood pressure 76 mm[Hg] Dr. Solitario Blank MD Work Phone: 3(130)905-852438 [address] 05-28-2025 14:14-0400 Systolic blood pressure 110 mm[Hg] Dr. Solitario Blank MD Work Phone: 0(284)723-293333 [place] [address] 05-24-2025 14:11-0400 Body height 165.[address] Solitario Blank MD Work Phone: 3(364)099-001233 [place] [address] 05-24-2025 14:11-0400 Body mass index (BMI) [Ratio] 33.3 kg/m2 Dr. Solitario Blank MD Work Phone: 4(566)858-548333 [place] [address] 05-24-2025 14:11-0400 Body weight 90.[address] Solitario Blank MD Work Phone: 5(549)385-382133 [place] [address] 05-24-2025 14:11-0400 Diastolic blood pressure 76 mm[Hg] Dr. Solitario Blank MD Work Phone: 8(857)678-456533 [place] [address] 05-24-2025 14:11-0400 Systolic blood pressure 113 mm[Hg] Dr. Solitario Blank MD Work Phone: 1(288)330-415033 [place] [address] 05-16-2025 15:21-0400 Body height 165.[address] Solitario Blank MD Work Phone: 1(840)846-673433 [place] [address] 05-16-2025 15:20-0400 Body mass index (BMI) [Ratio] 32.9 kg/m2 Dr. Solitario Blank MD Work Phone: 6(251)163-123833 [place] [address] 05-16-2025 15:20-0400 Body weight 89.[address] Solitario Blank MD Work Phone: 0(965)834-730533 [place] [address] 05-16-2025 15:20-0400 Diastolic blood pressure 72 mm[Hg] Dr. Solitario Blank MD Work Phone: 5(097)439-567633 [place] [address] 05-16-2025 15:20-0400 Systolic blood pressure 107 mm[Hg] Dr. Solitario Blank MD Work Phone: 2(940)258-152133 [place] [address] 05-09-2025 09:36-0400 Body height 165.[address] Solitario Blank MD Work Phone: 8(265)444-474638 [address] 05-09-2025 09:36-0400 Body mass index (BMI) [Ratio] 32.4 kg/m2 Dr. Solitario Blank MD Work Phone: 0(475)992-840633 [place] [address] 05-09-2025 09:36-0400 Body weight 88.[address] Solitario Blank MD Work Phone: 7(432)104-047533 [place] [address] 05-09-2025 09:36-0400 Diastolic blood pressure 68 mm[Hg] Dr. Solitario Blank MD Work Phone: 4(183)561-623033 [place] [address] 05-09-2025 09:36-0400 Systolic blood pressure 110 mm[Hg] Dr. Solitario Blank MD Work Phone: 7(526)622-127333 [place] [address] 04-26-2025 09:56-0400 Body height 165.[address] Solitario Blank MD Work Phone: 1(153)310-721533 [place] [address] 04-26-2025 09:56-0400 Body mass index (BMI) [Ratio] 32.1 kg/m2 Dr. Solitario Blank MD Work Phone: 4(945)182-465233 [place] [address] 04-26-2025 09:56-0400 Body weight 87.[address] Solitario Blank MD Work Phone: 4(215)919-226033 [place] [address] 04-26-2025 09:56-0400 Diastolic blood pressure 60 mm[Hg] Dr. Solitario Blank MD Work Phone: 1(116)751-311333 [place] [address] 04-26-2025 09:56-0400 Systolic blood pressure 110 mm[Hg] Dr. Solitario Blank MD Work Phone: 4(857)639-649533 [place] [address] 04-23-2025 20:28-0400 Diastolic blood pressure 62 mm[Hg] Dr. Solitario Blank MD Work Phone: 7(606)671-369233 [place] [address] 04-23-2025 20:28-0400 Heart rate 94 /min Dr. Solitario Blank MD Work Phone: 2(253)684-517433 [place] [address] 04-23-2025 20:28-0400 Systolic blood pressure 112 mm[Hg] Dr. Solitario Blank MD Work Phone: 1(489)559-100233 [place] [address] 04-10-2025 10:46-0400 Body height 165.[address] Solitario Blank MD Work Phone: 6(276)765-633433 [place] [address] 04-10-2025 10:46-0400 Body mass index (BMI) [Ratio] 31.8 kg/m2 Dr. Solitario Blank MD Work Phone: 3(479)524-435133 [place] [address] 04-10-2025 10:46-0400 Body weight 86.[address] Solitario Blank MD Work Phone: 3(212)472-338433 [place] [address] 04-10-2025 10:46-0400 Diastolic blood pressure 74 mm[Hg] Dr. Solitario Blank MD Work Phone: 9(422)880-898633 [place] [address] 04-10-2025 10:46-0400 Systolic blood pressure 119 mm[Hg] Dr. Solitario Blank MD Work Phone: 2(380)575-239433 [place] [address] 03-26-2025 13:39-0400 Body mass index (BMI) [Ratio] 31.1 kg/m2 Dr. Solitario Blank MD Work Phone: 2(149)543-764833 [place] [address] 03-26-2025 13:39-0400 Body weight 85.[address] Solitario Blank MD Work Phone: 3(447)109-529633 [place] [address] 03-26-2025 13:39-0400 Diastolic blood pressure 70 mm[Hg] Dr. Solitario Blank MD Work Phone: 5(053)282-612033 [place] [address] 03-26-2025 13:39-0400 Systolic blood pressure 102 mm[Hg] Dr. Solitario Blank MD Work Phone: 0(985)825-560233 [place] [address] 02-27-2025 08:52-0400 Body height 165.[address] Solitario Blank MD Work Phone: 3(822)846-703133 [place] [address] 02-27-2025 08:52-0400 Body mass index (BMI) [Ratio] 30.4 kg/m2 Dr. Solitario Blank MD Work Phone: 3(340)938-092933 [place] [address] 02-27-2025 08:52-0400 Body weight 83.[address] Solitario Blank MD Work Phone: 3(303)917-379533 [place] [address] 02-27-2025 08:52-0400 Diastolic blood pressure 67 mm[Hg] Dr. Solitario Blank MD Work Phone: 9(650)246-363738 [address] 02-27-2025 08:52-0400 Systolic blood pressure 113 mm[Hg] Dr. Solitario Blank MD Work Phone: 4(716)381-792338 [address] 01-26-2025 09:35-0400 Body mass index (BMI) [Ratio] 29.5 kg/m2 Dr. Solitario Blank MD Work Phone: 2(892)645-830633 [place] [address] 01-26-2025 09:35-0400 Body weight 80.[address] Solitario Blank MD Work Phone: 7(656)579-815433 [place] [address] 01-26-2025 09:35-0400 Diastolic blood pressure 71 mm[Hg] Dr. Solitario Blank MD Work Phone: 4(252)642-774833 [place] [address] 01-26-2025 09:35-0400 Systolic blood pressure 104 mm[Hg] Dr. Solitario Blank MD Work Phone: 5(001)415-882933 [place] [address] 01-03-2025 10:00-0500 Body mass index (BMI) [Ratio] 28.8 kg/m2 Dr. Solitario Blank MD Work Phone: 8(915)554-681533 [place] [address] 01-03-2025 10:00-0500 Body weight 78.[address] Solitario Blank MD Work Phone: 1(096)158-743838 [address] 01-03-2025 10:00-0500 Diastolic blood pressure 64 mm[Hg] Dr. Solitario Blank MD Work Phone: 7(418)539-735738 [address] 01-03-2025 10:00-0500 Systolic blood pressure 110 mm[Hg] Dr. Solitario Blank MD Work Phone: 1(632)119-840238 [address] 11-28-2024 11:28-0500 Body mass index (BMI) [Ratio] 28.3 kg/m2 Dr. Solitario Blank MD Work Phone: 0(207)616-359938 [address] 11-28-2024 11:28-0500 Body weight 77.[address] Solitario Blank MD Work Phone: 0(150)657-808638 [address] 11-28-2024 11:28-0500 Diastolic blood pressure 76 mm[Hg] Dr. Solitario Blank MD Work Phone: 3(773)506-574689 [place] [address] 11-28-2024 11:28-0500 Systolic blood pressure 117 mm[Hg] Dr. Solitario Blank MD Work Phone: 6(461)784-296833 [place] [address] 07-30-2023 10:02-0400 Diastolic blood pressure 77 mm[Hg] Dr. Solitario Blank Work Phone: 5(106)697-102733 [place] [address] 07-30-2023 10:02-0400 Heart rate 90 /min Dr. Solitario Blank Work Phone: 7(225)985-947133 [place] [address] 07-30-2023 10:02-0400 Systolic blood pressure 130 mm[Hg] Dr. Solitario Blank Work Phone: 0(915)968-648633 [place] [address] 07-30-2023 09:10-0400 Body temperature 97.7 [degF] Dr. Solitario Blank Work Phone: 3(296)628-658633 [place] [address] 07-30-2023 09:10-0400 Respiratory rate 18 /min Dr. Solitario Blank Work Phone: 0(303)528-144433 [place] [address] 07-30-2023 09:10-0400 SaO2% (BldA) [Mass fraction] 98 % Dr. Solitario Blank Work Phone: 1(175)755-567333 [place] [address] 07-28-2023 07:33-0400 Body height 165.[address] Solitario Blank Work Phone: 1(505)427-470533 [place] [address] 07-28-2023 07:33-0400 Body mass index (BMI) [Ratio] 33.7 kg/m2 Dr. Solitario Blank Work Phone: 1(237)277-286738 [address] 07-28-2023 07:33-0400 Body weight 92.[address] Solitario Blank Work Phone: 4(465)109-791733 [place] [address] 07-27-2023 11:20-0400 Body mass index (BMI) [Ratio] 34.2 kg/m2 Dr. Solitario Blank Work Phone: 9(860)873-687738 [address] 07-27-2023 11:20-0400 Body weight 93.[address] Solitario Blank Work Phone: 5(474)267-959133 [place] [address] 07-27-2023 11:20-0400 Diastolic blood pressure 74 mm[Hg] Dr. Solitario Blank Work Phone: 9(749)270-109933 [place] [address] 07-27-2023 11:20-0400 Systolic blood pressure 113 mm[Hg] Dr. Solitario Blank Work Phone: 4(413)594-344533 [place] [address] 07-23-2023 11:43-0400 Body mass index (BMI) [Ratio] 33.6 kg/m2 Dr. Solitario Blank Work Phone: 7(287)953-726033 [place] [address] 07-23-2023 11:43-0400 Body weight 91.[address] Solitario Blank Work Phone: 0(028)319-315333 [place] [address] 07-23-2023 11:43-0400 Diastolic blood pressure 81 mm[Hg] Dr. Solitario Blank Work Phone: 4(236)339-059533 [place] [address] 07-23-2023 11:43-0400 Systolic blood pressure 121 mm[Hg] Dr. Solitario Blank Work Phone: 2(953)398-123733 [place] [address] 07-16-2023 10:02-0400 Body mass index (BMI) [Ratio] 33.3 kg/m2 Dr. Solitario Blank Work Phone: 3(601)969-591433 [place] [address] 07-16-2023 10:02-0400 Body weight 90.[address] Solitario Blank Work Phone: 0(579)330-004133 [place] [address] 07-16-2023 10:02-0400 Diastolic blood pressure 83 mm[Hg] Dr. Solitario Blank Work Phone: 6(188)532-411233 [place] [address] 07-16-2023 10:02-0400 Systolic blood pressure 137 mm[Hg] Dr. Solitario Blank Work Phone: 3(340)569-707733 [place] [address] 07-09-2023 10:45-0400 Body mass index (BMI) [Ratio] 32.8 kg/m2 Dr. Solitario Blank Work Phone: 2(669)018-304333 [place] [address] 07-09-2023 10:45-0400 Body weight 89.[address] Solitario Blank Work Phone: 4(686)427-652233 [place] [address] 07-09-2023 10:45-0400 Diastolic blood pressure 75 mm[Hg] Dr. Solitario Blank Work Phone: 0(414)156-040489 [place] [address] 07-09-2023 10:45-0400 Systolic blood pressure 122 mm[Hg] Dr. Solitario Blank Work Phone: 0(876)987-553438 [address] 07-02-2023 10:01-0400 Body mass index (BMI) [Ratio] 32.5 kg/m2 Dr. Solitario Blank Work Phone: 6(371)373-290038 [address] 07-02-2023 10:01-0400 Body weight 88.[address] Solitario Blank Work Phone: 8(394)108-876838 [address] 07-02-2023 10:01-0400 Diastolic blood pressure 74 mm[Hg] Dr. Solitario Blank Work Phone: 0(995)401-241433 [place] [address] 07-02-2023 10:01-0400 Systolic blood pressure 116 mm[Hg] Dr. Solitario Blank Work Phone: 4(886)146-038833 [place] [address] 06-30-2023 19:05-0400 Body temperature 99.4 [degF] Dr. Solitario Blank Work Phone: 0(443)229-084733 [place] [address] 06-30-2023 19:03-0400 Body height 165.[address] Solitario Blank Work Phone: 2(534)983-731833 [place] [address] 06-30-2023 19:03-0400 Body mass index (BMI) [Ratio] 32.5 kg/m2 Dr. Solitario Blank Work Phone: 4(650)321-543833 [place] [address] 06-30-2023 19:03-0400 Body weight 88.[address] Solitario Blank Work Phone: 3(318)958-563938 [address] 06-30-2023 18:45-0400 Diastolic blood pressure 77 mm[Hg] Dr. Solitario Balnk Work Phone: 8(481)242-918033 [place] [address] 06-30-2023 18:45-0400 Heart rate 96 /min Dr. Solitario Blank Work Phone: 4(249)117-487838 [address] 06-30-2023 18:45-0400 Systolic blood pressure 127 mm[Hg] Dr. Solitario Blank Work Phone: 5(100)824-202138 [address] 06-30-2023 18:43-0400 SaO2% (BldA) [Mass fraction] 98 % Dr. Solitario Blank Work Phone: 1(214)109-863789 [place] [address] 06-25-2023 11:03-0400 Body height 165.[address] Solitario Blank Work Phone: 8(803)186-250738 [address] 06-25-2023 11:00-0400 Body mass index (BMI) [Ratio] 32.4 kg/m2 Dr. Solitario Blank Work Phone: 9(105)896-399638 [address] 06-25-2023 11:00-0400 Body weight 88.[address] Solitario Blank Work Phone: 3(667)076-396033 [place] [address] 06-25-2023 11:00-0400 Diastolic blood pressure 75 mm[Hg] Dr. Solitario Blank Work Phone: 8(947)110-517133 [place] [address] 06-25-2023 11:00-0400 Systolic blood pressure 107 mm[Hg] Dr. Solitario Blank Work Phone: 4(636)918-929138 [address] 06-10-2023 14:34-0400 Body height 165.[address] Solitario Blank Work Phone: 4(046)917-004833 [place] [address] 06-10-2023 14:34-0400 Body mass index (BMI) [Ratio] 32.3 kg/m2 Dr. Solitario Blank Work Phone: 5(044)459-714538 [address] 06-10-2023 14:34-0400 Body weight 87.[address] Solitario Blank Work Phone: 2(793)422-841338 [address] 06-10-2023 14:34-0400 Diastolic blood pressure 70 mm[Hg] Dr. Solitario Blank Work Phone: 9(858)741-326338 [address] 06-10-2023 14:34-0400 Systolic blood pressure 104 mm[Hg] Dr. Solitario Blank Work Phone: 3(398)256-900633 [place] [address] 06-07-2023 10:28-0400 Body mass index (BMI) [Ratio] 32.1 kg/m2 Dr. Solitario Balnk Work Phone: 0(645)613-294938 [address] 06-07-2023 10:28-0400 Body weight 87.[address] Solitario Blank Work Phone: 2(754)284-045589 [place] [address] 06-07-2023 10:28-0400 Diastolic blood pressure 73 mm[Hg] Dr. Solitario Blank Work Phone: 0(243)026-125538 [address] 06-07-2023 10:28-0400 Systolic blood pressure 112 mm[Hg] Dr. Solitario Blank Work Phone: 5(026)683-988033 [place] [address] 05-28-2023 11:41-0400 Body mass index (BMI) [Ratio] 31.6 kg/m2 Dr. Solitario Blank Work Phone: 0(642)191-711738 [address] 05-28-2023 11:41-0400 Body weight 86.[address] Solitario Blank Work Phone: 2(164)137-513733 [place] [address] 05-28-2023 11:41-0400 Diastolic blood pressure 74 mm[Hg] Dr. Solitario Blank Work Phone: 7(747)843-849733 [place] [address] 05-28-2023 11:41-0400 Systolic blood pressure 121 mm[Hg] Dr. Solitario Blank Work Phone: 8(267)055-047438 [address] 05-14-2023 10:07-0400 Body mass index (BMI) [Ratio] 31.3 kg/m2 Dr. Solitario Blank Work Phone: 1(816)659-435533 [place] [address] 05-14-2023 10:07-0400 Body weight 85.[address] Solitario Blank Work Phone: 6(144)280-715238 [address] 05-14-2023 10:07-0400 Diastolic blood pressure 68 mm[Hg] Dr. Solitario Blank Work Phone: 4(097)468-068438 [address] 05-14-2023 10:07-0400 Systolic blood pressure 94 mm[Hg] Dr. Solitario Blank Work Phone: 7(193)781-734933 [place] [address] 04-30-2023 09:11-0400 Body height 165.[address] Solitario Blank Work Phone: 7(441)896-305933 [place] [address] 04-30-2023 09:02-0400 Body mass index (BMI) [Ratio] 30.9 kg/m2 Dr. Solitario Blank Work Phone: 2(147)191-019333 [place] [address] 04-30-2023 09:02-0400 Body weight 84.[address] Solitario Blank Work Phone: 9(861)121-281533 [place] [address] 04-30-2023 09:02-0400 Diastolic blood pressure 62 mm[Hg] Dr. Solitario Blank Work Phone: 6(908)735-928333 [place] [address] 04-30-2023 09:02-0400 Systolic blood pressure 122 mm[Hg] Dr. Solitario Blank Work Phone: 3(262)091-422133 [place] [address] 04-14-2023 11:30-0400 Body mass index (BMI) [Ratio] 30.3 kg/m2 Dr. Solitario Blank Work Phone: 2(088)783-476933 [place] [address] 04-14-2023 11:30-0400 Body weight 82.[address] Solitario Blank Work Phone: 6(295)842-772433 [place] [address] 04-14-2023 11:30-0400 Diastolic blood pressure 71 mm[Hg] Dr. Solitario Blank Work Phone: 1(262)176-626233 [place] [address] 04-14-2023 11:30-0400 Systolic blood pressure 121 mm[Hg] Dr. Solitario Blank Work Phone: 0(640)076-765433 [place] [address] 03-17-2023 11:04-0400 Body mass index (BMI) [Ratio] 28.8 kg/m2 Dr. Solitario Blank Work Phone: 8(735)541-410333 [place] [address] 03-17-2023 11:04-0400 Body weight 78.[address] Solitario Blank Work Phone: 6(635)144-167733 [place] [address] 03-17-2023 11:04-0400 Diastolic blood pressure 70 mm[Hg] Dr. Solitario Blank Work Phone: 5(544)890-341133 [place] [address] 03-17-2023 11:04-0400 Systolic blood pressure 108 mm[Hg] Dr. Solitario Blank Work Phone: 6(657)531-185033 [place] [address] 03-09-2023 16:15-0400 Heart rate 84 /min Dr. Solitario Blank Work Phone: 5(027)527-228033 [place] [address] 03-09-2023 16:15-0400 SaO2% (BldA) [Mass fraction] 99 % Dr. Solitario Blank Work Phone: 1(803)232-689189 [place] [address] 03-09-2023 15:05-0400 Body temperature 97.7 [degF] Dr. Solitario Blank Work Phone: 7(583)905-299433 [place] [address] 03-09-2023 15:05-0400 Diastolic blood pressure 65 mm[Hg] Dr. Solitario Blank Work Phone: 6(455)229-520333 [place] [address] 03-09-2023 15:05-0400 Systolic blood pressure 122 mm[Hg] Dr. Solitario Blank Work Phone: 6(522)344-855833 [place] [address] 03-09-2023 14:49-0400 Body height 165.[address] Solitario Blank Work Phone: 1(851)463-040333 [place] [address] 03-09-2023 14:49-0400 Body mass index (BMI) [Ratio] 29 kg/m2 Dr. Solitario Blank Work Phone: 5(339)986-992133 [place] [address] 03-09-2023 14:49-0400 Body weight [address] Solitario Blank Work Phone: 6(744)408-921733 [place] [address] 02-15-2023 14:31-0400 Body mass index (BMI) [Ratio] 27.7 kg/m2 Dr. Solitario Blank Work Phone: 9(553)689-788633 [place] [address] 02-15-2023 14:31-0400 Body weight 75.[address] Solitario Blank Work Phone: 7(818)594-664238 [address] 02-15-2023 14:31-0400 Diastolic blood pressure 78 mm[Hg] Dr. Solitario Blank Work Phone: 7(280)532-582138 [address] 02-15-2023 14:31-0400 Systolic blood pressure 128 mm[Hg] Dr. Solitario Blank Work Phone: 2(563)976-383233 [place] [address] 01-19-2023 14:06-0500 Body mass index (BMI) [Ratio] 28 kg/m2 Dr. Solitario Blank Work Phone: 7(741)406-576038 [address] 01-19-2023 14:06-0500 Body weight 76.[address] Solitario Blank Work Phone: 2(448)661-336738 [address] 01-19-2023 14:06-0500 Diastolic blood pressure 76 mm[Hg] Dr. Solitario Blank Work Phone: [facility] 01-19-2023 14:06-0500 Systolic blood pressure 123 mm[Hg] Dr. Solitario Blank Work Phone: [facility] 12-24-2022 15:07-0500 Body height 165.[address] Solitario Blank Work Phone: [facility] 12-24-2022 15:07-0500 Body mass index (BMI) [Ratio] 27.8 kg/m2 Dr. Solitario Blank Work Phone: [facility] 12-24-2022 15:07-0500 Body weight 75.[address] Solitario Blank Work Phone: [facility] 12-24-2022 15:07-0500 Diastolic blood pressure 76 mm[Hg] Dr. Solitario Blank Work Phone: [facility] 12-24-2022 15:07-0500 Systolic blood pressure 121 mm[Hg] Dr. Solitario Blank Work Phone: [facility] 01-31-2021 14:16-0400 Body height 166.37 cm Brittny Hunter LPN [facility], [facility].; [facility], [facility]. 01-31-2021 14:16-0400 Body mass index (BMI) [Ratio] 23.27 kg/m2 Brittny Hunter LPN [facility], [facility].; [facility], [facility]. 01-31-2021 14:16-0400 Body surface area Derived from formula 1.72 m2 Brittny Hunter LPN [facility], [facility].; [facility], [facility]. 01-31-2021 14:16-0400 Body weight 64.41 kg Brittny Hunter LPN [facility], [facility].; [facility], [facility]. 01-31-2021 14:16-0400 Diastolic blood pressure 77 mm[Hg] Brittny Hunter LPN [facility], [facility].; [facility], [facility]. Comment on above: Patient Position: Sitting; Cuff Location : Left Arm; Cuff Size: Standard 01-31-2021 14:16-0400 Heart rate 78 /min Brittny Garridougg ORDER MANAGER [facility] [employer]. Comment on above: Pattern: Regular 01-31-2021 14:16-0400 Respiratory rate 16 /min Brittny Garridougg ORDER MANAGER [employer] [facility] [employer]. Comment on above: Pattern: Unlabored 01-31-2021 14:16-0400 Systolic blood pressure 112 mm[Hg] Brittny Blancaugg ORDER MANAGER [employer] [facility] [employer], [employer] Comment on above: Patient Position: Sitting; Cuff Location : Left Arm; Cuff Size: Standard 06-28-2020 08:56-0400 Body height 160.02 cm Rolanda Oscar Kamaljit [facility] [employer], [employer] 06-28-2020 08:56-0400 Body mass index (BMI) [Ratio] 24.27 kg/m2 Rolanda Mari [facility] [employer], [employer] 06-28-2020 08:56-0400 Body surface area Derived from formula 1.65 m2 Rolanda Oscar Kamaljit [facility] [employer] [facility] [employer], [employer] 06-28-2020 08:56-0400 Body weight 62.14 kg Rolanda Celestina Mari [facility] [employer] [facility] [employer], [employer] 06-28-2020 08:56-0400 Diastolic blood pressure 71 mm[Hg] Rolanda Celestina Mari ORDER MANAGER [employer] [facility] [employer]. Comment on above: Patient Position: Sitting; Cuff Location : Right Arm; Cuff Size: Standard 06-28-2020 08:56-0400 Heart rate 71 /min Rolanda Celestina Mari ORDER MANAGER [employer] [facility], [employer]. Comment on above: Pattern: Regular 06-28-2020 08:56-0400 Systolic blood pressure 108 mm[Hg] Rolanda Oscar Kamaljit ORDER MANAGER [employer]. Comment on above: Patient Position: Sitting; Cuff Location : Right Arm; Cuff Size: Standard 07-14-2019 10:32-0400 Body height 165.1 cm Rebecca Iqbal RN [employer]. 07-14-2019 10:32-0400 Body mass index (BMI) [Percentile] Per age and sex 42 % Rebecca Iqbal RN [employer]. 07-14-2019 10:32-0400 Body mass index (BMI) [Ratio] 20.97 kg/m2 Rebecca Iqbal RN [employer]. 07-14-2019 10:32-0400 Body surface area Derived from formula 1.63 m2 Rebecca Iqbal RN [employer] 07-14-2019 10:32-0400 Body weight 57.15 kg Rebecca Iqbal RN [employer]. 07-14-2019 10:32-0400 Diastolic blood pressure 72 mm[Hg] Rebecca Iqbal RN [employer]. Comment on above: Patient Position: Sitting; Cuff Location : Left Arm; Cuff Size: Standard 07-14-2019 10:32-0400 Heart rate 79 /min Rebecca Iqbal RN [employer]. Comment on above: Pattern: Regular 07-14-2019 10:32-0400 Systolic blood pressure 112 mm[Hg] Rebecca Iqbal RN [employer]. Comment on above: Patient Position: Sitting; Cuff Location : Left Arm; Cuff Size: Standard 05-12-2019 10:48-0400 Body height 165.1 cm Rebecca Iqbal RN [employer]. 05-12-2019 10:48-0400 Body mass index (BMI) [Percentile] Per age and sex 37 % Rebecca Iqbal RN [employer] 05-12-2019 10:48-0400 Body mass index (BMI) [Ratio] 20.63 kg/m2 Rebecca Iqbal RN [employer] 05-12-2019 10:48-0400 Body surface area Derived from formula 1.61 m2 Rebecca Iqabl RN [employer] 05-12-2019 10:48-0400 Body weight 56.25 kg Rebecca Iqbal RN [employer], [employer]. 05-12-2019 10:48-0400 Diastolic blood pressure 59 mm[Hg] Rebecca Iqbal RN [employer]. Comment on above: Patient Position: Sitting; Cuff Location : Left Arm; Cuff Size: Standard 05-12-2019 10:48-0400 Heart rate 62 /min Rebecca Iqbal RN [employer], [employer]. Comment on above: Pattern: Regular 05-12-2019 10:48-0400 Systolic blood pressure 100 mm[Hg] Rebecca Iqbal RN [employer]. Comment on above: Patient Position: Sitting; Cuff Location : Left Arm; Cuff Size: Standard 05-01-2019 10:16-0400 Body height 165.1 cm Liliana Stafford LPN [employer], [employer]. 05-01-2019 10:16-0400 Body mass index (BMI) [Percentile] Per age and sex 38 % Liliana Stafford LPN [employer], [employer]. 05-01-2019 10:16-0400 Body mass index (BMI) [Ratio] 20.63 kg/m2 Liliana Stafford LPN [employer]. 05-01-2019 10:16-0400 Body surface area Derived from formula 1.61 m2 Liliana Stafford LPN [employer], [employer] 05-01-2019 10:16-0400 Body weight 56.25 kg Liliana Stafford LPN [employer], [employer]. 05-01-2019 10:16-0400 Diastolic blood pressure 71 mm[Hg] Liliana Stafford ORDER MANAGER [employer], [employer]. Comment on above: Patient Position: Sitting; Cuff Location : Left Arm; Cuff Size: Large 05-01-2019 10:16-0400 Heart rate 57 /min Liliana Stafford ORDER MANAGER [employer]. Comment on above: Pattern: Regular 05-01-2019 10:16-0400 Systolic blood pressure 111 mm[Hg] Liliana Stafford ORDER MANAGER [employer]. Comment on above: Patient Position: Sitting; Cuff Location : Left Arm; Cuff Size: Large 11-04-2017 09:18-0500 Body height 165.1 cm Rebecca Iqbal RN [employer] 11-04-2017 09:18-0500 Body mass index (BMI) [Percentile] Per age and sex 47 % Rebecca Iqbal RN [employer]. 11-04-2017 09:18-0500 Body mass index (BMI) [Ratio] 20.97 kg/m2 Rebecca Iqbal RN [employer]. 11-04-2017 09:18-0500 Body surface area Derived from formula 1.63 m2 Rebecca Iqbal RN [employer]. 11-04-2017 09:18-0500 Body temperature 98.8 [degF] Rebecca Iqbal RN [employer]. Comment on above: Method: Tympanic 11-04-2017 09:18-0500 Body weight 57.15 kg Rebecca Iqbal RN [employer]. 03-17-2017 09:26-0400 Body height 167 cm Liliana Stafford ORDER MANAGER [employer]. 03-17-2017 09:26-0400 Body mass index (BMI) [Percentile] Per age and sex 51 % Liliana Stafford LPN [facility] [employer] 03-17-2017 09:26-0400 Body mass index (BMI) [Ratio] 20.98 kg/m2 Liliana Stafford [facility] [employer] 03-17-2017 09:26-0400 Body surface area Derived from formula 1.66 m2 Liliana Stafford [facility] [employer] 03-17-2017 09:26-0400 Body temperature 97.6 [degF] Manjula Nydia [facility] [employer] Comment on above: Method: Tympanic 03-17-2017 09:26-0400 Body weight 58.51 kg Liliana Stafford LPN [facility] [employer] 04-28-2016 09:54-0400 Body height 165.1 cm Liliana Stafford [facility] [employer] 04-28-2016 09:54-0400 Body mass index (BMI) [Percentile] Per age and sex 51 % Liliana Stafford [facility] [employer] 04-28-2016 09:54-0400 Body mass index (BMI) [Ratio] 20.63 kg/m2 Liliana Stafford [facility] [employer] 04-28-2016 09:54-0400 Body surface area Derived from formula 1.61 m2 Liliana Stafford ORDER MANAGER [employer] [facility] [employer] 04-28-2016 09:54-0400 Body weight 56.25 kg Liliana Stafford [facility] [employer] [facility] [employer] 04-28-2016 09:54-0400 Diastolic blood pressure 78 mm[Hg] Liliana Stafford [facility] [employer] [facility] [employer] Comment on above: Patient Position: Sitting; Cuff Location : Left Arm; Cuff Size: Large 04-28-2016 09:54-0400 Heart rate 67 /min Liliana Stafford LPN [employer]. Comment on above: Pattern: Regular 04-28-2016 09:54-0400 Systolic blood pressure 117 mm[Hg] Liliana Stafford LPN [employer]. Comment on above: Patient Position: Sitting; Cuff Location : Left Arm; Cuff Size: Large 01-20-2016 14:20-0500 Body height 165.1 cm Lauren Harrison LPN Work Phone: [employer] 01-20-2016 14:20-0500 Body mass index (BMI) [Percentile] Per age and sex 49 % Lauren Hunter ORDER MANAGER Work Phone: [employer]. 01-20-2016 14:20-0500 Body mass index (BMI) [Ratio] 20.3 kg/m2 Lauren Hunter ORDER MANAGER Work Phone: [employer]. 01-20-2016 14:20-0500 Body surface area Derived from formula 1.6 m2 V[employer] ORDER MANAGER Work Phone: [employer]. 01-20-2016 14:20-0500 Body weight 55.34 kg Lauren Hunter ORDER MANAGER Work Phone: [employer]. 01-20-2016 14:20-0500 Diastolic blood pressure 75 mm[Hg] Lauren Hunter ORDER MANAGER Work Phone: [employer]. Comment on above: Patient Position: Sitting; Cuff Location : Left Arm; Cuff Size: Standard 01-20-2016 14:20-0500 Heart rate 67 /min Lauren Hunter ORDER MANAGER Work Phone: [employer]. Comment on above: Pattern: Regular 01-20-2016 14:20-0500 Systolic blood pressure 117 mm[Hg] Lauren Harrison LPN Work Phone: [employer]; [employer]. Comment on above: Patient Position: Sitting; Cuff Location : Left Arm; Cuff Size: Standard 10-05-2014 10:56-0500 Body height 162.56 cm Solitario Blank MD Work Phone: [employer]; [employer]. 10-05-2014 10:56-0500 Body mass index (BMI) [Percentile] Per age and sex 63 % Solitario Blank MD Work Phone: [employer]; [employer] 10-05-2014 10:56-0500 Body mass index (BMI) [Ratio] 20.77 kg/m2 Solitario Blank MD Work Phone: [employer]; [employer]. 10-05-2014 10:56-0500 Body surface area Derived from formula 1.58 m2 Solitario Blank MD Work Phone: [employer]; [employer]. 10-05-2014 10:56-0500 Body weight 54.89 kg Solitario Blank MD Work Phone: [employer]; [employer]. 10-05-2014 10:56-0500 Diastolic blood pressure 72 mm[Hg] Solitario Blank MD Work Phone: [employer]; [employer]. Comment on above: Patient Position: Sitting; Cuff Location : Right Arm; Cuff Size: Standard 10-05-2014 10:56-0500 Heart rate 61 /min Solitario Blank MD Work Phone: [employer]; [employer]. Comment on above: Pattern: Regular 10-05-2014 10:56-0500 Systolic blood pressure 103 mm[Hg] Solitario Blank MD Work Phone: [employer]; [employer]. Comment on above: Patient Position: Sitting; Cuff Location : Right Arm; Cuff Size: Standard 03-28-2014 10:00-0400 Body height 162.56 cm Liliana Stafford [facility] [employer], [employer]. 03-28-2014 10:00-0400 Body mass index (BMI) [Percentile] Per age and sex 59 % Liliana Stafford [facility] [employer]. 03-28-2014 10:00-0400 Body mass index (BMI) [Ratio] 20.08 kg/m2 Liliana Stafford [facility] [employer], [employer]. 03-28-2014 10:000400 Body surface area Derived from formula 1.56 m2 [facility], [employer]. 03-28-2014 10:00-0400 Body temperature 98.7 [degF] Manjula Tyro [facility] [employer]. Comment on above: Method: Tympanic 03-28-2014 10:000400 Body weight 53.07 kg Liliana Stafford [facility] [employer]. Encounters Encounter Date Encounter Type Care Provider Facility Start: 05-29-2025 ambulatory Solitario Blank Facility:[facility] Start: 05-28-2025 End: 05-28-[address] Annabelle Garduno MD -[facility] Work Phone: Start: 05-28-2025 End: 05-28-[address] Solitario Blank MD Work Phone: -[facility] Start: 05-24-2025 End: 05-24-[address] Elli Edwards DO -[facility] Work Phone: Start: 05-24-2025 End: 05-24-[address] Solitario Blank MD Work Phone: -[facility] Start: 05-16-2025 End: 05-16-[address] Elli Edwards DO -[facility] Work Phone: Start: 05-16-2025 End: 05-16-[address] Solitario Blank MD Work Phone: [facility] Start: 05-09-2025 End: 05-09-[address] Solitario Blank MD Work Phone: -Laboratory Specimen Start: 05-09-2025 End: 05-09-2025 Patient encounter procedure Margot Wrights MACHINES TECHNICIAN-C -Laboratory Specimen Work Phone: Start: 05-09-2025 End: 05-09-2025 Patient encounter procedure Margot Bradford MACHINES TECHNICIAN-C -[facility] Work Phone: Start: 05-09-2025 End: 05-09-[address] Solitario Blank MD Work Phone: [facility] Work Phone: Start: 05-09-2025 End: 05-09-2025 ambulatory Solitario Blank Facility:[facility] Start: 04-26-2025 End: 04-26-2025 Patient encounter procedure Margot Bradford MACHINES TECHNICIAN-C -[facility] Work Phone: Start: 04-26-2025 End: 04-26-[address] Solitario Blank MD Work Phone: [facility] Work Phone: Start: 04-23-2025 ambulatory Brianna Velasquez Facilit y:[facility] Start: 04-23-2025 Non-patient / Non-visit Brianna Velasquez CNM -[facility] Start: 04-23-2025 End: 04-23-2025 Patient encounter procedure Brianna Velasquez CNM -[facility] Work Phone: Start: 04-23-2025 End: 04-23-[address] Solitario Blank MD Work Phone: [facility] Work Phone: Start: 04-10-2025 End: 04-10-2025 Patient encounter procedure Radha Naylor CN -[facility] Work Phone: Start: 04-10-2025 End: 04-10-[address] Solitario Blank MD Work Phone: [facility] Work Phone: Start: 03-26-2025 End: 03-26-2025 Patient encounter procedure Margot CHAVARRIA -[facility] Work Phone: Start: 03-26-2025 End: 03-26-2025 ambulatory [facility] Start: 02-27-2025 End: 02-27-[address] Elli Edwards DO -[facility] Work Phone: Start: 02-27-2025 End: 02-27-[address] Solitario Blank MD Work Phone: [facility] Work Phone: Start: 02-27-2025 End: 02-27-2025 ambulatory [facility] Start: 01-26-2025 End: 01-26-2025 Patient encounter procedure Brianna Velasquez [facility] -[facility] Work Phone: Start: 01-26-2025 End: 01-26-2025 ambulatory [facility] Start: 01-25-2025 End: 01-25-2025 ambulatory RYLAN BEDOYA [facility] Start: 01-09-2025 End: 01-09-2025 ambulatory ANNABELLE GARDUNO [facility] Start: 01-03-2025 End: 01-03-2025 Patient encounter procedure Margot CHAVARRIA -[facility] Work Phone: Start: 01-03-2025 End: 01-03-2025 ambulatory [facility] Start: 11-28-2024 End: 11-28-[address] Annabelle Garduno MD -[facility] Work Phone: Start: 11-28-2024 End: 11-28-2024 ambulatory Solitario Eliot Facility:[facility] Start: 11-28-2024 End: 11-28-2024 ambulatory Solitario [facility] Facility:[facility] Start: 10-27-2024 End: 10-27-2024 ambulatory Solitario [facility] Start: 10-27-2024 End: 10-27-2024 ambulatory [facility] Start: 10-20-2024 ambulatory Solitario Blank [facility] Start: 09-15-2024 ambulatory Solitario [facility] Start: 07-30-2023 Non-patient / Non-visit Dr. Solitario Blank Work Phone: [facility] Start: 07-29-2023 Non-patient / Non-visit Dr. Solitario Blank Work Phone: [facility] Start: 07-28-2023 Non-patient / Non-visit Dr. Solitario Blank Work Phone: [facility] Start: 07-28-2023 End: 07-30-2023 Evaluation and management of inpatient Dr. Solitario Blank Work Phone: [facility] Work Phone: Start: 07-27-2023 End: 07-27-[address] Solitario Blank Work Phone: [facility] Work Phone: Start: 07-23-2023 End: 07-23-[address] Solitario Blank Work Phone: [facility] Work Phone: Start: 07-16-2023 End: 07-16-[address] Solitario Blank Work Phone: [facility] Work Phone: Start: 07-09-2023 End: 07-09-[address] Solitario Blank Work Phone: [facility] Work Phone: Start: 07-02-2023 End: 07-02-[address] Solitario Blank Work Phone: [facility] Work Phone: Start: 07-02-2023 Non-patient / Non-visit Dr. Solitario Blank Work Phone: [facility] Start: 06-30-2023 End: 06-30-[address] Solitario Blank Work Phone: [facility] Work Phone: Start: 06-30-2023 End: 06-30-[address] Solitario Blank Work Phone: [facility] Work Phone: Start: 06-25-2023 End: 06-25-[address] Solitario Blank Work Phone: [facility] Work Phone: Start: 06-25-2023 End: 06-25-[address] Solitario Blank Work Phone: [facility] Work Phone: Start: 06-25-2023 End: 06-25-[address] Solitario Blank Work Phone: [facility] Work Phone: Start: 06-10-2023 End: 06-10-[address] Solitario Blank Work Phone: [facility] Work Phone: Start: 06-10-2023 End: 06-10-[address] Solitario Blank Work Phone: [facility] Work Phone: Start: 06-07-2023 End: 06-07-[address] Solitario Blank Work Phone: [facility] Work Phone: Start: 05-28-2023 End: 05-28-[address] Solitario Blank Work Phone: [facility] Work Phone: Start: 05-14-2023 End: 05-14-[address] Solitario Blank Work Phone: [facility] Work Phone: Start: 04-30-2023 End: 04-30-[address] Solitario Blank Work Phone: [facility] Start: 04-29-2023 End: 04-29-[address] Solitario Blank Work Phone: [facility] Work Phone: Start: 04-29-2023 End: 04-29-[address] Solitario Blank Work Phone: [facility] Start: 04-14-2023 End: 04-14-[address] Solitario Blank Work Phone: [facility] Start: 03-17-2023 End: 03-17-[address] Solitario Blank Work Phone: [facility] Start: 03-10-2023 Non-patient / Non-visit Dr. Solitario Blank Work Phone: [facility] Start: 03-09-2023 End: 03-09-[address] Solitario Blank Work Phone: [facility] Work Phone: Start: 03-09-2023 End: 03-09-[address] Solitario Blank Work Phone: [facility] Start: 02-15-2023 End: 02-15-[address] Solitario Blank Work Phone: [facility] Start: 01-19-2023 End: 01-19-[address] Solitario Blank Work Phone: [facility] Start: 12-24-2022 End: 12-24-[address] Solitario Blank Work Phone: [facility] Work Phone: Start: 12-24-2022 End: 12-24-[address] Solitario Blank Work Phone: [facility] Start: 02-28-2021 End: 02-28-2021 Orders Solitario Blank MD Work Phone: [employer] Start: 01-31-2021 End: 01-31-2021 Patient encounter status Brittny Hunter LPN [employer] Start: 01-31-2021 End: 01-31-2021 Periodic preventive med est patient 18-39 yrs Solitario Blank MD Work Phone: [employer] Start: 06-28-2020 End: 06-28-2020 Patient encounter procedure Solitario Blank MD Work Phone: [employer]. Start: 07-14-2019 End: 07-14-2019 Patient encounter status Solitario Blank MD Work Phone: [employer] Start: 07-14-2019 End: 07-14-2019 Periodic preventive med est patient 18-39 yrs Solitario Blank MD Work Phone: [employer] Start: 05-12-2019 End: 05-12-2019 Office outpatient visit 15 minutes Solitario Blank MD Work Phone: [facility] Start: 05-01-2019 End: 05-01-2019 Office outpatient visit 15 minutes Solitario Blank MD Work Phone: [facility] Start: 09-13-2018 End: 09-13-2018 Telephone follow-up Solitario Blank MD Work Phone: [facility] Start: 09-09-2018 End: 09-09-2018 Emergency department patient visit SHAQ Beard CHANTEL [facility] Start: 11-04-2017 End: 11-04-2017 Office outpatient visit 15 minutes Solitario Blank MD Work Phone: [employer] Start: 03-17-2017 End: 03-17-2017 Office outpatient visit 15 minutes Solitario Blank MD Work Phone: [facility] Start: 04-28-2016 End: 04-28-2016 Office outpatient visit 15 minutes Solitario Blank MD Work Phone: [employer] Start: 04-28-2016 End: 04-28-2016 Patient encounter status Solitario Blank MD Work Phone: [employer] Start: 01-20-2016 End: 01-20-2016 Patient encounter procedure Solitario Blank MD Work Phone: [employer] Start: 10-05-2014 End: 10-05-2014 Office outpatient visit 15 minutes Solitario Blank MD Work Phone: [facility] Start: 03-28-2014 End: 03-28-2014 Patient encounter procedure Solitario Blank MD Work Phone: [facility] Follow-up encounter Elidia anand PA-C Work Phone: [employer] Procedures Date Procedure Procedure Detail Performing Clinician Start: 05-09-2025 Beta-hemolytic Streptococcus culture Dr. Solitario Blakn MD Work Phone: Start: 02-27-2025 Serologic test for syphilis Dr. Solitario Blank MD Work Phone: Start: 06-25-2023 Group B Streptococcu s Culture Dr. Solitario Blank Work Phone: Start: 06-10-[address] Solitario Blank Work Phone: Start: 01-31-2021 End: 01-31-2021 No Known Past Surgical History Brittny Hunter ORDER MANAGER Start: 07-14-2019 End: 07-14-2019 Depression screening Solitario [...] Activity Detail Author Start: 04-23-2025 Patient discharge [facility] Start: 07-30-2023 Patient discharge [facility] Start: 07-28-2023 Administration of medication [facility] Start: 07-28-2023 Application of ice collar, cap or bag [facility] Start: 07-28-2023 Catheterization of vein [facility] Start: 07-28-2023 Introduction of urinary catheter [facility] Start: 07-28-2023 Measuring intake and output [facility] Start: 07-28-2023 Notification of physician [facility] Start: 07-28-2023 Procedure discontinued [facility] Start: 07-28-2023 Provision of activity privileges [facility] Start: 07-28-2023 Vital signs measurements [facility] Start: 07-28-2023 [facility] Start: 07-28-2023 [facility] Start: 07-28-2023 Notification of physician [facility] Start: 07-28-2023 [facility] Start: 07-28-2023 Admission procedure [facility] Start: 07-28-2023 Insertion of catheter into peripheral vein [facility] Start: 07-28-2023 Anesthesia consultation [facility] Start: 07-28-2023 acoustic stimulation test [facility] Start: 07-28-2023 Intrauterine catheterization [facility] Start: 07-28-2023 Introduction of urinary catheter [facility] Start: 07-28-2023 Notification of physician [facility] Start: 07-28-2023 Obstetric monitoring [facility] Start: 07-28-2023 Provision of activity privileges [facility] Start: 07-28-2023 Vital signs measurements [facility] Start: 07-28-2023 End: 07-28-2023 [facility] Start: 06-30-2023 Nonstress test [facility] Start: 06-30-2023 Obstetric monitoring [facility] Start: 06-30-2023 Vital signs measurements [facility] Start: 06-30-2023 [facility] Start: 06-30-2023 Patient discharge [facility] Start: 03-09-2023 Nonstress test [facility] Start: 03-09-2023 Obstetric monitoring [facility] Start: 03-09-2023 Vital signs measurements [facility] Start: 03-09-2023 [facility] Start: 11-04-2017 Provider Instructions for Treatment Saline gargles Indication: Aphthous ulcer Start: 04-Nov-2017 Instruction Type: Provider Instructions for Treatment [facility] Patient Education Kick Counts ED False Labor OB Triage: Return to Hospital or Notify Physician if you Experience: [facility] Work Phone: Patient referral [facility] Work Phone: Streptococcus agalac tiae [Presence] in Unspecified specimen by Organism specific culture [facility] Immunizations Immunization Date Immunization Notes Care Provider Rogelio barrett 07-14-2019 varicella virus vaccine Nick Blank MD Work Phone: [facility]; [employer] Comment on above: Site: Right ArmVIS G iven: * Varicella (Chickenpox) (12/27/17) 04-28-2016 tetanus toxoid, redu jak diphtheria toxoid, and acellular pertussis vaccine, adsorbed Solitario Blank MD Work Phone: [facility]; [employer]. Comment on above: Site: Deltoid (Left) VIS Given: * Tdap (Tetanus, Diphtheria, Pertussis) (01/08/15) 04-28-2016 varicella virus vaccine Nick Blank MD Work Phone: [facility] [employer]; [employer] Comment on above: Site: Deltoid Area ( Right)VIS Given: * Varicella (Chickenpox) (01/26/08) 10-23-2011 hepatitis A vaccine, pediatric/adolescent dosage, 2 dose schedule Solitario Blank MD Work Phone: [facility]; [employer] 09-04-2005 influenza, seasonal, injectable Solitario Blank MD Work Phone: [facility]; [employer]. 08-19-2005 diphtheria, tetanus toxoids and acellular pertussis vaccine Solitario Blank MD Work Phone: [facility]; [employer] 08-19-2005 hepatitis B vaccine, pediatric or pediatric/adolescent dosage Solitario Blank MD Work Phone: [facility]; [employer] 08-19-2005 measles, mumps and rubella virus vaccine Solitario Blank MD Work Phone: [facility]; [employer] 08-19-2005 poliovirus vaccine, inactivated Solitario Blank MD Work Phone: [employer] 08-29-2001 diphtheria, tetanus toxoids and acellular pertussis vaccine Solitario Blank MD Work Phone: [employer]; [facility] 08-29-2001 poliovirus vaccine, inactivated Solitario Blank MD Work Phone: [facility] 02-17-2001 haemophilus influenz ae type b vaccine, PRP-T conjugate Solitario Blank MD Work Phone: [facility] 02-17-2001 measles, mumps and rubella virus vaccine Solitario Blank MD Work Phone: [facility] 2000 haemophilus influenz ae type b vaccine, PRP-T conjugate Solitario Blank MD Work Phone: [facility] 2000 diphtheria, tetanus toxoids and acellular pertussis vaccine Solitario Blank MD Work Phone: [facility] 2000 diphtheria, tetanus toxoids and acellular pertussis vaccine Solitario Blank MD Work Phone: [facility] 2000 haemophilus influenz ae type b vaccine, PRP-T conjugate Solitario Blank MD Work Phone: [facility] [employer] [facility] 2000 poliovirus vaccine, inactivated Solitario Blank MD Work Phone: [facility] 2000 diphtheria, tetanus toxoids and acellular pertussis vaccine Solitario Blank MD Work Phone: [facility] 2000 haemophilus influenz ae type b vaccine, PRP-T conjugate Solitario Blank MD Work Phone: [facility] [employer] [facility] 2000 poliovirus vaccine, inactivated Solitario Blank MD Work Phone: [facility] [employer] [facility] Payers Date Payer Category Payer Self-pay 2023 Unknown [id number] 2000 Unknown [id number] 2.16.84 [id number] 2000 Unknown [id number] 2.16. [id number] 2000 Unknown [id number] 2.16. [id number] Unknown [id number] Unknown [id number] Unknown [employer] Unknown [id number] 2.16.8 [id number] Unknown [id number] 2.16.8 40.1.901729.3.579.2.462 Unknown [id number] 2.16.8 40.1.196207.3.579.2.462 Unknown [id number] 2.16.8 40.1.670442.3.579.2.462 Unknown [id number] 2.16.8 40.1.881159.3.579.2.462 Unknown [id number] 2.16.8 40.1.880911.3.579.2.462 Unknown [id number] 2.16.8 40.1.128647.3.579.2.462 Unknown [id number] 2.16.8 40.1.017541.3.579.2.462 Unknown [id number] 2.16.8 40.1.844568.3.579.2.462 Unknown [id number] 2.16.8 40.1.047922.3.579.2.462 Unknown [id number] 2.16.8 40.1.446538.3.579.2.462 Unknown [id number] 2.16.8 40.1.956069.3.579.2.462 Unknown [id number] 2.16.8 40.1.767896.3.579.2.462 Unknown [id number] 2.16.8 40.1.766592.3.579.2.462 Unknown [id number] 2.16.8 40.1.003458.3.579.2.462 Unknown [id number] 2.16.8 40.1.360177.3.579.2.462 Unknown [id number] 2.16.8 40.1.047998.3.579.2.462 Unknown [id number] 2.16.8 40.1.470552.3.579.2.462 Unknown [id number] 2.16.8 40.1.051291.3.579.2.462 Unknown [id number] 2.16.8 40.1.442836.3.579.2.462 Unknown [id number] 2.16.8 40.1.777710.3.579.2.462 Social History Date Type Detail Facility Start: 12-24-2022 End: 07-28-2023 Tobacco smoking status VTIS Unknown if ever smoked [facility] Start: 2000 Sex Assigned At Female W [facility] Caffeine Use Caffeine Use [facility] [employer], [facility] Tobacco Use: Tobacco Use: ; N ever smoker. [facility], [facility] Start: 10-20-2024 End: 04-10-2025 Never smoked tobacco [facility] Start: 03-03-2025 Sex Female (finding) [facility] Goals Date Patient Goal Desired Activity /State Functional Status Date Assessment Result Facility 07-29-2023 Functional status Activity Ability Indepe ndent [facility] Work Phone: Mental Status Date Assessment Result Facility 07-29-2023 Cognitive function Appropriate;Aparna beard [facility] Work Phone: Clinical Notes 12-24-2022 to 05-28-2025 Note Date & Type Note Facility 05-28-2025 Progress note [facility] 05-28-2025 Progress note Note Date/Time May 28, 2025 2:50pm [facility] [address] [place] [address], [address] [place] [address] OFFICE VISIT Date of Service: 05/28/25 MR#: [id number] Acct: [id number] Name: FAREED LORENZO Rep #: [id number] : 2000 Provider: Dr. 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 Edwards Shaquille Delivery Date: 07/28/23 Last [...] POC Urinalysis 2 Dip (Clinic) Today 05/28/25 [id number] <Electronically signed by Annabelle lovett MD> Date _ Annabelle Garduno MD Cosigner Signature: Date (if applicable) CC: ~ [facility] Work Phone: 1(424) 965-941707-10-2025 Progress [facility] [address], [address] [place] [address] OFFICE VISIT Date of Service: 05/24/25 MR#: [id number] Acct: [id number] Name: FAREED LORENZO Rep #: [id number] : 2000 Provider: Dr. Bella Edwards DO Age/Sex: 25/F Location: [facility] Status: Signed Intake Vital Signs 04/10/25 10:46 04/10/25 11:02 05/16/25 15:21 05/24/25 14:11 Height 5 ft 5 in 5 ft 5 in 5 ft 5 in 5 ft 5 in Weight: 200 lb BMI 33.3 BP 113/76 Intake Visit Reasons: 38 wk ob Aircraft Cleaner Required: No Is patient in pain?: No [...] cat(s) history of recent travel: Yes ( [place] - August 2024) out of state: Yes [...] walking frequency: daily duration: < 15 minutes/day allen/jain: Worship seatbelt use: always do you feel safe [...] term vacuum 9lbs 5oz Male ep idural [facility] Dr. Isabel Delivery Date: 07/28/23 Last Updated [...] Cosigner Signature: Date (if applicable) CC: ~ [facility] [id number] Progress note Author Elli Saenz [facility] Note Date/Time May 24, 2025 2:29 pm [facility] [address], [address] [place] [address] OFFICE VISIT Date of Service: 05/24/25 MR#: [id number] Acct: [id number] Name: FAREED LORENZO Rep #: [id number] : 2000 Provider: Dr. 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 Date Name GA/Weeks Outcome Route Bth Weight Gen Labor Lgth Anesthesia Del Locatn Provider FOB 07/28/23 Chris 40 live - full term vacuum 9lbs 5oz Male ep idural [facility] Dr. Isabel Delivery Date: 07/28/23 Last Updated [...] and Symptoms of Preeclampsia, Feeding No and [place] Education; Discussed Circumcision preference Coding Level of [...] Law DO> Date _ Elli [facility] Signature: Date (if applicable) CC: ~ [facility] Work Phone: 1(765) 594-305907-02-2025 Progress [facility] [address], [place] [address] OFFICE VISIT Date of Service: 05/16/25 MR#: [id number] Acct: [id number] Name: FAREED LORENZO Rep #: [id number] : 2000 Provider: Dr. 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 Isabel Delivery Date: 07/28/23 Last Updated [...] Cosigner Signature: Date (if applicable) CC: ~ [facility] [id number] Progress note Author Elli Saenz [facility] Note Date/Time May 16, 2025 3:40p [facility] [address] [place] [address], [address] [place] [address] OFFICE VISIT Date of Service: 05/16/25 MR#: [id number] Acct: [id number] Name: FAREED LORENZO Rep #: [id number] : 2000 Provider: Dr. 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 Date Name GA/Weeks Outcome Route Bth Weight Gen Labor Lgth Anesthesia Del Locatn Provider FOB 07/28/23 Chris 40 live - full term vacuum 9lbs 5oz Male ep idural [facility] Dr. Isabel Delivery Date: 07/28/23 Last Updated [...] signed by Elli Law DO> Date _ lEli Edwards DO Cosigner Signature: Date (if applicable) CC: ~ [facility] Work Phone: 1(893) 683-532806-09-2025 History and physical note [facility] Medical Records Department [address] [place] [address] OB Triage Physician Note 04/23/250 MR#: [id number] Acct: [id number] Name: FAREED LORENZO Rep #:[id number] : 2000 From: Brianna Velasquez CNM PCP: Dr. 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 Edwards Shaquille Delivery Date: 07/28/23 Last [...] variability reactive no decelerations category I tracing [place]: no Contractions Assessment and plan: Reactive NST, reassuring maternal and status patient discharged to home to follow-up in office at next appt. See problem list details for additional plan information. Charges/Coding Procedures Urinary/Genital 52xxx-59xxx: 25881-75 non-stress test Interp 04/23/25 2242 ns CNM> Date _ Brianna Velasquez CNM Cosigner Signature (if applicable): Date CC: LAYLA Velasquez; Dr. Solitario Blank MD ~ Signed [facility]05-27-2025 Progress [facility] [address], [address] [place] [address] OFFICE VISIT Date of Service: 04/10/25 MR#: [id number] Acct: [id number] Name: FAREED LORENZO Rep #: [id number] : 2000 Provider: LAYLA Naylor Age/Sex: 25/F Location: [facility] Status: Signed Intake Vital Signs 10/27/24 13:05 03/26/25 13:39 04/10/25 10:46 Height 5 ft 5 in 5 ft 5 in 5 ft 5 in Weight: 191 lb 4 oz BMI 31.8 BP 119/74 Intake Visit Reasons: 32 WK OB Chief Complaint: 32wk OB Aircraft Cleaner Required: No Is patient in pain?: No [...] occupational status: employed 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 Isabel Delivery Date: 07/28/23 Last Updated [...] Cosigner Signature: Date (if applicable) CC: ~ [facility]04-15-2025 Evaluation note* Diagnosis Onset Date Resolution Status [...] of normal acute May 28, 2025 2:04pm [facility] Work Phone: 1(705) 165-229003-14-2025 Evaluation note* Diagnosis Onset Date Resolution Status [...] normal acut e May 09, 2025 9:33am [facility] Work Phone: 1(608) 605-747003-14-2025 Evaluation note* Diagnosis Onset Date Resolution Status [...] normal acut e May 16, 2025 3:16pm [facility] Work Phone: 1(519) 112-716303-14-2025 Evaluation note* Diagnosis Onset Date Resolution Status [...] normal acut e May 24, 2025 2:09pm [facility] Work Phone: [phone]) 342-652402-19-2025 Evaluation note* Diagnosis Onset Date Resolution Status [...] normal acute April 10, 2025 1 0:38am [facility] Work Phone: 1(740) 474-662102-19-2025 Evaluation note* Diagnosis Onset Date Resolution Status [...] 0:38am Status post fall acute April 8:15pm [facility] Work Phone: 1(151) [phone] Evaluation note* Diagnosis Onset Date Resolution Status [...] of normal acute April 26, 2025 9:53am [facility] Work Phone: 1([phone]) 203-778701-14-2025 Evaluation note* Diagnosis Onset Date Resolution Status [...] of normal acute February 27, 2025 8:40am [facility] Work Phone: 1(855) 975-981409-15-2023 Progress note Author Annabelle Garduno [facility] July 30, 2023 8:15am Note Date/Time July 30, 2023 8:15am [facility] Medical Records Department [facility] [place] [address] [address] Progress Note - OBGYN 09/813 MR#: [id number] Acct: [id number] Name: FAREED YOUNG Rep #:[id number] : 2000 From: Annabelle montague MD PCP: Dr. Solitario Blank MD Status:ADM IN Location: FF142-8 Subjective Subjective Patient doing well without complaints. [...] Cosigner Signature (if applicable): CC: ~ Signed [facility] Work Phone: 1(137) 198-166209-14-2023 Progress note Author Margot Bradford [facility] July 29, 2023 7:59am Note Date/Time July 29, 2023 7:59am [facility] Medical Records Department [address] [place] [address] Progress Note - OBGYN 07/29/23 0757 MR#: [id number] Acct: [id number] Name: FAREED YOUNG Rep #:[id number] : 2000 From: Margot Bradford NP MACHINES TECHNICIAN-C PCP: Dr. Solitario Blank MD Status:ADM IN [facility] Subjective Subjective Patient doing well without complaints. [...] (Auto) 73.8 H, Lymph % (Auto) 16.5 L,[place] % (Auto) 8.0, Eos % (Auto) 0.6, [...] 0759 <Electronically signed by Margot Bradford NP MACHINES TECHNICIAN-C> Cosigner Signature (if applicable): CC: ~ Signed [facility] Work Phone: 1(127) 837-381509-14-2023 Discharge summary Author Elli Saenz [facility] July 28, 2023 10:58pm Note Date/Time July 28, 2023 10:59pm [facility] Medical Records Department [address] [place] [address] Instructions for Home/Discharge Instructions 07/28/23 2258 MR#: [id number] Acct: [id number] Name: FAREED YOUNG Rep #:[id number] : [...] Up With: Elli Edwards DO When: Call [phone] to make an appointment with your doctor [...] Order can be placed): Home, Self Care 07/28/231<Electronically signed by Elli Edwards DO>Elli Edwards DO CC: Dr. Solitario Blank MD ~ Signed [facility] Work Phone: [phone]) 621-441409-13-2023 Procedure [facility] 07-28-2023 Progress [facility] Author [facility] July 28, 2023 12:21pm Note Date/Time July 28, 2023 12:22pm [facility] Medical Records Department [address] [place] [address] Progress Note 07/28/23 1219 MR#: [id number] Acct: [id number] Name: FAREED YOUNG Rep #:[id number] : 2000 23 From: Elli Edwards DO PCP: Dr. Solitario Blank MD Status:ADM IN Location: LW603-8 Progress Note pt is breathing through contractions. 30cc was let out of the balloon earlier due to pain and then the balloon spontaneously expelled recently. The bleeding that was seen after insertion has subsided. She consents to AROM. current tracing: FHT: 120, Moderate variability reactive no decelerations category I tracing [place]: q 2 min Contractions cx is 5/80/-1, [...] Cosigner Signature (if applicable): CC: ~ Signed [facility] Work Phone: 1([phone]) 384-607809-13-2023 History and physical note Author Elli Saenz [facility] July 28, 2023 8:27am Note Date/Time July 28, 2023 8:27am [facility] Medical Records Department [address] [place] [address] H&P Exam - ICE CUTTER 07/28/23 0824 MR#: [id number] Acct: [id number] Name: FAREED YOUNG Rep #:[id number] : 2000 23 From: Elli Edwards DO PCP: Dr. 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 pets and animals: Yes (not managing litterbox) pets and animals: cat(s) history of recent travel: Yes ([place]) out of state: Yes out of country: [...] 1-2 times per week duration: 60-90 minutes/day allen/jain: Worship seatbelt use: always do you feel safe [...] tender external exam normal Narrative: a 23 mauritian cerna catheter was inserted into the cervix [...] Supervision of high risk , antepartum: COMMENT: [id number], NORMA 07/22/23 boy Shaquille (4) : QUALIFIERS: Weeks of gestation: 40 [...] any complications: none I have reviewed the [facility] and made any clinically relevant updates. 07/28/23826 <Electronically signed by Elli Edwards DO> Cosigner Signature (if applicable): CC: Dr. Elli Edwards DO; Dr. Solitario Blank MD~ Signed [facility] Work Phone: 1(504) 613-800702-09-2023 NotePap Smear Specimen AdequacyFebruary 2022 5:09pmComment.Satisfactory for evaluation. Endocervical and/or squamous metaplasticcells (endocervical component)are present.[facility] INTERFACED A#[id number] Shelby HospitalComment on above:Satisfactory for evaluation. Endocervical and/or squamous metaplasticcells (endocervical component)are present.12-24-2022 NotePap Smear Specimen AdequacyFebruary 2022 6:09pmComment.Satisfactory for evaluation. Endocervical and/or squamous metaplasticcells (endocervical component)are present.[facility] INTERFACED A#[id number] Shelby HospitalComment on above:Satisfactory for evaluation. Endocervical and/or squamous metaplasticcells (endocervical component)are present.Evaluation note* Diagnosis Onset Date Resolution Status Family history of autism acu te Family history of recurrent miscarriage acute acute Supervision of high risk , antepartum acute [facility] Work Phone: evaluation note* Diagnosis Onset [...] Supervision of high risk , antepartum acute [facility] Work Phone: Evaluation note* Diagnosis Onset [...] Supervision of high risk , antepartum acute [facility] Work Phone: evaluation note* Diagnosis Onset [...] risk , antepartum acute UTI in acute [facility] Work Phone: Evaluation note* Diagnosis Onset [...] risk , antepartum acute UTI in acute [facility] Work Phone: Evaluation note* Diagnosis Onset [...] risk , antepartum resolved UTI in resolved [facility] Work Phone: History and physical note Author Brianna [facility] Note Date/Time April 23, 2025 10:42 pm [facility] Medical Records Department [address] [place] [address] OB Triage Physician Note 04/23/250 MR#: [id number] Acct: [id number] Name: FAREED LORENZO Rep #:[id number] : 2000 25 From: Brianna Velasquez CNM PCP: Dr. 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 Date Name GA/Weeks Outcome Route Bth Weight Gen Labor Lgth Anesthesia Del Locatn Provider FOB 07/28/23 Chris 40 live - full term vacuum 9lbs 5oz Male ep idural [facility] Dr. Isabel Delivery Date: 07/28/23 Last Updated by: Cesilia Hernadnez GBS + Visit Details Expected Delivery Route/Plan [...] variability reactive no decelerations category I tracing [place]: no Contractions Assessment and plan: Reactive NST, reassuring maternal and status patient discharged to home to follow-up in office at next appt. See problem list details for additional plan information. Charges/Coding Procedures Urinary/Genital 52xxx-59xxx: 07003-65 non-stress test Interp 04/23/25 8342 <Electronically signed by Brianna benito CNM> Date _ Brianna Barajasigner Signature (if applicable): Date CC: LAYLA Velasquez; Dr. Solitario Blank MD ~ Signed [facility] Work Phone: Progress note Author Radha Naylor [facility] Note Date/Time April 10, 2025 11:00 am [facility] [address] [place] [address], [address] [place] [address] OFFICE VISIT Date of Service: 04/10/25 MR#: [id number] Acct: [id number] Name: FAREED LORENZO Rep #: [id number] : 2000 Provider: LAYLA Naylor Age/Sex: 25/F Location: [facility] Status: Signed Intake Vital Signs 10/27/24 13:05 03/26/25 13:39 04/10/25 10:46 Height 5 ft 5 in 5 ft 5 in 5 ft 5 in Weight: 191 lb 4 oz BMI 31.8 BP 119/74 Intake Visit Reasons: 32 WK OB Chief Complaint: 32wk OB Aircraft Cleaner Required: No Is patient in pain?: No [...] animals: cat(s) history of recent travel: Yes ([place] - August 2024) out of state: Yes [...] walking frequency: daily duration: < 15 minutes/day allen/jain: Worship seatbelt use: always do you feel safe at home: Yes 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 Date Name GA/Weeks Outcome Route Bth Weight Gen Labor Lgth Anesthesia Del Locatn Provider FOB 07/28/23 Chris 40 live - full term vacuum 9lbs 5oz Male ep idural [facility] Dr. Edwards Shaquille Delivery Date: 07/28/23 Last [...] Cosigner Signature: Date (if applicable) CC: ~ [facility] Work Phone: Reason for referral (narrative)No reason for referral information availableWTuscarawas Hospital Work Phone: Summary Purpose Family History No [...] No July 28, 2023 7:45am Power of Studio Engineer No July 7:45am Chief Complaint and Reason [...] section and content) DATE CREATED AUTHOR 10/22/2018 [facility] DATE CREATED AUTHOR AUTHOR'S ORGANIZ ATION 05/04/2019 [facility] DATE CREATED AUTHOR AUTHOR'S ORGANIZ ATION 01/27/2025 [facility] DATE CREATED AUTHOR AUTHOR'S ORGANIZ ATION 05/28/2025 [facility] Care Teams (unrecognized sec tion and content) [...] Primary Care Provider, Referring Provider Active Margot Bradford MACHINES TECHNICIAN, MACHINES TECHNICIAN-C Attending Provider Active Team Status: Inactive Member Role Status Dates Dr. Solitario Blank MD Primary Care Provider Active Margot Bradford MACHINES TECHNICIAN, MACHINES TECHNICIAN-C Attending Provider, Referring Provider Active Team Status: [...] Referring Provider, Other Provider Active Margot Bradford MACHINES TECHNICIAN, MACHINES TECHNICIAN-C Attending Provider Active Team Status: Active Member [...] 2025 End: January 03, 2025 Margot Bradford MACHINES TECHNICIAN, MACHINES TECHNICIAN-C Attending Provider Active Start: January 03, 2025 [...] 2025 End: March 26, 2025 Margot Bradford MACHINES TECHNICIAN, MACHINES TECHNICIAN-C Attending Provider Active Start: March 26, 2025 [...] Attending Provider Active Start: April 23, 2025 rBianna Velasquez CNM Other Provider Active Star t: April 23, 2025 Team Status: Inactive Member Role Status Dates Dr. Solitario Blank MD Primary Care Provider Active Start: April 26, 2025 End: April 26, 2025 Dr. Solitario Blank MD Referring Provider Active S tart: April 26, 2025 End: April 26, 2025 Margot Bradford MACHINES TECHNICIAN, MACHINES TECHNICIAN-C Attending Provider Active Start: April 26, 2025 End: April 26, 2025 Team Status: Inactive Member Role Status Dates Dr. Solitario Blank MD Primary Care Provider Active Start: May 09, 2025 End: May 09, 2025 Dr. Solitario Blank MD Referring Provider Active S tart: May 09, 2025 End: May 09, 2025 Margot Bradford MACHINES TECHNICIAN, MACHINES TECHNICIAN-C Attending Provider Active Start: May 09, 2025 [...] 2025 End: March 26, 2025 Margot Bradford MACHINES TECHNICIAN, MACHINES TECHNICIAN-C Attending Provider Active Start: March 26, 2025 [...] 2025 End: April 26, 2025 Margot Sanchez MACHINES TECHNICIAN, MACHINES TECHNICIAN-C Attending Provider Active Start: April 26, 2025 End: April 26, 2025 Team Status: Inactive Member Role/Relationship Status Dates Dr. Solitario Blank MD Primary Care Provider Active Start: May 09, 2025 End: May 09, 2025 Dr. Solitario Blank MD Referring Provider Active S tart: May 09, 2025 End: May 09, 2025 Margot Bradford MACHINES TECHNICIAN, MACHINES TECHNICIAN-C Attending Provider Active Start: May 09, 2025 End: May 09, 2025 Team Status: Inactive Member Role/Relationship Status Dates Dr. Solitario Blank MD Primary Care Provider Active Start: May 09, 2025 End: May 09, 2025 Margot Bradford MACHINES TECHNICIAN, MACHINES TECHNICIAN-C Attending Provider Active Start: May 09, 2025 [...] 2025 End: March 26, 2025 Margot Bradford MACHINES TECHNICIAN, MACHINES TECHNICIAN-C Attending Provider Active Start: March 26, 2025 [...] 2025 End: April 26, 2025 Margot Bradford MACHINES TECHNICIAN, MACHINES TECHNICIAN-C Attending Provider Active Start: April 26, 2025 End: April 26, 2025 Team Status: Inactive Member Role/Relationship Status Dates Dr. Solitario Blank MD Primary Care Provider Active Start: May 09, 2025 End: May 09, 2025 Dr. Solitario Blank MD Referring Provider Active S tart: May 09, 2025 End: May 09, 2025 Margot Bradford MACHINES TECHNICIAN, MACHINES TECHNICIAN-C Attending Provider Active Start: May 09, 2025 End: May 09, 2025 Team Status: Inactive Member Role/Relationship Status Dates Dr. Solitario Blank MD Primary Care Provider Active Start: May 09, 2025 End: May 09, 2025 Margot Bradford MACHINES TECHNICIAN, MACHINES TECHNICIAN-C Attending Provider Active Start: May 09, 2025 [...] BE BASED ON THE PRIMARY CLINICAL RECORDS. [facility]. provides no warranty or guarantee of the accuracy or completeness of information in this document.
== END | disposition home or self-care (01) ==
PROVIDERS: PCP Family Medicine; Referring Provider Obstetrics & Gynecology; Visit Provider Obstetrics & Gynecology
DX: O26.849 Uterine size-date discrepancy, unspecified trimester (principal); Z3A.00 Weeks of gestation of pregnancy not specified
CPT/HCPCS: 76816

== ENCOUNTER 2025-05-30 19:47 | Inpatient (IN) | payer BC, SELFPAY ==
[2025-05-30 18:38] VITALS: BMI 32.9
[2025-05-30 18:51] VITALS: BP 119/69; PULSE 93; RESP 16; TEMP 37.1
[2025-05-30 20:29] VITALS: BP 119/64; PULSE 82; RESP 16; TEMP 36.7
[2025-05-30 20:39] LABS: Hematocrit 36.0 % (37-47); Hemoglobin 11.9 g/dL (12.0-15.0); Immature Granulocytes Count 0.070 X10^3/uL (0.0-0.0); Mean Corp Hgb Conc 33.1 g/dL (32-36); Mean Corpuscular Volume 79.6 fL (81-99); Mean Platelet Vol. 10.1 fl (6.2-12.0); NRBC Flagged by Analyzer 0 % (0-5); Platelet Count 277 K/mm3 (150-450); RBC Distribution Width CV 13.2 % (11.6-14.6); RBC Distribution Width SD 37.8 fl (35.1-43.9); Red Blood Count 4.52 M/mm3 (4.2-5.4); White Blood Count 10.8 K/mm3 (4.4-11.0)
[2025-05-30 21:11] LABS: Syphilis Antibodies Nonreactive (Nonreactive)
--- OUTSIDE RECORDS SUMMARY | 2025-05-30 23:29 | XMS RPT_ITS | CCD ---
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 Lymphocytes/100 WBC Auto (Un sp spec)Ordered By: Brianna Velasquez on 02-27-2025 Lymphocytes/100 WBC (Bld) 14.8 % Low 19-41 [facility] MCV (mean corpuscular volume ) determinationOrdered By: Brianna Velasquez on 02-27-2025 MCV (RBC) [Entitic vol] 86.6 fL 81-99 [facility] Mean corpuscular hemoglobin (MCH) determinationOrdered By: Brianna Velasquez on 02-27-2025 MCH (RBC) [Entitic mass] 28.9 pg 27.0-32.0 [facility] Mean corpuscular hemoglobin concentration (MCHC) determinationOrdered By: Brianna Velasquez on 02-27-2025 MCHC (RBC) [Mass/Vol] 33.3 g/dL 32-36 [facility] Mean platelet volume determi nationOrdered By: Brianna Velasquez on 02-27-2025 Platelet mean volume (Bld) [Entitic vol] 10.1 fL 6.2-12.0 [facility] Monocyte percentageOrdered B y: Brianna Velasquez on 02-27-2025 Monocytes/100 WBC (Bld) 6.9 % 0-10 [facility] Neutrophil percentageOrdered By: Brianna Velasquez on 02-27-2025 Neutrophils/100 WBC (Bld) 77.0 % High 47-70 [facility] No Panel InformationOrdered By: Brianna Velasquez on 02-27-2025 HIV (1&2) Antibody Non-Reactive Nonreactive [facility] Comment on above: Non-ReactiveReactive Repeatedly reactive samples must be confirmed according to CDC recommended confirmatory algorithms. The subresults for either HIVAG or AHIV can be used as an aid in the selection of the confirmation algorithm for reactive samples.Send out specimens with Reactive results to [facility] for confirmation.Order the HIV antibody detection and differentiation: #[id number] Nucleated red blood cell per centageOrdered By: Brianna Velasquez on 02-27-2025 Nucleated RBC/100 WBC (Bld) [Ratio] 0 % 0-5 [facility] Outbound Sales Agent Office Visit Reporton 02-27-2025 Outbound Sales Agent Office Visit Report [facility] [address], [address] [place] [address] OFFICE VISIT Date of Service: 02/27/25 MR#: [id number] Acct: [id number] Name: FAREED YOUNG Rep #: [id number] : 2000 Provider: Dr. 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 - (more content not included)... Normal [facility] Platelet countOrdered By: Stacia Velasquez on 02-27-2025 Platelets (Bld) [#/Vol] 325 10*3/uL 150-450 [facility] RBC Auto (Bld) [#/Vol]Ordere d By: Brianna Velasquez on 02-27-2025 RBC (Bld) [#/Vol] 4.26 10*6/uL 4.2-5.4 [facility] Syphilis Antibodieson 2024 Syphilis Abs Non-Reactive Normal Nonreactive [facility] Comment on above: Performed By: #### L 3890.6006, L100.0100, L509.8002, L501.0250 #### [facility] [address] [place], [place] [address], [address] T. pallidum abOrdered By: Stacia Velasquez on 02-27-2025 Syphilis Total Antibody Non-Reactive Nonreactiv e [facility] White blood cell (WBC) count Ordered By: Brianna Velasquez on 02-27-2025 WBC (Bld) [#/Vol] 11.7 10*3/uL High 4.4-11.0 [facility] Laboratory - Chemistry and C hemistry - challengeOrdered By: Brianna Velasquez on 01-26-2025 Glucose Ql (U) Negative [facility] - UrinalysisOrder ed By: Brianna Velasquez on 01-26-2025 Protein Ql (U) Negative [facility] Outbound Sales Agent Office Visit Reporton 01-26-2025 Outbound Sales Agent Office Visit Report [facility]'s [address], [address] [place] [address] OFFICE VISIT Date of Service: 01/26/25 MR#: [id number] Acct: [id number] Name: FAREED YOUNG Rep #: [id number] : 2000 Provider: LAYLA rader Age/Sex: 24/F Location: [facility] [place] Status: Signed Intake Vital Signs 10/27/24 13:05 01/03/25 10:00 01/26/25 09:35 01/26/25 09:38 Height 5 ft 5 in 5 ft 5 in 5 ft 5 in 5 ft 5 in Weight: 173 lb 177 lb 7 oz BMI 28.8 29.5 BP 110/64 104/71 Intake Visit Reasons: 21 WK OB Evp Marketing Required: No Is patient in pain?: No [...] occupational status: employed 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 -???-???- (more content not included)... Normal [facility] Laboratory - Chemistry and C hemistry - challengeOrdered By: Margot Bradford on 01-03-2025 Glucose Ql (U) Negative [facility] - UrinalysisOrder ed By: Margot Bradford on 01-03-2025 Protein Ql (U) Negative [facility] Outbound Sales Agent Office Visit Reporton 01-03-2025 Outbound Sales Agent Office Visit Report [facility]'s [address], [address] [place] [address] OFFICE VISIT Date of Service: 01/03/25 MR#: [id number] Acct: [id number] Name: FAREED YOUNG Rep #: [id number] : 2000 Provider: AURA barrow Age/Sex: 24/F Location: [facility] [place] Status: Signed Intake Vital Signs 10/27/24 13:05 11/28/24 11:30 01/03/25 10:00 Height 5 ft 5 in 5 ft 5 in 5 ft 5 in Weight: 173 lb BMI 28.8 BP 110/64 Intake Visit Reasons: 18 WK OB Chief Complaint: 18 Week OB Evp Marketing Required: No Is patient in pain?: No [...] occupational status: employed 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 -?? (more content not included)... Normal [facility] Absolute neutrophil countOrd ered By: Radha Naylor on 11-28-2024 Neutrophils (Bld) [#/Vol] 5.6 10*3/uL 2.0-7.7 [facility] Basophil percentageOrdered B y: Radha Naylor on 11-28-2024 Basophils/100 WBC (Bld) 0.4 % 0-1 [facility] CBC W/Diff, Automatedon 11-15 Absolute Lymph 1.76 X10 3/uL Normal 0.83-4.51 [facility] Comment on above: Performed By: #### L 3890.6006, L100.0100, L509.8002, L501.0250 #### [facility] [address] [place], [place], [id number] Absolute Neut 5.6 X10 3/uL Normal 2.0-7.7 [facility] Comment on above: Performed By: #### L 3890.6006, L100.0100, L509.8002, L501.0250 #### [facility] [address] [place], [address] Basophils/100 WBC (Bld) 0.4 % Normal 0-1 [facility] Comment on above: Performed By: #### L 3890.6006, L100.0100, L509.8002, L501.0250 #### [facility] [address] [place], [address] Eosinophils/100 WBC (Bld) 0.6 % Normal 0-5 [facility] Comment on above: Performed By: #### L 3890.6006, L100.0100, L509.8002, L501.0250 #### [facility] [address] [place], [address] Erythrocyte distribution width (RBC) [Ratio] 11.9 % Normal 11.6-14.6 [facility] Comment on above: Performed By: #### L 3890.6006, L100.0100, L509.8002, L501.0250 #### [facility] [address] [place], [address] Hematocrit (Bld) [Volume fraction] 41.0 % Normal 37-47 [facility] Comment on above: Performed By: #### L 3890.6006, L100.0100, L509.8002, L501.0250 #### [facility] [address] [place], [address] Hemoglobin (Bld) [Mass/Vol] 13.6 g/dL Normal 12.0-15.0 [facility] Comment on above: Performed By: #### L 3890.6006, L100.0100, L509.8002, L501.0250 #### [facility] [address] [place], [address] IG% 0.300 Normal 0.0-0.9 [facility] Comment on above: Result Comment: IG% - Immature Granulocytes (promyelocytes, myelocytes and metamyelocytes) > 1% indicates that a LEFT SHIFT is Present. Performed By: #### L 3890.6006, L100.0100, L509.8002, L501.0250 #### [facility] [address] [place], [address] Lymphocytes/100 WBC (Bld) 22.1 % Normal 19-41 [facility] Comment on above: Performed By: #### L 3890.6006, L100.0100, L509.8002, L501.0250 #### [facility] [address] [place], [address] MCH (RBC) [Entitic mass] 28.3 pg Normal 27.0-32.0 [facility] Comment on above: Performed By: #### L 3890.6006, L100.0100, L509.8002, L501.0250 #### [facility] [address] [place], [address] MCHC (RBC) [Mass/Vol] 33.2 g/dL Normal 32-36 [facility] Comment on above: Performed By: #### L 3890.6006, L100.0100, L509.8002, L501.0250 #### [facility] [address] [place], [address] MCV (RBC) [Entitic vol] 85.2 fL Normal 81-99 [facility] Comment on above: Performed By: #### L 3890.6006, L100.0100, L509.8002, L501.0250 #### [facility] [address] [place], [address] Monocytes/100 WBC (Bld) 6.4 % Normal 0-10 [facility] Comment on above: Performed By: #### L 3890.6006, L100.0100, L509.8002, L501.0250 #### [facility] [address] [place], [address] Neutrophils/100 WBC (Bld) 70.2 % High 47-70 [facility] Comment on above: Performed By: #### L 3890.6006, L100.0100, L509.8002, L501.0250 #### [facility] [address] [place], [address] Nucleated RBC (Bld) [#/Vol] 0 10*3/uL Normal 0-5 [facility] Comment on above: Performed By: #### L 3890.6006, L100.0100, L509.8002, L501.0250 #### [facility] [address] [place], [address] Platelet mean volume (Bld) [Entitic vol] 9.7 fL Normal 6.2-12.0 [facility] Comment on above: Performed By: #### L 3890.6006, L100.0100, L509.8002, L501.0250 #### [facility] [address] [place], [address] Platelets (Bld) [#/Vol] 328 10*3/uL Normal 150-450 [facility] Comment on above: Performed By: #### L 3890.6006, L100.0100, L509.8002, L501.0250 #### [facility] [address] [place], [address] RBC (Bld) [#/Vol] 4.81 10*6/uL Normal 4.2-5.4 [facility] Comment on above: Performed By: #### L 3890.6006, L100.0100, L509.8002, L501.0250 #### [facility] [address] [place], [address] RDW SD 36.2 fl Normal 35.1-43.9 [facility] Comment on above: Performed By: #### L 3890.6006, L100.0100, L509.8002, L501.0250 #### [facility] [address] [place], [address] WBC (Bld) [#/Vol] 8.0 10*3/uL Normal 4.4-11.0 [facility] Comment on above: Performed By: #### L 3890.6006, L100.0100, L509.8002, L501.0250 #### [facility] [address] [place], [address] Eosinophil percentageOrdered By: Radha Naylor on 11-28-2024 Eosinophils/100 WBC (Bld) 0.6 % 0-5 [facility] Erythrocyte distribution wid th (RBC) [Ratio]Ordered By: Radha Naylor on 11-28-2024 Erythrocyte distribution width (RBC) [Entitic vol] 36.2 fL 35.1-43.9 [facility] Erythrocyte distribution wid th ratioOrdered By: Radha Naylor on 11-28-2024 Erythrocyte distribution width (RBC) [Ratio] 11.9 % 11.6-14.6 [facility] HIV - WCHon 11-28-2024 HIV Non-Reactive Normal Nonreactive [facility] Comment on above: Order Comment: Reaso n for Exam: Performed By: #### L 3890.6006, L100.0100, L509.8002, L501.0250 #### [facility] [address] [place], [address] HIV 1+2 Ab+HIV1 p24 Ag IA Ql Ordered By: Radha Naylor on 11-28-2024 HIV (1&2) Antibody Non-Reactive Nonreactive [facility] Hematocrit Auto (Bld) [Volum e fraction]Ordered By: Radha Naylor on 11-28-2024 Hematocrit (Bld) [Volume fraction] 41.0 % 37-47 [facility] Hemoglobin measurementOrdere d By: Radha Naylor on 11-28-2024 Hemoglobin (Bld) [Mass/Vol] 13.6 g/dL 12.0-15.0 [facility] Hepatitis B Surface Antigeno n 11-28-2024 HEP B Surf Ag Non-Reactive Normal Nonreactive [facility] Comment on above: Order Comment: Reaso n for Exam: Performed By: #### L 3890.6006, L100.0100, L509.8002, L501.0250 #### [facility] [address] [place], [place], [address] Hepatitis B surface antigen detectionOrdered By: Radha Naylor on 11-28-2024 Hepatitis B Surface Antigen Non-Reactive Nonreactive [facility] Hepatitis C Antibodyon 11-28 Hepatitis C AB Non-Reactive Normal [facility]anneractive [facility] Comment on above: Order Comment: Reaso n for Exam: Result Comment: Non Reactive: < 0.8 Equivocal: >/= 0.8 to < 1.0 Reactive: >/= 1.0 The [facility] requires that a reactive/equivocal HCV antibody result be sent out for confirmation. HCV Quant by PCR testing. Performed By: #### L 3890.6006, L100.0100, L509.8002, L501.0250 #### [facility] [address] [place], [place], [address] Hepatitis C virus antibody a ssayOrdered By: Radha Naylor on 11-28-2024 Hepatitis C Antibody Non-Reactive Nonreactive [facility] Comment on above: Non Reactive: < 0.8 Equivocal: >/= 0.8 to < 1.0 Reactive: >/= 1.0The CDC requires that a reactive/equivocal HCV antibody result be sent out for confirmation. HCV Quant by PCR testing. Immature granulocytes/100 WB C Auto (Bld)Ordered By: Radha Naylor on 11-28-2024 Immature granulocytes/100 WBC (Bld) 0.300 % 0.0-0.9 [facility] Comment on above: IG% - Immature Granu locytes (promyelocytes, myelocytes and metamyelocytes) > 1% indicates that a LEFT SHIFT is Present. L509.8000on 11-28-2024 Syphilis Abs Non-Reactive Normal [facility] Comment on above: Order Comment: Reaso n for Exam: Performed By: #### L 3890.6006, L100.0100, L509.8002, L501.0250 #### [facility] [address] [place], [address] Laboratory - Chemistry and C hemistry - challengeon 11-28-2024 Glucose Ql (U) Negative [facility] - Urinalysison Protein Ql (U) Negative [facility] Lymphocytes Auto (Unsp spec) [#/Vol]Ordered By: Radha Naylor on 11-28-2024 Lymphocytes (Bld) [#/Vol] 1.76 10*3/uL 0.83-4.51 [facility] Lymphocytes/100 WBC Auto (Un sp spec)Ordered By: Radha Naylor on 11-28-2024 Lymphocytes/100 WBC (Bld) 22.1 % 19-41 [facility] MCV (mean corpuscular volume ) determinationOrdered By: Radha Naylor on 11-28-2024 MCV (RBC) [Entitic vol] 85.2 fL 81-99 [facility] Mean corpuscular hemoglobin (MCH) determinationOrdered By: Radha Naylor on 11-28-2024 MCH (RBC) [Entitic mass] 28.3 pg 27.0-32.0 [facility] Mean corpuscular hemoglobin concentration (MCHC) determinationOrdered By: Radha Naylor on 11-28-2024 MCHC (RBC) [Mass/Vol] 33.2 g/dL 32-36 [facility] Mean platelet volume determi nationOrdered By: Radha Naylor on 11-28-2024 Platelet mean volume (Bld) [Entitic vol] 9.7 fL 6.2-12.0 [facility] Monocyte percentageOrdered B y: Radha Naylor on 11-28-2024 Monocytes/100 WBC (Bld) 6.4 % 0-10 [facility] Neutrophil percentageOrdered By: Radha Naylor on 11-28-2024 Neutrophils/100 WBC (Bld) 70.2 % High 47-70 [facility] Nucleated red blood cell per centageOrdered By: Radha Naylor on 11-28-2024 Nucleated RBC/100 WBC (Bld) [Ratio] 0 % 0-5 [facility] Outbound Sales Agent Office Visit Reporton 11-28-2024 Outbound Sales Agent Office Visit Report [facility]'s [address], [address] [place] [address] OFFICE VISIT Date of Service: 11/28/24 MR#: [id number] Acct: [id number] Name: FAREED YOUNG Rep #: [id number] : 2000 Provider: Dr. 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 Normal [facility] Platelet countOrdered By: Damaso Naylor on 11-28-2024 Platelets (Bld) [#/Vol] 328 10*3/uL 150-450 [facility] RBC Auto (Bld) [#/Vol]Ordere d By: Radha Naylor on 11-28-2024 RBC (Bld) [#/Vol] 4.81 10*6/uL 4.2-5.4 [facility] Rubella IgGon 11-28-2024 Rubella IgG Reactive Normal Nonreactive [facility] Comment on above: Order Comment: Reaso n for Exam: Result Comment: Anti body Results Interpretation of Immune Status Non Reactive Presumed Non-Immune Equivocal Equivocal Reactive Presumed Immune Performed By: #### L 3890.6006, L100.0100, L509.8002, L501.0250 #### [facility] [address] [place], [place], [address] Rubella immune status IgGOrd ered By: Radha Naylor on 11-28-2024 Rubella IgG Antibody Reactive Nonreactive [facility] Comment on above: Antibody Results Int erpretation of Immune Status Non Reactive Presumed Non-Immune Equivocal Equivocal Reactive Presumed Immune Treponema sp Ab Ql (S)Ordere d By: Radha Naylor on 11-28-2024 Syphilis Total Antibody Non-Reactive [facility] Type AND Screenon 11-28-2024 ABO and Rh group Nom (Bld) Blood group O Rh(D) positive Normal [facility] Comment on above: Order Comment: PN Performed By: #### L 3890.6006, L100.0100, L509.8002, L501.0250 #### [facility] [address] [place], [place], [address] White blood cell (WBC) count Ordered By: Radha Naylor on 11-28-2024 WBC (Bld) [#/Vol] 8.0 10*3/uL 4.4-11.0 [facility] Chlamydia/GC SHIRAZ aptimaon CHLAMY,NUC ACID Negative Normal Negative [facility] Comment on above: Performed By: #### L 3890.6006, L100.0100, L509.8002, L501.0250 #### [facility] [address] [place], [place], [address] GC BY NUC ACID Negative Normal Negative [facility] Comment on above: Result Comment: Perf ormed at: =G - [facility] [address] [facility] [place], [place] [id number] Corporation Pilot: Ashley Golden MD, Phone: [phone] Performed By: #### L 3890.6006, L100.0100, L509.8002, L501.0250 #### [facility] [address] [place], [place], [address] Urine Cultureon 10-28-2024 URC Culture exhibits no growth. Normal [facility] Comment on above: Performed By: #### L 3890.6006, L100.0100, L509.8002, L501.0250 #### [facility] [address] [place], [place], [address] Outbound Sales Agent Office Visit Reporton 10-27-2024 Outbound Sales Agent Office Visit Report [facility], [address] [place] [address] OFFICE VISIT Date of Service: 10/27/24 MR#: [id number] Acct: [id number] Name: FAREED YOUNG Rep #: [id number] : 2000 Provider: LAYLA Stratton ams Age/Sex: 24/F Location: [facility] [place] Status: Signed Intake Vital Signs 09/23/23 05:09 10/27/24 13:03 10/27/24 13:05 Height 5 ft 5 in 5 ft 5 in 5 ft 5 in Weight: 167 lb BMI 27.8 BP 121/76 H Intake Visit Reasons: New OB, LMP 08/28, NORMA 06/04/25 Evp Marketing Required: No Is patient in pain?: No [...] occupational status: employed 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 Normal [facility] Absolute lymphocyte countOrd ered By: Elli Saenz on 07-28-2023 Lymphocytes Auto (Unsp spec) [#/Vol] 1.89 10*3/uL 0.83-4.51 [facility] Basophil percentageOrdered B y: lEli Saenz on 07-28-2023 Basophils/100 WBC (Bld) 0.3 % 0-1 [facility] Eosinophils/100 WBC (Bld) 0.6 % 0-5 [facility] Neutrophils (Bld) [#/Vol] 8.4 10*3/uL 2.0-7.7 [facility] Neutrophils/100 WBC (Bld) 73.8 % 47-70 [facility] WBC (Bld) [#/Vol] 11.4 10*3/uL 4.4-11.0 [facility] Blood erythrocytes count (nu mber/volume)Ordered By: Elli Saenz on 07-28-2023 RBC (Bld) [#/Vol] 4.62 10*6/uL 4.2-5.4 [facility] Blood hemoglobin measurement (mass/volume)Ordered By: Elli Saenz on 07-28-2023 Hemoglobin (Bld) [Mass/Vol] 12.1 g/dL 12.0-15.0 [facility] Blood lymphocytes/100 leukoc ytesOrdered By: Elli Saenz on 07-28-2023 Lymphocytes/100 WBC (Bld) 16.5 % 19-41 [facility] Blood monocytes/100 leukocyt esOrdered By: Elli Saenz on 07-28-2023 Monocytes/100 WBC (Bld) 8.0 % 0-10 [facility] Blood platelet mean volumeOr dered By: Elli Saenz on 07-28-2023 Platelet mean volume (Bld) [Entitic vol] 10.2 fL 6.2-12.0 [facility] Determination of erythrocyte mean corpuscular volume (MCV)Ordered By: Elli Saenz on 07-28-2023 MCV (RBC) [Entitic vol] 82.7 fL 81-99 [facility] Hematocrit Auto (Bld) [Volum e fraction]Ordered By: Elli Saenz on 07-28-2023 Hematocrit (Bld) [Volume fraction] 38.2 % 37-47 [facility] Laboratory - Hematology and Cell countsOrdered By: Elli Saenz on 07-28-2023 Erythrocyte distribution width (RBC) [Entitic vol] 39.8 fL 35.1-43.9 [facility] Erythrocyte distribution width (RBC) [Ratio] 13.3 % 11.6-14.6 [facility] Immature granulocytes/100 WBC (Bld) 0.800 % 0.0-0.9 [facility] Comment on above: IG% - Immature Granu locytes (promyelocytes, myelocytes and metamyelocytes) > 1% indicates that a LEFT SHIFT is Present. MCH (RBC) [Entitic mass] 26.2 pg 27.0-32.0 [facility] Nucleated RBC/100 WBC (Bld) [Ratio] 0 % 0-5 [facility] MCHC Auto (RBC) [Mass/Vol]Or dered By: Elli Saenz on 07-28-2023 MCHC (RBC) [Mass/Vol] 31.7 g/dL 32-36 [facility] Platelets bldOrdered By: Paige Saenz on 07-28-2023 Platelets (Bld) [#/Vol] 267 10*3/uL 150-450 [facility] Serum Treponema species anti body detectionOrdered By: Elli Saenz on 07-28-2023 Treponema sp Ab Ql (S) Non-Reactive [facility] Laboratory - Chemistry and C hemistry - challengeon 07-23-2023 Glucose Ql (U) Negative [facility] Laboratory - Urinalysison Protein Ql (U) Negative [facility] Laboratory - Chemistry and C hemistry - challengeon 07-16-2023 Glucose Ql (U) Negative [facility] Laboratory - Urinalysison Protein Ql (U) Negative [facility] Laboratory - Chemistry and C hemistry - challengeon 07-09-2023 Glucose Ql (U) Negative [facility] Laboratory - Urinalysison Protein Ql (U) Negative [facility] Laboratory - Chemistry and C hemistry - challengeon 06-25-2023 Glucose Ql (U) Negative [facility] Laboratory - Urinalysison Protein Ql (U) Negative [facility] No Panel InformationOrdered By: Elli Saenz on 06-25-2023 Group B Streptococcus Culture Streptococcus agalactiae (B) [facility] Culture, urineOrdered By: Velasquez Bradford on 06-10-2023 Bacteria identified Cx Nom (U) Positive [facility] Laboratory - Chemistry and C hemistry - challengeon 06-10-2023 Bilirubin Ql (U) Negative [facility] Glucose Ql (U) Negative [facility] Ketones Ql (U) Negative [facility] pH (U) 5.0 [pH] [facility] Urobilinogen (U) [Mass/Vol] Negative [facility] Laboratory - Hematology and Cell countson 06-10-2023 Hemoglobin Ql (U) Hemolyzed [facility] Laboratory - Specimen inform ationon 06-10-2023 Clarity (U) Hazy [facility] Color (U) Yellow [facility] Laboratory - Urinalysison Protein Ql (U) Negative [facility] No Panel Informationon 06-[address] [facility] Urine Non-Hemolyzed Blood Large [facility] Laboratory - Chemistry and C hemistry - challengeon 06-07-2023 Glucose Ql (U) Negative [facility] Laboratory - Urinalysison Protein Ql (U) Negative [facility] Laboratory - Chemistry and C hemistry - challengeon 05-28-2023 Glucose Ql (U) Negative [facility] Laboratory - Urinalysison Protein Ql (U) Negative [facility] Laboratory - Chemistry and C hemistry - challengeon 05-14-2023 Glucose Ql (U) Negative [facility] Laboratory - Urinalysison Protein Ql (U) Negative [facility] Laboratory - Chemistry and C hemistry - challengeon 04-30-2023 Glucose Ql (U) Negative [facility] Laboratory - Urinalysison Protein Ql (U) Negative [facility] Absolute lymphocyte countOrd ered By: Dr. Saenz on 04-29-2023 Lymphocytes Auto (Unsp spec) [#/Vol] 1.80 10*3/uL 0.83-4.51 [facility] Basophil percentageOrdered B y: Dr. Saenz on 04-29-2023 Basophils/100 WBC (Bld) 0.3 % 0-1 [facility] Eosinophils/100 WBC (Bld) 0.7 % 0-5 [facility] Neutrophils (Bld) [#/Vol] 6.5 10*3/uL 2.0-7.7 [facility] Neutrophils/100 WBC (Bld) 70.9 % 47-70 [facility] WBC (Bld) [#/Vol] 9.2 10*3/uL 4.4-11.0 [facility] Blood erythrocytes count (nu mber/volume)Ordered By: Dr. Saenz on 04-29-2023 RBC (Bld) [#/Vol] 4.19 10*6/uL 4.2-5.4 [facility] Blood hemoglobin measurement (mass/volume)Ordered By: Dr. Saenz on 04-29-2023 Hemoglobin (Bld) [Mass/Vol] 12.1 g/dL 12.0-15.0 [facility] Blood lymphocytes/100 leukoc ytesOrdered By: Dr. Saenz on 04-29-2023 Lymphocytes/100 WBC (Bld) 19.6 % 19-41 [facility] Blood monocytes/100 leukocyt esOrdered By: Dr. Saenz on 04-29-2023 Monocytes/100 WBC (Bld) 7.7 % 0-10 [facility] Blood platelet mean volumeOr dered By: Dr. Saenz on 04-29-2023 Platelet mean volume (Bld) [Entitic vol] 9.5 fL 6.2-12.0 [facility] Determination of erythrocyte mean corpuscular volume (MCV)Ordered By: Dr. Saenz on 04-29-2023 MCV (RBC) [Entitic vol] 89.3 fL 81-99 [facility] Gestational diabetes screen 1-hour screen with 50g oral glucose loadOrdered By: Dr. Saenz on 04-29-2023 Glucose 1 Hr post 50 g glucose PO [Mass/Vol] 97 mg/dL 70-140 [facility] HIV 1 and HIV-2 antibody ass ay with HIV-1 p24 antigen detectionOrdered By: Dr. Saenz on 04-29-2023 HIV 1+2 Ab+HIV1 p24 Ag IA Ql Non-Reactive Nonreactive [facility] Hematocrit Auto (Bld) [Volum e fraction]Ordered By: Dr. Saenz on 04-29-2023 Hematocrit (Bld) [Volume fraction] 37.4 % 37-47 [facility] Laboratory - Hematology and Cell countsOrdered By: Dr. Saenz on 04-29-2023 Erythrocyte distribution width (RBC) [Entitic vol] 40.8 fL 35.1-43.9 [facility] Erythrocyte distribution width (RBC) [Ratio] 12.5 % 11.6-14.6 [facility] Immature granulocytes/100 WBC (Bld) 0.800 % 0.0-0.9 [facility] Comment on above: IG% - Immature Granu locytes (promyelocytes, myelocytes and metamyelocytes) > 1% indicates that a LEFT SHIFT is Present. MCH (RBC) [Entitic mass] 28.9 pg 27.0-32.0 [facility] Nucleated RBC/100 WBC (Bld) [Ratio] 0 % 0-5 [facility] MCHC Auto (RBC) [Mass/Vol]Or dered By: Dr. Saenz on 04-29-2023 MCHC (RBC) [Mass/Vol] 32.4 g/dL 32-36 [facility] Platelets bldOrdered By: Dr. Saenz on 04-29-2023 Platelets (Bld) [#/Vol] 334 10*3/uL 150-450 [facility] Serum Treponema species anti body detectionOrdered By: Dr. Saenz on 04-29-2023 Treponema sp Ab Ql (S) Non-Reactive [facility] Laboratory - Chemistry and C hemistry - challengeon 04-14-2023 Glucose Ql (U) Negative [facility] Laboratory - Urinalysison Protein Ql (U) Negative [facility] Laboratory - Chemistry and C hemistry - challengeon 03-17-2023 Glucose Ql (U) Negative [facility] Laboratory - Urinalysison Protein Ql (U) Negative [facility] Laboratory - Chemistry and C hemistry - challengeon 01-19-2023 Glucose Ql (U) Negative [facility] Laboratory - Urinalysison Protein Ql (U) Negative [facility] Culture, urineOrdered By: Dr Heather Saenz on 12-27-2022 Bacteria identified Cx Nom (U) Culture exhibits no growth. [facility] Absolute lymphocyte countOrd ered By: Dr. Saenz on 12-24-2022 Lymphocytes Auto (Unsp spec) [#/Vol] 2.14 10*3/uL 0.83-4.51 [facility] Basophil percentageOrdered B y: Dr. Saenz on 12-24-2022 Basophils/100 WBC (Bld) 0.3 % 0-1 [facility] Eosinophils/100 WBC (Bld) 0.5 % 0-5 [facility] Neutrophils (Bld) [#/Vol] 8.9 10*3/uL 2.0-7.7 [facility] Neutrophils/100 WBC (Bld) 74.4 % 47-70 [facility] WBC (Bld) [#/Vol] 12.0 10*3/uL 4.4-11.0 [facility] Blood erythrocytes count (nu mber/volume)Ordered By: Dr. Saenz on 12-24-2022 RBC (Bld) [#/Vol] 4.85 10*6/uL 4.2-5.4 [facility] Blood hemoglobin measurement (mass/volume)Ordered By: Dr. Saenz on 12-24-2022 Hemoglobin (Bld) [Mass/Vol] 14.0 g/dL 12.0-15.0 [facility] Blood lymphocytes/100 leukoc ytesOrdered By: Dr. Saenz on 12-24-2022 Lymphocytes/100 WBC (Bld) 17.8 % 19-41 [facility] Blood monocytes/100 leukocyt esOrdered By: Dr. Saenz on 12-24-2022 Monocytes/100 WBC (Bld) 6.7 % 0-10 [facility] Blood platelet mean volumeOr dered By: Dr. Saenz on 12-24-2022 Platelet mean volume (Bld) [Entitic vol] 9.5 fL 6.2-12.0 [facility] Cervical or vagninal specime n microscopic examination by cytology stain (reported asOrdered By: Dr. Saenz on 12-24-2022 Cytology report Cyto stain Doc (Cvx/Vag) Comment . [facility] Comment on above: The Pap smear [...] rRNA SHIRAZ+probe Ql (Unsp spec) Negative Negative [facility] Determination of erythrocyte mean corpuscular volume (MCV)Ordered By: Dr. Saenz on 12-24-2022 MCV (RBC) [Entitic vol] 86.2 fL 81-99 [facility] HIV 1 and HIV-2 antibody ass ay with HIV-1 p24 antigen detectionOrdered By: Dr. Saenz on 12-24-2022 HIV 1+2 Ab+HIV1 p24 Ag IA Ql Non-Reactive Nonreactive [facility] Hematocrit Auto (Bld) [Volum e fraction]Ordered By: Dr. Saenz on 12-24-2022 Hematocrit (Bld) [Volume fraction] 41.8 % 37-47 [facility] Laboratory - CytologyOrdered By: Dr. Saenz on 12-24-2022 [employer] Cyto stain Nom (Cvx/Vag) [ID] Comment . [facility] Comment on above: Ryan Huerta totechnologist Laboratory - Hematology and Cell countsOrdered By: Dr. Saenz on 12-24-2022 Erythrocyte distribution width (RBC) [Entitic vol] 38.3 fL 35.1-43.9 [facility] Erythrocyte distribution width (RBC) [Ratio] 12.2 % 11.6-14.6 [facility] Immature granulocytes/100 WBC (Bld) 0.300 % 0.0-0.9 [facility] Comment on above: IG% - Immature Granu locytes (promyelocytes, myelocytes and metamyelocytes) > 1% indicates that a LEFT SHIFT is Present. MCH (RBC) [Entitic mass] 28.9 pg 27.0-32.0 [facility] Nucleated RBC/100 WBC (Bld) [Ratio] 0 % 0-5 [facility] Laboratory - Microbiology an d Antimicrobial susceptibilityOrdered By: Dr. Saenz on 12-24-2022 N. gonorrhoeae DNA SHIRAZ+probe Ql (Unsp spec) Negative Negative [facility] Comment on above: Performed at: =G - [address] [id number] Director: Ashley Golden MD, Phone: [phone] Laboratory - Miscellaneous t estsOrdered By: Dr. Saenz on 12-24-2022 Service comment (Unsp spec) [Interp] Comment . [facility] Comment on above: This liquid based Th inPrep(R) pap test was screened withthe use of an image guided system. Service comment (Unsp spec) [Interp] . . [facility] MCHC Auto (RBC) [Mass/Vol]Or dered By: Dr. Saenz on 12-24-2022 MCHC (RBC) [Mass/Vol] 33.5 g/dL 32-36 [facility] No Panel InformationOrdered By: Dr. Saenz on 12-24-2022 Human Papillomavirus Screen Comment . [facility] Comment on above: The HPV DNA reflex c riteria were not met with this specimenresult therefore, no HPV testing was performed.Performed at: - [facility] [id number] Director: Ashley Golden MD, Phone: [phone] Pathology report final diagnosis Narrative Comment . [facility] Comment on above: NEGATIVE FOR INTRAEP ITHELIAL LESION OR MALIGNANCY. Hepatitis B Surface Antigen Non-Reactive Nonreactive [facility] Hepatitis C Antibody Non-Reactive Nonreactive [facility] Comment on above: Non Reactive: < 0.8 Equivocal: >/= 0.8 to < 1.0 Reactive: >/= 1.0The CDC recommends that a reactive/equivocal HCV antibody result be followed up by the HCV Nucleic Acid Amplificationtest (595938) Miscellaneous Test Comment MAILED SPECIMEN [facility] Rubella IgG Antibody Reactive Nonreactive [facility] Comment on above: Antibody Results Int erpretation of Immune Status Non Reactive Presumed Non-Immune Equivocal Equivocal Reactive Presumed Immune Platelets bldOrdered By: Dr. Saenz on 12-24-2022 Platelets (Bld) [#/Vol] 416 10*3/uL 150-450 [facility] Serum Treponema species anti body detectionOrdered By: Dr. Saenz on 12-24-2022 Treponema sp Ab Ql (S) Non-Reactive [facility] XR Foot 3+ Views Righton XR Foot 3+ Views Right Exam Date/Time: 04/30/2019 13:39 EDT Reason for Exam: Pain, Traumatic Report STUDY: XR Foot 3+ Views Right; 04/30/2019 1:39 pm INDICATION: Pain, Traumatic. COMPARISON: None. ACCESSION NUMBER(S): [id number] ORDERING CLINICIAN: Anatoly To FINDINGS: There is a nondisplaced fracture of the base of the 5th metatarsal. No dislocation is seen. Soft tissue swelling is noted. IMPRESSION: Nondisplaced fracture at the base of the 5th metatarsal. FINAL REPORT Dictated: 04/30/2019 1:41 pm Georgina Carey MD Signed (Electronic Signature): 04/30/2019 1:41 pm Signed by: Georgina Carey MD Technologist: [facility] EMERGENCY REPORTon 09-14-201 8 EMERGENCY REPORT [facility] EMERGENCY ROOM REPORT NAME ACCOUNT SEX AGE ADMIT DISCHARGE PT MED. RECORD# NUMBER DATE DATE TYPE FAREED YOUNG [id number] F 18 09/09/18 09/09/18 3 M [id number] ROOM: ER DATE OF : 2000 DICTATING [...] Shaq Artis DO 09/09/18 18:43 JOB #: [id number] Transcribed By: hossein 09/10/18 05:42 Electronically signed by: KATHY Artis D.O. 09/14/18 08:13 Page 1 of 1 FAREED YOUNG Emergency Room Report Normal [facility] Vital Signs Date Time Vital Sign Value Performing Clinician Facility 05-28-2025 14:17-0400 Body height 165.[address] Solitario Blank MD Work Phone: [facility] 05-28-2025 14:14-0400 Body mass index (BMI) [Ratio] 33.1 kg/m2 Dr. Solitario Blank MD Work Phone: [facility] 05-28-2025 14:14-0400 Body weight 90.[address] Solitario Blank MD Work Phone: [facility] 05-28-2025 14:14-0400 Diastolic blood pressure 76 mm[Hg] Dr. Solitario Blank MD Work Phone: 1(455)801-000988 [address] 05-28-2025 14:14-0400 Systolic blood pressure 110 mm[Hg] Dr. Solitario Blank MD Work Phone: 4(028)625-423560 [place] [address] 05-24-2025 14:11-0400 Body height 165.[address] Solitario Blank MD Work Phone: 2(447)066-181560 [place] [address] 05-24-2025 14:11-0400 Body mass index (BMI) [Ratio] 33.3 kg/m2 Dr. Solitario Blank MD Work Phone: 6(539)235-578860 [place] [address] 05-24-2025 14:11-0400 Body weight 90.[address] Solitario Blank MD Work Phone: 2(489)908-949260 [place] [address] 05-24-2025 14:11-0400 Diastolic blood pressure 76 mm[Hg] Dr. Solitario Blank MD Work Phone: 7(130)587-349360 [place] [address] 05-24-2025 14:11-0400 Systolic blood pressure 113 mm[Hg] Dr. Solitario Blank MD Work Phone: 0(500)182-084060 [place] [address] 05-16-2025 15:21-0400 Body height 165.[address] Solitario Blank MD Work Phone: 3(496)906-524060 [place] [address] 05-16-2025 15:20-0400 Body mass index (BMI) [Ratio] 32.9 kg/m2 Dr. Solitario Blank MD Work Phone: 5(935)195-044960 [place] [address] 05-16-2025 15:20-0400 Body weight 89.[address] Solitario Blank MD Work Phone: 1(355)973-187360 [place] [address] 05-16-2025 15:20-0400 Diastolic blood pressure 72 mm[Hg] Dr. Solitario Blank MD Work Phone: 3(069)981-983860 [place] [address] 05-16-2025 15:20-0400 Systolic blood pressure 107 mm[Hg] Dr. Solitario Blank MD Work Phone: 1(242)964-235160 [place] [address] 05-09-2025 09:36-0400 Body height 165.[address] Solitario Blank MD Work Phone: 1(699)895-472888 [address] 05-09-2025 09:36-0400 Body mass index (BMI) [Ratio] 32.4 kg/m2 Dr. Solitario Blank MD Work Phone: 2(612)626-956960 [place] [address] 05-09-2025 09:36-0400 Body weight 88.[address] Solitario Blank MD Work Phone: 4(845)885-892760 [place] [address] 05-09-2025 09:36-0400 Diastolic blood pressure 68 mm[Hg] Dr. Solitario Blank MD Work Phone: 2(572)380-666260 [place] [address] 05-09-2025 09:36-0400 Systolic blood pressure 110 mm[Hg] Dr. Solitario Blank MD Work Phone: 1(578)875-111060 [place] [address] 04-26-2025 09:56-0400 Body height 165.[address] Solitario Blank MD Work Phone: 0(786)144-310560 [place] [address] 04-26-2025 09:56-0400 Body mass index (BMI) [Ratio] 32.1 kg/m2 Dr. Solitario Blank MD Work Phone: 8(074)975-208360 [place] [address] 04-26-2025 09:56-0400 Body weight 87.[address] Solitario Blank MD Work Phone: 5(873)814-487060 [place] [address] 04-26-2025 09:56-0400 Diastolic blood pressure 60 mm[Hg] Dr. Solitario Blank MD Work Phone: 8(309)940-926360 [place] [address] 04-26-2025 09:56-0400 Systolic blood pressure 110 mm[Hg] Dr. Solitario Blank MD Work Phone: 1(214)936-340060 [place] [address] 04-23-2025 20:28-0400 Diastolic blood pressure 62 mm[Hg] Dr. Solitario Blank MD Work Phone: 5(719)799-419360 [place] [address] 04-23-2025 20:28-0400 Heart rate 94 /min Dr. Solitario Blank MD Work Phone: 7(729)797-147160 [place] [address] 04-23-2025 20:28-0400 Systolic blood pressure 112 mm[Hg] Dr. Solitario Blank MD Work Phone: 4(246)987-230260 [place] [address] 04-10-2025 10:46-0400 Body height 165.[address] Solitario Blank MD Work Phone: 7(000)740-165660 [place] [address] 04-10-2025 10:46-0400 Body mass index (BMI) [Ratio] 31.8 kg/m2 Dr. Solitario Blank MD Work Phone: 0(020)452-224360 [place] [address] 04-10-2025 10:46-0400 Body weight 86.[address] Solitario Blank MD Work Phone: 0(165)727-828360 [place] [address] 04-10-2025 10:46-0400 Diastolic blood pressure 74 mm[Hg] Dr. Solitario Blank MD Work Phone: 6(500)975-658560 [place] [address] 04-10-2025 10:46-0400 Systolic blood pressure 119 mm[Hg] Dr. Solitario Blank MD Work Phone: 7(480)321-773360 [place] [address] 03-26-2025 13:39-0400 Body mass index (BMI) [Ratio] 31.1 kg/m2 Dr. Solitario Blank MD Work Phone: 0(058)714-557260 [place] [address] 03-26-2025 13:39-0400 Body weight 85.[address] Solitario Blank MD Work Phone: 4(273)098-783560 [place] [address] 03-26-2025 13:39-0400 Diastolic blood pressure 70 mm[Hg] Dr. Solitario Blank MD Work Phone: 0(225)575-530660 [place] [address] 03-26-2025 13:39-0400 Systolic blood pressure 102 mm[Hg] Dr. Solitario Blank MD Work Phone: 4(320)657-323460 [place] [address] 02-27-2025 08:52-0400 Body height 165.[address] Solitario Blank MD Work Phone: 9(994)292-958760 [place] [address] 02-27-2025 08:52-0400 Body mass index (BMI) [Ratio] 30.4 kg/m2 Dr. Soiltario Blank MD Work Phone: 5(579)171-592960 [place] [address] 02-27-2025 08:52-0400 Body weight 83.[address] Solitario Blank MD Work Phone: 9(644)261-630860 [place] [address] 02-27-2025 08:52-0400 Diastolic blood pressure 67 mm[Hg] Dr. Solitario Blank MD Work Phone: 1(695)435-200988 [address] 02-27-2025 08:52-0400 Systolic blood pressure 113 mm[Hg] Dr. Solitario Blank MD Work Phone: 4(439)007-492388 [address] 01-26-2025 09:35-0400 Body mass index (BMI) [Ratio] 29.5 kg/m2 Dr. Solitario Blank MD Work Phone: 7(142)061-722460 [place] [address] 01-26-2025 09:35-0400 Body weight 80.[address] Solitario Blank MD Work Phone: 5(908)756-410160 [place] [address] 01-26-2025 09:35-0400 Diastolic blood pressure 71 mm[Hg] Dr. Solitario Blank MD Work Phone: 5(946)546-405260 [place] [address] 01-26-2025 09:35-0400 Systolic blood pressure 104 mm[Hg] Dr. Solitario Blank MD Work Phone: 4(677)526-141060 [place] [address] 01-03-2025 10:00-0500 Body mass index (BMI) [Ratio] 28.8 kg/m2 Dr. Solitario Blank MD Work Phone: 6(768)280-938060 [place] [address] 01-03-2025 10:00-0500 Body weight 78.[address] Solitario Blank MD Work Phone: 2(099)196-086388 [address] 01-03-2025 10:00-0500 Diastolic blood pressure 64 mm[Hg] Dr. Solitario Blank MD Work Phone: 1(804)320-383588 [address] 01-03-2025 10:00-0500 Systolic blood pressure 110 mm[Hg] Dr. Solitario Blank MD Work Phone: 9(574)208-788088 [address] 11-28-2024 11:28-0500 Body mass index (BMI) [Ratio] 28.3 kg/m2 Dr. Solitario Blank MD Work Phone: 3(631)574-985988 [address] 11-28-2024 11:28-0500 Body weight 77.[address] Solitario Blank MD Work Phone: 4(019)392-740288 [address] 11-28-2024 11:28-0500 Diastolic blood pressure 76 mm[Hg] Dr. Solitario Blank MD Work Phone: 6(821)990-341846 [place] [address] 11-28-2024 11:28-0500 Systolic blood pressure 117 mm[Hg] Dr. Solitario Blank MD Work Phone: 7(086)322-015960 [place] [address] 07-30-2023 10:02-0400 Diastolic blood pressure 77 mm[Hg] Dr. Solitario Blank Work Phone: 2(573)055-069260 [place] [address] 07-30-2023 10:02-0400 Heart rate 90 /min Dr. Solitario Blank Work Phone: 8(402)876-843160 [place] [address] 07-30-2023 10:02-0400 Systolic blood pressure 130 mm[Hg] Dr. Solitario Blank Work Phone: 9(644)156-606260 [place] [address] 07-30-2023 09:10-0400 Body temperature 97.7 [degF] Dr. Solitario Blank Work Phone: 9(986)740-648860 [place] [address] 07-30-2023 09:10-0400 Respiratory rate 18 /min Dr. Solitario Blank Work Phone: 2(206)386-243660 [place] [address] 07-30-2023 09:10-0400 SaO2% (BldA) [Mass fraction] 98 % Dr. Solitario Blank Work Phone: 9(824)501-029760 [place] [address] 07-28-2023 07:33-0400 Body height 165.[address] Solitario Blank Work Phone: 7(739)137-478860 [place] [address] 07-28-2023 07:33-0400 Body mass index (BMI) [Ratio] 33.7 kg/m2 Dr. Solitario Blank Work Phone: 0(951)356-824288 [address] 07-28-2023 07:33-0400 Body weight 92.[address] Solitario Blank Work Phone: 4(300)932-124460 [place] [address] 07-27-2023 11:20-0400 Body mass index (BMI) [Ratio] 34.2 kg/m2 Dr. Solitario Blank Work Phone: 7(851)307-781488 [address] 07-27-2023 11:20-0400 Body weight 93.[address] Solitario Blank Work Phone: 7(995)967-360060 [place] [address] 07-27-2023 11:20-0400 Diastolic blood pressure 74 mm[Hg] Dr. Solitario Blank Work Phone: 9(557)746-433260 [place] [address] 07-27-2023 11:20-0400 Systolic blood pressure 113 mm[Hg] Dr. Solitario Blank Work Phone: 4(455)857-222960 [place] [address] 07-23-2023 11:43-0400 Body mass index (BMI) [Ratio] 33.6 kg/m2 Dr. Solitario Blank Work Phone: 3(488)356-330260 [place] [address] 07-23-2023 11:43-0400 Body weight 91.[address] Solitario Blank Work Phone: 9(086)201-545760 [place] [address] 07-23-2023 11:43-0400 Diastolic blood pressure 81 mm[Hg] Dr. Solitario Blank Work Phone: 1(863)859-639560 [address] [place] [address] 07-23-2023 11:43-0400 Systolic blood pressure 121 mm[Hg] Dr. Solitario Blank Work Phone: 0(752)781-300960 [place] [address] 07-16-2023 10:02-0400 Body mass index (BMI) [Ratio] 33.3 kg/m2 Dr. Solitario Blank Work Phone: 2(498)559-900560 [place] [address] 07-16-2023 10:02-0400 Body weight 90.[address] Solitario Blank Work Phone: 9(205)455-501760 [place] [address] 07-16-2023 10:02-0400 Diastolic blood pressure 83 mm[Hg] Dr. Solitario Blank Work Phone: 2(518)584-274560 [place] [address] 07-16-2023 10:02-0400 Systolic blood pressure 137 mm[Hg] Dr. Solitario Blank Work Phone: 9(691)443-110560 [place] [address] 07-09-2023 10:45-0400 Body mass index (BMI) [Ratio] 32.8 kg/m2 Dr. Solitario Blank Work Phone: 4(828)143-771660 [place] [address] 07-09-2023 10:45-0400 Body weight 89.[address] Solitario Blank Work Phone: 7(504)263-385160 [place] [address] 07-09-2023 10:45-0400 Diastolic blood pressure 75 mm[Hg] Dr. Solitario Blank Work Phone: 2(297)393-857346 [place] [address] 07-09-2023 10:45-0400 Systolic blood pressure 122 mm[Hg] Dr. Solitario Blank Work Phone: 8(613)897-219488 [address] 07-02-2023 10:01-0400 Body mass index (BMI) [Ratio] 32.5 kg/m2 Dr. Solitario Blank Work Phone: 9(114)438-423488 [address] 07-02-2023 10:01-0400 Body weight 88.[address] Solitario Blank Work Phone: 3(549)371-375788 [address] 07-02-2023 10:01-0400 Diastolic blood pressure 74 mm[Hg] Dr. Solitario Blank Work Phone: 0(605)648-057860 [place] [address] 07-02-2023 10:01-0400 Systolic blood pressure 116 mm[Hg] Dr. Solitario Blank Work Phone: 8(635)550-516160 [place] [address] 06-30-2023 19:05-0400 Body temperature 99.4 [degF] Dr. Solitario Blank Work Phone: 7(146)035-178760 [place] [address] 06-30-2023 19:03-0400 Body height 165.[address] Solitario Blank Work Phone: 6(598)085-875160 [place] [address] 06-30-2023 19:03-0400 Body mass index (BMI) [Ratio] 32.5 kg/m2 Dr. Solitario Blank Work Phone: 5(178)319-025860 [place] [address] 06-30-2023 19:03-0400 Body weight 88.[address] Solitario Blank Work Phone: 0(430)906-323488 [address] 06-30-2023 18:45-0400 Diastolic blood pressure 77 mm[Hg] Dr. Solitario Blank Work Phone: 0(415)502-326660 [place] [address] 06-30-2023 18:45-0400 Heart rate 96 /min Dr. Solitario Blank Work Phone: 2(429)139-935088 [address] 06-30-2023 18:45-0400 Systolic blood pressure 127 mm[Hg] Dr. Solitario Blank Work Phone: 5(103)444-202388 [address] 06-30-2023 18:43-0400 SaO2% (BldA) [Mass fraction] 98 % Dr. Solitario Blank Work Phone: 5(048)471-342346 [place] [address] 06-25-2023 11:03-0400 Body height 165.[address] Solitario Blank Work Phone: 3(118)410-161388 [address] 06-25-2023 11:00-0400 Body mass index (BMI) [Ratio] 32.4 kg/m2 Dr. Solitario Blank Work Phone: 7(220)713-564488 [address] 06-25-2023 11:00-0400 Body weight 88.[address] Solitario Blank Work Phone: 5(237)045-946560 [place] [address] 06-25-2023 11:00-0400 Diastolic blood pressure 75 mm[Hg] Dr. Solitario Blank Work Phone: 1(161)297-669560 [place] [address] 06-25-2023 11:00-0400 Systolic blood pressure 107 mm[Hg] Dr. Solitario Blank Work Phone: 2(747)690-258888 [address] 06-10-2023 14:34-0400 Body height 165.[address] Solitario Blank Work Phone: 6(489)535-469760 [place] [address] 06-10-2023 14:34-0400 Body mass index (BMI) [Ratio] 32.3 kg/m2 Dr. Solitario Blank Work Phone: 5(121)061-888588 [address] 06-10-2023 14:34-0400 Body weight 87.[address] Solitario Blank Work Phone: 5(331)494-908588 [address] 06-10-2023 14:34-0400 Diastolic blood pressure 70 mm[Hg] Dr. Solitario Blank Work Phone: 7(864)057-150688 [address] 06-10-2023 14:34-0400 Systolic blood pressure 104 mm[Hg] Dr. Solitario Blank Work Phone: 0(710)527-267260 [place] [address] 06-07-2023 10:28-0400 Body mass index (BMI) [Ratio] 32.1 kg/m2 Dr. Solitario Blank Work Phone: 4(897)199-499688 [address] 06-07-2023 10:28-0400 Body weight 87.[address] Solitario Blank Work Phone: 2(990)575-600346 [place] [address] 06-07-2023 10:28-0400 Diastolic blood pressure 73 mm[Hg] Dr. Solitario Blank Work Phone: 4(353)338-221088 [address] 06-07-2023 10:28-0400 Systolic blood pressure 112 mm[Hg] Dr. Solitario Blank Work Phone: 9(766)171-830460 [place] [address] 05-28-2023 11:41-0400 Body mass index (BMI) [Ratio] 31.6 kg/m2 Dr. Solitario Blank Work Phone: 5(077)630-331788 [address] 05-28-2023 11:41-0400 Body weight 86.[address] Solitario Blank Work Phone: 3(440)257-701360 [place] [address] 05-28-2023 11:41-0400 Diastolic blood pressure 74 mm[Hg] Dr. Solitario Blank Work Phone: 1(857)406-011960 [place] [address] 05-28-2023 11:41-0400 Systolic blood pressure 121 mm[Hg] Dr. Solitario Blank Work Phone: 1(163)938-573988 [address] 05-14-2023 10:07-0400 Body mass index (BMI) [Ratio] 31.3 kg/m2 Dr. Solitario Blank Work Phone: 6(965)348-975960 [place] [address] 05-14-2023 10:07-0400 Body weight 85.[address] Solitario Blank Work Phone: 2(117)130-230288 [address] 05-14-2023 10:07-0400 Diastolic blood pressure 68 mm[Hg] Dr. Solitario Blank Work Phone: 5(754)257-053788 [address] 05-14-2023 10:07-0400 Systolic blood pressure 94 mm[Hg] Dr. Solitario Blank Work Phone: 0(728)570-730960 [place] [address] 04-30-2023 09:11-0400 Body height 165.[address] Solitario Blank Work Phone: 0(461)911-574560 [place] [address] 04-30-2023 09:02-0400 Body mass index (BMI) [Ratio] 30.9 kg/m2 Dr. Solitario Blank Work Phone: 1(976)152-685660 [place] [address] 04-30-2023 09:02-0400 Body weight 84.[address] Solitario Blank Work Phone: 0(382)698-476360 [place] [address] 04-30-2023 09:02-0400 Diastolic blood pressure 62 mm[Hg] Dr. Solitario Blank Work Phone: 4(627)231-734460 [place] [address] 04-30-2023 09:02-0400 Systolic blood pressure 122 mm[Hg] Dr. Solitario Blank Work Phone: 5(925)329-021160 [place] [address] 04-14-2023 11:30-0400 Body mass index (BMI) [Ratio] 30.3 kg/m2 Dr. Solitario Blank Work Phone: 8(691)944-232760 [place] [address] 04-14-2023 11:30-0400 Body weight 82.[address] Solitario Blank Work Phone: 6(956)591-774960 [place] [address] 04-14-2023 11:30-0400 Diastolic blood pressure 71 mm[Hg] Dr. Solitario Blank Work Phone: 4(110)803-073760 [place] [address] 04-14-2023 11:30-0400 Systolic blood pressure 121 mm[Hg] Dr. Solitario Blank Work Phone: 2(779)544-037160 [place] [address] 03-17-2023 11:04-0400 Body mass index (BMI) [Ratio] 28.8 kg/m2 Dr. Solitario Blank Work Phone: 4(204)875-660660 [place] [address] 03-17-2023 11:04-0400 Body weight 78.[address] Solitario Blank Work Phone: 4(531)027-819660 [place] [address] 03-17-2023 11:04-0400 Diastolic blood pressure 70 mm[Hg] Dr. Solitario Blank Work Phone: 3(185)033-557260 [place] [address] 03-17-2023 11:04-0400 Systolic blood pressure 108 mm[Hg] Dr. Solitario Blank Work Phone: 4(890)759-905860 [place] [address] 03-09-2023 16:15-0400 Heart rate 84 /min Dr. Solitario Blank Work Phone: 8(896)004-979860 [place] [address] 03-09-2023 16:15-0400 SaO2% (BldA) [Mass fraction] 99 % Dr. Solitario Blank Work Phone: 7(307)764-470446 [place] [address] 03-09-2023 15:05-0400 Body temperature 97.7 [degF] Dr. Solitario Blank Work Phone: 7(777)087-345160 [place] [address] 03-09-2023 15:05-0400 Diastolic blood pressure 65 mm[Hg] Dr. Solitario Blank Work Phone: 4(087)216-373360 [place] [address] 03-09-2023 15:05-0400 Systolic blood pressure 122 mm[Hg] Dr. Solitario Blank Work Phone: 7(351)199-660460 [place] [address] 03-09-2023 14:49-0400 Body height 165.[address] Solitario Blank Work Phone: 7(162)440-074360 [place] [address] 03-09-2023 14:49-0400 Body mass index (BMI) [Ratio] 29 kg/m2 Dr. Solitario Blank Work Phone: 9(512)784-774660 [place] [address] 03-09-2023 14:49-0400 Body weight [address] Solitario Blank Work Phone: 1(853)925-343860 [place] [address] 02-15-2023 14:31-0400 Body mass index (BMI) [Ratio] 27.7 kg/m2 Dr. Solitario Blank Work Phone: 4(145)801-376360 [place] [address] 02-15-2023 14:31-0400 Body weight 75.[address] Solitario Blank Work Phone: 6(746)919-546688 [address] 02-15-2023 14:31-0400 Diastolic blood pressure 78 mm[Hg] Dr. Solitario Blank Work Phone: 8(541)908-925388 [address] 02-15-2023 14:31-0400 Systolic blood pressure 128 mm[Hg] Dr. Solitario Blank Work Phone: 4(368)654-119460 [place] [address] 01-19-2023 14:06-0500 Body mass index (BMI) [Ratio] 28 kg/m2 Dr. Solitario Blank Work Phone: 5(030)394-719288 [address] 01-19-2023 14:06-0500 Body weight 76.[address] Solitario Blank Work Phone: 0(448)043-986088 [address] 01-19-2023 14:06-0500 Diastolic blood pressure 76 mm[Hg] Dr. Solitario Blank Work Phone: [facility] 01-19-2023 14:06-0500 Systolic blood pressure 123 mm[Hg] Dr. Solitario Blank Work Phone: [facility] 12-24-2022 15:07-0500 Body height 165.[address] Solitario Blank Work Phone: [facility] 12-24-2022 15:07-0500 Body mass index (BMI) [Ratio] 27.8 kg/m2 Dr. Solitario Blank Work Phone: [facility] 12-24-2022 15:07-0500 Body weight 75.[address] Solitario Blank Work Phone: [facility] 12-24-2022 15:07-0500 Diastolic blood pressure 76 mm[Hg] Dr. Solitario Blank Work Phone: [facility] 12-24-2022 15:07-0500 Systolic blood pressure 121 mm[Hg] Dr. Solitario Blank Work Phone: [facility] 01-31-2021 14:16-0400 Body height 166.37 cm Brittny Hunter LPN [facility], [facility], [facility]. 01-31-2021 14:16-0400 Body mass index (BMI) [Ratio] 23.27 kg/m2 Brittny Hunter LPN [facility], [facility].; [facility], [facility]. 01-31-2021 14:16-0400 Body surface area Derived from formula 1.72 m2 Brittny Hunter LPN [facility], [facility].; [facility], [facility]. 01-31-2021 14:16-0400 Body weight 64.41 kg Brittny Hunter LPN [facility], [facility].; [facility], [facility]. 01-31-2021 14:16-0400 Diastolic blood pressure 77 mm[Hg] Brittny Hunter LPN [facility], [facility].; [facility], [facility]. Comment on above: Patient Position: Sitting; Cuff Location : Left Arm; Cuff Size: Standard 01-31-2021 14:16-0400 Heart rate 78 /min Brittny Garridougg [employer] [facility] [employer]. Comment on above: Pattern: Regular 01-31-2021 14:16-0400 Respiratory rate 16 /min Brittny Garridougg [employer] [facility] [employer]. Comment on above: Pattern: Unlabored 01-31-2021 14:16-0400 Systolic blood pressure 112 mm[Hg] Brittny Blancaugg [employer] [place] [employer] [facility] [employer], [employer]. Comment on above: Patient Position: Sitting; Cuff Location : Left Arm; Cuff Size: Standard 06-28-2020 08:56-0400 Body height 160.02 cm Rolanda Oscar Kamaljit [facility], [facility] [employer], [employer]. 06-28-2020 08:56-0400 Body mass index (BMI) [Ratio] 24.27 kg/m2 Rolanda Mari [facility] [employer], [employer]. 06-28-2020 08:56-0400 Body surface area Derived from formula 1.65 m2 Rolanda Oscar Kamaljit [facility] [employer] [facility] [employer], [employer]. 06-28-2020 08:56-0400 Body weight 62.14 kg Rolanda Celestina Mari [facility] [employer] [facility] [employer], [employer]. 06-28-2020 08:56-0400 Diastolic blood pressure 71 mm[Hg] Rolanda Celestina Mari [employer] [place] [employer] [facility] [employer]. Comment on above: Patient Position: Sitting; Cuff Location : Right Arm; Cuff Size: Standard 06-28-2020 08:56-0400 Heart rate 71 /min Rolanda Celestina Mari [employer] [place] [employer] [facility], [employer].; [employer]. Comment on above: Pattern: Regular 06-28-2020 08:56-0400 Systolic blood pressure 108 mm[Hg] Rolanda Oscar Kamaljit [employer] [place] [employer]. Comment on above: Patient Position: Sitting; Cuff Location : Right Arm; Cuff Size: Standard 07-14-2019 10:32-0400 Body height 165.1 cm Rebecca Iqbal RN [employer].; [employer]. 07-14-2019 10:32-0400 Body mass index (BMI) [Percentile] Per age and sex 42 % Rebecca Iqbal RN [employer]. 07-14-2019 10:32-0400 Body mass index (BMI) [Ratio] 20.97 kg/m2 Rebecca Iqbal RN [employer]. 07-14-2019 10:32-0400 Body surface area Derived from formula 1.63 m2 Rebecca Iqbal RN [employer].; [employer]. 07-14-2019 10:32-0400 Body weight 57.15 kg Rebecca Iqbal RN [employer].; [employer]. 07-14-2019 10:32-0400 Diastolic blood pressure 72 mm[Hg] Rebecca Iqbal RN [employer].; [employer]. Comment on above: Patient Position: Sitting; Cuff Location : Left Arm; Cuff Size: Standard 07-14-2019 10:32-0400 Heart rate 79 /min Rebecca Iqbal RN [employer].; [employer]. Comment on above: Pattern: Regular 07-14-2019 10:32-0400 Systolic blood pressure 112 mm[Hg] Rebecca Iqbal RN [employer]. Comment on above: Patient Position: Sitting; Cuff Location : Left Arm; Cuff Size: Standard 05-12-2019 10:48-0400 Body height 165.1 cm Rebecca Iqbal RN [employer].; [employer]. 05-12-2019 10:48-0400 Body mass index (BMI) [Percentile] Per age and sex 37 % Rebecca Iqbal RN [employer].; [employer]. 05-12-2019 10:48-0400 Body mass index (BMI) [Ratio] 20.63 kg/m2 Rebecca Iqbal RN [employer]. 05-12-2019 10:48-0400 Body surface area Derived from formula 1.61 m2 Rebecca Iqbal RN [employer] 05-12-2019 10:48-0400 Body weight 56.25 kg Rebecca Iqbal RN [employer], [employer].; [employer]. 05-12-2019 10:48-0400 Diastolic blood pressure 59 mm[Hg] Rebecca Iqbal RN [employer]. Comment on above: Patient Position: Sitting; Cuff Location : Left Arm; Cuff Size: Standard 05-12-2019 10:48-0400 Heart rate 62 /min Rebecca Iqbal RN [employer], [employer].; [employer]. Comment on above: Pattern: Regular 05-12-2019 10:48-0400 Systolic blood pressure 100 mm[Hg] Rebecca Iqbal RN [employer]. Comment on above: Patient Position: Sitting; Cuff Location : Left Arm; Cuff Size: Standard 05-01-2019 10:16-0400 Body height 165.1 cm Liliana Stafford LPN [employer], [employer].; [employer]. 05-01-2019 10:16-0400 Body mass index (BMI) [Percentile] Per age and sex 38 % Liliana Stafford LPN [employer], [employer].; [employer]. 05-01-2019 10:16-0400 Body mass index (BMI) [Ratio] 20.63 kg/m2 Liliana Stafford LPN [employer]. 05-01-2019 10:16-0400 Body surface area Derived from formula 1.61 m2 Liliana Stafford LPN [employer], [employer]. 05-01-2019 10:16-0400 Body weight 56.25 kg Liliana Stafford LPN [employer], [employer].; [employer]. 05-01-2019 10:16-0400 Diastolic blood pressure 71 mm[Hg] Liliana Stafford [employer], [employer].; [employer]. Comment on above: Patient Position: Sitting; Cuff Location : Left Arm; Cuff Size: Large 05-01-2019 10:16-0400 Heart rate 57 /min Liliana Stafford [employer]. Comment on above: Pattern: Regular 05-01-2019 10:16-0400 Systolic blood pressure 111 mm[Hg] Liliana Stafford [employer]. Comment on above: Patient Position: Sitting; Cuff Location : Left Arm; Cuff Size: Large 11-04-2017 09:18-0500 Body height 165.1 cm Rebecca Iqbal RN [employer].; [employer]. 11-04-2017 09:18-0500 Body mass index (BMI) [Percentile] Per age and sex 47 % Rebecca Iqbal RN [employer]. 11-04-2017 09:18-0500 Body mass index (BMI) [Ratio] 20.97 kg/m2 Rebecca Iqbal RN [employer]. 11-04-2017 09:18-0500 Body surface area Derived from formula 1.63 m2 Rebecca Iqbal RN [employer].; [employer]. 11-04-2017 09:18-0500 Body temperature 98.8 [degF] Rebecca Iqbal RN [employer].; [employer]. Comment on above: Method: Tympanic 11-04-2017 09:18-0500 Body weight 57.15 kg Rebecca Iqbal RN [employer].; [employer]. 03-17-2017 09:26-0400 Body height 167 cm Liliana Stafford [employer].; [employer]. 03-17-2017 09:26-0400 Body mass index (BMI) [Percentile] Per age and sex 51 % Liliana Stafford LPN [facility] [employer] 03-17-2017 09:26-0400 Body mass index (BMI) [Ratio] 20.98 kg/m2 Liliana Stafford [facility] [employer] 03-17-2017 09:26-0400 Body surface area Derived from formula 1.66 m2 Liliana Stafford [facility] [employer] 03-17-2017 09:26-0400 Body temperature 97.6 [degF] Manjula Nydia [facility] [employer] Comment on above: Method: Tympanic 03-17-2017 09:26-0400 Body weight 58.51 kg Liliana Stafford LPN [facility] [employer] 04-28-2016 09:54-0400 Body height 165.1 cm Liliana Stafford [facility] [employer] 04-28-2016 09:54-0400 Body mass index (BMI) [Percentile] Per age and sex 51 % Liliana Stafford [facility] [employer] 04-28-2016 09:54-0400 Body mass index (BMI) [Ratio] 20.63 kg/m2 Liliana Stafford [facility] [employer] 04-28-2016 09:54-0400 Body surface area Derived from formula 1.61 m2 Liliana Stafford [employer] [place] [employer] [facility], [facility].; [employer] 04-28-2016 09:54-0400 Body weight 56.25 kg Liliana Stafford [facility] [employer] [facility], [facility] [employer] 04-28-2016 09:54-0400 Diastolic blood pressure 78 mm[Hg] Liliana Stafford [facility] [employer] [facility] [employer] Comment on above: Patient Position: Sitting; Cuff Location : Left Arm; Cuff Size: Large 04-28-2016 09:54-0400 Heart rate 67 /min Liliana Stafford LPN [employer].; [employer]. Comment on above: Pattern: Regular 04-28-2016 09:54-0400 Systolic blood pressure 117 mm[Hg] Liliana Stafford LPN [employer].; [employer]. Comment on above: Patient Position: Sitting; Cuff Location : Left Arm; Cuff Size: Large 01-20-2016 14:20-0500 Body height 165.1 cm Lauren Harrison LPN Work Phone: [employer].; [employer]. 01-20-2016 14:20-0500 Body mass index (BMI) [Percentile] Per age and sex 49 % Lauren Hunter [employer] Work Phone: [employer].; [employer]. 01-20-2016 14:20-0500 Body mass index (BMI) [Ratio] 20.3 kg/m2 Lauren Hunter [employer] Work Phone: [employer].; [employer]. 01-20-2016 14:20-0500 Body surface area Derived from formula 1.6 m2 [employer] Work Phone: [employer].; [employer]. 01-20-2016 14:20-0500 Body weight 55.34 kg Lauren Hunter [employer] Work Phone: [employer].; [employer]. 01-20-2016 14:20-0500 Diastolic blood pressure 75 mm[Hg] Lauren Hunter [employer] Work Phone: [employer].; [employer]. Comment on above: Patient Position: Sitting; Cuff Location : Left Arm; Cuff Size: Standard 01-20-2016 14:20-0500 Heart rate 67 /min Lauren Hunter [employer] Work Phone: [employer].; [employer]. Comment on above: Pattern: Regular 01-20-2016 14:20-0500 Systolic blood pressure 117 mm[Hg] Lauren Harrison LPN Work Phone: [employer]; [employer]. Comment on above: Patient Position: Sitting; Cuff Location : Left Arm; Cuff Size: Standard 10-05-2014 10:56-0500 Body height 162.56 cm Solitario Blank MD Work Phone: [employer]; [employer]. 10-05-2014 10:56-0500 Body mass index (BMI) [Percentile] Per age and sex 63 % Solitario Blank MD Work Phone: [employer]; [employer]. 10-05-2014 10:56-0500 Body mass index (BMI) [Ratio] 20.77 kg/m2 Solitario Blank MD Work Phone: [employer]; [employer]. 10-05-2014 10:56-0500 Body surface area Derived from formula 1.58 m2 Solitario Blank MD Work Phone: [employer]; [employer]. 10-05-2014 10:56-0500 Body weight 54.89 kg Solitario Blank MD Work Phone: [employer]; [employer]. 10-05-2014 10:56-0500 Diastolic blood pressure 72 mm[Hg] Solitario Blank MD Work Phone: [employer]; [employer]. Comment on above: Patient Position: Sitting; Cuff Location : Right Arm; Cuff Size: Standard 10-05-2014 10:56-0500 Heart rate 61 /min Solitario Blank MD Work Phone: [employer]; [employer]. Comment on above: Pattern: Regular 10-05-2014 10:56-0500 Systolic blood pressure 103 mm[Hg] Solitario Blank MD Work Phone: [employer]; [employer]. Comment on above: Patient Position: Sitting; Cuff Location : Right Arm; Cuff Size: Standard 03-28-2014 10:00-0400 Body height 162.56 cm Liliana Stafford [facility] [employer], [employer]. 03-28-2014 10:00-0400 Body mass index (BMI) [Percentile] Per age and sex 59 % Liliana Stafford [facility] [employer]. 03-28-2014 10:00-0400 Body mass index (BMI) [Ratio] 20.08 kg/m2 Liliana Stafford [facility] [employer], [employer].; [employer]. 03-28-2014 [id number] Body surface area Derived from formula 1.56 m2 [facility], [employer].; [employer]. 03-28-2014 10:00-0400 Body temperature 98.7 [degF] Manjula Foxholm [facility] [employer].; [employer]. Comment on above: Method: Tympanic 03-28-2014 10:000400 Body weight 53.07 kg Liliana Stafford [facility] [employer] Encounters Encounter Date Encounter Type Care Provider Facility Start: 05-29-2025 ambulatory Solitario Blank Facility:[facility] Start: 05-28-2025 End: 05-28-[address] Annabelle Garduno MD -[facility] Work Phone: Start: 05-28-2025 End: 05-28-[address] Solitario Blank MD Work Phone: -[facility] Start: 05-24-2025 End: 05-24-[address] Elli Edwards DO -[facility] Work Phone: Start: 05-24-2025 End: 05-24-[address] Solitario Blank MD Work Phone: -[facility] Start: 05-16-2025 End: 05-16-[address] Elli Edwards DO -[facility] Work Phone: Start: 05-16-2025 End: 05-16-[address] Solitario Blank MD Work Phone: -[facility] Start: 05-09-2025 End: 05-09-[address] Solitario Blank MD Work Phone: -Laboratory Specimen Start: 05-09-2025 End: 05-09-2025 Patient encounter procedure Margot Wrights RETAIL FIELD REPRESENTATIVE-C -Laboratory Specimen Work Phone: Start: 05-09-2025 End: 05-09-2025 Patient encounter procedure Margot Bradford RETAIL FIELD REPRESENTATIVE-C -[facility] Work Phone: Start: 05-09-2025 End: 05-09-[address] Solitario Blank MD Work Phone: [facility] Work Phone: Start: 05-09-2025 End: 05-09-2025 ambulatory Solitario Blank Facility:[facility] Start: 04-26-2025 End: 04-26-2025 Patient encounter procedure Margot Bradford RETAIL FIELD REPRESENTATIVE-C -[facility] Work Phone: Start: 04-26-2025 End: 04-26-[address] Solitario Blank MD Work Phone: [facility] Work Phone: Start: 04-23-2025 ambulatory Brianna Velasquez Facilit y:[facility] Start: 04-23-2025 Non-patient / Non-visit Brianna Velasquez CNM -[facility] Start: 04-23-2025 End: 04-23-2025 Patient encounter procedure Brianna Velasquez CNM -[facility] Work Phone: Start: 04-23-2025 End: 04-23-[address] Solitario Blank MD Work Phone: [facility] Work Phone: Start: 04-10-2025 End: 04-10-2025 Patient encounter procedure Radha Naylor CN -[facility] Work Phone: Start: 04-10-2025 End: 04-10-[address] Solitario Blank MD Work Phone: [facility] Work Phone: Start: 03-26-2025 End: 03-26-2025 Patient encounter procedure Margot CHAVARRIA -[facility] Work Phone: Start: 03-26-2025 End: 03-26-2025 ambulatory [facility] Facility:[facility] Start: 02-27-2025 End: 02-27-[address] Elli Edwards DO -[facility] Work Phone: Start: 02-27-2025 End: 02-27-[address] Solitario Blank MD Work Phone: [facility] Work Phone: Start: 02-27-2025 End: 02-27-2025 ambulatory [facility] Facility:[facility] Start: 01-26-2025 End: 01-26-2025 Patient encounter procedure Brianna Velasquez [facility] -[facility] Work Phone: Start: 01-26-2025 End: 01-26-2025 ambulatory [facility] Facility:[facility] Start: 01-25-2025 End: 01-25-[address] [facility] Start: 01-09-2025 End: 01-09-[address] [facility] Start: 01-03-2025 End: 01-03-2025 Patient encounter procedure Margot CHAVARRIA -[facility] Work Phone: Start: 01-03-2025 End: 01-03-2025 ambulatory [facility] Facility:[facility] Start: 11-28-2024 End: 11-28-[address] Annabelle Garduno MD -[facility] Work Phone: Start: 11-28-2024 End: 11-28-2024 ambulatory Solitario Eliot Facility:[facility] Start: 11-28-2024 End: 11-28-2024 ambulatory Solitario [facility] Facility:[facility] Start: 10-27-2024 End: 10-27-2024 ambulatory Solitario [facility] Facility:[facility] Start: 10-27-2024 End: 10-27-2024 ambulatory [facility] Facility:[facility] Start: 10-20-2024 ambulatory Solitario Blank Facility:[facility] Start: 09-15-2024 ambulatory Solitario [facility] Facility:[facility] Start: 07-30-2023 Non-patient / Non-visit Dr. Solitario Blank Work Phone: [facility] Start: 07-29-2023 Non-patient / Non-visit Dr. Solitario Blank Work Phone: [facility] Start: 07-28-2023 Non-patient / Non-visit Dr. Solitario Blank Work Phone: [facility] Start: 07-28-2023 End: 07-30-2023 Evaluation and management of inpatient Dr. Solitario Blank Work Phone: [facility] Work Phone: Start: 07-27-2023 End: 07-27-[address] Solitario Blank Work Phone: [facility] Work Phone: Start: 07-23-2023 End: 07-23-[address] Solitario Blank Work Phone: [facility] Work Phone: Start: 07-16-2023 End: 07-16-[address] Solitario Blank Work Phone: [facility] Work Phone: Start: 07-09-2023 End: 07-09-[address] Solitario Blank Work Phone: [facility] Work Phone: Start: 07-02-2023 End: 07-02-[address] Solitario Blank Work Phone: [facility] Work Phone: Start: 07-02-2023 Non-patient / Non-visit Dr. Solitario Blank Work Phone: [facility] Start: 06-30-2023 End: 06-30-[address] Solitario Blank Work Phone: [facility] Work Phone: Start: 06-30-2023 End: 06-30-[address] Solitario Blank Work Phone: [facility] Work Phone: Start: 06-25-2023 End: 06-25-[address] Solitario Blank Work Phone: [facility] Work Phone: Start: 06-25-2023 End: 06-25-[address] Solitario Blank Work Phone: [facility]Labor[facility] Specimen Work Phone: Start: 06-25-2023 End: 06-25-[address] Solitario Blank Work Phone: [facility] Work Phone: Start: 06-10-2023 End: 06-10-[address] Solitario Blank Work Phone: [facility] Work Phone: Start: 06-10-2023 End: 06-10-[address] Solitario Blank Work Phone: [facility] Work Phone: Start: 06-07-2023 End: 06-07-[address] Solitario Blank Work Phone: [facility] Work Phone: Start: 05-28-2023 End: 05-28-[address] Solitario Blank Work Phone: [facility] Work Phone: Start: 05-14-2023 End: 05-14-[address] Solitario Blank Work Phone: [facility] Work Phone: Start: 04-30-2023 End: 04-30-[address] Solitario Blank Work Phone: [facility] Start: 04-29-2023 End: 04-29-[address] Solitario Blank Work Phone: [facility] Work Phone: Start: 04-29-2023 End: 04-29-[address] Solitario Blank Work Phone: [facility] Start: 04-14-2023 End: 04-14-[address] Solitario Blank Work Phone: [facility] Start: 03-17-2023 End: 03-17-[address] Solitario Blank Work Phone: [facility] Start: 03-10-2023 Non-patient / Non-visit Dr. Solitario Blank Work Phone: [facility] Start: 03-09-2023 End: 03-09-[address] Solitario Blank Work Phone: [facility] Work Phone: Start: 03-09-2023 End: 03-09-[address] Solitario Blank Work Phone: [facility], [facility] Start: 02-15-2023 End: 02-15-[address] Solitario Blank Work Phone: [facility] Start: 01-19-2023 End: 01-19-[address] Solitario Blank Work Phone: [facility] Start: 12-24-2022 End: 12-24-[address] Solitario Blank Work Phone: [facility] Work Phone: Start: 12-24-2022 End: 12-24-[address] Solitario Blank Work Phone: [facility] Start: 02-28-2021 End: 02-28-2021 Orders Solitario Blank MD Work Phone: [employer] Start: 01-31-2021 End: 01-31-2021 Patient encounter status Brittny Hunter LPN [employer] Start: 01-31-2021 End: 01-31-2021 Periodic preventive med est patient 18-39 yrs Solitario Blank MD Work Phone: [employer]. Start: 06-28-2020 End: 06-28-2020 Patient encounter procedure Solitario Blank MD Work Phone: [employer]. Start: 07-14-2019 End: 07-14-2019 Patient encounter status Solitario Blank MD Work Phone: [employer] Start: 07-14-2019 End: 07-14-2019 Periodic preventive med est patient 18-39 yrs Solitario Blank MD Work Phone: [employer] Start: 05-12-2019 End: 05-12-2019 Office outpatient visit 15 minutes Solitario Blank MD Work Phone: [employer] Start: 05-01-2019 End: 05-01-2019 Office outpatient visit 15 minutes Solitario Blank MD Work Phone: [employer] Start: 09-13-2018 End: 09-13-2018 Telephone follow-up Solitario Blank MD Work Phone: [employer] Start: 09-09-2018 End: 09-09-2018 Emergency department patient visit SHAQ Beard [facility] Start: 11-04-2017 End: 11-04-2017 Office outpatient visit 15 minutes Solitario Blank MD Work Phone: [employer] Start: 03-17-2017 End: 03-17-2017 Office outpatient visit 15 minutes Solitario Blank MD Work Phone: [employer] Start: 04-28-2016 End: 04-28-2016 Office outpatient visit 15 minutes Solitario Blnak MD Work Phone: [employer] Start: 04-28-2016 End: 04-28-2016 Patient encounter status Solitario Blank MD Work Phone: [employer] Start: 01-20-2016 End: 01-20-2016 Patient encounter procedure Solitario Blank MD Work Phone: [employer] Start: 10-05-2014 End: 10-05-2014 Office outpatient visit 15 minutes Solitario Blank MD Work Phone: [employer] Start: 03-28-2014 End: 03-28-2014 Patient encounter procedure Solitario Blank MD Work Phone: [employer] Follow-up encounter Elidia anand PA-C Work Phone: [employer]; [employer] Procedures Date Procedure Procedure Detail Performing Clinician Start: 05-09-2025 Beta-hemolytic Streptococcus culture Dr. Solitario Blank MD Work Phone: Start: 02-27-2025 Serologic test for syphilis Dr. Solitario Blank MD Work Phone: Start: 06-25-2023 Group B Streptococcu s Culture Dr. Solitario Blank Work Phone: Start: 06-10-[address] Solitario Blank Work Phone: Start: 01-31-2021 End: 01-31-2021 No Known Past Surgical History Brittny Hunter [employer] Start: 07-14-2019 End: 07-14-2019 Depression screening Solitario [...] Activity Detail Author Start: 04-23-[address] [facility] Start: 07-30-[address] [facility] Start: 07-28-[address] [facility] Start: 07-28-2023 Application of ice collar, cap or bag [facility] Start: 07-28-[address] [facility] Start: 07-28-2023 Introduction of urinary catheter [facility] Start: 07-28-2023 Me[address] and output [facility] Start: 07-28-2023 Notification of physician [facility] Start: 07-28-[address] [facility] Start: 07-28-2023 Provision [address] activity privileges [facility] Start: 07-28-2023 Vital signs measurements [facility] Start: 07-28-2023 [facility] Start: 07-28-2023 [facility] Start: 07-28-2023 Notification of physician [facility] Start: 07-28-2023 [facility] Start: 07-28-[address] [facility] Start: 07-28-2023 Insertion of catheter into peripheral vein [facility] Start: 07-28-[address] [facility] Start: 07-28-[address] [facility] Start: 07-28-[address] [facility] Start: 07-28-2023 Introduction of urinary catheter [facility] Start: 07-28-2023 Notification of physician [facility] Start: 07-28-[address] [facility] Start: 07-28-2023 Provision of activity privileges [facility] Start: 07-28-2023 Vital signs measurements [facility] Start: 07-28-2023 End: 07-28-2023 [facility] Start: 06-30-[address] [facility] Start: 06-30-[address] [facility] Start: 06-30-2023 Vital signs measurements [facility] Start: 06-30-2023 [facility] Start: 06-30-[address] [facility] Start: 03-09-[address] [facility] Start: 03-09-[address] [facility] Start: 03-09-2023 Vital signs measurements [facility] Start: 03-09-2023 [facility] Start: 11-04-2017 Provider Instructions for Treatment Saline gargles Indication: Aphthous ulcer Start: 04-Nov-2017 Instruction Type: Provider Instructions for Treatment [facility] Patient Education Kick Counts ED False Labor OB Triage: Return to Hospital or Notify Physician if you Experience: [facility] Work Phone: Patient referral [facility] Work Phone: Streptococcus agalac tiae [Presence] in Unspecified specimen by Organism specific culture [facility] Immunizations Immunization Date Immunization Notes Care Provider Rogelio barrett 07-14-2019 varicella virus vaccine Nick Blank MD Work [facility]: [email or web address] [employer] Comment on above: Site: Right ArmVIS G iven: * Varicella (Chickenpox) (12/27/17) 04-28-2016 tetanus toxoid, redu jak diphtheria toxoid, and acellular pertussis vaccine, adsorbed Solitario Blank MD Work Phone: [email or web address]; [employer] Comment on above: Site: Deltoid (Left) VIS Given: * Tdap (Tetanus, Diphtheria, Pertussis) (01/08/15) 04-28-2016 varicella virus vaccine Nick Blank MD Work Phone: [facility] [employer]; [employer] Comment on above: Site: Deltoid Area ( Right)VIS Given: * Varicella (Chickenpox) (01/26/08) 10-23-2011 hepatitis A vaccine, pediatric/adolescent dosage, 2 dose schedule Solitario Blank MD Work Phone: [facility] [employer]; [employer] 09-04-2005 influenza, seasonal, injectable Solitario Blank MD Work Phone: [facility] [employer]; [place] [employer] 08-19-2005 diphtheria, tetanus toxoids and acellular pertussis vaccine Solitario Blank MD Work Phone: [facility] [employer]; [employer] 08-19-2005 hepatitis B vaccine, pediatric or pediatric/adolescent dosage Solitario Blank MD Work Phone: [facility] [employer]; [employer] 08-19-2005 measles, mumps and rubella virus vaccine Solitario Blank MD Work Phone: [facility] [employer]; [employer] 08-19-2005 poliovirus vaccine, inactivated Solitario Blank MD Work Phone: [employer] 08-29-2001 diphtheria, tetanus toxoids and acellular pertussis vaccine Solitario Blank MD Work Phone: [employer]; [facility] 08-29-2001 poliovirus vaccine, inactivated Solitario Blank MD Work Phone: [facility] 02-17-2001 haemophilus influenz ae type b vaccine, PRP-T conjugate Solitario Blank MD Work Phone: [facility] 02-17-2001 measles, mumps and rubella virus vaccine Solitario Blank MD Work Phone: [facility] 2000 haemophilus influenz ae type b vaccine, PRP-T conjugate Solitario Blank MD Work Phone: [facility] 2000 diphtheria, tetanus toxoids and acellular pertussis vaccine Solitario Blank MD Work Phone: [facility] 2000 diphtheria, tetanus toxoids and acellular pertussis vaccine Solitario Blank MD Work Phone: [facility] 2000 haemophilus influenz ae type b vaccine, PRP-T conjugate Solitario Blank MD Work Phone: [facility] [place] [employer] [facility] 2000 poliovirus vaccine, inactivated Solitario Blank MD Work Phone: [facility].; [facility] 2000 diphtheria, tetanus toxoids and acellular pertussis vaccine Solitario Blank MD Work Phone: [facility] 2000 haemophilus influenz ae type b vaccine, PRP-T conjugate Solitario Blank MD Work Phone: [facility] [place] [employer] [facility] 2000 poliovirus vaccine, inactivated Solitario Blank MD Work Phone: [facility] [place] [employer] [facility] Payers Date Payer Category Payer Self-pay 2023 Unknown [id number] 2000 Unknown [id number] 2.16.84 [id number] 2000 Unknown [id number] 2.16. [id number] 2000 Unknown [id number] 2.16. [id number] Unknown [id number] Unknown [id number] Unknown [employer] Unknown [id number] 2.16.8 [id number] Unknown [id number] 2.16.8 40.1.594891.3.579.2.462 Unknown [id number] 2.16.8 40.1.911142.3.579.2.462 Unknown [id number] 2.16.8 40.1.847633.3.579.2.462 Unknown [id number] 2.16.8 40.1.769495.3.579.2.462 Unknown [id number] 2.16.8 40.1.265278.3.579.2.462 Unknown [id number] 2.16.8 40.1.139682.3.579.2.462 Unknown [id number] 2.16.8 40.1.490519.3.579.2.462 Unknown [id number] 2.16.8 40.1.399820.3.579.2.462 Unknown [id number] 2.16.8 40.1.670425.3.579.2.462 Unknown [id number] 2.16.8 40.1.002602.3.579.2.462 Unknown [id number] 2.16.8 40.1.372487.3.579.2.462 Unknown [id number] 2.16.8 40.1.832499.3.579.2.462 Unknown [id number] 2.16.8 40.1.514807.3.579.2.462 Unknown [id number] 2.16.8 40.1.376883.3.579.2.462 Unknown [id number] 2.16.8 40.1.615865.3.579.2.462 Unknown [id number] 2.16.8 40.1.972963.3.579.2.462 Unknown [id number] 2.16.8 40.1.749874.3.579.2.462 Unknown [id number] 2.16.8 40.1.703149.3.579.2.462 Unknown [id number] 2.16.8 40.1.279863.3.579.2.462 Unknown [id number] 2.16.8 40.1.337465.3.579.2.462 Social History Date Type Detail Facility Start: 12-24-2022 End: 07-28-2023 Tobacco smoking status MAIS Unknown if ever smoked [facility] Start: 2000 Sex Assigned At Female W [facility] Caffeine Use Caffeine Use [facility], [employer] [facility], [facility] Tobacco Use: Tobacco Use: ; N ever smoker. [facility], [facility] Start: 10-20-2024 End: 04-10-[address] [facility] Start: 03-03-2025 Sex Female (finding) [facility] Goals Date Patient Goal Desired Activity /State Functional Status Date Assessment Result Facility 07-29-2023 Functional status Activity Ability Indepe ndent [facility] Work Phone: Mental Status Date Assessment Result Facility 07-29-2023 Cognitive function Appropriate;Aparna beard [facility] Work Phone: Clinical Notes 12-24-2022 to 05-28-2025 Note Date & Type Note Facility 05-28-2025 Progress note [facility] 05-28-2025 Progress note Note Date/Time May 28, 2025 2:50pm [facility] [address] [place] [address], [address] [place] [address] OFFICE VISIT Date of Service: 05/28/25 MR#: [id number] Acct: [id number] Name: FAREED LORENZO Rep #: [id number] : 2000 Provider: Dr. 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 Edwards Shaquille Delivery Date: 07/28/23 [...] POC Urinalysis 2 Dip (Clinic) Today 05/28/25 [id number] <Electronically signed by Annabelle lovett MD> Date _ Annabelle Garduno MD Cosigner Signature: Date (if applicable) CC: ~ [facility] Work Phone: [phone]) 931-556207-10-2025 Progress [facility] [address], [address] [place] [address] OFFICE VISIT Date of Service: 05/24/25 MR#: [id number] Acct: [id number] Name: FAREED LORENZO Rep #: [id number] : 2000 Provider: Dr. Bella Edwards DO Age/Sex: 25/F Location: [facility] Status: Signed Intake Vital Signs 04/10/25 10:46 04/10/25 11:02 05/16/25 15:21 05/24/25 14:11 Height 5 ft 5 in 5 ft 5 in 5 ft 5 in 5 ft 5 in Weight: 200 lb BMI 33.3 BP 113/76 Intake Visit Reasons: 38 wk ob Evp Marketing Required: No Is patient in pain?: No [...] cat(s) history of recent travel: Yes ( [place] - August 2024) out of state: Yes [...] walking frequency: daily duration: < 15 minutes/day allen/congregational: Restoration seatbelt use: always do you feel safe [...] term vacuum 9lbs 5oz Male ep idural [facility] Dr. Isabel Delivery Date: 07/28/23 Last [...] Cosigner Signature: Date (if applicable) CC: ~ [facility] [id number] Progress note Author Elli Saenz [facility] Note Date/Time May 24, 2025 2:29 pm [facility] [address], [address] [place] [address] OFFICE VISIT Date of Service: 05/24/25 MR#: [id number] Acct: [id number] Name: FAREED LORENZO Rep #: [id number] : 2000 Provider: Dr. 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 Date Name GA/Weeks Outcome Route Bth Weight Gen Labor Lgth Anesthesia Del Locatn Provider FOB 07/28/23 Chris 40 live - full term vacuum 9lbs 5oz Male ep idural [facility] Dr. Isabel Delivery Date: 07/28/23 Last [...] and Symptoms of Preeclampsia, Feeding No and [place] Education; Discussed Circumcision preference Coding Level of [...] Law DO> Date _ Elli Edwards DO [facility] Signature: Date (if applicable) CC: ~ [facility] Work Phone: 1(887) 748-511207-02-2025 Progress [facility] [address], [place] [address] OFFICE VISIT Date of Service: 05/16/25 MR#: [id number] Acct: [id number] Name: FAREED LORENZO Rep #: [id number] : 2000 Provider: Dr. 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 Isabel Delivery Date: 07/28/23 Last [...] Cosigner Signature: Date (if applicable) CC: ~ [facility] [id number] Progress note Author Elli Saenz [facility] Note Date/Time May 16, 2025 3:40p [facility] [address] [place] [address], [address] [place] [address] OFFICE VISIT Date of Service: 05/16/25 MR#: [id number] Acct: [id number] Name: FAREED LORENZO Rep #: [id number] : 2000 Provider: Dr. 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 Date Name GA/Weeks Outcome Route Bth Weight Gen Labor Lgth Anesthesia Del Locatn Provider FOB 07/28/23 Chris 40 live - full term vacuum 9lbs 5oz Male ep idural [facility] Dr. Isabel Delivery Date: 07/28/23 Last [...] Urine Glucose Negative Last Edit by Cesilia eHrnandez on 05/16/25 15: 38 Office Urine Protein [...] Cosigner Signature: Date (if applicable) CC: ~ [facility] [employer] [facility] Work Phone: 1(226) 590-752606-09-2025 History and physical note [facility] Medical Records Department [address] [place] [address] OB Triage Physician Note 04/23/250 MR#: [id number] Acct: [id number] Name: FAREED LORENZO Rep #:[id number] : 2000 From: Brianna Velasquez CNM PCP: Dr. 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 Edwards Shaquille Delivery Date: 07/28/23 [...] variability reactive no decelerations category I tracing Crawford: no Contractions Assessment and plan: Reactive NST, reassuring maternal and status patient discharged to home to follow-up in office at next appt. See problem list details for additional plan information. Charges/Coding Procedures Urinary/Genital 52xxx-59xxx: 63495-62 non-stress test Interp 04/23/25 2242 ns CNM> Date _ Brianna Velasquez CNM Cosigner Signature (if applicable): Date CC: LAYLA Velasquez; Dr. Solitario Blank MD ~ Signed [facility]05-27-2025 Progress [facility] Emergency Department [address], [address] [place] [address] OFFICE VISIT Date of Service: 04/10/25 MR#: [id number] Acct: [id number] Name: FAREED LORENZO Rep #: [id number] : 2000 Provider: LAYLA Naylor Age/Sex: 25/F Location: [facility] [place] Status: Signed Intake Vital Signs 10/27/24 13:05 03/26/25 13:39 04/10/25 10:46 Height 5 ft 5 in 5 ft 5 in 5 ft 5 in Weight: 191 lb 4 oz BMI 31.8 BP 119/74 Intake Visit Reasons: 32 WK OB Chief Complaint: 32wk OB Evp Marketing Required: No Is patient in pain?: No [...] occupational status: employed 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 Isabel Delivery Date: 07/28/23 Last [...] Cosigner Signature: Date (if applicable) CC: ~ [facility]04-15-2025 Evaluation note* Diagnosis Onset Date Resolution [...] of normal acute May 28, 2025 2:04pm [facility] Work Phone: 1([phone]) 835-765003-14-2025 Evaluation note* Diagnosis Onset Date Resolution Status [...] normal acut e May 09, 2025 9:33am [employer] Work Phone: 1([phone]) 115-897103-14-2025 Evaluation note* Diagnosis Onset Date Resolution Status [...] normal acut e May 16, 2025 3:16pm [facility] [employer] Work Phone: 1([phone]) [phone] Evaluation note* Diagnosis Onset Date Resolution Status [...] normal acut e May 24, 2025 2:09pm [facility] Work Phone: 1([phone]) 378-795402-19-2025 Evaluation note* Diagnosis Onset Date Resolution Status [...] normal acute April 10, 2025 1 0:38am [facility] Work Phone: [phone]) [phone] Evaluation note* Diagnosis Onset Date Resolution Status [...] 0:38am Status post fall acute April 8:15pm [facility] Work Phone: 1([phone]) 539-837202-19-2025 Evaluation note* Diagnosis Onset Date Resolution Status [...] of normal acute April 26, 2025 9:53am [facility] Work Phone: 1([phone]) 374-269201-14-2025 Evaluation note* Diagnosis Onset Date Resolution Status [...] of normal acute February 27, 2025 8:[address]am [facility] Work Phone: 1([phone]) 219-871409-15-2023 Progress note Author Annabelle Garduno [facility] July 30, 2023 8:15am Note Date/Time July 30, 2023 8:15am [facility] Medical Records Department [facility] [place] [address] Progress Note - OBGYN 09/813 MR#: [id number] Acct: [id number] Name: FAREED YOUNG Rep #:[id number] : 2000 From: Annabelle montague MD PCP: Dr. Solitario Blank MD Status:ADM IN Location: [id number] Subjective Subjective Patient doing well without complaints. [...] Cosigner Signature (if applicable): CC: ~ Signed [facility] Work Phone: 1([phone]) [phone] Progress note Author Margot Bradford [facility] July 29, 2023 7:59am Note Date/Time July 29, 2023 7:59am [facility] Medical Records Department [address] [place] [address] Progress Note - OBGYN 07/29/23 0757 MR#: [id number] Acct: [id number] Name: FAREED YOUNG Rep #:[id number] : 2000 From: Margot Bradford NP RETAIL FIELD REPRESENTATIVE-C PCP: Dr. Solitario Blank MD Status:ADM IN [facility] Subjective Subjective Patient doing well without complaints. [...] (Auto) 73.8 H, Lymph % (Auto) 16.5 L,Ector % (Auto) 8.0, Eos % (Auto) 0.6, [...] 0759 <Electronically signed by Margot Bradford NP RETAIL FIELD REPRESENTATIVE-C> Cosigner Signature (if applicable): CC: ~ Signed [facility] Work Phone: 1([phone]) [phone] Discharge summary Author Elli Saenz [facility] July 28, 2023 10:58pm Note Date/Time July 28, 2023 10:59pm [facility] Medical Records Department [address] [place] [address] Instructions for Home/Discharge Instructions 07/28/23 2258 MR#: [id number] Acct: [id number] Name: FAREED YOUNG Rep #:[id number] : [...] Up With: Elli Edwards DO When: Call [phone] to make an appointment with your doctor [...] CC: Dr. Solitario Blank MD ~ Signed [facility] Work Phone: 1([phone]) 328-915509-13-2023 Procedure [facility] 07-28-2023 Progress note Author [facility] July 28, 2023 12:21pm Note Date/Time July 28, 2023 12:22pm [facility] Medical Records Department [address] [place] [address] Progress Note 07/28/23 1219 MR#: [id number] Acct: [id number] Name: FAREED YOUNG Rep #:[id number] : 2000 23 From: Elli Edwards DO PCP: Dr. Solitario Blank MD Status:ADM IN Location: SC476-8 Progress Note pt is breathing through contractions. 30cc was let out of the balloon earlier due to pain and then the balloon spontaneously expelled recently. The bleeding that was seen after insertion has subsided. She consents to AROM. current tracing: FHT: 120, Moderate variability reactive no decelerations category I tracing Crawford: q 2 min Contractions cx is 5/80/-1, [...] Cosigner Signature (if applicable): CC: ~ Signed [facility] Work Phone: 1([phone]) [phone] History and physical note Author Elli Saenz [facility] July 28, 2023 8:27am Note Date/Time July 28, 2023 8:27am [facility] Medical Records Department [address] [place] [address] H&P Exam - ENTRY LEVEL MARKETING REPRESENTATIVE 07/28/23 0824 MR#: [id number] Acct: [id number] Name: FAREED YOUNG Rep #:[id number] : 2000 23 From: Elli Edwards DO PCP: Dr. 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 pets and animals: Yes (not managing litterbox) pets and animals: cat(s) history of recent travel: Yes ([place]) out of state: Yes out of country: [...] 1-2 times per week duration: 60-90 minutes/day allen/congregational: Restoration seatbelt use: always do you feel safe [...] tender external exam normal Narrative: a 23 chinese cerna catheter was inserted into the cervix [...] Supervision of high risk , antepartum: COMMENT: [id number], NORMA 07/22/23 boy Shaquille (4) : QUALIFIERS: [...] any complications: none I have reviewed the [facility] and made any clinically relevant updates. 07/28/23826 <Electronically signed by Elli Edwards DO> Cosigner Signature (if applicable): CC: Dr. Elli Edwards DO; Dr. Solitario Blank MD~ Signed [facility] Work Phone: [phone] NotePap Smear Specimen AdequacyFebruary 2022 5:09pmComment.Satisfactory for evaluation. Endocervical and/or squamous metaplasticcells (endocervical component)are present.[facility] INTERFACED A#[id number]. Rita'S HospitalComment on above:Satisfactory for evaluation. Endocervical and/or squamous metaplasticcells (endocervical component)are present.12-24-2022 NotePap Smear Specimen AdequacyFebruary 2022 6:09pmComment.Satisfactory for evaluation. Endocervical and/or squamous metaplasticcells (endocervical component)are present.[facility] INTERFACED A#[id number]. Rita'S HospitalComment on above:Satisfactory for evaluation. Endocervical and/or squamous metaplasticcells (endocervical component)are present.Evaluation note* Diagnosis Onset Date Resolution Status Family history of autism acu te Family history of recurrent miscarriage acute acute Supervision of high risk , antepartum acute [facility] Work Phone: evaluation note* Diagnosis Onset [...] Supervision of high risk , antepartum acute [facility] Work Phone: Evaluation note* Diagnosis Onset [...] Supervision of high risk , antepartum acute [facility] Work Phone: evaluation note* Diagnosis Onset [...] risk , antepartum acute UTI in acute [facility] Work Phone: Evaluation note* Diagnosis Onset [...] risk , antepartum acute UTI in acute [facility] Work Phone: Evaluation note* Diagnosis Onset [...] risk , antepartum resolved UTI in resolved [facility] Work Phone: History and physical note Author Brianna [facility] Note Date/Time April 23, 2025 10:42 pm [facility] Medical Records Department [address] [place] [address] OB Triage Physician Note 04/23/250 MR#: [id number] Acct: [id number] Name: FAREED LORENZO Rep #:[id number] : 2000 25 From: Brianna Velasquez CNM PCP: Dr. 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 Date Name GA/Weeks Outcome Route Bth Weight Gen Labor Lgth Anesthesia Del Locatn Provider FOB 07/28/23 Chris 40 live - full term vacuum 9lbs 5oz Male ep idural [facility] Dr. Isabel Delivery Date: 07/28/23 Last [...] variability reactive no decelerations category I tracing Crawford: no Contractions Assessment and plan: Reactive NST, reassuring maternal and status patient discharged to home to follow-up in office at next appt. See problem list details for additional plan information. Charges/Coding Procedures Urinary/Genital 52xxx-59xxx: 85450-94 non-stress test Interp 04/23/25 4252 <Electronically signed by Brianna benito CNM> Date _ Brianna Barajasigner Signature (if applicable): Date CC: LAYLA Velasquez; Dr. Solitario Blank MD ~ Signed [facility] Work Phone: Progress note Author Radha Naylor [facility] Note Date/Time April 10, 2025 11:00 am [facility] [address] [place] [address], [address] [place] [address] OFFICE VISIT Date of Service: 04/10/25 MR#: [id number] Acct: [id number] Name: FAREED LORENZO Rep #: [id number] : 2000 Provider: LAYLA Naylor Age/Sex: 25/F Location: [facility] [place] Status: Signed Intake Vital Signs 10/27/24 13:05 03/26/25 13:39 04/10/25 10:46 Height 5 ft 5 in 5 ft 5 in 5 ft 5 in Weight: 191 lb 4 oz BMI 31.8 BP 119/74 Intake Visit Reasons: 32 WK OB Chief Complaint: 32wk OB Evp Marketing Required: No Is patient in pain?: No [...] animals: cat(s) history of recent travel: Yes ([place] - August 2024) out of state: Yes [...] walking frequency: daily duration: < 15 minutes/day allen/congregational: Restoration seatbelt use: always do you feel safe at home: Yes 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 Date Name GA/Weeks Outcome Route Bth Weight Gen Labor Lgth Anesthesia Del Locatn Provider FOB 07/28/23 Chris 40 live - full term vacuum 9lbs 5oz Male ep idural [facility] Dr. Edwards Shaquille Delivery Date: 07/28/23 [...] Cosigner Signature: Date (if applicable) CC: ~ [facility] [employer] Work Phone: Reason for referral (narrative)No reason for referral information availableWSelect Medical [facility] Work Phone: Summary Purpose Family History No [...] No July 28, 2023 7:45am Power of Technical Assistant No July 7:45am Chief Complaint and Reason [...] section and content) DATE CREATED AUTHOR 10/22/2018 [facility] DATE CREATED AUTHOR AUTHOR'S ORGANIZ ATION 05/04/2019 [facility] DATE CREATED AUTHOR AUTHOR'S ORGANIZ ATION 01/27/2025 [facility] DATE CREATED AUTHOR AUTHOR'S ORGANIZ ATION 05/28/2025 [facility] Care Teams (unrecognized sec tion and [...] Care Provider, Referring Provider Active Margot Bradford RETAIL FIELD REPRESENTATIVE, RETAIL FIELD REPRESENTATIVE-C Attending Provider Active Team Status: Inactive Member Role Status Dates Dr. Solitario Blank MD Primary Care Provider Active Margot Bradford RETAIL FIELD REPRESENTATIVE, RETAIL FIELD REPRESENTATIVE-C Attending Provider, Referring Provider Active Team Status: [...] Referring Provider, Other Provider Active Margot Bradford RETAIL FIELD REPRESENTATIVE, RETAIL FIELD REPRESENTATIVE-C Attending Provider Active Team Status: Active Member [...] Inactive Member Role Status Dates Dr. Solitario Blnak MD Primary Care Provider Active Start: November [...] 2025 End: January 03, 2025 Margot Bradford RETAIL FIELD REPRESENTATIVE, RETAIL FIELD REPRESENTATIVE-C Attending Provider Active Start: January 03, 2025 [...] 2025 End: February 27, 2025 Dr. Elli Edwadrs DO Attending Provider Activ e Start: February [...] 2025 End: March 26, 2025 Margot Bradford RETAIL FIELD REPRESENTATIVE, RETAIL FIELD REPRESENTATIVE-C Attending Provider Active Start: March 26, 2025 [...] 2025 End: April 26, 2025 Dr. Solitario Blakn MD Referring Provider Active S tart: April 26, 2025 End: April 26, 2025 Margot Bradford RETAIL FIELD REPRESENTATIVE, RETAIL FIELD REPRESENTATIVE-C Attending Provider Active Start: April 26, 2025 End: April 26, 2025 Team Status: Inactive Member Role Status Dates Dr. Solitario Blank MD Primary Care Provider Active Start: May 09, 2025 End: May 09, 2025 Dr. Solitario Blank MD Referring Provider Active S tart: May 09, 2025 End: May 09, 2025 Margot Bradford RETAIL FIELD REPRESENTATIVE, RETAIL FIELD REPRESENTATIVE-C Attending Provider Active Start: May 09, 2025 [...] 2025 End: March 26, 2025 Margot Bradford RETAIL FIELD REPRESENTATIVE, RETAIL FIELD REPRESENTATIVE-C Attending Provider Active Start: March 26, 2025 [...] 2025 End: April 26, 2025 Margot Sanchez RETAIL FIELD REPRESENTATIVE, RETAIL FIELD REPRESENTATIVE-C Attending Provider Active Start: April 26, 2025 End: April 26, 2025 Team Status: Inactive Member Role/Relationship Status Dates Dr. Solitario Blank MD Primary Care Provider Active Start: May 09, 2025 End: May 09, 2025 Dr. Solitario Blank MD Referring Provider Active S tart: May 09, 2025 End: May 09, 2025 Margot Bradford RETAIL FIELD REPRESENTATIVE, RETAIL FIELD REPRESENTATIVE-C Attending Provider Active Start: May 09, 2025 End: May 09, 2025 Team Status: Inactive Member Role/Relationship Status Dates Dr. Solitario Blank MD Primary Care Provider Active Start: May 09, 2025 End: May 09, 2025 Margot Bradford RETAIL FIELD REPRESENTATIVE, RETAIL FIELD REPRESENTATIVE-C Attending Provider Active Start: May 09, 2025 [...] 2025 End: March 26, 2025 Margot Bradford RETAIL FIELD REPRESENTATIVE, RETAIL FIELD REPRESENTATIVE-C Attending Provider Active Start: March 26, 2025 [...] 26, 2025 End: April 26, 2025 Dr. Soiltario Blank MD Referring Provider Active S tart: April 26, 2025 End: April 26, 2025 Margot Bradford RETAIL FIELD REPRESENTATIVE, RETAIL FIELD REPRESENTATIVE-C Attending Provider Active Start: April 26, 2025 End: April 26, 2025 Team Status: Inactive Member Role/Relationship Status Dates Dr. Solitario Blank MD Primary Care Provider Active Start: May 09, 2025 End: May 09, 2025 Dr. Solitario Blank MD Referring Provider Active S tart: May 09, 2025 End: May 09, 2025 Margot Bradford RETAIL FIELD REPRESENTATIVE, RETAIL FIELD REPRESENTATIVE-C Attending Provider Active Start: May 09, 2025 End: May 09, 2025 Team Status: Inactive Member Role/Relationship Status Dates Dr. Solitario Blank MD Primary Care Provider Active Start: May 09, 2025 End: May 09, 2025 Margot Bradford RETAIL FIELD REPRESENTATIVE, RETAIL FIELD REPRESENTATIVE-C Attending Provider Active Start: May 09, 2025 [...] BE BASED ON THE PRIMARY CLINICAL RECORDS. [facility]. provides no warranty or guarantee of the accuracy or completeness of information in this document.
--- OUTSIDE RECORDS SUMMARY | 2025-05-30 23:30 | XMS RPT_ITS | CCD ---
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 fL 6.2-12.0 [facility] Monocyte percentageOrdered B y: Brianna Velasquez on 02-27-2025 Monocytes/100 WBC (Bld) 6.9 % 0-10 [facility] Neutrophil percentageOrdered By: Brianna Velasquez on 02-27-2025 Neutrophils/100 WBC (Bld) 77.0 % High 47-70 [facility] No Panel InformationOrdered By: Brianna Velasquez on 02-27-2025 HIV (1&2) Antibody Non-Reactive Nonreactive [facility] Comment on above: Non-ReactiveReactive Repeatedly reactive samples must be confirmed according to CDC recommended confirmatory algorithms. The subresults for either HIVAG or AHIV can be used as an aid in the selection of the confirmation algorithm for reactive samples.Send out specimens with Reactive results to [facility] for confirmation.Order the HIV antibody detection and differentiation: #[id number] Nucleated red blood cell per centageOrdered By: Brianna Velasquez on 02-27-2025 Nucleated RBC/100 WBC (Bld) [Ratio] 0 % 0-5 [facility] Hoist Worker Office Visit Reporton 02-27-2025 Hoist Worker Office Visit Report [facility] [address], [address] [place] [address] OFFICE VISIT Date of Service: 02/27/25 MR#: [id number] Acct: [id number] Name: FAREED YOUNG Rep #: [id number] : 2000 Provider: Dr. 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 [place] Delivery Date: 07/28/23 Last [...] -???-???-???-???-??? - (more content not included)... Normal [facility] Platelet countOrdered By: Stacia Velasquez on 02-27-2025 Platelets (Bld) [#/Vol] 325 10*3/uL 150-450 [facility] RBC Auto (Bld) [#/Vol]Ordere d By: Brianna Velasquez on 02-27-2025 RBC (Bld) [#/Vol] 4.26 10*6/uL 4.2-5.4 [facility] Syphilis Antibodieson 2024 Syphilis Abs Non-Reactive Normal Nonreactive [facility] Comment on above: Performed By: #### L 3890.6006, L100.0100, L509.8002, L501.0250 #### [facility] Laboratory [address] [place], [place] [address], [address] T. pallidum abOrdered By: Stacia Velasquez on 02-27-2025 Syphilis Total Antibody Non-Reactive Nonreactiv e [facility] White blood cell (WBC) count Ordered By: Brianna Velasquez on 02-27-2025 WBC (Bld) [#/Vol] 11.7 10*3/uL High 4.4-11.0 [facility] Laboratory - Chemistry and C hemistry - challengeOrdered By: Brianna Velasquez on 01-26-2025 Glucose Ql (U) Negative [facility] Laboratory - UrinalysisOrder ed By: Brianna Velasquez on 01-26-2025 Protein Ql (U) Negative [facility] Hoist Worker Office Visit Reporton 01-26-2025 Hoist Worker Office Visit Report [facility] [address], [address] [place] [address] OFFICE VISIT Date of Service: 01/26/25 MR#: [id number] Acct: [id number] Name: FAREED YOUNG Rep #: [id number] : 2000 Provider: LAYLA rader Age/Sex: 24/F [place] [facility] [place]: Signed Intake Vital Signs 10/27/24 13:05 01/03/25 10:00 01/26/25 09:35 01/26/25 09:38 Height 5 ft 5 in 5 ft 5 in 5 ft 5 in 5 ft 5 in Weight: 173 lb 177 lb 7 oz BMI 28.8 29.5 BP 110/64 104/71 Intake Visit Reasons: 21 WK OB Press Shop Supervisor Required: No Is patient in pain?: No [...] occupational status: employed 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 [place] Delivery Date: 07/28/23 Last [...] -???-???-???-???-??? -???-???- (more content not included)... Normal [facility] Laboratory - Chemistry and C hemistry - challengeOrdered By: Margot Bradford on 01-03-2025 Glucose Ql (U) Negative [facility] Laboratory - UrinalysisOrder ed By: Margot Bradford on 01-03-2025 Protein Ql (U) Negative [facility] Hoist Worker Office Visit Reporton 01-03-2025 Hoist Worker Office Visit Report [facility] [address], [address] [place] [address] OFFICE VISIT Date of Service: 01/03/25 MR#: [id number] Acct: [id number] Name: FAREED YOUNG Rep #: [id number] : 2000 Provider: AURA barrow Age/Sex: 24/F [place] [facility] [place]: Signed Intake Vital Signs 10/27/24 13:05 11/28/24 11:30 01/03/25 10:00 Height 5 ft 5 in 5 ft 5 in 5 ft 5 in Weight: 173 lb BMI 28.8 BP 110/64 Intake Visit Reasons: 18 WK OB Chief Complaint: 18 Week OB Press Shop Supervisor Required: No Is patient in pain?: No [...] occupational status: employed 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 [place] Delivery Date: 07/28/23 Last [...] -???-???-???-???-??? -?? (more content not included)... Normal [facility] Absolute neutrophil countOrd ered By: Radha Naylor on 11-28-2024 Neutrophils (Bld) [#/Vol] 5.6 10*3/uL 2.0-7.7 [facility] Basophil percentageOrdered B y: Radha Naylor on 11-28-2024 Basophils/100 WBC (Bld) 0.4 % 0-1 [facility] CBC W/Diff, Automatedon 11-15 Absolute Lymph 1.76 X10 3/uL Normal 0.83-4.51 [facility] Comment on above: Performed By: #### L 3890.6006, L100.0100, L509.8002, L501.0250 #### [facility] Laboratory [address] [place], [place], [id number] Absolute Neut 5.6 X10 3/uL Normal 2.0-7.7 [facility] Comment on above: Performed By: #### L 3890.6006, L100.0100, L509.8002, L501.0250 #### [facility] Laboratory [address] [place], [address] Basophils/100 WBC (Bld) 0.4 % Normal 0-1 [facility] Comment on above: Performed By: #### L 3890.6006, L100.0100, L509.8002, L501.0250 #### [facility] Laboratory [address] [place], [address] Eosinophils/100 WBC (Bld) 0.6 % Normal 0-5 [facility] Comment on above: Performed By: #### L 3890.6006, L100.0100, L509.8002, L501.0250 #### [facility] Laboratory [address] [place], [address] Erythrocyte distribution width (RBC) [Ratio] 11.9 % Normal 11.6-14.6 [facility] Comment on above: Performed By: #### L 3890.6006, L100.0100, L509.8002, L501.0250 #### [facility] Laboratory [address] [place], [address] Hematocrit (Bld) [Volume fraction] 41.0 % Normal 37-47 [facility] Comment on above: Performed By: #### L 3890.6006, L100.0100, L509.8002, L501.0250 #### [facility] Laboratory [address] [place], [address] Hemoglobin (Bld) [Mass/Vol] 13.6 g/dL Normal 12.0-15.0 [facility] Comment on above: Performed By: #### L 3890.6006, L100.0100, L509.8002, L501.0250 #### [facility] Laboratory [address] [place], [address] IG% 0.300 Normal 0.0-0.9 [facility] Comment on above: Result Comment: IG% - Immature Granulocytes (promyelocytes, myelocytes and metamyelocytes) > 1% indicates that a LEFT SHIFT is Present. Performed By: #### L 3890.6006, L100.0100, L509.8002, L501.0250 #### [facility] Laboratory [address] [place], [address] Lymphocytes/100 WBC (Bld) 22.1 % Normal 19-41 [facility] Comment on above: Performed By: #### L 3890.6006, L100.0100, L509.8002, L501.0250 #### [facility] Laboratory [address] [place], [address] MCH (RBC) [Entitic mass] 28.3 pg Normal 27.0-32.0 [facility] Comment on above: Performed By: #### L 3890.6006, L100.0100, L509.8002, L501.0250 #### [facility] Laboratory [address] [place], [address] MCHC (RBC) [Mass/Vol] 33.2 g/dL Normal 32-36 [facility] Comment on above: Performed By: #### L 3890.6006, L100.0100, L509.8002, L501.0250 #### [facility] Laboratory [address] [place], [address] MCV (RBC) [Entitic vol] 85.2 fL Normal 81-99 [facility] Comment on above: Performed By: #### L 3890.6006, L100.0100, L509.8002, L501.0250 #### [facility] Laboratory [address] [place], [address] Monocytes/100 WBC (Bld) 6.4 % Normal 0-10 [facility] Comment on above: Performed By: #### L 3890.6006, L100.0100, L509.8002, L501.0250 #### [facility] Laboratory [address] [place], [address] Neutrophils/100 WBC (Bld) 70.2 % High 47-70 [facility] Comment on above: Performed By: #### L 3890.6006, L100.0100, L509.8002, L501.0250 #### [facility] Laboratory [address] [place], [address] Nucleated RBC (Bld) [#/Vol] 0 10*3/uL Normal 0-5 [facility] Comment on above: Performed By: #### L 3890.6006, L100.0100, L509.8002, L501.0250 #### [facility] Laboratory [address] [place], [address] Platelet mean volume (Bld) [Entitic vol] 9.7 fL Normal 6.2-12.0 [facility] Comment on above: Performed By: #### L 3890.6006, L100.0100, L509.8002, L501.0250 #### [facility] Laboratory [address] [place], [address] Platelets (Bld) [#/Vol] 328 10*3/uL Normal 150-450 [facility] Comment on above: Performed By: #### L 3890.6006, L100.0100, L509.8002, L501.0250 #### [facility] Laboratory [address] [place], [address] RBC (Bld) [#/Vol] 4.81 10*6/uL Normal 4.2-5.4 [facility] Comment on above: Performed By: #### L 3890.6006, L100.0100, L509.8002, L501.0250 #### [facility] Laboratory [address] [place], [address] RDW SD 36.2 fl Normal 35.1-43.9 [facility] Comment on above: Performed By: #### L 3890.6006, L100.0100, L509.8002, L501.0250 #### [facility] Laboratory [address] [place], [address] WBC (Bld) [#/Vol] 8.0 10*3/uL Normal 4.4-11.0 [facility] Comment on above: Performed By: #### L 3890.6006, L100.0100, L509.8002, L501.0250 #### [facility] Laboratory [address] [place], [address] Eosinophil percentageOrdered By: Radha Naylor on 11-28-2024 Eosinophils/100 WBC (Bld) 0.6 % 0-5 [facility] Erythrocyte distribution wid th (RBC) [Ratio]Ordered By: Radha Naylor on 11-28-2024 Erythrocyte distribution width (RBC) [Entitic vol] 36.2 fL 35.1-43.9 [facility] Erythrocyte distribution wid th ratioOrdered By: Radha Naylor on 11-28-2024 Erythrocyte distribution width (RBC) [Ratio] 11.9 % 11.6-14.6 [facility] HIV - WCHon 11-28-2024 HIV Non-Reactive Normal Nonreactive [facility] Comment on above: Order Comment: Reaso n for Exam: Performed By: #### L 3890.6006, L100.0100, L509.8002, L501.0250 #### [facility] Laboratory [address] [place], [address] HIV 1+2 Ab+HIV1 p24 Ag IA Ql Ordered By: Radha Naylor on 11-28-2024 HIV (1&2) Antibody Non-Reactive Nonreactive [facility] Hematocrit Auto (Bld) [Volum e fraction]Ordered By: Radha Naylor on 11-28-2024 Hematocrit (Bld) [Volume fraction] 41.0 % 37-47 [facility] Hemoglobin measurementOrdere d By: Radha Naylor on 11-28-2024 Hemoglobin (Bld) [Mass/Vol] 13.6 g/dL 12.0-15.0 [facility] Hepatitis B Surface Antigeno n 11-28-2024 HEP B Surf Ag Non-Reactive Normal Nonreactive [facility] Comment on above: Order Comment: Reaso n for Exam: Performed By: #### L 3890.6006, L100.0100, L509.8002, L501.0250 #### [facility] Laboratory [address] [place], [place], [id number] Hepatitis B surface antigen detectionOrdered By: Radha Naylor on 11-28-2024 Hepatitis B Surface Antigen Non-Reactive Nonreactive [facility] Hepatitis C Antibodyon 11-28 Hepatitis C AB [facility] Comment on above: Order Comment: Reaso n for Exam: Result Comment: Non Reactive: < 0.8 Equivocal: >/= 0.8 to < 1.0 Reactive: >/= 1.0 The [facility] requires that a reactive/equivocal HCV antibody result be sent out for confirmation. HCV Quant by PCR testing. Performed By: #### L 3890.6006, L100.0100, L509.8002, L501.0250 #### [facility] [address] [place], [place], [address] Hepatitis C virus antibody a ssayOrdered By: Radha Naylor on 11-28-2024 Hepatitis C Antibody Non-Reactive Nonreactive [facility] Comment on above: Non Reactive: < 0.8 Equivocal: >/= 0.8 to < 1.0 Reactive: >/= 1.0The CDC requires that a reactive/equivocal HCV antibody result be sent out for confirmation. HCV Quant by PCR testing. Immature granulocytes/100 WB C Auto (Bld)Ordered By: Radha Naylor on 11-28-2024 Immature granulocytes/100 WBC (Bld) 0.300 % 0.0-0.9 [facility] Comment on above: IG% - Immature Granu locytes (promyelocytes, myelocytes and metamyelocytes) > 1% indicates that a LEFT SHIFT is Present. L509.8000on 11-28-2024 Syphilis Abs Non-Reactive Normal [facility] Comment on above: Order Comment: Reaso n for Exam: Performed By: #### L 3890.6006, L100.0100, L509.8002, L501.0250 #### [facility] Laboratory [address] [place], [address] Laboratory - Chemistry and C hemistry - challengeon 11-28-2024 Glucose Ql (U) Negative [facility] Laboratory - Urinalysison Protein Ql (U) Negative [facility] Lymphocytes Auto (Unsp spec) [#/Vol]Ordered By: Radha Naylor on 11-28-2024 Lymphocytes (Bld) [#/Vol] 1.76 10*3/uL 0.83-4.51 [facility] Lymphocytes/100 WBC Auto (Un sp spec)Ordered By: Radha Naylor on 11-28-2024 Lymphocytes/100 WBC (Bld) 22.1 % 19-41 [facility] MCV (mean corpuscular volume ) determinationOrdered By: Radha Naylor on 11-28-2024 MCV (RBC) [Entitic vol] 85.2 fL 81-99 [facility] Mean corpuscular hemoglobin (MCH) determinationOrdered By: Radha Naylor on 11-28-2024 MCH (RBC) [Entitic mass] 28.3 pg 27.0-32.0 [facility] Mean corpuscular hemoglobin concentration (MCHC) determinationOrdered By: Radha Naylor on 11-28-2024 MCHC (RBC) [Mass/Vol] 33.2 g/dL 32-36 [facility] Mean platelet volume determi nationOrdered By: Radha Naylor on 11-28-2024 Platelet mean volume (Bld) [Entitic vol] 9.7 fL 6.2-12.0 [facility] Monocyte percentageOrdered B y: Radha Naylor on 11-28-2024 Monocytes/100 WBC (Bld) 6.4 % 0-10 [facility] Neutrophil percentageOrdered By: Radha Naylor on 11-28-2024 Neutrophils/100 WBC (Bld) 70.2 % High 47-70 [facility] Nucleated red blood cell per centageOrdered By: Radha Naylor on 11-28-2024 Nucleated RBC/100 WBC (Bld) [Ratio] 0 % 0-5 [facility] Hoist Worker Office Visit Reporton 11-28-2024 Hoist Worker Office Visit Report [facility] [address], [address] [place] [address] OFFICE VISIT Date of Service: 11/28/24 MR#: [id number] Acct: [id number] Name: FAREED YOUNG Rep #: [id number] : 2000 Provider: Dr. 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 D daja Isabel Delivery Date: 07/28/23 Last [...] Trimester F (more content not included)... Normal [facility] Platelet countOrdered By: Damaso Naylor on 11-28-2024 Platelets (Bld) [#/Vol] 328 10*3/uL 150-450 [facility] RBC Auto (Bld) [#/Vol]Ordere d By: Radha Naylor on 11-28-2024 RBC (Bld) [#/Vol] 4.81 10*6/uL 4.2-5.4 [facility] Rubella IgGon 11-28-2024 Rubella IgG Reactive Normal Nonreactive [facility] Comment on above: Order Comment: Reaso n for Exam: Result Comment: Anti body Results Interpretation of Immune Status Non Reactive Presumed Non-Immune Equivocal Equivocal Reactive Presumed Immune Performed By: #### L 3890.6006, L100.0100, L509.8002, L501.0250 #### [facility] Laboratory [address] [place], [place], [id number] Rubella immune status IgGOrd ered By: Radha Naylor on 11-28-2024 Rubella IgG Antibody Reactive Nonreactive [facility] Comment on above: Antibody Results Int erpretation of Immune Status Non Reactive Presumed Non-Immune Equivocal Equivocal Reactive Presumed Immune Treponema sp Ab Ql (S)Ordere d By: Radha Naylor on 11-28-2024 Syphilis Total Antibody Non-Reactive [facility] Type AND Screenon 11-28-2024 ABO and Rh group Nom (Bld) Blood group O Rh(D) positive Normal [facility] Comment on above: Order Comment: PN Performed By: #### L 3890.6006, L100.0100, L509.8002, L501.0250 #### [facility] Laboratory [address] [place], [place], [id number] White blood cell (WBC) count Ordered By: Radha Naylor on 11-28-2024 WBC (Bld) [#/Vol] 8.0 10*3/uL 4.4-11.0 [facility] Chlamydia/GC SHIRAZ aptimaon CHLAMY,NUC ACID Negative Normal Negative [facility] Comment on above: Performed By: #### L 3890.6006, L100.0100, L509.8002, L501.0250 #### [facility] Laboratory [address] [place], [place], [address] GC BY NUC ACID Negative Normal Negative [facility] Comment on above: Result Comment: Perf ormed at: =G - [facility] [address] [facility] [place], [place] [id number] Psychology Tech: Ashley Golden MD, Phone: [phone] Performed By: #### L 3890.6006, L100.0100, L509.8002, L501.0250 #### [facility] Laboratory [address] [place], [place], [address] Urine Cultureon 10-28-2024 [facility] Culture exhibits no growth. Normal [facility] Comment on above: Performed By: #### L 3890.6006, L100.0100, L509.8002, L501.0250 #### [facility] Laboratory [address] [place], [place], [address] Hoist Worker Office Visit Reporton 10-27-2024 Hoist Worker Office Visit Report [facility]'[address], [address] [place] [address] OFFICE VISIT Date of Service: 10/27/24 MR#: [id number] Acct: [id number] Name: FAREED YOUNG Rep #: [id number] 28 : 2000 Provider: LAYLA Stratton ams Age/Sex: 24/F [place] [facility] [place]: Signed Intake Vital Signs 09/23/23 05:09 10/27/24 13:03 10/27/24 13:05 Height 5 ft 5 in 5 ft 5 in 5 ft 5 in Weight: 167 lb BMI 27.8 BP 121/76 H Intake Visit Reasons: New OB, LMP 08/28, NORMA 06/04/25 Press Shop Supervisor Required: No Is patient in pain?: No [...] occupational status: employed 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 [place] Shaquille Delivery Date: 07/28/23 Last [...] Hemoglobinopathy Or Carrier: Other, Cystic Fibrosis: Other, Park Interpretive Ranger (more content not included)... Normal [facility] Absolute lymphocyte countOrd ered By: Elli Saenz on 07-28-2023 Lymphocytes Auto (Unsp spec) [#/Vol] 1.89 10*3/uL 0.83-4.51 [facility] Basophil percentageOrdered B y: Elli Saenz on 07-28-2023 Basophils/100 WBC (Bld) 0.3 % 0-1 [facility] Eosinophils/100 WBC (Bld) 0.6 % 0-5 [facility] Neutrophils (Bld) [#/Vol] 8.4 10*3/uL 2.0-7.7 [facility] Neutrophils/100 WBC (Bld) 73.8 % 47-70 [facility] WBC (Bld) [#/Vol] 11.4 10*3/uL 4.4-11.0 [facility] Blood erythrocytes count (nu mber/volume)Ordered By: Elli Saenz on 07-28-2023 RBC (Bld) [#/Vol] 4.62 10*6/uL 4.2-5.4 [facility] Blood hemoglobin measurement (mass/volume)Ordered By: Elli Saenz on 07-28-2023 Hemoglobin (Bld) [Mass/Vol] 12.1 g/dL 12.0-15.0 [facility] Blood lymphocytes/100 leukoc ytesOrdered By: Elli Saenz on 07-28-2023 Lymphocytes/100 WBC (Bld) 16.5 % 19-41 [facility] Blood monocytes/100 leukocyt esOrdered By: Elli Saenz on 07-28-2023 Monocytes/100 WBC (Bld) 8.0 % 0-10 [facility] Blood platelet mean volumeOr dered By: Elli Saenz on 07-28-2023 Platelet mean volume (Bld) [Entitic vol] 10.2 fL 6.2-12.0 [facility] Determination of erythrocyte mean corpuscular volume (MCV)Ordered By: Elli Saenz on 07-28-2023 MCV (RBC) [Entitic vol] 82.7 fL 81-99 [facility] Hematocrit Auto (Bld) [Volum e fraction]Ordered By: Elli Saenz on 07-28-2023 Hematocrit (Bld) [Volume fraction] 38.2 % 37-47 [facility] Laboratory - Hematology and Cell countsOrdered By: Elli Saenz on 07-28-2023 Erythrocyte distribution width (RBC) [Entitic vol] 39.8 fL 35.1-43.9 [facility] Erythrocyte distribution width (RBC) [Ratio] 13.3 % 11.6-14.6 [facility] Immature granulocytes/100 WBC (Bld) 0.800 % 0.0-0.9 [facility] Comment on above: IG% - Immature Granu locytes (promyelocytes, myelocytes and metamyelocytes) > 1% indicates that a LEFT SHIFT is Present. MCH (RBC) [Entitic mass] 26.2 pg 27.0-32.0 [facility] Nucleated RBC/100 WBC (Bld) [Ratio] 0 % 0-5 [facility] MCHC Auto (RBC) [Mass/Vol]Or dered By: Elli Saenz on 07-28-2023 MCHC (RBC) [Mass/Vol] 31.7 g/dL 32-36 [facility] Platelets bldOrdered By: Paige Saenz on 07-28-2023 Platelets (Bld) [#/Vol] 267 10*3/uL 150-450 [facility] Serum Treponema species anti body detectionOrdered By: Elli Saenz on 07-28-2023 Treponema sp Ab Ql (S) Non-Reactive [facility] Laboratory - Chemistry and C hemistry - challengeon 07-23-2023 Glucose Ql (U) Negative [facility] Laboratory - Urinalysison Protein Ql (U) Negative [facility] Laboratory - Chemistry and C hemistry - challengeon 07-16-2023 Glucose Ql (U) Negative [facility] Laboratory - Urinalysison Protein Ql (U) Negative [facility] Laboratory - Chemistry and C hemistry - challengeon 07-09-2023 Glucose Ql (U) Negative [facility] Laboratory - Urinalysison Protein Ql (U) Negative [facility] Laboratory - Chemistry and C hemistry - challengeon 06-25-2023 Glucose Ql (U) Negative [facility] Laboratory - Urinalysison Protein Ql (U) Negative [facility] No Panel InformationOrdered By: Elli Saenz on 06-25-2023 Group B Streptococcus Culture Streptococcus agalactiae (B) [facility] Culture, urineOrdered By: Velasquez Bradford on 06-10-2023 Bacteria identified Cx Nom (U) Positive [facility] Laboratory - Chemistry and C hemistry - challengeon 06-10-2023 Bilirubin Ql (U) Negative [facility] Glucose Ql (U) Negative [facility] Ketones Ql (U) Negative [facility] pH (U) 5.0 [pH] [facility] Urobilinogen (U) [Mass/Vol] Negative [facility] Laboratory - Hematology and Cell countson 06-10-2023 Hemoglobin Ql (U) Hemolyzed [facility] Laboratory - Specimen inform ationon 06-10-2023 Clarity (U) Hazy [facility] Color (U) Yellow [facility] Laboratory - Urinalysison Protein Ql (U) Negative [facility] No Panel Informationon 06-10 Urine Leukocytes Positive [facility] Urine Non-Hemolyzed Blood Large [facility] Laboratory - Chemistry and C hemistry - challengeon 06-07-2023 Glucose Ql (U) Negative [facility] Laboratory - Urinalysison Protein Ql (U) Negative [facility] Laboratory - Chemistry and C hemistry - challengeon 05-28-2023 Glucose Ql (U) Negative [facility] Laboratory - Urinalysison Protein Ql (U) Negative [facility] Laboratory - Chemistry and C hemistry - challengeon 05-14-2023 Glucose Ql (U) Negative [facility] Laboratory - Urinalysison Protein Ql (U) Negative [facility] Laboratory - Chemistry and C hemistry - challengeon 04-30-2023 Glucose Ql (U) Negative [facility] Laboratory - Urinalysison Protein Ql (U) Negative [facility] Absolute lymphocyte countOrd ered By: Dr. Saenz on 04-29-2023 Lymphocytes Auto (Unsp spec) [#/Vol] 1.80 10*3/uL 0.83-4.51 [facility] Basophil percentageOrdered B y: Dr. Saenz on 04-29-2023 Basophils/100 WBC (Bld) 0.3 % 0-1 [facility] Eosinophils/100 WBC (Bld) 0.7 % 0-5 [facility] Neutrophils (Bld) [#/Vol] 6.5 10*3/uL 2.0-7.7 [facility] Neutrophils/100 WBC (Bld) 70.9 % 47-70 [facility] WBC (Bld) [#/Vol] 9.2 10*3/uL 4.4-11.0 [facility] Blood erythrocytes count (nu mber/volume)Ordered By: Dr. Saenz on 04-29-2023 RBC (Bld) [#/Vol] 4.19 10*6/uL 4.2-5.4 [facility] Blood hemoglobin measurement (mass/volume)Ordered By: Dr. Saenz on 04-29-2023 Hemoglobin (Bld) [Mass/Vol] 12.1 g/dL 12.0-15.0 [facility] Blood lymphocytes/100 leukoc ytesOrdered By: Dr. Saenz on 04-29-2023 Lymphocytes/100 WBC (Bld) 19.6 % 19-41 [facility] Blood monocytes/100 leukocyt esOrdered By: Dr. Saenz on 04-29-2023 Monocytes/100 WBC (Bld) 7.7 % 0-10 [facility] Blood platelet mean volumeOr dered By: Dr. Saenz on 04-29-2023 Platelet mean volume (Bld) [Entitic vol] 9.5 fL 6.2-12.0 [facility] Determination of erythrocyte mean corpuscular volume (MCV)Ordered By: Dr. Saenz on 04-29-2023 MCV (RBC) [Entitic vol] 89.3 fL 81-99 [facility] Gestational diabetes screen 1-hour screen with 50g oral glucose loadOrdered By: Dr. Saenz on 04-29-2023 Glucose 1 Hr post 50 g glucose PO [Mass/Vol] 97 mg/dL 70-140 [facility] HIV 1 and HIV-2 antibody ass ay with HIV-1 p24 antigen detectionOrdered By: Dr. Saenz on 04-29-2023 HIV 1+2 Ab+HIV1 p24 Ag IA Ql Non-Reactive Nonreactive [facility] Hematocrit Auto (Bld) [Volum e fraction]Ordered By: Dr. Saenz on 04-29-2023 Hematocrit (Bld) [Volume fraction] 37.4 % 37-47 [facility] Laboratory - Hematology and Cell countsOrdered By: Dr. Saenz on 04-29-2023 Erythrocyte distribution width (RBC) [Entitic vol] 40.8 fL 35.1-43.9 [facility] Erythrocyte distribution width (RBC) [Ratio] 12.5 % 11.6-14.6 [facility] Immature granulocytes/100 WBC (Bld) 0.800 % 0.0-0.9 [facility] Comment on above: IG% - Immature Granu locytes (promyelocytes, myelocytes and metamyelocytes) > 1% indicates that a LEFT SHIFT is Present. MCH (RBC) [Entitic mass] 28.9 pg 27.0-32.0 [facility] Nucleated RBC/100 WBC (Bld) [Ratio] 0 % 0-5 [facility] MCHC Auto (RBC) [Mass/Vol]Or dered By: Dr. Saenz on 04-29-2023 MCHC (RBC) [Mass/Vol] 32.4 g/dL 32-36 [facility] Platelets bldOrdered By: Dr. Saenz on 04-29-2023 Platelets (Bld) [#/Vol] 334 10*3/uL 150-450 [facility] Serum Treponema species anti body detectionOrdered By: Dr. Saenz on 04-29-2023 Treponema sp Ab Ql (S) Non-Reactive [facility] Laboratory - Chemistry and C hemistry - challengeon 04-14-2023 Glucose Ql (U) Negative [facility] Laboratory - Urinalysison Protein Ql (U) Negative [facility] Laboratory - Chemistry and C hemistry - challengeon 03-17-2023 Glucose Ql (U) Negative [facility] Laboratory - Urinalysison Protein Ql (U) Negative [facility] Laboratory - Chemistry and C hemistry - challengeon 01-19-2023 Glucose Ql (U) Negative [facility] Laboratory - Urinalysison Protein Ql (U) Negative [facility] Culture, urineOrdered By: Dr Heather Saenz on 12-27-2022 Bacteria identified Cx Nom (U) Culture exhibits no growth. [facility] Absolute lymphocyte countOrd ered By: Dr. Saenz on 12-24-2022 Lymphocytes Auto (Unsp spec) [#/Vol] 2.14 10*3/uL 0.83-4.51 [facility] Basophil percentageOrdered B y: Dr. Saenz on 12-24-2022 Basophils/100 WBC (Bld) 0.3 % 0-1 [facility] Eosinophils/100 WBC (Bld) 0.5 % 0-5 [facility] Neutrophils (Bld) [#/Vol] 8.9 10*3/uL 2.0-7.7 [facility] Neutrophils/100 WBC (Bld) 74.4 % 47-70 [facility] WBC (Bld) [#/Vol] 12.0 10*3/uL 4.4-11.0 [facility] Blood erythrocytes count (nu mber/volume)Ordered By: Dr. Saenz on 12-24-2022 RBC (Bld) [#/Vol] 4.85 10*6/uL 4.2-5.4 [facility] Blood hemoglobin measurement (mass/volume)Ordered By: Dr. Saenz on 12-24-2022 Hemoglobin (Bld) [Mass/Vol] 14.0 g/dL 12.0-15.0 [facility] Blood lymphocytes/100 leukoc ytesOrdered By: Dr. Saenz on 12-24-2022 Lymphocytes/100 WBC (Bld) 17.8 % 19-41 [facility] Blood monocytes/100 leukocyt esOrdered By: Dr. Saenz on 12-24-2022 Monocytes/100 WBC (Bld) 6.7 % 0-10 [facility] Blood platelet mean volumeOr dered By: Dr. Saenz on 12-24-2022 Platelet mean volume (Bld) [Entitic vol] 9.5 fL 6.2-12.0 [facility] Cervical or vagninal specime n microscopic examination by cytology stain (reported asOrdered By: Dr. Saenz on 12-24-2022 Cytology report Cyto stain Doc (Cvx/Vag) Comment . [facility] Comment on above: The Pap smear is [...] rRNA SHIRAZ+probe Ql (Unsp spec) Negative Negative [facility] Determination of erythrocyte mean corpuscular volume (MCV)Ordered By: Dr. Saenz on 12-24-2022 MCV (RBC) [Entitic vol] 86.2 fL 81-99 [facility] HIV 1 and HIV-2 antibody ass ay with HIV-1 p24 antigen detectionOrdered By: Dr. Saenz on 12-24-2022 HIV 1+2 Ab+HIV1 p24 Ag IA Ql Non-Reactive Nonreactive [facility] Hematocrit Auto (Bld) [Volum e fraction]Ordered By: Dr. Saenz on 12-24-2022 Hematocrit (Bld) [Volume fraction] 41.8 % 37-47 [facility] Laboratory - CytologyOrdered By: Dr. Saenz on 12-24-2022 Biomedical Technician Cyto stain Nom (Cvx/Vag) [ID] Comment . [facility] Comment on above: Ryan Huerta totechnologist Laboratory - Hematology and Cell countsOrdered By: Dr. Saenz on 12-24-2022 Erythrocyte distribution width (RBC) [Entitic vol] 38.3 fL 35.1-43.9 [facility] Erythrocyte distribution width (RBC) [Ratio] 12.2 % 11.6-14.6 [facility] Immature granulocytes/100 WBC (Bld) 0.300 % 0.0-0.9 [facility] Comment on above: IG% - Immature Granu locytes (promyelocytes, myelocytes and metamyelocytes) > 1% indicates that a LEFT SHIFT is Present. MCH (RBC) [Entitic mass] 28.9 pg 27.0-32.0 [facility] Nucleated RBC/100 WBC (Bld) [Ratio] 0 % 0-5 [facility] Laboratory - Microbiology an d Antimicrobial susceptibilityOrdered By: Dr. Saenz on 12-24-2022 N. gonorrhoeae DNA SHIRAZ+probe Ql (Unsp spec) Negative Negative [facility] Comment on above: Performed at: =G - [address] [id number] Director: Ashley Golden MD, Phone: [phone] Laboratory - Miscellaneous t estsOrdered By: Dr. Saenz on 12-24-2022 Service comment (Unsp spec) [Interp] Comment . [facility] Comment on above: This liquid based Th inPrep(R) pap test was screened withthe use of an image guided system. Service comment (Unsp spec) [Interp] . . [facility] MCHC Auto (RBC) [Mass/Vol]Or dered By: Dr. Saenz on 12-24-2022 MCHC (RBC) [Mass/Vol] 33.5 g/dL 32-36 [facility] No Panel InformationOrdered By: Dr. Saenz on 12-24-2022 Human Papillomavirus Screen Comment . [facility] Comment on above: The HPV DNA reflex c riteria were not met with this specimenresult therefore, no HPV testing was performed.Performed at: - [facility] [id number] Director: Ashley Golden MD, Phone: [phone] Pathology report final diagnosis Narrative Comment . [facility] Comment on above: NEGATIVE FOR INTRAEP ITHELIAL LESION OR MALIGNANCY. Hepatitis B Surface Antigen Non-Reactive Nonreactive [facility] Hepatitis C Antibody Non-Reactive Nonreactive [facility] Comment on above: Non Reactive: < 0.8 Equivocal: >/= 0.8 to < 1.0 Reactive: >/= 1.0The CDC recommends that a reactive/equivocal HCV antibody result be followed up by the HCV Nucleic Acid Amplificationtest (043359) Miscellaneous Test Comment MAILED SPECIMEN [facility] Rubella IgG Antibody Reactive Nonreactive [facility] Comment on above: Antibody Results Int erpretation of Immune Status Non Reactive Presumed Non-Immune Equivocal Equivocal Reactive Presumed Immune Platelets bldOrdered By: Dr. Saenz on 12-24-2022 Platelets (Bld) [#/Vol] 416 10*3/uL 150-450 [facility] Serum Treponema species anti body detectionOrdered By: Dr. Saenz on 12-24-2022 Treponema sp Ab Ql (S) Non-Reactive [facility] XR Foot 3+ Views Righton XR Foot 3+ Views Right Exam Date/Time: 04/30/2019 13:39 EDT Reason for Exam: Pain, Traumatic Report STUDY: XR Foot 3+ Views Right; 04/30/2019 1:39 pm INDICATION: Pain, Traumatic. COMPARISON: None. ACCESSION NUMBER(S): [id number] ORDERING CLINICIAN: Anatoly To FINDINGS: There is a nondisplaced fracture of the base of the 5th metatarsal. No dislocation is seen. Soft tissue swelling is noted. IMPRESSION: Nondisplaced fracture at the base of the 5th metatarsal. FINAL REPORT Dictated: 04/30/2019 1:41 pm Georgina Carey MD Signed (Electronic Signature): 04/30/2019 1:41 pm Signed by: Georgina Carey MD Technologist: CHINYERE [facility] EMERGENCY REPORTon 09-14-201 8 EMERGENCY REPORT [facility] EMERGENCY ROOM REPORT NAME ACCOUNT SEX AGE ADMIT DISCHARGE PT MED. RECORD# NUMBER DATE DATE TYPE FAREED YOUNG [id number] F 18 09/09/18 09/09/18 3 M [id number] ROOM: ER DATE OF : 2000 DICTATING [...] Shaq Artis DO 09/09/18 18:43 JOB #: [id number] Transcribed By: hossein 09/10/18 05:42 Electronically signed by: KATHY Artis D.O. 09/14/18 08:13 Page 1 of 1 FAREED YOUNG Emergency Room Report Normal [facility] Vital Signs Date Time Vital Sign Value Performing Clinician Facility 05-28-2025 14:17-0400 Body height 165.[address] Solitario Blank MD Work Phone: [facility] 05-28-2025 14:14-0400 Body mass index (BMI) [Ratio] 33.1 kg/m2 Dr. Solitario Blank MD Work Phone: [facility] 05-28-2025 14:14-0400 Body weight 90.[address] Solitario Blank MD Work Phone: [facility] 05-28-2025 14:14-0400 Diastolic blood pressure 76 mm[Hg] Dr. Solitario Blank MD Work Phone: 0(934)978-626442 [address] 05-28-2025 14:14-0400 Systolic blood pressure 110 mm[Hg] Dr. Solitario Blank MD Work Phone: 2(120)827-442657 [place] [address] 05-24-2025 14:11-0400 Body height 165.[address] Solitario Blank MD Work Phone: 2(584)649-430757 [place] [address] 05-24-2025 14:11-0400 Body mass index (BMI) [Ratio] 33.3 kg/m2 Dr. Solitario Blank MD Work Phone: 7(349)913-697857 [place] [address] 05-24-2025 14:11-0400 Body weight 90.[address] Solitario Blank MD Work Phone: 1(300)689-293257 [place] [address] 05-24-2025 14:11-0400 Diastolic blood pressure 76 mm[Hg] Dr. Solitario Blank MD Work Phone: 2(233)081-932757 [place] [address] 05-24-2025 14:11-0400 Systolic blood pressure 113 mm[Hg] Dr. Solitario Blank MD Work Phone: 1(268)002-334157 [place] [address] 05-16-2025 15:21-0400 Body height 165.[address] Solitario Blank MD Work Phone: 1(119)685-548557 [place] [address] 05-16-2025 15:20-0400 Body mass index (BMI) [Ratio] 32.9 kg/m2 Dr. Solitario Blank MD Work Phone: 8(821)940-260657 [place] [address] 05-16-2025 15:20-0400 Body weight 89.[address] Solitario Blank MD Work Phone: 3(531)725-911557 [place] [address] 05-16-2025 15:20-0400 Diastolic blood pressure 72 mm[Hg] Dr. Solitario Blank MD Work Phone: 9(126)793-490257 [place] [address] 05-16-2025 15:20-0400 Systolic blood pressure 107 mm[Hg] Dr. Solitario Blank MD Work Phone: 5(326)418-990157 [place] [address] 05-09-2025 09:36-0400 Body height 165.[address] Solitario Blank MD Work Phone: 4(440)352-479042 [address] 05-09-2025 09:36-0400 Body mass index (BMI) [Ratio] 32.4 kg/m2 Dr. Solitario Blank MD Work Phone: 5(042)790-482757 [place] [address] 05-09-2025 09:36-0400 Body weight 88.[address] Solitario Blank MD Work Phone: 6(420)797-115057 [place] [address] 05-09-2025 09:36-0400 Diastolic blood pressure 68 mm[Hg] Dr. Solitario Blank MD Work Phone: 6(457)035-306957 [place] [address] 05-09-2025 09:36-0400 Systolic blood pressure 110 mm[Hg] Dr. Solitario Blakn MD Work Phone: 5(229)079-423857 [place] [address] 04-26-2025 09:56-0400 Body height 165.[address] Solitario Blank MD Work Phone: 8(906)423-863457 [place] [address] 04-26-2025 09:56-0400 Body mass index (BMI) [Ratio] 32.1 kg/m2 Dr. Solitario Blank MD Work Phone: 1(949)094-345257 [place] [address] 04-26-2025 09:56-0400 Body weight 87.[address] Solitario Blank MD Work Phone: 5(115)526-560357 [place] [address] 04-26-2025 09:56-0400 Diastolic blood pressure 60 mm[Hg] Dr. Solitario Blank MD Work Phone: 6(177)943-880757 [place] [address] 04-26-2025 09:56-0400 Systolic blood pressure 110 mm[Hg] Dr. Solitario Blank MD Work Phone: 0(938)051-486657 [place] [address] 04-23-2025 20:28-0400 Diastolic blood pressure 62 mm[Hg] Dr. Solitario Blank MD Work Phone: 1(225)406-111957 [place] [address] 04-23-2025 20:28-0400 Heart rate 94 /min Dr. Solitario Blank MD Work Phone: 3(757)167-026457 [place] [address] 04-23-2025 20:28-0400 Systolic blood pressure 112 mm[Hg] Dr. Solitario Blank MD Work Phone: 7(223)434-833657 [place] [address] 04-10-2025 10:46-0400 Body height 165.[address] Solitario Blank MD Work Phone: 0(361)254-138357 [place] [address] 04-10-2025 10:46-0400 Body mass index (BMI) [Ratio] 31.8 kg/m2 Dr. Solitario Blank MD Work Phone: 0(108)502-460657 [place] [address] 04-10-2025 10:46-0400 Body weight 86.[address] Solitario Blank MD Work Phone: 1(518)569-254257 [place] [address] 04-10-2025 10:46-0400 Diastolic blood pressure 74 mm[Hg] Dr. Solitario Blank MD Work Phone: 7(981)898-483357 [place] [address] 04-10-2025 10:46-0400 Systolic blood pressure 119 mm[Hg] Dr. Solitario Blank MD Work Phone: 6(249)321-343357 [place] [address] 03-26-2025 13:39-0400 Body mass index (BMI) [Ratio] 31.1 kg/m2 Dr. Solitario Blank MD Work Phone: 1(342)445-395057 [place] [address] 03-26-2025 13:39-0400 Body weight 85.[address] Solitario Blank MD Work Phone: 8(143)496-915757 [place] [address] 03-26-2025 13:39-0400 Diastolic blood pressure 70 mm[Hg] Dr. Solitario Blank MD Work Phone: 5(418)070-101257 [place] [address] 03-26-2025 13:39-0400 Systolic blood pressure 102 mm[Hg] Dr. Solitario Blank MD Work Phone: 7(983)921-030557 [place] [address] 02-27-2025 08:52-0400 Body height 165.[address] Solitario Blank MD Work Phone: 3(326)910-926157 [place] [address] 02-27-2025 08:52-0400 Body mass index (BMI) [Ratio] 30.4 kg/m2 Dr. Solitario Blank MD Work Phone: 8(129)346-445457 [place] [address] 02-27-2025 08:52-0400 Body weight 83.[address] Solitario Blank MD Work Phone: 0(118)032-721457 [address] [place] [address] 02-27-2025 08:52-0400 Diastolic blood pressure 67 mm[Hg] Dr. Solitario Blank MD Work Phone: 9(363)267-941142 [address] 02-27-2025 08:52-0400 Systolic blood pressure 113 mm[Hg] Dr. Solitario Blank MD Work Phone: 2(882)026-471542 [address] 01-26-2025 09:35-0400 Body mass index (BMI) [Ratio] 29.5 kg/m2 Dr. Solitario Blank MD Work Phone: 0(924)816-823457 [place] [address] 01-26-2025 09:35-0400 Body weight 80.[address] Solitario Blank MD Work Phone: 8(033)866-859357 [place] [address] 01-26-2025 09:35-0400 Diastolic blood pressure 71 mm[Hg] Dr. Solitario Blank MD Work Phone: 2(738)600-009957 [place] [address] 01-26-2025 09:35-0400 Systolic blood pressure 104 mm[Hg] Dr. Solitario Blank MD Work Phone: 3(118)386-583857 [place] [address] 01-03-2025 10:00-0500 Body mass index (BMI) [Ratio] 28.8 kg/m2 Dr. Solitario Blank MD Work Phone: 7(143)803-671057 [place] [address] 01-03-2025 10:00-0500 Body weight 78.[address] Solitraio Blank MD Work Phone: 4(953)818-872142 [address] 01-03-2025 10:00-0500 Diastolic blood pressure 64 mm[Hg] Dr. Solitario Blank MD Work Phone: 1(605)131-793142 [address] 01-03-2025 10:00-0500 Systolic blood pressure 110 mm[Hg] Dr. Solitario Blank MD Work Phone: 0(669)557-140742 [address] 11-28-2024 11:28-0500 Body mass index (BMI) [Ratio] 28.3 kg/m2 Dr. Solitario Blank MD Work Phone: 8(693)276-160142 [address] 11-28-2024 11:28-0500 Body weight 77.[address] Solitario Blank MD Work Phone: 2(844)710-653242 [address] 11-28-2024 11:28-0500 Diastolic blood pressure 76 mm[Hg] Dr. Solitario Blank MD Work Phone: 7(010)591-721333 [place] [address] 11-28-2024 11:28-0500 Systolic blood pressure 117 mm[Hg] Dr. Solitario Blank MD Work Phone: 9(292)399-622857 [place] [address] 07-30-2023 10:02-0400 Diastolic blood pressure 77 mm[Hg] Dr. Solitario Blank Work Phone: 9(952)402-479557 [place] [address] 07-30-2023 10:02-0400 Heart rate 90 /min Dr. Solitario Blank Work Phone: 9(674)424-031557 [place] [address] 07-30-2023 10:02-0400 Systolic blood pressure 130 mm[Hg] Dr. Solitario Blank Work Phone: 4(960)570-566857 [place] [address] 07-30-2023 09:10-0400 Body temperature 97.7 [degF] Dr. Solitario Blank Work Phone: 4(793)183-925557 [place] [address] 07-30-2023 09:10-0400 Respiratory rate 18 /min Dr. Solitario Blank Work Phone: 5(589)381-655957 [place] [address] 07-30-2023 09:10-0400 SaO2% (BldA) [Mass fraction] 98 % Dr. Solitario Blank Work Phone: 6(845)093-353557 [place] [address] 07-28-2023 07:33-0400 Body height 165.[address] Solitario Blank Work Phone: 1(628)984-730857 [place] [address] 07-28-2023 07:33-0400 Body mass index (BMI) [Ratio] 33.7 kg/m2 Dr. Solitario Blank Work Phone: 2(068)972-186642 [address] 07-28-2023 07:33-0400 Body weight 92.[address] Solitario Blank Work Phone: 5(152)978-304057 [place] [address] 07-27-2023 11:20-0400 Body mass index (BMI) [Ratio] 34.2 kg/m2 Dr. Solitario Blank Work Phone: 4(631)036-513842 [address] 07-27-2023 11:20-0400 Body weight 93.[address] Solitario Blank Work Phone: 7(931)275-128957 [place] [address] 07-27-2023 11:20-0400 Diastolic blood pressure 74 mm[Hg] Dr. Solitario Blank Work Phone: 3(478)840-724157 [place] [address] 07-27-2023 11:20-0400 Systolic blood pressure 113 mm[Hg] Dr. Solitario Blank Work Phone: 5(796)774-557357 [place] [address] 07-23-2023 11:43-0400 Body mass index (BMI) [Ratio] 33.6 kg/m2 Dr. Solitario Blank Work Phone: 9(267)214-447657 [place] [address] 07-23-2023 11:43-0400 Body weight 91.[address] Solitario Blank Work Phone: 2(876)126-618257 [place] [address] 07-23-2023 11:43-0400 Diastolic blood pressure 81 mm[Hg] Dr. Solitario Blank Work Phone: 8(622)191-479757 [place] [address] 07-23-2023 11:43-0400 Systolic blood pressure 121 mm[Hg] Dr. Solitario Blank Work Phone: 2(337)481-436657 [place] [address] 07-16-2023 10:02-0400 Body mass index (BMI) [Ratio] 33.3 kg/m2 Dr. Solitario Blank Work Phone: 5(892)368-616357 [place] [address] 07-16-2023 10:02-0400 Body weight 90.[address] Solitario Blank Work Phone: 3(731)362-207257 [place] [address] 07-16-2023 10:02-0400 Diastolic blood pressure 83 mm[Hg] Dr. Solitario Blank Work Phone: 0(417)440-493557 [place] [address] 07-16-2023 10:02-0400 Systolic blood pressure 137 mm[Hg] Dr. Solitario Blank Work Phone: 3(220)044-380157 [place] [address] 07-09-2023 10:45-0400 Body mass index (BMI) [Ratio] 32.8 kg/m2 Dr. Solitario Blank Work Phone: 5(541)601-851257 [place] [address] 07-09-2023 10:45-0400 Body weight 89.[address] Solitario Blank Work Phone: 9(510)848-782757 [place] [address] 07-09-2023 10:45-0400 Diastolic blood pressure 75 mm[Hg] Dr. Solitario Blank Work Phone: 2(393)145-788333 [place] [address] 07-09-2023 10:45-0400 Systolic blood pressure 122 mm[Hg] Dr. Solitario Blank Work Phone: 5(235)972-736542 [address] 07-02-2023 10:01-0400 Body mass index (BMI) [Ratio] 32.5 kg/m2 Dr. Solitario Blank Work Phone: 4(166)922-825242 [address] 07-02-2023 10:01-0400 Body weight 88.[address] Solitario Blank Work Phone: 9(807)195-716142 [address] 07-02-2023 10:01-0400 Diastolic blood pressure 74 mm[Hg] Dr. Solitario Blank Work Phone: 3(885)926-891857 [place] [address] 07-02-2023 10:01-0400 Systolic blood pressure 116 mm[Hg] Dr. Solitario Blank Work Phone: 7(557)519-595357 [place] [address] 06-30-2023 19:05-0400 Body temperature 99.4 [degF] Dr. Solitario Blank Work Phone: 9(076)086-970357 [place] [address] 06-30-2023 19:03-0400 Body height 165.[address] Solitario Blank Work Phone: 0(377)290-039557 [place] [address] 06-30-2023 19:03-0400 Body mass index (BMI) [Ratio] 32.5 kg/m2 Dr. Solitario Blank Work Phone: 3(313)040-292157 [place] [address] 06-30-2023 19:03-0400 Body weight 88.[address] Solitario Blank Work Phone: 4(907)943-063942 [address] 06-30-2023 18:45-0400 Diastolic blood pressure 77 mm[Hg] Dr. Solitario Blank Work Phone: 6(831)709-934757 [place] [address] 06-30-2023 18:45-0400 Heart rate 96 /min Dr. Solitario Blank Work Phone: 2(864)544-598642 [address] 06-30-2023 18:45-0400 Systolic blood pressure 127 mm[Hg] Dr. Solitario lBank Work Phone: 3(307)433-123042 [address] 06-30-2023 18:43-0400 SaO2% (BldA) [Mass fraction] 98 % Dr. Solitario Blank Work Phone: 1(964)378-113233 [place] [address] 06-25-2023 11:03-0400 Body height 165.[address] Solitario Blank Work Phone: 4(984)798-993842 [address] 06-25-2023 11:00-0400 Body mass index (BMI) [Ratio] 32.4 kg/m2 Dr. Solitario Blank Work Phone: 7(138)572-844042 [address] 06-25-2023 11:00-0400 Body weight 88.[address] Solitario Blank Work Phone: 6(015)976-997457 [place] [address] 06-25-2023 11:00-0400 Diastolic blood pressure 75 mm[Hg] Dr. Solitario Blank Work Phone: 6(670)550-164857 [place] [address] 06-25-2023 11:00-0400 Systolic blood pressure 107 mm[Hg] Dr. Solitario Blank Work Phone: 9(561)296-215642 [address] 06-10-2023 14:34-0400 Body height 165.[address] Solitario Blank Work Phone: 6(607)369-090657 [place] [address] 06-10-2023 14:34-0400 Body mass index (BMI) [Ratio] 32.3 kg/m2 Dr. Solitario Blank Work Phone: 3(171)165-465542 [address] 06-10-2023 14:34-0400 Body weight 87.[address] Solitario Blank Work Phone: 2(213)199-177342 [address] 06-10-2023 14:34-0400 Diastolic blood pressure 70 mm[Hg] Dr. Solitario Blank Work Phone: 7(288)837-098042 [address] 06-10-2023 14:34-0400 Systolic blood pressure 104 mm[Hg] Dr. Solitario Blank Work Phone: 8(618)086-137557 [place] [address] 06-07-2023 10:28-0400 Body mass index (BMI) [Ratio] 32.1 kg/m2 Dr. Solitario Blank Work Phone: 8(457)510-826842 [address] 06-07-2023 10:28-0400 Body weight 87.[address] Solitario Blank Work Phone: 4(462)366-187333 [place] [address] 06-07-2023 10:28-0400 Diastolic blood pressure 73 mm[Hg] Dr. Solitario Blank Work Phone: 2(414)626-582142 [address] 06-07-2023 10:28-0400 Systolic blood pressure 112 mm[Hg] Dr. Solitario Blank Work Phone: 0(244)787-677857 [place] [address] 05-28-2023 11:41-0400 Body mass index (BMI) [Ratio] 31.6 kg/m2 Dr. Solitario Blank Work Phone: 1(675)323-109242 [address] 05-28-2023 11:41-0400 Body weight 86.[address] Solitario Blank Work Phone: 3(757)914-963957 [place] [address] 05-28-2023 11:41-0400 Diastolic blood pressure 74 mm[Hg] Dr. Solitario Blank Work Phone: 4(922)065-430557 [place] [address] 05-28-2023 11:41-0400 Systolic blood pressure 121 mm[Hg] Dr. Solitario Blank Work Phone: 5(605)838-422442 [address] 05-14-2023 10:07-0400 Body mass index (BMI) [Ratio] 31.3 kg/m2 Dr. Solitario Blank Work Phone: 1(325)588-821057 [place] [address] 05-14-2023 10:07-0400 Body weight 85.[address] Solitario Blank Work Phone: 0(118)163-039442 [address] 05-14-2023 10:07-0400 Diastolic blood pressure 68 mm[Hg] Dr. Solitario Blank Work Phone: 4(596)828-446442 [address] 05-14-2023 10:07-0400 Systolic blood pressure 94 mm[Hg] Dr. Solitario Blank Work Phone: 4(946)265-512557 [place] [address] 04-30-2023 09:11-0400 Body height 165.[address] Solitario Blank Work Phone: 9(364)922-589157 [place] [address] 04-30-2023 09:02-0400 Body mass index (BMI) [Ratio] 30.9 kg/m2 Dr. Solitario Blank Work Phone: 0(240)385-341857 [place] [address] 04-30-2023 09:02-0400 Body weight 84.[address] Solitario Blank Work Phone: 5(884)662-615957 [place] [address] 04-30-2023 09:02-0400 Diastolic blood pressure 62 mm[Hg] Dr. Solitario Blank Work Phone: 0(382)743-491557 [place] [address] 04-30-2023 09:02-0400 Systolic blood pressure 122 mm[Hg] Dr. Solitario Blank Work Phone: 8(534)373-781857 [place] [address] 04-14-2023 11:30-0400 Body mass index (BMI) [Ratio] 30.3 kg/m2 Dr. Solitario Blank Work Phone: 6(164)002-366957 [place] [address] 04-14-2023 11:30-0400 Body weight 82.[address] Solitario Blank Work Phone: 6(402)169-624857 [place] [address] 04-14-2023 11:30-0400 Diastolic blood pressure 71 mm[Hg] Dr. Solitraio Blank Work Phone: 3(379)953-313057 [place] [address] 04-14-2023 11:30-0400 Systolic blood pressure 121 mm[Hg] Dr. Solitario Blank Work Phone: 3(269)383-983857 [place] [address] 03-17-2023 11:04-0400 Body mass index (BMI) [Ratio] 28.8 kg/m2 Dr. Solitario Blank Work Phone: 1(396)917-477157 [place] [address] 03-17-2023 11:04-0400 Body weight 78.[address] Solitario Blank Work Phone: 9(291)890-758057 [place] [address] 03-17-2023 11:04-0400 Diastolic blood pressure 70 mm[Hg] Dr. Solitario Blank Work Phone: 1(432)946-228357 [place] [address] 03-17-2023 11:04-0400 Systolic blood pressure 108 mm[Hg] Dr. Solitario Blank Work Phone: 7(206)789-948257 [place] [address] 03-09-2023 16:15-0400 Heart rate 84 /min Dr. Solitario Blank Work Phone: 4(021)996-345557 [place] [address] 03-09-2023 16:15-0400 SaO2% (BldA) [Mass fraction] 99 % Dr. Solitario Blank Work Phone: 0(649)223-774033 [place] [address] 03-09-2023 15:05-0400 Body temperature 97.7 [degF] Dr. Solitario Blank Work Phone: 3(053)283-065157 [place] [address] 03-09-2023 15:05-0400 Diastolic blood pressure 65 mm[Hg] Dr. Solitario Blank Work Phone: 6(935)703-501757 [place] [address] 03-09-2023 15:05-0400 Systolic blood pressure 122 mm[Hg] Dr. Solitario Blank Work Phone: 9(480)989-854657 [place] [address] 03-09-2023 14:49-0400 Body height 165.[address] Solitario Blank Work Phone: 1(098)660-203457 [place] [address] 03-09-2023 14:49-0400 Body mass index (BMI) [Ratio] 29 kg/m2 Dr. Solitario Blank Work Phone: 9(116)613-604157 [place] [address] 03-09-2023 14:49-0400 Body weight [address] Solitario Blank Work Phone: 8(374)107-055157 [place] [address] 02-15-2023 14:31-0400 Body mass index (BMI) [Ratio] 27.7 kg/m2 Dr. Solitario Blank Work Phone: 0(274)465-576557 [place] [address] 02-15-2023 14:31-0400 Body weight 75.[address] Solitario Blank Work Phone: 6(111)450-316342 [address] 02-15-2023 14:31-0400 Diastolic blood pressure 78 mm[Hg] Dr. Solitario Blank Work Phone: 7(072)559-372342 [address] 02-15-2023 14:31-0400 Systolic blood pressure 128 mm[Hg] Dr. Solitario Blank Work Phone: 0(005)681-611657 [place] [address] 01-19-2023 14:06-0500 Body mass index (BMI) [Ratio] 28 kg/m2 Dr. Solitario Blank Work Phone: 2(529)281-283642 [address] 01-19-2023 14:06-0500 Body weight 76.[address] Solitario Blank Work Phone: 3(175)527-865142 [address] 01-19-2023 14:06-0500 Diastolic blood pressure 76 mm[Hg] Dr. Solitario Blank Work Phone: [facility] 01-19-2023 14:06-0500 Systolic blood pressure 123 mm[Hg] Dr. Solitario Blank Work Phone: [facility] 12-24-2022 15:07-0500 Body height 165.[address] Solitario Blank Work Phone: [facility] 12-24-2022 15:07-0500 Body mass index (BMI) [Ratio] 27.8 kg/m2 Dr. Solitario Blank Work Phone: [facility] 12-24-2022 15:07-0500 Body weight 75.[address] Solitario Blank Work Phone: [facility] 12-24-2022 15:07-0500 Diastolic blood pressure 76 mm[Hg] Dr. Solitario Blank Work Phone: [facility] 12-24-2022 15:07-0500 Systolic blood pressure 121 mm[Hg] Dr. Solitario Blank Work Phone: [facility] 01-31-2021 14:16-0400 Body height 166.37 cm Brittny Hunter LPN [facility], [facility].; [facility], [facility]. 01-31-2021 14:16-0400 Body mass index (BMI) [Ratio] 23.27 kg/m2 Brittny Hunter LPN [facility], [facility].; [facility], [facility]. 01-31-2021 14:16-0400 Body surface area Derived from formula 1.72 m2 Brittny Hunter LPN [facility], [facility].; [facility], [facility]. 01-31-2021 14:16-0400 Body weight 64.41 kg Brittny Hunter LPN [facility], [facility].; [facility], [facility]. 01-31-2021 14:16-0400 Diastolic blood pressure 77 mm[Hg] Brittny Hunter LPN [facility], [facility].; [facility], [facility]. Comment on above: Patient Position: Sitting; Cuff Location : Left Arm; Cuff Size: Standard 01-31-2021 14:16-0400 Heart rate 78 /min Brittny Garridougg [employer] [facility]. Comment on above: Pattern: Regular 01-31-2021 14:16-0400 Respiratory rate 16 /min Brittny Garridougg [employer] [facility] [employer]. Comment on above: Pattern: Unlabored 01-31-2021 14:16-0400 Systolic blood pressure 112 mm[Hg] Brittny Blancaugg [employer] [facility], [facility] [employer], [employer]. Comment on above: Patient Position: Sitting; Cuff Location : Left Arm; Cuff Size: Standard 06-28-2020 08:56-0400 Body height 160.02 cm Rolanda Oscar Kamaljit [facility], [facility] [employer] 06-28-2020 08:56-0400 Body mass index (BMI) [Ratio] 24.27 kg/m2 Rolanda Mari [facility], [facility] [employer], [employer]. 06-28-2020 08:56-0400 Body surface area Derived from formula 1.65 m2 Rolanda Oscar Kamaljit [facility] [employer] [facility] [employer] 06-28-2020 08:56-0400 Body weight 62.14 kg Rolanda Celestina Mari [facility] [employer] [facility] [employer]. 06-28-2020 08:56-0400 Diastolic blood pressure 71 mm[Hg] Rolanda Celestina Mari [employer] [facility]. Comment on above: Patient Position: Sitting; Cuff Location : Right Arm; Cuff Size: Standard 06-28-2020 08:56-0400 Heart rate 71 /min Rolanda Celestina Mari [employer] [facility], [employer]. Comment on above: Pattern: Regular 06-28-2020 08:56-0400 Systolic blood pressure 108 mm[Hg] Rolanda Oscar Kamaljit [employer]. Comment on above: Patient Position: Sitting; Cuff Location : Right Arm; Cuff Size: Standard 07-14-2019 10:32-0400 Body height 165.1 cm Rebecca Iqbal RN [employer]. 07-14-2019 10:32-0400 Body mass index (BMI) [Percentile] Per age and sex 42 % Rebecca Iqbal RN [employer]. 07-14-2019 10:32-0400 Body mass index (BMI) [Ratio] 20.97 kg/m2 Rebecca Iqbal RN [employer]. 07-14-2019 10:32-0400 Body surface area Derived from formula 1.63 m2 Rebecca Iqbal RN [employer]. 07-14-2019 10:32-0400 Body weight 57.15 kg Rebecca Iqbal RN [employer]. 07-14-2019 10:32-0400 Diastolic blood pressure 72 mm[Hg] Rebecca Iqbal RN [employer]. Comment on above: Patient Position: Sitting; Cuff Location : Left Arm; Cuff Size: Standard 07-14-2019 10:32-0400 Heart rate 79 /min Rebecca Iqbal RN [employer]. Comment on above: Pattern: Regular 07-14-2019 10:32-0400 Systolic blood pressure 112 mm[Hg] Rebecca Iqbal RN [employer]. Comment on above: Patient Position: Sitting; Cuff Location : Left Arm; Cuff Size: Standard 05-12-2019 10:48-0400 Body height 165.1 cm Rebecca Iqbal RN [employer] 05-12-2019 10:48-0400 Body mass index (BMI) [Percentile] Per age and sex 37 % Rebecca Iqbal RN [employer] 05-12-2019 10:48-0400 Body mass index (BMI) [Ratio] 20.63 kg/m2 Rebecca Iqbal RN [employer]. 05-12-2019 10:48-0400 Body surface area Derived from formula 1.61 m2 Rebecca Iqbal RN [employer] 05-12-2019 10:48-0400 Body weight 56.25 kg Rebecca Iqbal RN [employer], [employer]. 05-12-2019 10:48-0400 Diastolic blood pressure 59 mm[Hg] Rebecca Iqbal RN [employer]. Comment on above: Patient Position: Sitting; Cuff Location : Left Arm; Cuff Size: Standard 05-12-2019 10:48-0400 Heart rate 62 /min Rebecca Iqbal RN [employer], [employer]. Comment on above: Pattern: Regular 05-12-2019 10:48-0400 Systolic blood pressure 100 mm[Hg] Rebecca Iqbal RN [employer]. Comment on above: Patient Position: Sitting; Cuff Location : Left Arm; Cuff Size: Standard 05-01-2019 10:16-0400 Body height 165.1 cm Liliana Stafford LPN [employer]. 05-01-2019 10:16-0400 Body mass index (BMI) [Percentile] Per age and sex 38 % Liliana Stafford LPN [employer]. 05-01-2019 10:16-0400 Body mass index (BMI) [Ratio] 20.63 kg/m2 Liliana Stafford LPN [employer]. 05-01-2019 10:16-0400 Body surface area Derived from formula 1.61 m2 Liliana Stafford LPN [employer], [employer]. 05-01-2019 10:16-0400 Body weight 56.25 kg Liliana Stafford LPN [employer]. 05-01-2019 10:16-0400 Diastolic blood pressure 71 mm[Hg] Liliana Stafford [employer], [employer]. Comment on above: Patient Position: Sitting; Cuff Location : Left Arm; Cuff Size: Large 05-01-2019 10:16-0400 Heart rate 57 /min Liliana Stafford [employer]. Comment on above: Pattern: Regular 05-01-2019 10:16-0400 Systolic blood pressure 111 mm[Hg] Liliana Stafford [employer]. Comment on above: Patient Position: Sitting; Cuff Location : Left Arm; Cuff Size: Large 11-04-2017 09:18-0500 Body height 165.1 cm Rebecca Iqbal RN [employer]. 11-04-2017 09:18-0500 Body mass index (BMI) [Percentile] Per age and sex 47 % Rebecca Iqbal RN [employer]. 11-04-2017 09:18-0500 Body mass index (BMI) [Ratio] 20.97 kg/m2 Rebecca Iqbal RN [employer]. 11-04-2017 09:18-0500 Body surface area Derived from formula 1.63 m2 Rebecca Iqbal RN [employer]. 11-04-2017 09:18-0500 Body temperature 98.8 [degF] Rebecca Iqbal RN [employer]. Comment on above: Method: Tympanic 11-04-2017 09:18-0500 Body weight 57.15 kg Rebecca Iqbal RN [employer]. 03-17-2017 09:26-0400 Body height 167 cm Liliana Stafford [employer] 03-17-2017 09:26-0400 Body mass index (BMI) [Percentile] Per age and sex 51 % Liliana Stafford LPN [facility], [facility] [employer] 03-17-2017 09:26-0400 Body mass index (BMI) [Ratio] 20.98 kg/m2 Liliana Stafford [facility], [facility] [employer] 03-17-2017 09:26-0400 Body surface area Derived from formula 1.66 m2 Liliana Stafford [facility], [facility] [employer] 03-17-2017 09:26-0400 Body temperature 97.6 [degF] Manjula Nydia [facility], [facility] [employer] Comment on above: Method: Tympanic 03-17-2017 09:26-0400 Body weight 58.51 kg Liliana Stafford LPN [facility], [facility] [employer] 04-28-2016 09:54-0400 Body height 165.1 cm Liliana Stafford [facility], [facility] [employer] 04-28-2016 09:54-0400 Body mass index (BMI) [Percentile] Per age and sex 51 % Liliana Stafford [facility] [employer] 04-28-2016 09:54-0400 Body mass index (BMI) [Ratio] 20.63 kg/m2 Liliana Stafford [facility] [employer] 04-28-2016 09:54-0400 Body surface area Derived from formula 1.61 m2 Liliana Stafford [employer] [facility], [facility] [employer] 04-28-2016 09:54-0400 Body weight 56.25 kg Liliana Stafford [facility] [employer] [facility], [facility] [employer] 04-28-2016 09:54-0400 Diastolic blood pressure 78 mm[Hg] Liliana Stafford [facility] [employer] [facility] [employer] Comment on above: Patient Position: Sitting; Cuff Location : Left Arm; Cuff Size: Large 04-28-2016 09:54-0400 Heart rate 67 /min Liliana Stafford LPN [employer]. Comment on above: Pattern: Regular 04-28-2016 09:54-0400 Systolic blood pressure 117 mm[Hg] Liliana Stafford LPN [employer]. Comment on above: Patient Position: Sitting; Cuff Location : Left Arm; Cuff Size: Large 01-20-2016 14:20-0500 Body height 165.1 cm Lauren Harrison LPN Work Phone: [employer] 01-20-2016 14:20-0500 Body mass index (BMI) [Percentile] Per age and sex 49 % Lauren Hunter [employer] Work Phone: [employer]. 01-20-2016 14:20-0500 Body mass index (BMI) [Ratio] 20.3 kg/m2 Lauren Hunter [employer] Work Phone: [employer]. 01-20-2016 14:20-0500 Body surface area Derived from formula 1.6 m2 [employer] Work Phone: [employer]. 01-20-2016 14:20-0500 Body weight 55.34 kg Lauren Hunter [employer] Work Phone: [employer]. 01-20-2016 14:20-0500 Diastolic blood pressure 75 mm[Hg] Lauren Hunter [employer] Work Phone: [employer]. Comment on above: Patient Position: Sitting; Cuff Location : Left Arm; Cuff Size: Standard 01-20-2016 14:20-0500 Heart rate 67 /min Lauren [employer] Work Phone: [employer]. Comment on above: Pattern: Regular 01-20-2016 14:20-0500 Systolic blood pressure 117 mm[Hg] Lauren Harrison LPN Work Phone: [employer]; [employer]. Comment on above: Patient Position: Sitting; Cuff Location : Left Arm; Cuff Size: Standard 10-05-2014 10:56-0500 Body height 162.56 cm Solitario Blank MD Work Phone: [employer]; [employer]. 10-05-2014 10:56-0500 Body mass index (BMI) [Percentile] Per age and sex 63 % Solitario Blank MD Work Phone: [employer]; [employer]. 10-05-2014 10:56-0500 Body mass index (BMI) [Ratio] 20.77 kg/m2 Solitario Blank MD Work Phone: [employer]; [employer]. 10-05-2014 10:56-0500 Body surface area Derived from formula 1.58 m2 Solitario Blank MD Work Phone: [employer]; [employer]. 10-05-2014 10:56-0500 Body weight 54.89 kg Solitario Blank MD Work Phone: [employer]; [employer]. 10-05-2014 10:56-0500 Diastolic blood pressure 72 mm[Hg] Solitario Blank MD Work Phone: [employer]; [employer]. Comment on above: Patient Position: Sitting; Cuff Location : Right Arm; Cuff Size: Standard 10-05-2014 10:56-0500 Heart rate 61 /min Solitario Blank MD Work Phone: [employer]; [employer]. Comment on above: Pattern: Regular 10-05-2014 10:56-0500 Systolic blood pressure 103 mm[Hg] Solitario Blank MD Work Phone: [employer]; [employer]. Comment on above: Patient Position: Sitting; Cuff Location : Right Arm; Cuff Size: Standard 03-28-2014 10:00-0400 Body height 162.56 cm Liliana Stafford [facility] [employer], [employer]. 03-28-2014 10:00-0400 Body mass index (BMI) [Percentile] Per age and sex 59 % Liliana Stafford [facility] [employer]. 03-28-2014 10:00-0400 Body mass index (BMI) [Ratio] 20.08 kg/m2 Liliana Stafford [facility] [employer], [employer]. 03-28-2014 10:000400 Body surface area Derived from formula 1.56 m2 [facility], [employer]. 03-28-2014 10:00-0400 Body temperature 98.7 [degF] Manjula [place] [facility] [employer]. Comment on above: Method: Tympanic 03-28-2014 10:000400 Body weight 53.07 kg Liliana Stafford [facility] [employer]. Encounters Encounter Date Encounter Type Care Provider Facility Start: 05-29-2025 ambulatory Solitario Blank Facility:[facility] Start: 05-28-2025 End: 05-28-[address] Annabelle Garduno MD -[facility] Work Phone: Start: 05-28-2025 End: 05-28-[address] Solitario Blank MD Work Phone: -[facility] Start: 05-24-2025 End: 05-24-[address] Elli Edwards DO -[facility] Work Phone: Start: 05-24-2025 End: 05-24-[address] Solitario Blank MD Work Phone: -[facility] Start: 05-16-2025 End: 05-16-[address] Elli Edwards DO -[facility] Work Phone: Start: 05-16-2025 End: 05-16-[address] Solitario Blank MD Work Phone: -[facility] Start: 05-09-2025 End: 05-09-[address] Solitario Blank MD Work Phone: -Laboratory Specimen Start: 05-09-2025 End: 05-09-2025 Patient encounter procedure Margot Wrights [employer]SEM[employer]ER-C -Laboratory Specimen Work Phone: Start: 05-09-2025 End: 05-09-2025 Patient encounter procedure Margot Bradford IGNITER ASSEMBLER-C -[facility] Work Phone: Start: 05-09-2025 End: 05-09-[address] Solitario Blank MD Work Phone: [facility] Work Phone: Start: 05-09-2025 End: 05-09-2025 ambulatory Solitario Blank Facility:[facility] Start: 04-26-2025 End: 04-26-2025 Patient encounter procedure Margot Bradford IGNITER ASSEMBLER-C -[facility] Work Phone: Start: 04-26-2025 End: 04-26-[address] Solitario Blank MD Work Phone: [facility] Work Phone: Start: 04-23-2025 ambulatory Brianna Velasquez Facilit y:[facility] Start: 04-23-2025 Non-patient / Non-visit Brianna Velasquez CNM -[facility] Start: 04-23-2025 End: 04-23-2025 Patient encounter procedure Brianna Velasquez CNM -[facility] Work Phone: Start: 04-23-2025 End: 04-23-[address] Solitario Blank MD Work Phone: [facility] Work Phone: Start: 04-10-2025 End: 04-10-2025 Patient encounter procedure Radha Naylor CN -[facility] Work Phone: Start: 04-10-2025 End: 04-10-[address] Solitario Blank MD Work Phone: [facility] Work Phone: Start: 03-26-2025 End: 03-26-2025 Patient encounter procedure Margot CHAVARRIA -[facility] Work Phone: Start: 03-26-2025 End: 03-26-2025 ambulatory [facility] Facility:[facility] Start: 02-27-2025 End: 02-27-[address] Elli Edwards DO -[facility] Work Phone: Start: 02-27-2025 End: 02-27-[address] Solitario Blank MD Work Phone: [facility] Work Phone: Start: 02-27-2025 End: 02-27-2025 ambulatory [facility] Facility:[facility] Start: 01-26-2025 End: 01-26-2025 Patient encounter procedure Brianna Velasquez [facility] -[facility] Work Phone: Start: 01-26-2025 End: 01-26-2025 ambulatory [facility] Facility:[facility] Start: 01-25-2025 End: 01-25-2025 ambulatory RYLAN BEDOYA [facility] Start: 01-09-2025 End: 01-09-2025 ambulatory ANNABELLE GARDUNO [facility] Start: 01-03-2025 End: 01-03-2025 Patient encounter procedure Margot CHAVARRIA -[facility] Work Phone: Start: 01-03-2025 End: 01-03-2025 ambulatory [facility] Facility:[facility] Start: 11-28-2024 End: 11-28-[address] Annabelle Garduno MD -[facility] Work Phone: Start: 11-28-2024 End: 11-28-2024 ambulatory Solitario Eliot Facility:[facility] Start: 11-28-2024 End: 11-28-2024 ambulatory Solitario [facility] Facility:[facility] Start: 10-27-2024 End: 10-27-2024 ambulatory Solitario [facility] Facility:[facility] Start: 10-27-2024 End: 10-27-2024 ambulatory [facility] Facility:[facility] Start: 10-20-2024 ambulatory Solitario Blank Facility:[facility] Start: 09-15-2024 ambulatory Solitario [facility] Start: 07-30-2023 Non-patient / Non-visit Dr. Solitario Blank Work Phone: [facility] Start: 07-29-2023 Non-patient / Non-visit Dr. Solitario Blank Work Phone: [facility] Start: 07-28-2023 Non-patient / Non-visit Dr. Solitario Blank Work Phone: [facility] Start: 07-28-2023 End: 07-30-2023 Evaluation and management of inpatient Dr. Solitario Blank Work Phone: [facility] Work Phone: Start: 07-27-2023 End: 07-27-[address] Solitario Blank Work Phone: [facility] Work Phone: Start: 07-23-2023 End: 07-23-[address] Solitario Blank Work Phone: [facility] Work Phone: Start: 07-16-2023 End: 07-16-[address] Solitario Blank Work Phone: [facility] Work Phone: Start: 07-09-2023 End: 07-09-[address] Solitario Blank Work Phone: [facility] Work Phone: Start: 07-02-2023 End: 07-02-[address] Solitario Blank Work Phone: [facility] Work Phone: Start: 07-02-2023 Non-patient / Non-visit Dr. Solitario Blank Work Phone: [facility] Start: 06-30-2023 End: 06-30-[address] Solitario Blank Work Phone: [facility] Work Phone: Start: 06-30-2023 End: 06-30-[address] Solitario Blank Work Phone: [facility] Work Phone: Start: 06-25-2023 End: 06-25-[address] Solitario Blank Work Phone: [facility] Work Phone: Start: 06-25-2023 End: 06-25-[address] Solitario Blank Work Phone: [facility]-Laboratory, Specimen Work Phone: Start: 06-25-2023 End: 06-25-[address] Solitario Blank Work Phone: [facility] Work Phone: Start: 06-10-2023 End: 06-10-[address] Solitario Blank Work Phone: [facility] Work Phone: Start: 06-10-2023 End: 06-10-[address] Solitario Blank Work Phone: [facility] Work Phone: Start: 06-07-2023 End: 06-07-[address] Solitario Blank Work Phone: [facility] Work Phone: Start: 05-28-2023 End: 05-28-[address] Solitario Blank Work Phone: [facility] Work Phone: Start: 05-14-2023 End: 05-14-[address] Solitario Blank Work Phone: [facility] Work Phone: Start: 04-30-2023 End: 04-30-[address] Solitario Blank Work Phone: [facility] Start: 04-29-2023 End: 04-29-[address] Solitario Blank Work Phone: [facility] Work Phone: Start: 04-29-2023 End: 04-29-[address] Solitario Blank Work Phone: [facility]-Laboratory Start: 04-14-2023 End: 04-14-[address] Solitario Blank Work Phone: [facility] Start: 03-17-2023 End: 03-17-[address] Solitario Blank Work Phone: [facility] Start: 03-10-2023 Non-patient / Non-visit Dr. Solitario Blank Work Phone: [facility] Start: 03-09-2023 End: 03-09-[address] Solitario Blank Work Phone: [facility] Work Phone: Start: 03-09-2023 End: 03-09-[address] Solitario Blank Work Phone: [facility] Start: 02-15-2023 End: 02-15-[address] Solitario Blank Work Phone: [facility] Start: 01-19-2023 End: 01-19-[address] Solitario Blank Work Phone: [facility] Start: 12-24-2022 End: 12-24-[address] Solitario Blank Work Phone: [facility] Work Phone: Start: 12-24-2022 End: 12-24-[address] Solitario Blank Work Phone: [facility] Start: 02-28-2021 End: 02-28-2021 Orders Solitario Blank MD Work Phone: [employer] Start: 01-31-2021 End: 01-31-2021 Patient encounter status Brittny Hunter LPN [employer]. Start: 01-31-2021 End: 01-31-2021 Periodic preventive med est patient 18-39 yrs Solitario Blank MD Work Phone: [employer]. Start: 06-28-2020 End: 06-28-2020 Patient encounter procedure Solitario Blank MD Work Phone: [employer]. Start: 07-14-2019 End: 07-14-2019 Patient encounter status Solitario Blank MD Work Phone: [employer]. Start: 07-14-2019 End: 07-14-2019 Periodic preventive med est patient 18-39 yrs Solitario Blank MD Work Phone: [employer]. Start: 05-12-2019 End: 05-12-2019 Office outpatient visit 15 minutes Solitario Blank MD Work Phone: [employer] Start: 05-01-2019 End: 05-01-2019 Office outpatient visit 15 minutes Solitario Blank MD Work Phone: [employer] Start: 09-13-2018 End: 09-13-2018 Telephone follow-up Solitario Blank MD Work Phone: [employer] Start: 09-09-2018 End: 09-09-2018 Emergency department patient visit SHAQ Beard [facility] Start: 11-04-2017 End: 11-04-2017 Office outpatient visit 15 minutes Solitario Blank MD Work Phone: [employer] Start: 03-17-2017 End: 03-17-2017 Office outpatient visit 15 minutes Solitario Blank MD Work Phone: [employer] Start: 04-28-2016 End: 04-28-2016 Office outpatient visit 15 minutes Solitario Blank MD Work Phone: [employer] Start: 04-28-2016 End: 04-28-2016 Patient encounter status Solitario Blank MD Work Phone: [employer]; [employer] Start: 01-20-2016 End: 01-20-2016 Patient encounter procedure Solitario Blank MD Work Phone: [employer] Start: 10-05-2014 End: 10-05-2014 Office outpatient visit 15 minutes Solitario Blank MD Work Phone: [employer] Start: 03-28-2014 End: 03-28-2014 Patient encounter procedure Solitario Blank MD Work Phone: [employer] Follow-up encounter Elidia anand PA-C Work Phone: [employer]; [employer] Procedures Date Procedure Procedure Detail Performing Clinician Start: 05-09-2025 Beta-hemolytic Streptococcus culture Dr. Solitario Blank MD Work Phone: Start: 02-27-2025 Serologic test for syphilis Dr. Solitario Blank MD Work Phone: Start: 06-25-2023 Group B Streptococcu s Culture Dr. Solitario Blank Work Phone: Start: 06-10-[address] Solitario Blank Work Phone: Start: 01-31-2021 End: 01-31-2021 No Known Past Surgical History Brittny Hunter [employer] Start: 07-14-2019 End: 07-14-2019 Depression screening Solitario [...] Activity Detail Author Start: 04-23-2025 Patient discharge [facility] Start: 07-30-2023 Patient discharge [facility] Start: 07-28-2023 Administration of medication [facility] Start: 07-28-2023 Application of ice collar, cap or bag [facility] Start: 07-28-2023 Catheterization of vein [facility] Start: 07-28-2023 Introduction of urinary catheter [facility] Start: 07-28-2023 Measuring intake and output [facility] Start: 07-28-2023 Notification of physician [facility] Start: 07-28-2023 Procedure discontinued [facility] Start: 07-28-2023 Provision of activity privileges [facility] Start: 07-28-[address] [facility] Start: 07-28-2023 [facility] Start: 07-28-2023 [facility] Start: 07-28-2023 Notification of physician [facility] Start: 07-28-2023 [facility] Start: 07-28-2023 Admission procedure [facility] Start: 07-28-2023 Insertion of catheter into peripheral vein [facility] Start: 07-28-2023 Anesthesia consultation [facility] Start: 07-28-2023 acoustic stimulation test [facility] Start: 07-28-2023 Intrauterine catheterization [facility] Start: 07-28-2023 Introduction of urinary catheter [facility] Start: 07-28-2023 Notification of physician [facility] Start: 07-28-2023 Obstetric monitoring [facility] Start: 07-28-2023 Provision of activity privileges [facility] Start: 07-28-[address] [facility] Start: 07-28-2023 End: 07-28-2023 [facility] Start: 06-30-2023 Nonstress test [facility] Start: 06-30-2023 Obstetric monitoring [facility] Start: 06-30-[address] [facility] Start: 06-30-2023 [facility] Start: 06-30-2023 Patient discharge [facility] Start: 03-09-2023 Nonstress test [facility] Start: 03-09-2023 Obstetric monitoring [facility] Start: 03-09-[address] [facility] Start: 03-09-2023 [facility] Start: 11-04-2017 Provider Instructions for Treatment Saline gargles Indication: Aphthous ulcer Start: 04-Nov-2017 Instruction Type: Provider Instructions for Treatment [facility] Patient Education Kick Counts ED False Labor OB Triage: Return to Hospital or Notify Physician if you Experience: [facility] Work Phone: Patient referral [facility] Work Phone: Streptococcus agalac tiae [Presence] in Unspecified specimen by Organism specific culture [facility] Immunizations Immunization Date Immunization Notes Care Provider Rogelio barrett 07-14-2019 varicella virus vaccine Nick Blank MD Work Phone: [facility]; [employer]. Comment on above: Site: Right ArmVIS G iven: * Varicella (Chickenpox) (12/27/17) 04-28-2016 tetanus toxoid, redu jak diphtheria toxoid, and acellular pertussis vaccine, adsorbed Solitario Blank MD Work Phone: [facility]; [employer]. Comment on above: Site: Deltoid (Left) VIS Given: * Tdap (Tetanus, Diphtheria, Pertussis) (01/08/15) 04-28-2016 varicella virus vaccine Nick Blank MD Work Phone: [facility] [employer]; [employer]. Comment on above: Site: Deltoid Area ( Right)VIS Given: * Varicella (Chickenpox) (01/26/08) 10-23-2011 hepatitis A vaccine, pediatric/adolescent dosage, 2 dose schedule Solitario Blank MD Work Phone: [facility] [employer]; [employer]. 09-04-2005 influenza, seasonal, injectable Solitario Blank MD Work Phone: [facility] [employer]; [employer]. 08-19-2005 diphtheria, tetanus toxoids and acellular pertussis vaccine Solitario Blank MD Work Phone: [facility] [employer]; [employer]. 08-19-2005 hepatitis B vaccine, pediatric or pediatric/adolescent dosage Solitario Blank MD Work Phone: [facility] [employer]; [employer]. 08-19-2005 measles, mumps and rubella virus vaccine Solitario Blank MD Work Phone: [facility] [employer]; [employer]. 08-19-2005 poliovirus vaccine, inactivated Solitario Blank MD Work Phone: [employer]. 08-29-2001 diphtheria, tetanus toxoids and acellular pertussis vaccine Solitario Blank MD Work Phone: [employer]; [facility] 08-29-2001 poliovirus vaccine, inactivated Solitario Blank MD Work Phone: [facility] 02-17-2001 haemophilus influenz ae type b vaccine, PRP-T conjugate Solitario Blank MD Work Phone: [facility].; [facility] 02-17-2001 measles, mumps and rubella virus vaccine Solitario Blank MD Work Phone: [facility].; [facility] 2000 haemophilus influenz ae type b vaccine, PRP-T conjugate Solitario Blank MD Work Phone: [facility].; [facility] 2000 diphtheria, tetanus toxoids and acellular pertussis vaccine Solitario Blank MD Work Phone: [facility].; [facility] 2000 diphtheria, tetanus toxoids and acellular pertussis vaccine Solitario Blank MD Work Phone: [facility].; [facility] 2000 haemophilus influenz ae type b vaccine, PRP-T conjugate Solitario Blank MD Work Phone: [facility].; [employer] [facility] 2000 poliovirus vaccine, inactivated Solitario Blank MD Work Phone: [facility].; [facility] 2000 diphtheria, tetanus toxoids and acellular pertussis vaccine Solitario Blank MD Work Phone: [facility].; [facility] 2000 haemophilus influenz ae type b vaccine, PRP-T conjugate Solitario Blank MD Work Phone: [facility].; [employer] [facility] 2000 poliovirus vaccine, inactivated Solitario Blank MD Work Phone: [facility].; [employer] [facility] Payers Date Payer Category Payer Self-pay 2023 Unknown [id number] 2000 Unknown [id number] 2.16.84 [id number] 2000 Unknown [id number] 2.16. [id number] 2000 Unknown [id number] 2.16. [id number] Unknown [id number] Unknown [id number] Unknown [employer] Unknown [id number] 2.16.8 [id number] Unknown [id number] 2.16.8 [id number] Unknown [id number] 2.16.8 [id number] Unknown [id number] 2.16.8 [id number] Unknown [id number] 2.16.8 40.1.083715.3.579.2.462 Unknown [id number] 2.16.8 40.1.320838.3.579.2.462 Unknown [id number] 2.16.8 40.1.199721.3.579.2.462 Unknown [id number] 2.16.8 40.1.593777.3.579.2.462 Unknown [id number] 2.16.8 40.1.413428.3.579.2.462 Unknown [id number] 2.16.8 40.1.363709.3.579.2.462 Unknown [id number] 2.16.8 40.1.749536.3.579.2.462 Unknown [id number] 2.16.8 40.1.993248.3.579.2.462 Unknown [id number] 2.16.8 40.1.508988.3.579.2.462 Unknown [id number] 2.16.8 40.1.881304.3.579.2.462 Unknown [id number] 2.16.8 40.1.647784.3.579.2.462 Unknown [id number] 2.16.8 40.1.734717.3.579.2.462 Unknown [id number] 2.16.8 40.1.161663.3.579.2.462 Unknown [id number] 2.16.8 40.1.691336.3.579.2.462 Unknown [id number] 2.16.8 40.1.653216.3.579.2.462 Unknown [id number] 2.16.8 [id number] Unknown [id number] 2.16.8 [id number] Social History Date Type Detail Facility Start: 12-24-2022 End: 07-28-2023 Tobacco smoking status ORIS Unknown if ever smoked [facility] Start: 2000 Sex Assigned At Female W [facility] Caffeine Use Caffeine Use [facility], [employer] [facility], [facility] Tobacco Use: Tobacco Use: ; N ever smoker. [facility], [facility].; [facility] Start: 10-20-2024 End: 04-10-2025 Never smoked tobacco [facility] Start: 03-03-2025 Sex Female (finding) [facility] Goals Date Patient Goal Desired Activity /State Functional Status Date Assessment Result Facility 07-29-2023 Functional status Activity Ability Indepe ndent [facility] [facility] Work Phone: Mental Status Date Assessment Result Facility 07-29-2023 Cognitive function Appropriate;Aparna beard [facility] Work Phone: Clinical Notes 12-24-2022 to 05-28-2025 Note Date & Type Note Facility 05-28-2025 Progress note [facility] 05-28-2025 Progress note Note Date/Time May 28, 2025 2:50pm [facility] [address] [place] [address], [address] [place] [address] OFFICE VISIT Date of Service: 05/28/25 MR#: [id number] Acct: [id number] Name: FAREED LORENZO Rep #: [id number] : 2000 Provider: Dr. 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 Dr. Edwards Shaquille Delivery Date: 07/28/23 Last [...] POC Urinalysis 2 Dip (Clinic) Today 05/28/25 5976 <Electronically signed by Annabelle lovett MD> Date _ Annabelle Garduno MD Cosigner Signature: Date (if applicable) CC: ~ [facility] Work Phone: [phone]) 912-725407-10-2025 Progress [facility] [address], [address] [place] [address] OFFICE VISIT Date of Service: 05/24/25 MR#: [id number] Acct: [id number] Name: FAREED LORENZO Rep #: [id number] : 2000 Provider: Dr. Bella Edwards DO Age/Sex: 25/F [place] [facility] [place]: Signed Intake Vital Signs 04/10/25 10:46 04/10/25 11:02 05/16/25 15:21 05/24/25 14:11 Height 5 ft 5 in 5 ft 5 in 5 ft 5 in 5 ft 5 in Weight: 200 lb BMI 33.3 BP 113/76 Intake Visit Reasons: 38 wk ob Press Shop Supervisor Required: No Is patient in pain?: No [...] cat(s) history of recent travel: Yes ( [place] - August 2024) out of state: Yes [...] walking frequency: daily duration: < 15 minutes/day allen/rastafarian: Mandaen seatbelt use: always do you feel safe [...] term vacuum 9lbs 5oz Male ep idural [facility] Dr. Isabel Delivery Date: 07/28/23 Last Updated [...] Cosigner Signature: Date (if applicable) CC: ~ [facility] [id number] Progress note Author Elli Saenz [facility] Note Date/Time May 24, 2025 2:29 pm [facility] [address], [address] [place] [address] OFFICE VISIT Date of Service: 05/24/25 MR#: [id number] Acct: [id number] Name: FAREED LORENZO Rep #: [id number] : 2000 Provider: Dr. 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 Date Name GA/Weeks Outcome Route Bth Weight Gen Labor Lgth Anesthesia Del Locatn Provider FOB 07/28/23 Chris 40 live - full term vacuum 9lbs 5oz Male ep idural [facility] Dr. Isabel Delivery Date: 07/28/23 Last Updated [...] and Symptoms of Preeclampsia, Feeding No and [place] Education; Discussed Circumcision preference Coding Level of [...] Systemign Signature: Date (if applicable) CC: ~ [facility] Work Phone: 1(213) 644-143407-02-2025 Progress [facility] [address], [place] [address] OFFICE VISIT Date of Service: 05/16/25 MR#: [id number] Acct: [id number] Name: FAREED LORENZO Rep #: [id number] : 2000 Provider: Dr. 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 Dr. Isabel Delivery Date: 07/28/23 Last Updated [...] Cosigner Signature: Date (if applicable) CC: ~ [facility] [id number] Progress note Author Elli Saenz [facility] Note Date/Time May 16, 2025 3:40p [facility] [address] [place] [address], [address] [place] [address] OFFICE VISIT Date of Service: 05/16/25 MR#: [id number] Acct: [id number] Name: FAREED LORENZO Rep #: [id number] : 2000 Provider: Dr. Bella Edwards DO Age/Sex: 25/F [place] [facility] [place]: Signed Intake Vital Signs 04/10/25 10:46 05/09/25 09:36 05/16/25 15:20 05/16/25 15:21 Height 5 ft 5 in 5 ft 5 in 5 ft 5 in 5 ft 5 in Weight: 198 lb BMI 32.9 BP 107/72 Intake Visit Reasons: 37 wk ob Press Shop Supervisor Required: No Is patient in pain?: No [...] animals: cat(s) history of recent travel: Yes ([place] - August 2024) out of state: Yes [...] walking frequency: daily duration: < 15 minutes/day allen/rastafarian: Mandaen seatbelt use: always do you feel safe at home: Yes additional 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 Date Name GA/Weeks Outcome Route Bth Weight Gen Labor Lgth Anesthesia Del Locatn Provider FOB 07/28/23 Chris 40 live - full term vacuum 9lbs 5oz Male ep idural [facility] Dr. Isabel Delivery Date: 07/28/23 Last Updated [...] Cosigner Signature: Date (if applicable) CC: ~ [facility] Work Phone: 1(137) 360-376006-09-2025 History and physical note [facility] Medical Records Department [address] [place] [address] OB Triage Physician Note 04/23/250 MR#: [id number] Acct: [id number] Name: FAREED LORENZO Rep #:[id number] : 2000 From: Brianna Velasquez CNM PCP: Dr. 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 Dr. Edwards Shaquille Delivery Date: 07/28/23 Last [...] variability reactive no decelerations category I tracing [place]: no Contractions Assessment and plan: Reactive NST, reassuring maternal and status patient discharged to home to follow-up in office at next appt. See problem list details for additional plan information. Charges/Coding Procedures Urinary/Genital 52xxx-59xxx: 13797-17 non-stress test Interp 04/23/25 2242 ns CNM> Date _ Brianna Velasquez CNM Cosigner Signature (if applicable): Date CC: LAYLA Velasquez; Dr. Solitario Blank MD ~ Signed [facility]05-27-2025 Progress [facility] [place] [facility] [address], [address] [place] [address] OFFICE VISIT Date of Service: 04/10/25 MR#: [id number] Acct: [id number] Name: FAREED LORENZO Rep #: [id number] : 2000 Provider: LAYLA Naylor Age/Sex: 25/F [place] [facility] [place]: Signed Intake Vital Signs 10/27/24 13:05 03/26/25 13:39 04/10/25 10:46 Height 5 ft 5 in 5 ft 5 in 5 ft 5 in Weight: 191 lb 4 oz BMI 31.8 BP 119/74 Intake Visit Reasons: 32 WK OB Chief Complaint: 32wk OB Press Shop Supervisor Required: No Is patient in pain?: No [...] occupational status: employed 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 Dr. Isabel Delivery Date: 07/28/23 Last Updated [...] Cosigner Signature: Date (if applicable) CC: ~ [facility]04-15-2025 Evaluation note* Diagnosis Onset Date [...] normal acute May 28, 2025 2:04pm [facility] Work Phone: 1(432) 568-758203-14-2025 Evaluation note* Diagnosis Onset Date Resolution Status [...] normal acut e May 09, 2025 9:33am [facility] Work Phone: 1(757) 284-590503-14-2025 Evaluation note* Diagnosis Onset Date Resolution Status [...] normal acut e May 16, 2025 3:16pm [facility] Work Phone: 1(691) 450-365303-14-2025 Evaluation note* Diagnosis Onset Date Resolution Status [...] acut e May 24, 2025 2:09pm [facility] Work Phone: 1(952) 335-720402-19-2025 Evaluation note* Diagnosis Onset Date Resolution Status [...] normal acute April 10, 2025 1 0:38am [facility] Work Phone: 1([phone]) 142-433902-19-2025 Evaluation note* Diagnosis Onset Date Resolution Status [...] 0:38am Status post fall acute April 8:15pm [facility] Work Phone: [phone]) 999-391202-19-2025 Evaluation note* Diagnosis Onset Date Resolution Status [...] of normal acute April 26, 2025 9:53am [facility] Work Phone: [phone]) [phone] Evaluation note* Diagnosis Onset Date Resolution Status [...] of normal acute February 27, 2025 8:40am [facility] Work Phone: 1(202) 953-501309-15-2023 Progress note Author Annabelle Garduno [facility] July 30, 2023 8:15am Note Date/Time July 30, 2023 8:15am [facility] Medical Records Department [facility] [place] [address] [address] Progress Note - OBGYN 09/813 MR#: [id number] Acct: [id number] Name: FAREED YOUNG Rep #:[id number] : 2000 From: Annabelle montague MD PCP: Dr. Solitario Blank MD Status:ADM IN Location: [id number] Subjective Subjective Patient doing well without complaints. [...] rubella immune 07/30/23814 <Electronically signed by Annabelle aGrduno MD> Cosigner Signature (if applicable): CC: ~ Signed [facility] Work Phone: 1(213) 503-754009-14-2023 Progress note Author Margot Bradford [facility] July 29, 2023 7:59am Note Date/Time July 29, 2023 7:59am [facility] Medical Records Department [address] [place] [address] Progress Note - OBGYN 07/29/23 0757 MR#: [id number] Acct: [id number] Name: FAREED YOUNG Rep #:[id number] : 2000 From: Margot Bradford NP IGNITER ASSEMBLER-C PCP: Dr. Solitario Blank MD Status:ADM IN [facility] Subjective Subjective Patient doing well without complaints. [...] (Auto) 73.8 H, Lymph % (Auto) 16.5 L,[place]ley % (Auto) 8.0, Eos % (Auto) 0.6, [...] 0759 <Electronically signed by Margot Bradford NP IGNITER ASSEMBLER-C> Cosigner Signature (if applicable): CC: ~ Signed [facility] Work Phone: 1([phone]) 610-370209-14-2023 Discharge summary Author Elli Saenz [facility] July 28, 2023 10:58pm Note Date/Time July 28, 2023 10:59pm [facility] Medical Records Department [address] [place] [address] Instructions for Home/Discharge Instructions 07/28/23 2258 MR#: [id number] Acct: [id number] Name: FAREED YOUNG Rep #:[id number] : [...] Up With: Elli Edwards DO When: Call [phone] to make an appointment with your doctor [...] CC: Dr. Solitario Blank MD ~ Signed [facility] Work Phone: [phone]) 161-762909-13-2023 Procedure [facility] 07-28-2023 Progress note Author Elli [facility] July 28, 2023 12:21pm Note Date/Time July 28, 2023 12:22pm [facility] Medical Records Department [address] [place] [address] Progress Note 07/28/23 1219 MR#: [id number] Acct: [id number] Name: FAREED YOUNG Rep #:[id number] : 2000 23 From: Elli Edwards DO PCP: Dr. Solitario Blank MD Status:ADM IN Location: [id number] Progress Note pt is breathing through contractions. 30cc was let out of the balloon earlier due to pain and then the balloon spontaneously expelled recently. The bleeding that was seen after insertion has subsided. She consents to AROM. current tracing: FHT: 120, Moderate variability reactive no decelerations category I tracing [place]: q 2 min Contractions cx is 5/80/-1, [...] Cosigner Signature (if applicable): CC: ~ Signed [facility] Work Phone: 1(132) [phone] History and physical note Author Elli Saenz [facility] July 28, 2023 8:27am Note Date/Time July 28, 2023 8:27am [facility] Medical Records Department [address] [place] [address] H&P Exam - WOOD CUTTER 07/28/23 0824 MR#: [id number] Acct: [id number] Name: FAREED YOUNG Rep #:[id number] : 2000 23 From: Elli Edwards DO PCP: Dr. 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 Solitario Blank MD~ Signed [facility] Work Phone: [phone]) [phone] NotePap Smear Specimen AdequacyFebruary 2022 5:09pmComment.Satisfactory for evaluation. Endocervical and/or squamous metaplasticcells (endocervical component)are present.[facility] INTERFACED A#[id number] Hospitals [facility] Medical CenterComment on above:Satisfactory for evaluation. Endocervical and/or squamous metaplasticcells (endocervical component)are present.12-24-2022 NotePap Smear Specimen AdequacyFebruary 2022 6:09pmComment.Satisfactory for evaluation. Endocervical and/or squamous metaplasticcells (endocervical component)are present.[facility] INTER[facility]ACED A#[id number] Hospitals [facility] Medical CenterComment on above:Satisfactory for evaluation. Endocervical and/or squamous metaplasticcells (endocervical component)are present.Evaluation note* Diagnosis Onset Date Resolution Status Family history of autism acu te Family history of recurrent miscarriage acute acute Supervision of high risk , antepartum acute [facility] Work Phone: evaluation note* Diagnosis Onset Date [...] Supervision of high risk , antepartum acute [facility] Work Phone: Evaluation note* Diagnosis Onset Date [...] Supervision of high risk , antepartum acute [facility] Work Phone: evaluation note* Diagnosis Onset Date [...] risk , antepartum acute UTI in acute [facility] Work Phone: Evaluation note* Diagnosis Onset Date [...] risk , antepartum acute UTI in acute [facility] Work Phone: Evaluation note* Diagnosis Onset Date [...] risk , antepartum resolved UTI in resolved [facility] Work Phone: History and physical note Author Brianna [facility] Note Date/Time April 23, 2025 10:42 pm [facility] Medical Records Department [address] [place] [address] OB Triage Physician Note 04/23/250 MR#: [id number] Acct: [id number] Name: FAREED LORENZO Rep #:[id number] : 2000 25 From: Brianna Velasquez CNM PCP: Dr. Solitario Blank MD Status:REG CL I Y Location: TW918-7 HPI - General General Date of Service: [...] animals: cat(s) history of recent travel: Yes ([place] - August 2024) out of state: Yes [...] walking frequency: daily duration: < 15 minutes/day allen/rastafarian: Mandaen seatbelt use: always do you feel safe at home: Yes additional 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 Date Name GA/Weeks Outcome Route Bth Weight Gen Labor Lgth Anesthesia Del Locatn Provider FOB 07/28/23 Chris 40 live - full term vacuum 9lbs 5oz Male ep idural [facility] Dr. Isabel Delivery Date: 07/28/23 Last Updated [...] variability reactive no decelerations category I tracing [place]: no Contractions Assessment and plan: Reactive NST, reassuring maternal and status patient discharged to home to follow-up in office at next appt. See problem list details for additional plan information. Charges/Coding Procedures Urinary/Genital 52xxx-59xxx: 14691-10 non-stress test Interp 04/23/25 1882 <Electronically signed by Brianna benito CNM> Date _ Brianna Barajasigner Signature (if applicable): Date CC: LAYLA Velasquez; Dr. Solitario Blank MD ~ Signed [facility] Work Phone: Progress note Author Radha Naylor [facility] Note Date/Time April 10, 2025 11:00 am [facility] [address] [place] [address], [address] [place] [address] OFFICE VISIT Date of Service: 04/10/25 MR#: [id number] Acct: [id number] Name: FAREED LORENZO Rep #: [id number] : 2000 Provider: LAYLA Naylor Age/Sex: 25/F [place] [facility] Status: Signed Intake Vital Signs 10/27/24 13:05 03/26/25 13:39 04/10/25 10:46 Height 5 ft 5 in 5 ft 5 in 5 ft 5 in Weight: 191 lb 4 oz BMI 31.8 BP 119/74 Intake Visit Reasons: 32 WK OB Chief Complaint: 32wk OB Press Shop Supervisor Required: No Is patient in pain?: No [...] animals: cat(s) history of recent travel: Yes ([place] - August 2024) out of state: Yes [...] walking frequency: daily duration: < 15 minutes/day allen/rastafarian: Mandaen seatbelt use: always do you feel safe at home: Yes additional 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 Date Name GA/Weeks Outcome Route Bth Weight Gen Labor Lgth Anesthesia Del Locatn Provider FOB 07/28/23 Chris 40 live - full term vacuum 9lbs 5oz Male ep idural [facility] Dr. Edwards Shaquille Delivery Date: 07/28/23 Last [...] Cosigner Signature: Date (if applicable) CC: ~ [facility] Work Phone: Reason for referral (narrative)No reason for referral information availableWAdena [facility] Work Phone: Summary Purpose Family History No [...] No July 28, 2023 7:45am Power of School Examiner No July 7:45am Chief Complaint and Reason [...] section and content) DATE CREATED AUTHOR 10/22/2018 [facility] DATE CREATED AUTHOR AUTHOR'S ORGANIZ ATION 05/04/2019 [facility] DATE CREATED AUTHOR AUTHOR'S ORGANIZ ATION 01/27/2025 [facility] DATE CREATED AUTHOR AUTHOR'S ORGANIZ ATION 05/28/2025 [facility] Care Teams (unrecognized sec tion and content) [...] Care Provider, Referring Provider Active Margot Bradford IGNITER ASSEMBLER, IGNITER ASSEMBLER-C Attending Provider Active Team Status: Inactive Member Role Status Dates Dr. Solitario Blank MD Primary Care Provider Active Margot Bradford IGNITER ASSEMBLER, IGNITER ASSEMBLER-C Attending Provider, Referring Provider Active Team Status: [...] Referring Provider, Other Provider Active Margot Bradford IGNITER ASSEMBLER, IGNITER ASSEMBLER-C Attending Provider Active Team Status: Active Member [...] 2025 End: January 03, 2025 Margot Bradford IGNITER ASSEMBLER, IGNITER ASSEMBLER-C Attending Provider Active Start: January 03, 2025 [...] 2025 End: March 26, 2025 Margot Bradford IGNITER ASSEMBLER, IGNITER ASSEMBLER-C Attending Provider Active Start: March 26, 2025 [...] 2025 End: April 26, 2025 Margot Bradford IGNITER ASSEMBLER, IGNITER ASSEMBLER-C Attending Provider Active Start: April 26, 2025 End: April 26, 2025 Team Status: Inactive Member Role Status Dates Dr. Solitario Blank MD Primary Care Provider Active Start: May 09, 2025 End: May 09, 2025 Dr. Solitario Blank MD Referring Provider Active S tart: May 09, 2025 End: May 09, 2025 Margot Bradford IGNITER ASSEMBLER, IGNITER ASSEMBLER-C Attending Provider Active Start: May 09, 2025 [...] 2025 End: March 26, 2025 Margot Bradford IGNITER ASSEMBLER, IGNITER ASSEMBLER-C Attending Provider Active Start: March 26, 2025 [...] 26, 2025 End: April 26, 2025 Margot Asnchez IGNITER ASSEMBLER, IGNITER ASSEMBLER-C Attending Provider Active Start: April 26, 2025 End: April 26, 2025 Team Status: Inactive Member Role/Relationship Status Dates Dr. Solitario Blank MD Primary Care Provider Active Start: May 09, 2025 End: May 09, 2025 Dr. Solitario Blank MD Referring Provider Active S tart: May 09, 2025 End: May 09, 2025 Margot Bradford IGNITER ASSEMBLER, IGNITER ASSEMBLER-C Attending Provider Active Start: May 09, 2025 End: May 09, 2025 Team Status: Inactive Member Role/Relationship Status Dates Dr. Solitario Blank MD Primary Care Provider Active Start: May 09, 2025 End: May 09, 2025 Margot Bradford IGNITER ASSEMBLER, IGNITER ASSEMBLER-C Attending Provider Active Start: May 09, 2025 [...] 2025 End: March 26, 2025 Margot Bradford IGNITER ASSEMBLER, IGNITER ASSEMBLER-C Attending Provider Active Start: March 26, 2025 [...] 2025 End: April 26, 2025 Margot Bradford IGNITER ASSEMBLER, IGNITER ASSEMBLER-C Attending Provider Active Start: April 26, 2025 End: April 26, 2025 Team Status: Inactive Member Role/Relationship Status Dates Dr. Solitario Blank MD Primary Care Provider Active Start: May 09, 2025 End: May 09, 2025 Dr. Solitario Blank MD Referring Provider Active S tart: May 09, 2025 End: May 09, 2025 Margot Bradford IGNITER ASSEMBLER, IGNITER ASSEMBLER-C Attending Provider Active Start: May 09, 2025 End: May 09, 2025 Team Status: Inactive Member Role/Relationship Status Dates Dr. Solitario Blank MD Primary Care Provider Active Start: May 09, 2025 End: May 09, 2025 Margot Bradford IGNITER ASSEMBLER, IGNITER ASSEMBLER-C Attending Provider Active Start: May 09, 2025 [...] BE BASED ON THE PRIMARY CLINICAL RECORDS. [facility]. provides no warranty or guarantee of the accuracy or completeness of information in this document.
[2025-05-31] VITALS (27 sets, daily range): BP systolic 98–126; BP diastolic 50–74; PULSE 74–94; RESP 16–20; TEMP 36.2–36.9; O2SAT 83–98
--- NOTE | 2025-05-31 02:44 | HP.PCM.OB_ITS ---
HPI - General General Date of Admission: 05/30/25 HPI Narrative FAREED LORENZO, is a 25 F who presents with decreased movement. she dnies any lof or vb, she had a borderline pauline wednesday at 6 cm, today it is 7.6. after discussing r/b/a decision for IOL secondary to decreased movement is made Maternal Data Information NORMA Calculator Estimated Delivery Date Method Current WG Current Estimate 06/04/25 LMP (Certain) 39w 3d Other Estimates 06/03/25 Ultrasound #1 39w 4d PFSH PFSH Medical History Vaginal delivery Family history of recurrent miscarriage Home Medications ?Medication ?Instructions ?Recorded ?Last Taken ?Type multivitamin no.47-iron fum 27 1 cap PO DAILY PREGNANC Y 12/17/22 05/30/25 History mg-folate no.1 1 mg-dha 300 mg capsule (PNV-DHA) Allergy/AdvReac Type Severity Reaction Status Date / Time No Known Allergies Allergy Verified 05/30/25 18:54 Family History Brother Autism Sister Family history of recurrent miscarriage Mother Thyroid cancer, Onset Age: 52 Sister Thyroid cancer, Onset Age: 40 Thyroid removed Father Myocardial infarction, Onset Age: 54 Social History adopted: No household members: spouse and children housing: house number of children: 1 current occupational status: employed 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 @ [employer] current occupational exposures/hazards: No pets and animals: Yes (not managing litterbox) pets and animals: cat(s) history of recent travel: Yes ([place] - August 2024) out of state: Yes out of country: No sexually active: Yes Smoking Status: Never smoker alcohol intake: never substance use type: does not use well-balanced diet: daily or most days caffeine: No eating out: rarely or never during the past year weight has: remained stable what type of physical activity do you participate in: walking frequency: daily duration: < 15 minutes/day allen/mandaeism: Samaritan seatbelt use: always do you feel safe at home: Yes additional 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: : Shaquille- Final Tester History 2 Elective abortions Hx Para 1 Spontaneous abortions Hx # Term Pregnancies 1 Ectopic pregnancies Hx # Pregnancies Multiple births # of living children 1 Past Pregnancies Del. Date Name GA/Weeks Outcome Route Bth Weight Infant Gen Labor Lgth Anesthesia Del Locatn Provider FOB 07/28/23 Chris 40 live - full term vacuum 9lbs 5oz Male ep idural [facility] Dr. Edwards Shaquille Delivery Date: 07/28/23 Last Updated by: Cesilia Hernandez GBS + Visit Details Expected Delivery Route/Plan Labor Preferences- CB/BF classes: no labor support person: Shaquille labor intervention preferences: [] pain management options preferred: epidural if requested cut cord/dad catch: cord : yes PP control planned: discussed discussed possible routes of delivery and associated risks: [] special requests: [] Plans Covid status: [] Flu vaccine: declined Tdap vaccine: declines Rhogam: NA LARC form signed: yes Problem list reviewed and updated with the most current plan of care details and appropriate orders placed. Relevant counseling for the gestational age provided. Continue routine care and follow up unless otherwise noted in visit notes/problem list details OB Flowsheet Initial Weight: 167 lb Date -?-?-?-?-?-?-?-?-?-?-?-?- EGA Weight BP Urine Prot -?-?-?-?-?-?-?-?-?-?-?-?- Glucose FHR FuHt Pres Dilation -?-?-?-?-?-?-?-?-?-?-?-?- Effaced St Visit Note 10/27/24 -?-?-?-?-?-?--?-?-?-?-?-?- 8w 4d 167 lb (+0 oz) 121/76 Negative -?-?-?-?-?-?-?-?-?-?-?-?- Negative 181 -?-?-?-?-?-?-?-?-?-?-?-?- KW- CRL cons wit h dates. NIPT undecided. will get labs next visit. 11/28/24 -?-?-?-?-?-?-?-?-?-?-?-?- 13w 1d 170 lb 8 oz (+3 lb 8 oz) 117/76 Negative -?-?-?-?-?-?-?-?-?-?-?-?- Negative 150 -?-?-?-?-?-?-?-?-?-?-?-?- SM- declines NIP T no vb crmaping 01/03/25 -?-?-?-?-?-?-?-?-?-?-?-?- 18w 2d 173 lb (+6 lb) 110/64 Negative -?-?-?-?-?-?-?-?-?-?-?-?- Negative 160 -?-?-?-?-?-?-?-?-?-?-?-?- MH-No VB. Not fe eling movement yet. Denies concerns 01/26/25 -?-?-?-?-?-?-?-?-?-?-?-?- 21w 4d 177 lb 7 oz (+10 lb 7 oz) 104/71 Negative -?-?-?-?-?-?-?-?--?-?-?-?- Negative 155 21 -?-?-?-?-?-?-?-?-?-?-?-?- LC- no vb/crampi ng. LC- no vb/cramping. 28 week labs ordered 02/27/25 -?-?-?-?-?-?-?-?-?-?-?-?- 26w 1d 183 lb 4 oz (+16 lb 4 oz) 113/67 Negative -?-?-?-?-?-?-?-?-?-?-?-?- Negative 145 27 -?-?-?-?-?-?-?-?-?-?-?-?- JV- no lof, vagi nal bleeding, or dec fm. froylan guevara today an felt very dizzy. she was given crackers and some candy after her blood draw and felt better. undecided about Tdap. 03/26/25 -?-?-?-?-?-?-?-?-?-?-?-?- 30w 0d 187 lb 8 oz (+20 lb 8 oz) 102/70 Negative -?-?-?-?-?-?-?-?-?-?-?-?- Negative 143 30 -?-?-?-?-?-?-?-?-?-?-?-?- -No VB, LOF. G ood Fm. No concerns 04/10/25 -?-?-?-?-?-?-?-?-?-?-?-?- 32w 1d 191 lb 4 oz (+24 lb 4 oz) 119/74 Negative -?-?-?-?-?-?-?-?-?-?-?-?- Negative 160 32 -?-?-?-?-?-?-?-?-?-?-?-?- - no vb/lof/ct x. good fm. no concerns today. 04/26/25 -?-?-?-?-?-?-?-?-?-?-?-?- 34w 3d 193 lb 4 oz (+26 lb 4 oz) 110/60 Negative -?-?-?-?-?-?-?-?-?-?-?-?- Negative 153 34 -?-?-?--?-?-?-?-?-?-?-?-?- -No Vb, LOF. G ood FM. Denies concerns 05/09/25 -?-?-?-?-?-?-?-?-?-?-?-?- 36w 2d 195 lb (+28 lb) 110/68 Negative -?-?-?-?-?-?-?-?-?-?-?-?- Negative 152 36 Cephalic 0 -?-?-?-?-?-?-?-?-?-?-?-?- MH-NO VB, LOF or reg CTX. GBS done. Good 05/16/25 -?-?-?-?-?--?-?-?-?-?-?-?- 37w 2d 198 lb (+31 lb) 107/72 Negative -?-?-?-?-?-?-?-?-?-?-?-?- Negative 150 37 Cephalic -?-?-?-?-?-?-?-?-?-?-?-?- JV- declines exa m today. no lof, vaginal bleeding, or dec fm. 05/24/25 -?-?-?-?-?-?-?-?-?-?-?-?- 38w 3d 200 lb (+33 lb) 113/76 -?-?-?-?-?-?-?-?-?-?-?-?- 147 37 -?-?-?-?-?-?-?-?-?-?-?-?- JV- plan vag exa m next visit. no lof, vaginal bleeding, or dec fm. 05/28/25 -?-?-?-?-?-?-?-?-?-?-?-?- 39w 0d 199 lb 6 oz (+32 lb 6 oz) 110/76 Negative -?-?-?-?-?-?-?-?-?-?-?-?- Negative 145 37 -?-?-?-?-?-?-?-?-?--?-?-?- SM- no vb lof go od fm no regular ctx uterine size date discrepancy NST FHR Rate Baby A Baseline: 130 Variability:: Moderate Accelerations:: 15 x 15 Decelerations:: None NST Reactive:: Yes FHR Category:: Category I Uterine Activity:: irregular ROS Constitutional Constitutional: Reports systems reviewed and no addt'l complaints, except as documented Eyes Eyes: Denies change in vision ENT HEENT: Reports systems reviewed and no addt'l complaints, except as documented; Denies headache(s) Cardiovascular Cardiovascular: Reports systems reviewed and no addt'l complaints, except as documented; Denies chest pain or dyspnea Respiratory/Chest Respiratory/Chest: Reports systems reviewed and no addt'l complaints, except as documented Gastrointestinal Gastrointestinal: Reports systems reviewed and no addt'l complaints, except as documented; Denies abdominal pain Genitourinary Genitourinary: Reports systems reviewed and no addt'l complaints, except as documented, contractions Details: present (irregular) and movement Details: present; Denies dysuria or genital lesions Musculoskeletal Musculoskeletal: Reports systems reviewed and no addt'l complaints, except as documented Neurologic Neurologic: Reports systems reviewed and no addt'l complaints, except as documented Endocrine Endocrinology: Reports systems reviewed and no addt'l complaints, except as documented Vital Signs Vital Signs Vital Signs: 05/30/25 18:51 05/30/25 18:51 05/30/25 18:51 Temperature Temperature Source Temporal Pulse Rate 93 Respiratory Rate Blood Pressure 119/69 BP Systolic 119 BP Diastolic 69 05/30/25 18:51 05/30/25 18:51 05/30/25 20:29 Temperature 98.8 F Temperature Source Temporal Pulse Rate Respiratory Rate 16 Blood Pressure BP Systolic BP Diastolic 05/30/25 20:29 05/30/25 20:29 05/30/25 20:29 Temperature Temperature Source Pulse Rate 82 Respiratory Rate 16 Blood Pressure 119/64 BP Systolic 119 BP Diastolic 64 05/30/25 20:29 05/31/25 00:25 05/31/25 00:25 Temperature 98.0 F Temperature Source Pulse Rate 84 Respiratory Rate Blood Pressure 110/63 BP Systolic 110 BP Diastolic 63 05/31/25 00:25 05/31/25 00:25 05/31/25 00:25 Temperature 98.2 F Temperature Source Temporal Pulse Rate Respiratory Rate 16 Blood Pressure BP Systolic BP Diastolic Weight Weight: 198 lb Body Mass Index (BMI) 32.9 Physical Exam Const alert, oriented x3, no apparent distress and healthy appearing HEENT normocephalic and moist oral mucous membranes Head and Scalp: atraumatic Neck full ROM, no lymphadenopathy, supple and thyroid normal General: trachea midline Lymph Lymphatic: no lymphadenopathy noted Chest inspection of chest normal Resp normal respiratory effort Cardio regular rate GI soft to palpation and non-tender GI Narrative: gravid Inspection: gravid external exam normal Manual OB Exam: estimated gestational size appropriate, presentation cephalic, dilated, effaced and station Extremity normal to inspection General Extremity: Negative for edema Skin no rashes or lesions noted Neuro no focal motor deficits and deep tendon reflexes 2+ bilaterally Motor Exam: strength 5/5 throughout and clonus absent Psych mental status grossly normal Labs Labs Labs: Blood Type O POSITIVE Antibody Screen NEGATIVE Hct 36.0 % (37-47) L Hgb 11.9 g/dL (12.0-15.0) L Obstetrics Ultrasound Syphilis Total Ab Nonreactive (Nonreactive) Rubella IgG Antibody Reactive (Nonreactive) Hep Bs Antigen Non-Reactive (Nonreactive) Hepatitis C Antibody Non-Reactive (Nonreactive) Chlamydia DNA (SHIRAZ) Negative (Negative) N.gonorrhoeae DNA (SHIRAZ) Negative (Negative) HIV 1&2 Antibody Nonreactive (Nonreactive) Glucose 1 Hr 50 gm 78 mg/dL (70-140) Assessment & Plan (1) Decreased movements in third trimester: (2) APULINE (amniotic fluid index) borderline low: (3) Supervision of normal : QUALIFIERS: Normal : other normal Trimester: third trimester Qualified Code(s): Z34.83 - Encounter for supervision of other normal , third trimester COMMENT: PRR, , NORMA 06/04/25, girl PC: Chris, : Shaquille (4) : QUALIFIERS: Weeks of gestation: 39 weeks Qualified Code(s): Z3A.39 - 39 weeks gestation of COMMENT: Neg GBS. anatomy nl, Discussed genetic/carrier testing - Undecided (5) Family history of autism: COMMENT: Brother PLAN: Plan Patient presents IOL, plan management for with cytotec. Pain management: plans epidural. GBS negative. Management of any complications: dec fm I have reviewed the [facility] and made any clinically relevant updates.
[2025-05-31] MEDS: Lactated Ringers 1,000 ML 50 ML IV (06:20)
[2025-05-31] MEDS: Lactated Ringers 1,000 ML 999 ML IV (06:39)
[2025-05-31] MEDS: fentaNYL-bupivacaine (epidural) 100 ML BAG EPIDURAL (07:20)
[2025-05-31] MEDS: Oxytocin 15 Units/NS 250ml 15 UNITS/250 ML IV.SOLN 334 UNITS IV (08:10)
[2025-05-31] MEDS: Oxytocin 15 Units/NS 250ml 15 UNITS/250 ML IV.SOLN 83 UNITS IV (08:50)
--- NOTE | 2025-05-31 08:58 | EX.PCM.OBVAG ---
Assessment & Plan (1) Decreased movements in third trimester: (2) PAULINE (amniotic fluid index) borderline low: (3) Supervision of normal : QUALIFIERS: Normal : other normal Trimester: third trimester Qualified Code(s): Z34.83 - Encounter for supervision of other normal , third trimester COMMENT: PRR, , NORMA 06/04/25, girl PC: Chris, : Shaquille (4) : QUALIFIERS: Weeks of gestation: 39 weeks Qualified Code(s): Z3A.39 - 39 weeks gestation of COMMENT: Neg GBS. anatomy nl, Discussed genetic/carrier testing - Undecided (5) Family history of autism: COMMENT: Brother (6) malpresentation: Maternal Data Information NORMA Calculator Estimated Delivery Date Method Current WG Current Estimate 06/04/25 LMP (Certain) 39w 3d Other Estimates 06/03/25 Ultrasound #1 39w 4d Vaginal Delivery Maternal Presentation Maternal Presentation: Medically Indicated Induction Type of Induction: Cytotec Vaginal Delivery Information Procedure Performed: Vacuum Assisted Vaginal Delivery Station at time of placement: +3 Number of vacuum pulls: 4 Number of vacuum pop offs: 3 Surgeon/Practitioner: Elli Edwards Date of Procedure: 06/05/25 Pre-Procedure Diagnosis: @ 39 weeks, decreased movement, OP presentation, decelerations Post-Procedure Diagnosis: @ 39 weeks, decreased movement, OP presentation, decelerations Type of anesthesia: Epidural Drain(s): Uterine Tamponade Balloon Estimated Blood Loss: 300cc Findings Description of procedure: Patient began pushing and decelerations were noted. She was making poor progress with pushing. The decision was made to use a kiwi vacuum device. The position was noted to be OP. The vacuum was applied and 3 pulls were performed with 3 pop offs. The tracing resolved and the head was brought to the introitus. She was then given time to push on her own until the heart rate again dropped. One last application without a pop off reslted in delivery of the head in the OP position. The head was delivered atraumatically. The anterior and posterior shoulders delivered without complication followed by the rest of the and the was placed on the maternal abdomen. Delayed cord clamping was employed for approximately 60 seconds. Cord was clamped and cut and gentle traction was applied to the cord and the placenta delivered spontaneously immediately following it was noted to be intact with three-vessel cord. The perineum and vagina were inspected and noted to have bilateral vaginal lacerations and a 2nd degree tear. These were repaired with 2-0 vicryl. EBL was 300cc. Patient and tolerated delivery well. Procedure findings: viable female scores 9/9. (name not given) Presentation: Vertex Amniotic Membrane Rupture Type: Spontaneous Amniotic Fluid Description: Clear Placental Delivery Description: Spontaneous Placenta Disposition: [facility] Specimen collected: No Cord Vessel Description: 3 Vessels Cord Entanglement: None A Gender: Female (1 minute): 9 (5 minute): 9 Delayed Cord Clamping: Yes Broom Man outside industrial sales representative: No Post Vaginal Deli Medications given after delivery: IV Pitocin Episiotomy Description: None Laceration: Vaginal Extension/lac and 2nd degree Complication Complications: No
--- NOTE | 2025-05-31 09:04 | DCINST_ITS ---
Discharge Instructions DC O2, CPAP, BIPAP needs Home O2 Discharge instructions: No Dressing / Incision Discharge Activity: Return to Normal Activity, May Not Drive (while taking narcotic pain medications.) and May Shower May resume sexual activity in: 4-6 weeks Dressing / Incision Call your doctor if your incision/area has: Continuous Slow Oozing, Sudden Increased Bleeding, Increased Pain/ Swelling, Increased Redness and Foul Smelling Discharge Call your doctor if you observe: Fever of 101 or Higher, Using more than 1 pad per hour, Shortness of breath, Dizziness, Swelling in the ankles, Chest pain and Uncontrolled pain Follow Up Care Please Follow Up With: Elli Edwards DO When: Call [phone] to make an appointment with your doctor in 6 weeks. If you had elevated blood pressure or 4th degree laceration, you will need to be seen in 2 weeks. Test Results: Test results from this visit will be discussed in further detail at your follow- up appointment, if applicable. Discharge Plan Admission Admit Date/Time: 05/30/25 19:47 Attending Provider: Annabelle Gresham Primary Care Provider: Solitario Mccabe Discharge Orders/Prescriptions Prescriptions: No Action PNV-DHA 27 mg iron-1 mg -300 mg capsule 1 cap PO DAILY Referrals / Follow Up: Solitario Mccabe MD [Primary Care Provider] -
[2025-06-01 03:32] VITALS: BP 114/59; PULSE 79; RESP 16; O2SAT 98
[2025-06-01 09:00] VITALS: BP 104/71; PULSE 100; RESP 16; TEMP 36.3; O2SAT 97
--- NOTE | 2025-06-01 17:18 | PCM.PN.OB ---
Subjective Subjective Patient doing well without complaints. Tolerating PO. Ambulating and voiding without difficulty. feeding well. Denies chest pain, shortness of breath, calf pain/swelling, fevers, chills, lightheadedness. Objective Data Objective Data Vital Signs: Vital Signs Temp Pulse Resp BP Pulse Ox O2 Del Method 97.3 F L 100 16 104/71 97 Room Air 06/01/25 09:00 06/01/25 09:00 06/01/25 09:00 06/01/25 09:00 06/01/25 09:00 06/01/25 09:00 Oxygen Delivery Method Room Air Weight: 198 lb Body Mass Index (BMI) 32.9 Intake & Output: Intake and Output for Last 24 Hours 05/30/25 05/31/25 06/01/25 23:59 23:59 23:59 Intake Total 1968.17 / 1968.17 Output Total 1100 / 1100 Balance 868.17 / 868.17 Lab / Micro Data 05/30/25 20:15 ROS Constitutional Constitutional: Reports systems reviewed and no addt'l complaints, except as documented Cardiovascular Cardiovascular: Reports systems reviewed and no addt'l complaints, except as documented Respiratory/Chest Respiratory/Chest: Reports systems reviewed and no addt'l complaints, except as documented Gastrointestinal Gastrointestinal: Reports systems reviewed and no addt'l complaints, except as documented Physical Exam Const alert, oriented x3 and no apparent distress HEENT Head and Scalp: atraumatic Resp normal respiratory effort GI soft to palpation and non-tender Bimanual Exam - Vag & Uterus: uterus non-tender Uterus Palpation: uterus fundus firm (below Umbilicus) Assessment & Plan (1) (spontaneous vaginal delivery): COMMENT: vacuum assisted -JV girl PLAN: Plan routine are dc home
== END 2025-06-01 11:30 | disposition home or self-care (01) | DRG 806 ==
LOC: WP 20:53
PROVIDERS: Admitting Provider Obstetrics & Gynecology; PCP Family Medicine; Referring Provider Obstetrics & Gynecology; Visit Provider Obstetrics & Gynecology
DX: O36.8130 Decreased fetal movements, third trimester, not applicable or unspecified (principal); Z37.0 Single live birth; O41.03X0 Oligohydramnios, third trimester, not applicable or unspecified; Z3A.39 39 weeks gestation of pregnancy; O76 Abnormality in fetal heart rate and rhythm complicating labor and delivery; O70.1 Second degree perineal laceration during delivery
CPT/HCPCS: 59025; 59050; 85025; 86780; 86850; 86900; 86901; 99221; G0378